=== PATIENT | female | born 1955 | race Caucasian/White ===

== ENCOUNTER → 2019-03-27 09:56 | Outpatient (BNVA) | payer MEDICAID, SELFPAY | PROVIDERS: Family Provider Internal Medicine; PCP Internal Medicine; Visit Provider Podiatrist Foot & Ankle Surgery | DX: Z48.89 Encounter for other specified surgical aftercare (principal); M76.61 Achilles tendinitis, right leg | CPT/HCPCS: 73630 ==

== ENCOUNTER 2019-12-30 16:58 | Inpatient (IN) | payer MEDICAID, SELFPAY ==
[2019-12-30] VITALS (9 sets, daily range): BP systolic 125–174; BP diastolic 69–92; PULSE 82–96; RESP 18–28; TEMP 36.2–37; O2SAT 91–100; BMI 64.2
--- NOTE | 2019-12-30 17:02 | XR_ITS ---
WS: [id number] Exam: XR chest 1V portable [id number] Date/Time of Exam: 12/30/2019 5:02 PM Reason For Exam: dyspnea Findings: Comparison 01/14/2019. Consolidating infiltrate noted in the lingula and left lower lobe. Probable left pleural effusion. Th ere is diffuse infiltrate in the mid and lower right lung. Heart size is within normal limits. Pulmon naa vascularity is somewhat increased. No pneumothorax. XR/XR chest 1V portable [id number] IMPRESSION: 1. Bilateral pulmonary infiltrates as noted above. 2. Probable left-sided pleural effusion with compressive atelectasis of the lef t lower lobe. 3. Pulmonary vascular congestion. Congestive heart failure with superimposed pn eumonia should be considered.
--- NOTE | 2019-12-30 17:03 | ECG_ITS ---
[facility] Test Date: 2019-12-30 Pat Name: Siobhan Lechuga Department: Room: Gender: Female Public Relations Specialist: : [id number] Requested By: Abelardo Carney Order Number: [id number] Daniel MD: Reta Parker M.D. Measurements Intervals [place] Rate: 94 P: 74 KS: 152 QRS: 112 QRSD: 90 T: 7 QT: 346 QTc: 435 Interpretive Statements SINUS RHYTHM LOW QRS VOLTAGE IN PRECORDIAL LEADS [QRS DEFLECTION < 1.0 mV IN CHEST LEADS] LEFT POSTERIOR FASCICULAR BLOCK [QRS AXIS > 109, INFERIOR Q] POSSIBLE ANTERIOR MYOCARDIAL INFARCTION , PROBABLY OLD [30 ms Q WAVE IN V3/V4, OR R < 0.2 mV IN V4] Compared to ECG 01/14/2019 12:21:53 Left posterior fascicular block now present Myocardial infarct finding now present Ventricular premature complex(es) no longer present Electronically Signed On 12-31-2019 7:17:27 CDT by Reta Parker M.D. [email or web address]
--- NOTE | 2019-12-30 17:06 | ED_ITS ---
HPI - Nausea/Vomiting/Diarrhea General: Chief complaint: Allergic Reaction Stated complaint: GEN WEAKNESS, POSS ALLERGIC RXN Time Seen by Provider: 12/30/19 16:58 Source: patient and EMS Mode of arrival: EMS Limitations: no limitations History of Present Illness: HPI Narrative: 64-year-old female presents here with EMS for allergic reaction. She states she is allergic to cats in her grandkids had a cat over her house and it was sitting on her face. She does have swelling around her eyes with her right eye swollen shut. She does not have swelling elsewhere and denies any shortness of breath or swelling in her throat. Patient has had generalized weakness and is morbidly obese. She has had diarrhea and does have feces on her legs currently. She denies any abdominal pain or fevers. Associated nausea: No Associated symtoms: Denies chest pain, dysuria, headache(s) or nausea Review of Systems Const: Denies: fever(s), chills, body aches or change in appetite Eyes: Denies: blurry vision or eye discomfort ENMT: Denies: throat pain or dental pain Card: Denies: chest pain Resp: Denies: dyspnea GI: Reports: diarrhea; Denies: abdominal pain, nausea or vomiting : Denies: dysuria Musc: Denies: neck pain or back pain Skin/Breast: Denies: rash Neuro: Reports: weakness in extremities; Denies: headache(s) Psych: Denies: depression Jorden/Lymph: Denies: easy bruising All/Imm: Reports: facial swelling; Denies: urticaria PFSH ED PFSH: Medical History Diabetes mellitus with peripheral autonomic neuropathy Gangrene Hypertension Morbid obesity PAD (peripheral artery disease) Tobacco abuse, in remission Surgical History Post-operative state Status post amputation of great toe Family History Other Diabetes Hypertension Denies family history of CAD (coronary artery disease) Clotting disorder Dementia Hyperlipidemia Psychiatric illness Chronic kidney disease (CKD) Suicide Anesthesia complication Bleeding disorder Family history of premature coronary artery disease Lung disease Cancer Stroke Social History (Reviewed 06/12/19 @ 11:30 by FLORENCE Angel Smoking and tobacco status: former smoker Marital status: Current occupational status: disabled Physical Exam Const: COMMON NORMALS: no acute distress and patient oriented x3 NUTRITIONAL APPEARANCE: obese HENMT: COMMON NORMALS: normocephalic and atraumatic HEAD & SCALP: normocephalic and atraumatic OTHER: Angioedema around eyes. No swelling in the throat no difficulty breathing Eye: COMMON NORMALS: Equal, round and reactive pupils present and EOMs intact bilaterally PUPIL: Yes Equal, round and reactive pupils present Neck/C-Spine: COMMON NORMALS: full ROM and supple Chest: COMMONS NORMALS: normal inspection of the chest and normal palpation of entire chest wall Resp: COMMON NORMALS: normal respiratory effort, No retractions, No use of accessory muscles and clear to auscultation bilaterally AUSCULTATION: clear to auscultation bilaterally Cardio: COMMON NORMALS: regular rate, regular rhythm and No murmurs present (Cardio) RATE: regular rate RHYTHM: regular rhythm GI: COMMON NORMALS: Normal to inspection, nondistended, normoactive bowel sounds present, Soft to palpation, non-tender and no masses PALPATION: Yes Soft to palpation Extremity: COMMON NORMALS: normal to inspection and full ROM Neuro: COMMON NORMALS: patient oriented x3, moves all extremities and no focal motor deficits Psych: COMMON NORMALS: mental status grossly normal, Normal thought process present and cooperative THOUGHT PROCESS: Normal thought process present Skin: COMMON NORMALS: no rashes or lesions noted and no wounds GENERAL SKIN EXAM: no rashes or lesions noted Course Vital Signs: Vital signs: Vital Signs Temperature 98.6 F 12/30/19 19:50 Pulse Rate 93 12/30/19 19:50 Respiratory Rate 24 H 12/30/19 19:50 Blood Pressure 161/69 12/30/19 19:50 Pulse Oximetry 92 12/30/19 19:50 MDM - Nausea/Vomiting/Diarrhea MDM Narrative: Medical decision making narrative: Patient presents here with generalized weakness. Patient has not been taking care of herself and was covered in feces. Patient does have some swelling around her eyes that is improved. Patient's blood work here is normal. I spoke to hospitalist will admit for generalized weakness and likely mcfp placement as she is not able to take care of her self. Lab Data: Labs: Lab Results 12/30/19 12/30/19 12/30/19 Range/Units 17:00 17:00 18:00 WBC 10.2 H (4.0-10.0) 10^3/ uL RBC 5.82 H (4.1-5.3) 10^6/u L Hgb 13.8 (11.5-15.3) g/dL Hct 50.1 H (37.0-47.0) % MCV 86.1 (81-99) fL MCH 23.7 L (28.0-34.0) pg MCHC 27.5 L (30.0-36.0) g/dL RDW 23.1 H (12.1-15.1) % Plt Count 375 (130-400) 10^3/c mm MPV 9.8 (7.4-10.4) fL Neut % (Auto) 80.5 % Lymph % (Auto) 7.4 % [place] % (Auto) 8.5 % Eos % (Auto) 2.4 % Baso % (Auto) 0.8 % Neut # (Auto) 8.19 H (1.8-7.7) 10^3/u L Lymph # (Auto) 0.8 (0.8-4.8) 10^3/u L [place] # (Auto) 0.9 (0.2-0.9) 10^3/u L Eos # (Auto) 0.2 (0.0-0.8) 10^3/u L Baso # (Auto) 0.1 (0.0-0.1) 10^3/u L Nucleated RBC % (a uto) 0 % Nucleated RBCs # 0.0 /100WBC Sodium 140 (136-145) mmol/L Potassium 4.9 (3.5-5.1) mmol/L Chloride 98 (98-107) mmol/L Carbon Dioxide 31 H (22-29) mmol/L Anion Gap 15.9 (5-19) BUN 26 H (8-23) mg/dL Creatinine 0.9 (0.5-0.9) mg/dL GFR Calculation 63.2 L (90-130) mL/min Glucose 210 H (65-115) mg/dL Calculated Osmolal ity 301 H (285-295) mOsm/k g Calcium 9.3 (8.5-10.5) mg/dL Magnesium 2.3 (1.7-2.3) mg/dL Total Bilirubin 0.5 (0.15-1.2) mg/dL AST 16 (0-32) U/L ALT 11 (0-33) U/L Alkaline Phosphata se 86 (35-105) IU/L Total Protein 8.3 (6.6-8.7) g/dL Albumin 4.0 (3.5-5.2) g/dL Globulin 4.3 (1.3-4.6) g/dL Lipase 19 (13-60) U/L Urine Color Yellow (Yellow) Urine Appearance Clear (CLEAR) Urine pH 5 (5-7) Ur Specific Gravit y 1.025 (1.005-1.030) Urine Protein Neg (Negative) Urine Glucose (UA) Norm (Normal) Urine Ketones 1+ H (Negative) Urine Blood Neg (Negative) Urine Nitrate Negative (Negative) Urine Bilirubin Neg (Negative) Urine Urobilinogen Norm (Negative) mg/dL Ur Leukocyte Shazia ase Negative (Negative) EKG Data^: EKG 1: Attestation: I personally reviewed and interpreted this EKG as follows: EKG interpretation date: 12/30/19 EKG interpretation time: 17:18 Interpretation: nsr hr [address] or t wave abnormalities qrs 90 qtc 398 Discharge Plan Discharge Patient Disposition: Admitted As Inpatient Admit Provider: Jeffrey Cantu Discharge Date/Time: 12/30/19 20:03 Coding Level of Care Code ED Legislative Director for Chg Fwd Exam Comprehensive
[2019-12-30] MEDS: famotidine 20 mg/2 mL INJ 40 MG IVP (17:25)
[2019-12-30 17:40] LABS: Basophils # 0.1 10^3/uL (0.0-0.1); Basophils % 0.8 %; Eosinophils # 0.2 10^3/uL (0.0-0.8); Eosinophils % 2.4 %; Hematocrit 50.1 % (37.0-47.0); Hemoglobin 13.8 g/dL (11.5-15.3); Lymphocytes # 0.8 10^3/uL (0.8-4.8); Lymphocytes % 7.4 %; Mean Corpuscular HGB Conc 27.5 g/dL (30.0-36.0); Mean Corpuscular Hemoglobin 23.7 pg (28.0-34.0); Mean Corpuscular Volume 86.1 fL (81-99); Mean Platelet Volume 9.8 fL (7.4-10.4); Monocytes # 0.9 10^3/uL (0.2-0.9); Monocytes % 8.5 %; Neutrophils # 8.19 10^3/uL (1.8-7.7); Neutrophils % 80.5 %; Nucleated Red Blood Cells % 0 %; Platelet Count 375 10^3/cmm (130-400); Red Blood Count 5.82 10^6/uL (4.1-5.3); Red Cell Distribution Width 23.1 % (12.1-15.1); White Blood Count 10.2 10^3/uL (4.0-10.0)
--- NOTE | 2019-12-30 17:45 | PC.NURSE ---
Notified provider unable to collect stool sample. Noted dried stool on bilateral legs/ groin. Pt tolerated with cleaning and placed pt in gown and new linen
[2019-12-30 17:47] LABS: Alanine Aminotransferase 11 U/L (0-33); Alkaline Phosphatase 86 IU/L (35-105); Anion Gap 15.9 (5-19); Aspartate Amino Transferase 16 U/L (0-32); Blood Urea Nitrogen 26 mg/dL (8-23); Calcium 9.3 mg/dL (8.5-10.5); Carbon Dioxide 31 mmol/L (22-29); Chloride 98 mmol/L (98-107); Globulin 4.3 g/dL (1.3-4.6); Glomerular Filtration Rate 63.2 mL/min (90-130); Glucose 210 mg/dL (65-115); Lipase 19 U/L (13-60); Magnesium 2.3 mg/dL (1.7-2.3); Osmolality Calculated 301 mOsm/kg (285-295); Potassium 4.9 mmol/L (3.5-5.1); Sodium 140 mmol/L (136-145); Total Bilirubin 0.5 mg/dL (0.15-1.2); Total Protein 8.3 g/dL (6.6-8.7)
--- NOTE | 2019-12-30 18:02 | PC.NURSE ---
Skin red swollen from face to breast to abdomen. Excoriation noted under breast bilateral, groin front and back. Notified provider. Marcelo placed secondary to pt inability to void. Per family pt is unable to walk today and unable to clean self after BM and voiding.
--- NOTE | 2019-12-30 18:03 | PC.NURSE ---
Pt cleaned and placed in a gown. Pt with dried feces on her legs and bottoms. Pt repositioned and chux placed, ambulance sheets removed. No stool sample at this time, not enough stool.
[2019-12-30 18:04] LABS: Add Urine Microscopic? NO
[2019-12-30 18:13] LABS: Bilirubin Urine Neg (Negative); Blood Urine Neg (Negative); Glucose Urine UA Norm (Normal); Ketones Urine 1+ (Negative); Leukocyte Esterase Urine Negative (Negative); Nitrate Urine Negative (Negative); Protein Urine Neg (Negative); Specific Gravity, Urine 1.025 (1.005-1.030); Urine Appearance Clear (CLEAR); Urine Color Yellow (Yellow); Urobilinogen Urine Norm (Negative); pH Urine 5 (5-7)
--- NOTE | 2019-12-30 18:17 | PC.NURSE ---
Pt stated she felt better after the medication.
--- NOTE | 2019-12-30 19:18 | PC.NURSE ---
Pt aware of admission. No needs at this time.
--- NOTE | 2019-12-30 19:23 | PC.NURSE ---
x2 staff repositioned pt for comfort. HOB 45% Pt stated better .
--- NOTE | 2019-12-30 20:08 | P.HP_ITS ---
Providers/Chief Complaint Admitting Physician: Jeffrey Cantu MD Primary Care Provider: Ronny Torres DO Chief Complaint: GEN WEAKNESS, POSS ALLERGIC RXN History of Present Illness Siobhan Lechuga is a 64 year old female who carries history of type 2 diabetes, osteomyelitis of right great toe status post amputation, peripheral arterial disease status post arthrectomy with stent placement from aortic bifurcation for entire length of common iliac artery, hypertension, coming in today for worsening of generalized weakness and eye swelling. Patient is stating that she is allergic to cats, her grand children brought cats, since then her eyes have been swollen, he recently has not used any new medication, she has been on lisinopril for quite a while, she is also experiencing dry cough, she has recently quit smoking, she has not experienced any chest discomfort, she is endorsing shortness of breath, palpating, PND, she uses 3 to 4 L of oxygen at home. Denying fever, dysuria, nausea, vomiting,, endorsing diarrhea. Family stating that she is not able to take care of herself anymore, she mostly stays in her bed. When she was brought to the ER she was soiled with feces all over her perineal area and legs CBC BMP unremarkable I have requested TSH, BNP which are abnormal, I have started her on Lasix, chest x-ray showing pleural effusion, vascular congestion I will give 20 mg of IV Lasix and start her on 60 mg of p.o. Lasix, get echo When I was interviewing her she kept going back to sleep during interview, she has recently received Benadryl, she was coherent, I noticed pursed lip breathing, requested blood gas Requested ciprofloxacin eyedrops, she has purulent crusting and drainage from her eyes bilaterally, I do not see any severe signs of keratitis Review of Systems Const: Reports: body aches, fatigue and malaise; Denies: fever(s) Eyes: Reports: change in vision, blurry vision, eye discomfort, eye discharge and eye redness ENMT: Denies: throat pain, odynophagia, swelling of lips/tongue or oral sores Card: Reports: swelling of feet/ankles, dyspnea on exertion and orthopnea; Denies: chest pain Resp: Reports: dyspnea and non-productive cough GI: Reports: nausea and diarrhea; Denies: abdominal pain or vomiting : Denies: flank pain Musc: Reports: extremity pain and extremity swelling; Denies: neck pain or joint warmth Skin/Breast: Reports: rash, new lesions (Extremely dry skin, skin excoriation legs soiled with feces) and lesions Neuro: Reports: difficulty walking; Denies: headache(s) Psych: Reports: anxiety and depression Endo: Denies: polyuria Jorden/Lymph: Denies: easy bruising All/Imm: Denies: urticaria Medications/Allergies Home Medications Medication Instructions Recorded Confirmed Last Taken Type albuterol sulfate 90 mcg/actuation 2 puff INHALATION Q6H PRN 03/27/19 10/23/19 Unknown History aerosol inhaler amlodipine 10 mg tablet 10 mg PO QDAY 03/27/19 10/23/19 Unknown History clopidogrel 75 mg tablet 75 mg PO QDAY 03/27/19 10/23/19 Unknown History fluticasone furoate 100 1 inh INHALATION Q24H 03/27/19 10/23/19 Unknown History mcg/actuation blister powder for inhalation lisinopril 20 mg tablet 20 mg PO QDAY 03/27/19 10/23/19 Unknown History sertraline 100 mg tablet 100 mg PO QDAY 03/27/19 10/23/19 Unknown History Allergies Allergy/AdvReac Type Severity Reaction Status Date / Time aspirin Allergy Unknown Unknown Verified 06/12/19 11:30 citalopram Allergy Unknown Unknown Verified 06/12/19 11:30 codeine Allergy Unknown Unknown Verified 06/12/19 11:30 PFSH Acute PFSH: Medical History Diabetes mellitus with peripheral autonomic neuropathy Gangrene Hypertension Morbid obesity PAD (peripheral artery disease) Tobacco abuse, in remission Surgical History Post-operative state Status post amputation of great toe Family History Other Diabetes Hypertension Denies family history of CAD (coronary artery disease) Clotting disorder Dementia Hyperlipidemia Psychiatric illness Chronic kidney disease (CKD) Suicide Anesthesia complication Bleeding disorder Family history of premature coronary artery disease Lung disease Cancer Stroke Social History Smoking and tobacco status: former smoker Marital status: Current occupational status: disabled Vitals/I&O/Wt Last Vital Signs Temp 98.6 F 12/30/19 19:50 Pulse 93 12/30/19 19:50 Resp 24 H 12/30/19 19:50 BP 161/69 12/30/19 19:50 Pulse Ox 92 12/30/19 19:50 Weight last 48 hrs Weight 144.242 kg Physical Exam Narrative: EXAM NARRATIVE: Morbidly obese female Patient goes back to sleep during interview Bilateral eyelid swelling, no pain with eye movement, mild crusting and purulent drainage noticed No severe signs of keratitis Cushingoid appearance Pursed lip breathing Coherent, awake alert oriented x3, GCS 15 Signs of fluid overload, Saturating well on 4 L nasal cannula S1, S2 active signs of fluid overload Abdomen distended, soft, nontender, bowel sound present Bilateral diminished breath sounds at the bases, no active wheezing or stridor No lip swelling Bilateral lower extremity edema 1+ bilaterally Multiple erythema nodosum on her legs, lacerations, Extremely dry skin, skin excoriation, leg soiled with feces Marcelo catheter draining clear urine Urinary Catheter Management^: Marcelo: Cath Placed During This Visit: yes Reason for Continuing Indwelling Catheter: Other Urinary Catheter Date of Insertion: 12/30/19 Urinary Catheter Time of Insertion: 17:45 Data : 12/30/19 17:00 12/30/19 17:00 A&P Assessment and plan (1) New onset of congestive heart failure: Status: Acute (2) Generalized weakness: Status: Acute (3) Swollen eyelid: Status: Acute (4) Pleural effusion: Status: Acute (5) Morbid obesity: Status: Acute Additional A&P Information New onset CHF I do believe morbid obesity, possible sleep apnea has a role here to play which has caused CHF, patient at home is not on CPAP, I do not see any sleep studies report in the past Echo in the morning, I will give her 20 mg IV Lasix for now Start her on 60 mg of Lasix considering fluid overload. bilateral pleural effusion with vascular congestion on chest imaging Check TSH, A1c level Bilateral eyelid swelling Crusting with purulent drainage, would use ciprofloxacin eyedrop No severe signs of keratitis Consider ophthalmology consult in the morning, patient is stating that she is allergic to cats and her symptoms started after she was exposed to cat at home I would hold lisinopril as well Start her on Benadryl and Solu-Cortef Generalized weakness Check TSH, obtain ABG I do suspect sleep apnea, will put her on auto CPAP overnight, currently showing pursed lip breathing after getting Benadryl, her Marcelo catheter should be removed in the morning currently she is drowsy after getting Benadryl and getting IV Lasix Peripheral arterial disease No acute decompensation No active ulcers, well-healed granulated tissue of right toe Full code DVT prophylaxis Lovenox Cardiac diet Physical therapy evaluation in the morning Attestations Medical Necessity Statement*: Anticipating discharge in less than 48 hours, she will need physical therapy evaluation, management of new onset CHF Time Spent in Patient Care: (>than 50% of time spent in counselling and/or direct pt care on unit) . 40mins Coding Level of Care Code Acute Clock And Watch Hands Dipper for Chg Fwd Diagnoses New onset of congestive heart failure I50.9 Generalized weakness R53.1 Swollen eyelid H02.849 Pleural effusion J90 Morbid obesity E66.01
[2019-12-30 20:52] LABS: NT Pro B Type Natriuretic Pept 1747 pg/mL (0-125)
[2019-12-30] MEDS: hydrocortisone 100 mg/2 mL SDV 50 MG IVP (20:59)
[2019-12-30 21:01] LABS: Thyroid Stimulating Hormone 4.54 uIU/mL (0.27-4.20)
[2019-12-30] MEDS: lisinopril 20 mg Tablet PO (21:14)
[2019-12-30] MEDS: clopidogrel 75 mg Tablet PO (21:14)
[2019-12-30] MEDS: sertraline 100 mg Tablet PO (21:14)
[2019-12-30] MEDS: enoxaparin 40 mg/0.4 mL Syringe SUBCUT (21:15)
[2019-12-30] MEDS: FUROsemide 10 mg/mL SDV 2mL 20 MG IVP (21:22)
[2019-12-30] MEDS: ciprofloxacin 0.3% Op Soln 2.5 mL Btl 1 DROP EYE-BOTH (21:24)
[2019-12-30 21:56] LABS: Glucose Point of Care 194 mg/dL (70-110)
[2019-12-30 22:09] LABS: Estmated Average Glucose 237; Hemoglobin A1C 9.9 % (4.0-6.0)
[2019-12-30 23:33] LABS: Free T4 Free Thyroxine 1.11 ng/dL (0.82-1.77)
[2019-12-31] VITALS (13 sets, daily range): BP systolic 101–140; BP diastolic 61–78; PULSE 74–95; RESP 14–20; TEMP 36.2–36.6; O2SAT 89–94
[2019-12-31 02:28] LABS: Arterial Blood Gas Hematocrit 41.6 % (37-47); Base Excess ABG 0.5 mmol/L (-2.0-2.0); Blood Gas Allen Test P; Blood Gas Sample Site LEFT RADIAL; Blood Gas Sample Type ARTERIAL; HCO3 ABG 28.2 mmol/L (22-26); Oxygen Device NC
--- NOTE | 2019-12-31 03:39 | PC.NURSE ---
Respiratory therapist reported to nurse that patient would not arouse when attempting to speak with her about wearing her c-pap and drawing a blood gas. This nurse went in to assess the patient finding the patient difficult to arouse and responded to moderate stimulation. Patient was able to open her eyes when asked to but would not fully wake up. After further assessing the patient, patient was able to state her name, , and location, but not the time of day, year, or month. Blood gas was drawn by RT assisted by this nurse. Patient continues to be confused on time of day saying It's the middle of the afternoon I need to get up. Patient has attempted to get out of bed twice after being educated on using call light to ask for assistance. Patient was educated on being a fall risk and that it is not safe at this time for her to get out of bed on her own. Bed alarm is set with call light in reach and patient has been oriented to the room. Upon admission, patient was A&O x3 with a history of dementia.
[2019-12-31 05:46] LABS: Basophils % 0.2 %; Hematocrit 45.6 % (37.0-47.0); Hemoglobin 12.3 g/dL (11.5-15.3); Lymphocytes # 0.3 10^3/uL (0.8-4.8); Lymphocytes % 3.4 %; Mean Corpuscular Hemoglobin 23.7 pg (28.0-34.0); Mean Corpuscular Volume 87.7 fL (81-99); Mean Platelet Volume 10.1 fL (7.4-10.4); Monocytes # 0.2 10^3/uL (0.2-0.9); Monocytes % 2.2 %; Neutrophils # 8.65 10^3/uL (1.8-7.7); Neutrophils % 93.7 %; Nucleated Red Blood Cells % 0 %; Platelet Count 304 10^3/cmm (130-400); Red Cell Distribution Width 22.7 % (12.1-15.1); White Blood Count 9.2 10^3/uL (4.0-10.0)
[2019-12-31 06:15] LABS: Anion Gap 15.7 (5-19); Blood Urea Nitrogen 32 mg/dL (8-23); Carbon Dioxide 28 mmol/L (22-29); Chloride 101 mmol/L (98-107); Glucose 268 mg/dL (65-115); Osmolality Calculated 304 mOsm/kg (285-295); Potassium 5.7 mmol/L (3.5-5.1); Sodium 139 mmol/L (136-145)
[2019-12-31 06:34] LABS: Glucose Point of Care 255 mg/dL (70-110)
[2019-12-31 06:55] LABS: D Dimer 3.84 ug/mIFEU (0-0.59)
[2019-12-31] MEDS: losartan 50 mg Tablet 25 MG PO (08:26)
[2019-12-31] MEDS: clopidogrel 75 mg Tablet PO (08:29)
[2019-12-31] MEDS: FUROsemide 20 mg Tablet 60 MG PO (08:29)
[2019-12-31] MEDS: ipratropium-albuterol 3 mL Neb INHALATION ×2 (08:45→20:01)
--- NOTE | 2019-12-31 09:37 | PC.CHAP ---
Pastoral Care Encounter/Spiritual Assessment Type of Contact [] Declined mechanical shovel operator visit [] Patient/Family/Request visit [] Outpatient visit [] Follow-up visit [] Physician referral [] Code/Alert [] Routine visit [] Staff referral [] Actively dying [] Patient sleeping [] Family support [] [] Out of room [] Palliative care [] [] Receiving care in room [] Pre-surgical visit [] Trauma [] Long length of stay [] ICU visit [] Other: Relational/Emotional Strength [] Patient feels connected with others/family/visitors/staff [] Distress [] Loneliness/isolation [] Abandonment Spirituality of Patient [x] Person of Amaris [] Attends Confucianist of their Amaris [] Believes in Prayer [] Reads Bible or Oriental Orthodox materials [] There are Spiritual issues to be addressed Taximeter Repairer Interventions [x] Prayer [] Active listening [] Non-anxious presence [] Spiritual/emotional support [] Crisis/trauma care [] Spiritual counseling [] Bereavement support [] Provided bereavement packet [] Provided Bible/devotional materials [] Provided toy/stuffed animal, coloring book to patient or family member [] Provided Communion [] Anointing/[place] [] Salvation [] Completed spiritual assessment [] Other: Impact on Illness or Injury [] Angry [] Fearful [] Anxious [] Often cries [] Exhaustion [] Unable to work [] Unable to attend oriental orthodox [] Unable to walk/stand [] Unable to read [] Unable to drive [] Unable to eat/drink [] Unable to sleep [] Unable to be with family [] Patient intubated [] Other: Summary patgient feeling better Time spent with patient 10 min
[2019-12-31] MEDS: ciprofloxacin 0.3% Op Soln 2.5 mL Btl 1 DROP EYE-BOTH ×4 (10:14→22:03)
[2019-12-31] MEDS: hydrocortisone 100 mg/2 mL SDV 50 MG IVP (10:15)
[2019-12-31] MEDS: nystatin powder 15 gm Btl 1 APPLIC TOPICAL ×2 (10:17→17:55)
--- NOTE | 2019-12-31 10:43 | PM.PN ---
Subjective Subjective: Interval history: Patient had noted improvement in eye symptoms. Was sitting up in chair with out any discomfort Vitals/I&O/Wt Last Vital Signs Temp 97.7 F 01/01/20 08:00 Pulse 72 01/01/20 07:53 Resp 17 01/01/20 07:53 BP 94/63 01/01/20 07:49 Pulse Ox 93 01/01/20 07:53 12/31/19 01/01/20 01/01/20 22:59 06:59 14:59 Intake Total 0 / 0 0 / 0 Balance 0 / 0 0 / 0 Weight last 48 hrs Weight 158.667 kg Weight 144.242 kg Physical Exam Narrative: EXAM NARRATIVE: Morbidly obese female Awake alert and oriented x 3 Bilateral eyelid swelling, no pain with eye movement, mild crusting with out any purulent discharge No severe signs of keratitis Cushingoid appearance Pursed lip breathing Coherent, awake alert oriented x3, GCS 15 Signs of fluid overload, Saturating well on 4 L nasal cannula S1, S2 active signs of fluid overload Abdomen distended, soft, nontender, bowel sound present Bilateral diminished breath sounds at the bases, no active wheezing or stridor No lip swelling Bilateral lower extremity edema 1+ bilaterally Multiple erythema nodosum on her legs, lacerations, Extremely dry skin, skin excoriation, leg soiled with feces Marcelo catheter draining dark urine Urinary Catheter Management^: Marcelo: Cath Placed During This Visit: yes Reason for Continuing Indwelling Catheter: Accurate Measurement of Urinary Output in Critically Ill Patients Urinary Catheter Date of Insertion: 12/30/19 Urinary Catheter Time of Insertion: 17:45 Data : 01/01/20 07:35 01/01/20 07:35 Micro: Microbiology 01/01/20 05:08 Blood Culture - Preliminary Blood SPECIMEN COLLECTED 01/01/20 05:03 Blood Culture - Preliminary Blood SPECIMEN COLLECTED 12/31/19 10:20 C.difficile Toxin B Gene (PCR) - Final Stool Routine Collection A&P Assessment and plan (1) New onset of congestive heart failure: Status: Acute (2) Generalized weakness: Status: Acute (3) Swollen eyelid: Status: Acute (4) Pleural effusion: Status: Acute (5) Morbid obesity: Status: Acute Additional A&P Information New onset CHF - Diuresis started on admisison -Repeat labs in am - Echo pendng Bilateral eyelid swelling - Started on ciprodex gtt - WIll consider optho however improving will hold Generalized weakness - PT/OT on consult Peripheral arterial disease No acute decompensation No active ulcers, well-healed granulated tissue of right toe Full code DVT prophylaxis Lovenox Cardiac diet Attestations Medical Necessity Statement*: Patient will require further hospitalization for management of fluid overload status as well as new onset heart failure requiring IV lasix Coding Level of Care Code Acute Drafter Apprentice for Chg Fwd Diagnoses New onset of congestive heart failure I50.9 Generalized weakness R53.1 Swollen eyelid H02.849 Pleural effusion J90 Morbid obesity E66.01
--- NOTE | 2019-12-31 11:22 | PC.NURSE ---
While performing hygiene on pt boil was discovered under left arm a small amount of white drainage came out when area was wiped down pt denies knowledge of boil being present.
[2019-12-31 12:47] LABS: Glucose Point of Care 287 mg/dL (70-110)
[2019-12-31 18:06] LABS: Glucose Point of Care 308 mg/dL (70-110)
[2019-12-31 19:58] LABS: Glucose Point of Care 270 mg/dL (70-110)
[2019-12-31] MEDS: enoxaparin 40 mg/0.4 mL Syringe SUBCUT ×2 (20:28→22:54)
--- NOTE | 2019-12-31 20:31 | USCV_ITS ---
Siobhan Lechuga Age: 64 Gender: F : 1955 Exam Date: 12/31/2019 05:59 Ordering Phys: Jeffrey Cantu MD Technologist: Ricardo Mathis Exam Location: [facility] [place] Indication: CHF BP: / HR: Rhythm: Sinus Technical Quality: NO WINDOWS MEASUREMENTS (Male / Female) Normal Values FINDINGS Left Ventricle Right Ventricle Right Atrium Left Atrium Mitral Valve Aortic Valve Tricuspid Valve Pulmonic Valve Pericardium Aorta CONCLUSIONS No images noted study is not reportable, please order repeat study or transesophageal echocardiogram if clinically indicated. Jeffrey Rider MD (Electronically Signed) Final Date: 31 December 2019 19:13 S
[2019-12-31 20:43] LABS: ABG PH Result 7.15 (7.35-7.45); Arterial Blood Gas Hematocrit 38.4 % (37-47); Base Excess ABG 1.6 mmol/L (-2.0-2.0); Blood Gas Allen Test Pos; Blood Gas Sample Site Radial, left; Blood Gas Sample Type Arterial; HCO3 ABG 33.2 mmol/L (22-26); Oxygen Device CARE CUBE; PO2 ABG 86.2 mmHg (80.0-100.0)
--- NOTE | 2019-12-31 20:44 | ECG_ITS ---
[facility] Test Date: 2019-12-31 Pat Name: Siobhan Lechuga Department: Room: 263 Gender: Female Studio Associate: : 1955 Requested By: Paz Hansen Order Number: [id number] Reading MD: Measurements Intervals [place] Rate: 79 P: 54 AL: 170 QRS: 95 QRSD: 89 T: -18 QT: 392 QTc: 451 Interpretive Statements SINUS RHYTHM BORDERLINE RIGHT AXIS DEVIATION [QRS AXIS > 90] LOW QRS VOLTAGE [QRS DEFLECTION < 0.5/1.0 mV IN LIMB/CHEST LEADS] POSSIBLE ANTERIOR MYOCARDIAL INFARCTION [30 ms Q WAVE IN V3/V4, OR R < 0.2 mV IN V4], OF INDETERMINATE AGE Compared to ECG 12/30/2019 17:18:28 Left posterior fascicular block no longer present Myocardial infarct finding still present [email or web address]
--- NOTE | 2019-12-31 20:45 | XR_ITS ---
WS: [id number] Exam: XR chest 1V portable [id number] Date/Time of Exam: 12/31/2019 9:23 PM Reason For Exam: dyspnea Findings: There is increasing infiltrate in the right lower lung zone since previous study. There is also infil trate in the left lower lobe and left pleural effusion. The heart is enlarged. Pulmonary vascularity is increased. No pneumothorax. XR/XR chest 1V portable [id number] IMPRESSION: 1. Increasing consolidating infiltrate in the right lower lobe since prior exam . 2. Left lower lobe consolidation and left pleural effusion. 3. Cardiac enlargement with pulmonary vascular congestion.
[2019-12-31 21:36] LABS: Basophils % 0.2 %; Eosinophils % 0.1 %; Hematocrit 43.5 % (37.0-47.0); Hemoglobin 11.5 g/dL (11.5-15.3); Lymphocytes # 0.5 10^3/uL (0.8-4.8); Lymphocytes % 3.9 %; Mean Corpuscular HGB Conc 26.4 g/dL (30.0-36.0); Mean Corpuscular Hemoglobin 23.8 pg (28.0-34.0); Mean Corpuscular Volume 89.9 fL (81-99); Mean Platelet Volume 10.1 fL (7.4-10.4); Monocytes # 1.3 10^3/uL (0.2-0.9); Monocytes % 10.2 %; Neutrophils # 10.83 10^3/uL (1.8-7.7); Neutrophils % 85.2 %; Nucleated Red Blood Cells % 0 %; Platelet Count 360 10^3/cmm (130-400); Red Blood Count 4.84 10^6/uL (4.1-5.3); Red Cell Distribution Width 22.8 % (12.1-15.1); White Blood Count 12.7 10^3/uL (4.0-10.0)
[2019-12-31 21:53] LABS: Alanine Aminotransferase 10 U/L (0-33); Albumin Level 3.4 g/dL (3.5-5.2); Alkaline Phosphatase 73 IU/L (35-105); Anion Gap 10.3 (5-19); Aspartate Amino Transferase 10 U/L (0-32); Blood Urea Nitrogen 37 mg/dL (8-23); Calcium 8.6 mg/dL (8.5-10.5); Carbon Dioxide 32 mmol/L (22-29); Chloride 101 mmol/L (98-107); Globulin 3.7 g/dL (1.3-4.6); Glomerular Filtration Rate 32.6 mL/min (90-130); Glucose 271 mg/dL (65-115); Osmolality Calculated 304 mOsm/kg (285-295); Potassium 5.3 mmol/L (3.5-5.1); Sodium 138 mmol/L (136-145); Total Bilirubin 0.2 mg/dL (0.15-1.2); Total Protein 7.1 g/dL (6.6-8.7)
[2019-12-31 21:57] LABS: SARS Covid-2 Antigen Negative (Negative)
--- NOTE | 2019-12-31 22:04 | PM.MISC ---
Miscellaneous Note Purpose of Documentation: unresponsive state Note: I was called by the nurse at around 8:30 PM to report that the patient was unresponsive to verbal and tactile and painful stimulus. An ABG was immediately performed which showed hypercapnic respiratory failure with acidosis with 7.1 5/96/86/30 3.2. She was placed on BiPAP once these results were obtained. Last charted urine output is at 250 mL this morning. The evening or night nurse supervisor has not noted any significant urine output either. It appears patient was admitted yesterday for CHF exacerbation. Echocardiogram was ordered, however appears stable no images therefore there is no interpretation as of now. On examination, patient was noted to be extremely lethargic, initially nonresponsive, after being placed on BiPAP for about 15 minutes, her mental status did start to improve, she was able to follow my commands to move her arms and legs and answer yes or no to simple questions. Plan: Start patient on BiPAP now. Repeat ABG in 1 hour Stop oral Lasix and change to 40 mg IV every 12 hours. Monitor strict CARLOS and daily weight. Uncertain if she has a past history of COPD as well. Start on methylprednisolone 30 mg IV every 8 for possibility of COPD exacerbation. Noted to have an elevated D-dimer of 3.84, no past D-dimer in the system to compare. For now, give Lovenox 1 mg/kg stat. Serum creatinine has increased from 1-1.6 on repeat CMP, will avoid contrast studies including CTA. VQ scan ordered for tomorrow morning. Leukocytosis at 12.7 with predominant neutrophilia of 10, start levofloxacin 750 mg p.o. daily. Stat labs including CBC, CMP, troponin and EKG series Check rapid Covid antigen Echocardiogram ordered again. Stat chest x-ray Above events discussed with patient's noted next of kin which is his son George and [id number] Yumiko. They tell me that patient has previously known wishes wherein she has wanted not to be placed on a ventilator. she communicated this to her family as recently as yesetrday. In accordance, her CODE STATUS has been changed from Full code to DNR/DNI. Family understands that if Bipap fails and her wishes are do not intubate, she may have a poor outcome by way of respiratory failure.
[2019-12-31 22:14] LABS: Arterial Blood Gas Hematocrit 36.6 % (37-47); Base Excess ABG 2.5 mmol/L (-2.0-2.0); Blood Gas Allen Test Pos; Blood Gas Sample Site Radial, left; Blood Gas Sample Type Arterial; HCO3 ABG 32.7 mmol/L (22-26); Oxygen Device BIPAP; PO2 ABG 67.6 mmHg (80.0-100.0)
[2019-12-31 22:15] LABS: ABG PCO2 83.6 mmHg (35-45)
[2019-12-31 22:29] LABS: Troponin(5th) Baseline 21 ng/L (0-10)
--- NOTE | 2019-12-31 22:44 | ECG_ITS ---
[facility] Test Date: 2019-12-31 Pat Name: Siobhan Lechuga Department: Room: 263 Gender: Female Cardiology Associate: : [id number] Requested By: Paz Hansen Order Number: [id number] Reading MD: Measurements Intervals [place]abella Rate: 65 P: 56 NJ: 162 QRS: 96 QRSD: 90 T: -8 QT: 401 QTc: 419 Interpretive Statements SINUS RHYTHM BORDERLINE RIGHT AXIS DEVIATION [QRS AXIS > 90] LOW QRS VOLTAGE [QRS DEFLECTION < 0.5/1.0 mV IN LIMB/CHEST LEADS] ABNORMAL QRS-T ANGLE [QRS-T AXIS DIFFERENCE > 60] Compared to ECG 12/31/2019 21:07:14 Myocardial infarct finding no longer present [id number]
[2019-12-31] MEDS: FUROsemide 10 mg/mL SDV 4mL 40 MG IVP (22:52)
[2019-12-31] MEDS: enoxaparin 100 mg/mL Syringe SUBCUT (22:54)
[2019-12-31] MEDS: cefTRIAXone 1,000 MG in sodium chloride 0.9% (plus) 50 ML 100 MG IV (22:54)
[2019-12-31 23:01] LABS: Lactate (Lactic Acid level) 0.9 mmol/L (0.5-2.2)
[2019-12-31 23:42] LABS: Troponin 5 2HR 19.82 ng/L (0-10)
[2019-12-31 23:46] LABS: Troponin 5 2HR Delta -1.18 ABS# (0-10)
[2019-12-31 23:51] LABS: Procalcitonin 0.09 ng/mL (0-0.5)
[2020-01-01] VITALS (19 sets, daily range): BP systolic 94–128; BP diastolic 57–89; PULSE 66–90; RESP 14–21; TEMP 35.9–37; O2SAT 92–98
--- NOTE | 2020-01-01 02:44 | ECG_ITS ---
[facility] Test Date: 2020-01-01 Pat Name: Siobhan Lechuga Department: Room: 263 Gender: Female Resource Teacher: : 1955 Requested By: Paz Hansen Order Number: [id number] Reading MD: Measurements Intervals [place] Rate: 76 P: 63 WV: 169 QRS: 96 QRSD: 89 T: 1 QT: 375 QTc: 422 Interpretive Statements SINUS RHYTHM BORDERLINE RIGHT AXIS DEVIATION [QRS AXIS > 90] LOW QRS VOLTAGE [QRS DEFLECTION < 0.5/1.0 mV IN LIMB/CHEST LEADS] POSSIBLE ANTERIOR MYOCARDIAL INFARCTION [30 ms Q WAVE IN V3/V4, OR R < 0.2 mV IN V4], PROBABLY OLD Compared to ECG 12/31/2019 23:34:52 Myocardial infarct finding now present [id number]
[2020-01-01 03:24] LABS: Troponin 5 6HR 22.56 ng/L (0-10); Troponin 5 6HR Delta 1.56 ng/L (0-12)
[2020-01-01 03:36] LABS: ABG PH Result 7.26 (7.35-7.45); Arterial Blood Gas Hematocrit 38.3 % (37-47); Base Excess ABG 2.3 mmol/L (-2.0-2.0); Blood Gas Allen Test Pos; Blood Gas Sample Site Radial, left; Blood Gas Sample Type Arterial; Carboxyhemoglobin 1.6 %THgb (0.4-20.1); HCO3 ABG 31.2 mmol/L (22-26); HGB O2 Sat 93.2 % (95-100); Ionized Calcium Level - ABG 1.2 mmol/L (1.1-1.4); Methemoglobin 0.2 % (0.4-1.5); Oxygen Device BIPAP; PO2 ABG 71.3 mmHg (80.0-100.0); Potassium Level - ABG 5.3 mmol/L (3.5-5.0); Total Hemoglobin 12.5 g/dL (12-16)
[2020-01-01] MEDS: azithromycin 500 MG in sodium chloride 0.9% 250 ML 250 MG IV (04:57)
[2020-01-01 06:20] LABS: Glucose Point of Care 226 mg/dL (70-110)
[2020-01-01 06:48] LABS: ABG PH Result 7.26 (7.35-7.45); Arterial Blood Gas Hematocrit 38.2 % (37-47); Base Excess ABG 2.8 mmol/L (-2.0-2.0); Blood Gas Allen Test Pos; Blood Gas Sample Site Radial, left; Blood Gas Sample Type Arterial; HCO3 ABG 31.8 mmol/L (22-26); Oxygen Device BIPAP; PO2 ABG 71.5 mmHg (80.0-100.0)
[2020-01-01 06:50] LABS: ABG PCO2 71.2 mmHg (35-45)
[2020-01-01] MEDS: nystatin powder 15 gm Btl 1 APPLIC TOPICAL ×2 (09:15→18:16)
[2020-01-01] MEDS: ciprofloxacin 0.3% Op Soln 2.5 mL Btl 1 DROP EYE-BOTH ×4 (09:15→22:02)
[2020-01-01] MEDS: FUROsemide 10 mg/mL SDV 4mL 40 MG IVP (09:18)
[2020-01-01 09:22] LABS: ABG PCO2 70.5 mmHg (35-45)
[2020-01-01 10:01] LABS: Basophils % 0.2 %; Eosinophils % 0.1 %; Hematocrit 46.5 % (37.0-47.0); Hemoglobin 12.4 g/dL (11.5-15.3); Lymphocytes # 0.4 10^3/uL (0.8-4.8); Lymphocytes % 3.3 %; Mean Corpuscular HGB Conc 26.7 g/dL (30.0-36.0); Mean Corpuscular Hemoglobin 23.8 pg (28.0-34.0); Mean Corpuscular Volume 89.4 fL (81-99); Mean Platelet Volume 10.3 fL (7.4-10.4); Monocytes # 0.7 10^3/uL (0.2-0.9); Monocytes % 5.5 %; Neutrophils # 10.78 10^3/uL (1.8-7.7); Neutrophils % 90.6 %; Nucleated Red Blood Cells % 0 %; Platelet Count 325 10^3/cmm (130-400); Red Cell Distribution Width 23.1 % (12.1-15.1); White Blood Count 11.9 10^3/uL (4.0-10.0)
[2020-01-01 10:05] LABS: Alanine Aminotransferase 9 U/L (0-33); Albumin Level 3.5 g/dL (3.5-5.2); Alkaline Phosphatase 65 IU/L (35-105); Anion Gap 17.4 (5-19); Aspartate Amino Transferase 13 U/L (0-32); Blood Urea Nitrogen 41 mg/dL (8-23); Carbon Dioxide 27 mmol/L (22-29); Chloride 99 mmol/L (98-107); Globulin 3.7 g/dL (1.3-4.6); Glomerular Filtration Rate 30.4 mL/min (90-130); Glucose 246 mg/dL (65-115); Osmolality Calculated 304 mOsm/kg (285-295); Potassium 5.4 mmol/L (3.5-5.1); Sodium 138 mmol/L (136-145); Total Bilirubin 0.3 mg/dL (0.15-1.2); Total Protein 7.2 g/dL (6.6-8.7)
[2020-01-01 11:23] LABS: Glucose Point of Care 221 mg/dL (70-110)
--- NOTE | 2020-01-01 11:45 | P.PN_ITS ---
Subjective Subjective: Interval history: Overnight patient was noted to have worsening mental status change as well as respiratory status. Found to have Hypercapnic respiratory failure. She was started on Bipap. No fever, chills, nausea or vomiting. Medications: Reviewed: Yes Vitals/I&O/Wt Last Vital Signs Temp 97.7 F 01/01/20 11:00 Pulse 83 01/01/20 11:31 Resp 20 H 01/01/20 11:31 BP 119/89 01/01/20 11:00 Pulse Ox 95 01/01/20 11:31 12/31/19 01/01/20 01/01/20 22:59 06:59 14:59 Intake Total 0 / 0 0 / 0 Balance 0 / 0 0 / 0 Weight last 48 hrs Weight 158.667 kg Weight 144.242 kg Physical Exam Narrative: EXAM NARRATIVE: Morbidly obese female General: Drowsy on BiPAP HEENT: Bilateral eyelid swelling - improved, no pain with eye movement, mild crusting with out any purulent discharge CVS : S1, S2 , No obvious murmurs Chest : Decrease BS at bases Abdomen: soft, nontender, bowel sound present Extremity : Bilateral lower extremity edema 1+ bilaterally Urinary Catheter Management^: Marcelo: Cath Placed During This Visit: yes Reason for Continuing Indwelling Catheter: Accurate Measurement of Urinary Output in Critically Ill Patients Urinary Catheter Date of Insertion: 12/30/19 Urinary Catheter Time of Insertion: 17:45 Data : 01/01/20 07:35 01/01/20 07:35 Micro: Microbiology 12/31/19 10:20 Enteric Pathogens (PCR) - Final Stool Routine Collection 01/01/20 05:08 Blood Culture - Preliminary Blood SPECIMEN COLLECTED 01/01/20 05:03 Blood Culture - Preliminary Blood SPECIMEN COLLECTED 12/31/19 10:20 C.difficile Toxin B Gene (PCR) - Final Stool Routine Collection A&P Assessment and plan (1) New onset of congestive heart failure: Status: Acute (2) Generalized weakness: Status: Acute (3) Swollen eyelid: Status: Acute (4) Pleural effusion: Status: Acute (5) Morbid obesity: Status: Acute Additional A&P Information Acute respiratory failure with hypoxemic / hypercapnic - Etiology Multi-factorial - fluid vs infection superimposed on likely underlying chronic obstructive pulmonary disease - Baseline o2 requirements at 4L via NC - Worsening respiratory failure on 12/30 - 12/30 - . Chest x-ray bilateral pulmonary infiltrates, left sided pleural effusion with pulmonary vascular congestion - 12/31 - Chest x-ray - Increasing consolidating infiltrates in right lower lobe, left lower lobe consolidation plus cardiomegaly with vascular congestion - ABG - 7.15, PCO 96, HCO3 33.2 on 4L - Started on Bipap - post intervention PCO improved to 71.2 - Fio2 40% - D-dimer - > 3.85 - V/Q scan ordered however with pulmonary finding may be inaccurate. May consider stating Heparin gtt pending improvment of renal function - Consult discussed with Dr. Gilliland ( pulmonary medicine ) - See below for management of differntial dx 02 dependent COPD exacerbation - Continue DuoNeb q6hr scheduled - Solu-medrol 30 mg IV q8hr - Add pulmicort 0.5 mg Inh BID - Will place consult to pulmonary medicine - Repeat chest x-ray in am Suspected Multi-focal Pneumonia - Pro-calcitonin 0.09 - Possibly component of aspiration - Sputum culture if possible to obtain - D/C Rocephin/azithromycin - SARS2 COVID rapid - negative - Start Zosyn 3.375 g IV Q8hr - Follow up on blood culture x 2 - May consider repeat COVID 19 PCR Acute HF exacerbation - Unable to obtain ECHO due to body habitus - May require JOELLE once stable - Monitor daily weight - Started on Lasix 40 mg IV BID - May have to hold diuresis due to worsening renal function - May consider cardiology consult Right sided facial edema vs cellulitis - Will add vancomycin pharmacy to dose - Suspected allergic reaction to cat vs angioedema from paul-inhibitor - Stop paul-inhibitor - Solu-medrol as noted above - Improving from admission Acute renal failure - Creatinine 0.9 on admit - Increased to 1.7 - Cautious diuresis - May have to hold - Nephrology consult to assist with diuresis - Hold ARB - Renally dose meds - Monitor urine output - Marcelo in place Hyperkalemia - K increased to 5.4 - Will give kayexelate once tolerating PO - Lasix given - Monitor on telemetry Noninsulin dependent Diabetes Mellitus - Sliding scale insulin - If blood sugars persistently high will add Reported Diarrhea - C-diff toxin - negative - Stool culture sent on admit - stable currently 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 - Foot x-ray - no evidence of osteo - Wound care consult - Podiatry Hypertension - Losartan on hold - PRN antihypertensive Peripheral arterial disease - Hx of common iliac obstruction s/p arthrectomy/stent placed - Aspirin not continued to reported allergy - Plavix 75 mg PO daily ( Once able to tolerate PO ) - Cardiology outpatient GI ppx - Protonix 40 mg IV daily DVT ppx - Lovenox 40 mg SQ daily Diet : NPO while on BiPAP Additional Medical History 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 Tobacco abuse Peripheral Neuropathy Morbid Obesity Attestations Medical Necessity Statement*: Noted to have worsening respiratory failure, acute kidney injury, developing pneumonia vs fluid overload which will require additional days in hospital. Anticipate over 2 midnight stay. 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
[2020-01-01] MEDS: ipratropium-albuterol 3 mL Neb INHALATION ×3 (12:27→20:40)
[2020-01-01] MEDS: pantoprazole 40 mg SDV IVP (13:40)
--- NOTE | 2020-01-01 14:29 | P.CONIM_ITS ---
Providers/Reason For Consult Consulting Physican/Specialty*: alexus man md/ telenephrologu Reason for Consult*: MIN Attending Physician: Melissa Feliz Primary Care Provider: Ronny Torres DO History of Present Illness History of Present Illness Siobhan Lechuga is a 64 year old female with type 2 DM, morbid obesity, COPD, PVD s/p stents and Rt great toe OM and amputation, htn. pt was admitted on 12-30-19 w/ sob, edema, facial swelling. she had Q of allergic reaction. she was madan ated w/ lasix, abx. she went into MIN- baseline cr 0.5 in 2019. c r on admission 0.9 now cr 1.7 mg/dl. Pt was dx w/ hypercapneic resp acidosis and has been using bipap. pt remains swollen and SOB. given MIN- renal was called. Review of Systems General: Reports: 10 or more systems reviewed and unremarkable except in HPI and below Narrative: weak, sob, facvial edema, ROPER, orthopnea, wheezing, has a bustillos, found w/ stool down leg on admission, confused, weak Meds/Allergies Home Medications and Allergies Home Medications Medication Instructions Recorded Confirmed Last Taken Type albuterol sulfate 90 mcg/actuation 2 puff INHALATION Q6H PRN 03/27/19 12/31/19 Unknown History aerosol inhaler amlodipine 10 mg tablet 10 mg PO DAILY 03/27/19 12/31/19 Unknown History clopidogrel 75 mg tablet 75 mg PO DAILY 03/27/19 12/31/19 Unknown History fluticasone furoate 100 1 inh INHALATION Q24H 03/27/19 12/31/19 Unknown History mcg/actuation blister powder for inhalation lisinopril 20 mg tablet 20 mg PO DAILY 03/27/19 12/31/19 Unknown History sertraline 100 mg tablet 100 mg PO DAILY 03/27/19 12/31/19 Unknown History Allergies Allergy/AdvReac Type Severity Reaction Status Date / Time aspirin Allergy Unknown Unknown Verified 06/12/19 11:30 citalopram Allergy Unknown Unknown Verified 06/12/19 11:30 codeine Allergy Unknown Unknown Verified 06/12/19 11:30 Current Medications Current Medications Generic Name Dose Route Start Last Admin Trade Name Freq PRN Reason Stop Dose Admin Albuterol/Ipratropium 3 ml 12/30/19 20:31 12/31/19 20:01 Duoneb INHALATION 3 ml Q4H PRN Administration SHORTNESS OF BREATH Albuterol/Ipratropium 3 ml 01/01/20 15:00 01/01/20 12:27 Duoneb INHALATION 3 ml Q6H.RESPIRATORY KD Administration Ciprofloxacin HCl 1 drop 12/30/19 21:10 01/01/20 13:53 Ciloxan EYE-BOTH 01/02/20 09:00 1 drop QID KD Administration Protocol Clopidogrel Bisulfate 75 mg 12/30/19 20:31 01/01/20 10:44 Plavix PO Not Given DAILY KD Enoxaparin Sodium 40 mg 12/30/19 20:31 12/31/19 20:28 Lovenox SUBCUT 40 mg Q24H KD Administration Furosemide 40 mg 12/31/19 22:15 01/01/20 09:18 Lasix IVP 40 mg Q12H KD Administration Insulin Aspart 0 unit 12/30/19 21:00 01/01/20 12:32 Novolog SUBCUT 6 unit WM&BEDTIME KD Administration Protocol Methylprednisolone Sodium Succinate 30 mg 12/31/19 21:15 01/01/20 05:01 Solu-Medrol IVP 30 mg Q8H KD Administration Nystatin 1 applic 12/31/19 09:00 01/01/20 09:15 Nystatin Powder TOPICAL 1 applic BID KD Administration Pantoprazole Sodium 40 mg 01/01/20 12:00 01/01/20 13:40 Protonix IVP 40 mg DAILY KD Administration PFSH Acute PFSH: Medical History Diabetes mellitus with peripheral autonomic neuropathy Gangrene Hypertension Morbid obesity PAD (peripheral artery disease) Tobacco abuse, in remission Surgical History Post-operative state Status post amputation of great toe Family History Other Diabetes Hypertension Denies family history of CAD (coronary artery disease) Clotting disorder Dementia Hyperlipidemia Psychiatric illness Chronic kidney disease (CKD) Suicide Anesthesia complication Bleeding disorder Family history of premature coronary artery disease Lung disease Cancer Stroke Social History Smoking and tobacco status: former smoker Marital status: Current occupational status: disabled Vitals/I&O/Wt Last Vital Signs Temp 97.6 F 01/01/20 14:27 Pulse 90 01/01/20 14:27 Resp 16 01/01/20 14:27 BP 113/68 01/01/20 14:27 Pulse Ox 94 01/01/20 14:27 12/31/19 01/01/20 01/01/20 22:59 06:59 14:59 Intake Total 0 / 0 0 / 0 480 / 480 Balance 0 / 0 0 / 0 480 / 480 Weight last 48 hrs Weight 158.667 kg Weight 144.242 kg Physical Exam Narrative: EXAM NARRATIVE: morbdily obese in chair, confused , SOB, using nc o2 heent- nc/at, eomi, anicteric neck obese lungs wheezes heart rrr abd soft, NT, ND, +BS ext b/l edema neuro- a,a, o x 2 pulses + b/l + bustillos catheter Urinary Catheter Management^: Bustillos: Cath Placed During This Visit: yes Reason for Continuing Indwelling Catheter: Accurate Measurement of Urinary Output in Critically Ill Patients Urinary Catheter Date of Insertion: 12/30/19 Urinary Catheter Time of Insertion: 17:45 Data Micro: Micro: Microbiology 12/31/19 10:20 Enteric Pathogens (PCR) - Final Stool Routine Col lection 01/01/20 05:08 Blood Culture - Pr eliminary Blood SPECIMEN [facility] 01/01/20 05:03 Blood Culture - Pr eliminary Blood SPECIMEN [facility] 12/31/19 10:20 C.difficile Toxin B Gene (PCR) - Fin al Stool Routine Col lection A&P Additional A&P Information 64 yr old female morbid obesity, htnm dm, COPD 1. MIN - Q CRS.Q hemodynamic effect of diuresis. -can be from ARB and diuretic -check renal us- doubt obstruction -check ck, doubt rhabdo -may need to tolerate a higher cr to help diurese 2. hypercapneic resp acidosis - bipap, steroids 3. Q of CHF- unable to get good views w/ an echo- clinically appears in CHF= agree w/ lasix 4/ Q of PNA on abx. consider chest ct scan 5. BP low now- no paul-i or arb 6. 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
--- NOTE | 2020-01-01 15:31 | PM.CONSULT ---
Providers/Reason For Consult Consulting Physican/Specialty*: Pulmonary critical care medicine Reason for Consult*: Worsening bilateral lung infiltrate with hypoxic respiratory failure Attending Physician: Melissa Feliz Primary Care Provider: Ronny Torres DO History of Present Illness History of Present Illness Siobhan Lechuga is a 64 year old female who presented to the hospital with worsening shortness of breath and generalized swelling and was diagnosed with new onset heart failure. The patient is DNI DNR. The patient has super morbid obesity with a BMI of 70. She also carries a diagnosis of COPD however I could not find any previous pulmonary function test. I also did not find any previous CT scan of the chest. There is a chest x-ray from last year which did not reveal any significant hyperinflation. The patient gives me history of significant smoking. According to the patient she quit smoking about a month ago. Hospital admission chest x-ray revealed bilateral perihilar infiltrate with upper lobe diversion and possible pleural effusion. She was treated with diuretics. Over the course of the hospital admission, the patient was started on broad-spectrum antibiotics, IV steroid. The patient has developed MIN with worsening acidosis and hyperkalemia. She also has mild leukocytosis. The patient has uncontrolled diabetes with an A1c of 9.9. Her procalcitonin level was normal at 0.09. Her initial blood gas revealed chronic hypercapnic respiratory failure. The patient developed worsening acute on chronic hypercapnic respiratory failure and required BiPAP support overnight. When I went to see the patient today she was sitting in a chair and looked much more comfortable. A chest x-ray obtained this morning revealed bilateral infiltrate again. I had performed a bedside ultrasound. The patient has bilateral B-lines. Her IVC was also dilated. The patient had no documented fever since she presented to the hospital. The patient also has significant peripheral vascular disease. There is no previous echocardiogram or cardiac stress test available from before. Review of Systems Narrative: The review of system was limited because of the patient's clinical condition. The patient complained of mild cough and exertional shortness of breath. She also endorsed chronic body ache, fatigue and malaise. She has bilateral lower extremity swelling. Meds/Allergies Home Medications and Allergies Home Medications Medication Instructions Recorded Confirmed Last Taken Type albuterol sulfate 90 mcg/actuation 2 puff INHALATION Q6H PRN 03/27/19 12/31/19 Unknown History aerosol inhaler amlodipine 10 mg tablet 10 mg PO DAILY 03/27/19 12/31/19 Unknown History clopidogrel 75 mg tablet 75 mg PO DAILY 03/27/19 12/31/19 Unknown History fluticasone furoate 100 1 inh INHALATION Q24H 03/27/19 12/31/19 Unknown History mcg/actuation blister powder for inhalation lisinopril 20 mg tablet 20 mg PO DAILY 03/27/19 12/31/19 Unknown History sertraline 100 mg tablet 100 mg PO DAILY 03/27/19 12/31/19 Unknown History Allergies Allergy/AdvReac Type Severity Reaction Status Date / Time aspirin Allergy Unknown Unknown Verified 06/12/19 11:30 citalopram Allergy Unknown Unknown Verified 06/12/19 11:30 codeine Allergy Unknown Unknown Verified 06/12/19 11:30 Current Medications Current Medications Generic Name Dose Route Start Last Admin Trade Name Freq PRN Reason Stop Dose Admin Albuterol/Ipratropium 3 ml 12/30/19 20:31 12/31/19 20:01 Duoneb INHALATION 3 ml Q4H PRN Administration SHORTNESS OF BREATH Albuterol/Ipratropium 3 ml 01/01/20 15:00 01/01/20 12:27 Duoneb INHALATION 3 ml Q6H.RESPIRATORY KD Administration Ciprofloxacin HCl 1 drop 12/30/19 21:10 01/01/20 13:53 Ciloxan EYE-BOTH 01/02/20 09:00 1 drop QID KD Administration Protocol Clopidogrel Bisulfate 75 mg 12/30/19 20:31 01/01/20 10:44 Plavix PO Not Given DAILY KD Enoxaparin Sodium 40 mg 12/30/19 20:31 12/31/19 20:28 Lovenox SUBCUT 40 mg Q24H KD Administration Insulin Aspart 0 unit 12/30/19 21:00 01/01/20 12:32 Novolog SUBCUT 6 unit WM&BEDTIME KD Administration Protocol Nystatin 1 applic 12/31/19 09:00 01/01/20 09:15 Nystatin Powder TOPICAL 1 applic BID KD Administration Pantoprazole Sodium 40 mg 01/01/20 12:00 01/01/20 13:40 Protonix IVP 40 mg DAILY KD Administration PFSH Acute PFSH: Medical History Diabetes mellitus with peripheral autonomic neuropathy Gangrene Hypertension Morbid obesity PAD (peripheral artery disease) Tobacco abuse, in remission Surgical History Post-operative state Status post amputation of great toe Family History Other Diabetes Hypertension Denies family history of CAD (coronary artery disease) Clotting disorder Dementia Hyperlipidemia Psychiatric illness Chronic kidney disease (CKD) Suicide Anesthesia complication Bleeding disorder Family history of premature coronary artery disease Lung disease Cancer Stroke Social History Smoking and tobacco status: former smoker Marital status: Current occupational status: disabled Vitals/I&O/Wt Last Vital Signs Temp 97.6 F 01/01/20 14:27 Pulse 90 01/01/20 14:27 Resp 16 01/01/20 14:27 BP 113/68 01/01/20 14:27 Pulse Ox 94 01/01/20 14:27 01/01/20 01/01/20 01/01/20 06:59 14:59 22:59 Intake Total 0 / 0 480 / 480 Balance 0 / 0 480 / 480 Weight last 48 hrs Weight 349 lb 12.8 oz Weight 318 lb Physical Exam Narrative: EXAM NARRATIVE: General: Patient is awake alert and oriented, in mild to moderate distress with moving from chair to bed Neck: Unable to assess JVD Respiratory: Auscultation: Diffuse crackles bilaterally, no wheezing, occasional rhonchi Cardiovascular: Regular rate and rhythm, S1-S2 present, very distant heart sound, no murmur, bilateral pitting peripheral edema. Abdomen: Soft, nontender, distended from obesity, positive bowel sound Musculoskeletal: Previous to amputation Skin: No rash Neuro: Mental status is normal, no gross cranial nerve deficit, gross motor function is normal Urinary Catheter Management^: Marcelo: Cath Placed During This Visit: yes Reason for Continuing Indwelling Catheter: Accurate Measurement of Urinary Output in Critically Ill Patients Urinary Catheter Date of Insertion: 12/30/19 Urinary Catheter Time of Insertion: 17:45 Data Micro: Micro: Microbiology 12/31/19 10:20 Enteric Pathogens (PCR) - Final Stool Routine Col lection 01/01/20 05:08 Blood Culture - Pr eliminary Blood SPECIMEN [facility] 01/01/20 05:03 Blood Culture - Pr eliminary Blood SPECIMEN [facility] 12/31/19 10:20 C.difficile Toxin B Gene (PCR) - Fin al Stool Routine Col lection Other Data: Attestation for Other Data: I personally reviewed and interpreted the following: Other data: I have reviewed the patient laboratory, microbiologic and radiologic data. Please see the HPI for detail. A&P Assessment and plan (1) Acute on chronic respiratory failure with hypoxia and hypercapnia: The patient has acute on chronic hypoxic and hypercapnic respiratory failure. I believe the etiology for the acute worsening of hypoxia is likely secondary to cardiogenic pulmonary edema. Pneumonia cannot be completely excluded however the patient does not have any fever, sputum production, significant elevation of white cell count, and appears nontoxic which would all go against a diagnosis of pneumonia. The patient is currently receiving vancomycin and Zosyn, the combination is known to cause acute kidney injury. Given the absence of any significant evidence for MRSA pneumonia I would discontinue the vancomycin. I will obtain a nasal MRSA PCR. For the time being I will continue with Zosyn and add azithromycin. We will get an urine Legionella antigen. I believe the patient would benefit significantly from aggressive diuresis. Her Lasix dose was increased to 60 IV twice daily. Status: Acute (2) Pulmonary edema: The patient likely has heart failure with preserved ejection fraction. Unfortunately because of his body habitus no echocardiogram could be obtained. She does not have any previous echocardiogram as well. The patient has multiple risk factors for heart failure with preserved ejection fraction. Her sex, obesity, diabetes and hypertension predispose her for the development of diastolic heart failure. The patient is most likely in cardiorenal syndrome which is causing prerenal like picture with elevated urinary specific gravity on admission. That diuretics will help. I am checking a BNP. Status: Acute (3) Acute kidney injury: There are multiple etiologies for her MIN. The patient likely has cardiorenal syndrome in addition the combination of vancomycin and Zosyn is known to cause MIN. I expect the creatinine to get better with better diuresis in the next 48 hours or so. Status: Acute (4) Pneumonia: For now we will continue with Zosyn and azithromycin. Status: Acute (5) Morbid obesity with BMI of 70 and over, adult: The patient most likely has obesity hypoventilation syndrome as well. She would likely qualify for BiPAP at night. It is also possible that the patient is deciding because of her sleep apnea at nighttime. She could use BiPAP at night. Thank you for the consultation. 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
[2020-01-01 15:47] LABS: NT Pro B Type Natriuretic Pept 3221 pg/mL (0-125)
[2020-01-01 16:30] LABS: Glucose Point of Care 251 mg/dL (70-110)
[2020-01-01] MEDS: sodium polystyrene sulfonate 15 gm/60 mL Btl 30 GM PO (16:54)
[2020-01-01] MEDS: piperacillin-tazobactam 3.375 GM in sodium chloride 0.9% (plus) 50 ML IV ×2 (16:55→22:02)
[2020-01-01] MEDS: FUROsemide 10 mg/mL SDV 10mL 60 MG IVP (18:16)
[2020-01-01 19:57] LABS: Glucose Point of Care 267 mg/dL (70-110)
[2020-01-01] MEDS: budesonide 0.5 mg/2 mL Neb INHALATION (20:40)
[2020-01-01] MEDS: enoxaparin 40 mg/0.4 mL Syringe SUBCUT (22:02)
[2020-01-01 22:23] LABS: Glucose Point of Care 265 mg/dL (70-110)
[2020-01-01 23:35] LABS: Potassium, Radom Urine 27 mmol/L; Urine Creatinine 92 mg/dL (28-217); Urine Random Chloride 86 mmol/L; Urine Random Sodium 79 mmol/L
[2020-01-01 23:38] LABS: Urine Protein Random 24 mg/dL
[2020-01-02] VITALS (17 sets, daily range): BP systolic 101–141; BP diastolic 57–84; PULSE 76–94; RESP 14–20; TEMP 36.6–36.9; O2SAT 88–98; BMI 70.9
[2020-01-02 00:31] LABS: Eosinophil Urine No Eosinophils Seen
[2020-01-02] MEDS: ipratropium-albuterol 3 mL Neb INHALATION ×3 (02:39→20:38)
[2020-01-02] MEDS: azithromycin 500 MG in sodium chloride 0.9% 250 ML 250 MG IV (04:31)
[2020-01-02] MEDS: FUROsemide 10 mg/mL SDV 10mL 60 MG IVP ×2 (05:08→08:17)
[2020-01-02] MEDS: piperacillin-tazobactam 3.375 GM in sodium chloride 0.9% (plus) 50 ML IV ×3 (05:46→22:29)
[2020-01-02 05:56] LABS: Alanine Aminotransferase 8 U/L (0-33); Albumin Level 3.1 g/dL (3.5-5.2); Alkaline Phosphatase 57 IU/L (35-105); Anion Gap 14.2 (5-19); Aspartate Amino Transferase 10 U/L (0-32); Blood Urea Nitrogen 49 mg/dL (8-23); Calcium 8.7 mg/dL (8.5-10.5); Carbon Dioxide 30 mmol/L (22-29); Chloride 101 mmol/L (98-107); Globulin 3.2 g/dL (1.3-4.6); Glomerular Filtration Rate 22.5 mL/min (90-130); Glucose 208 mg/dL (65-115); Magnesium 2.3 mg/dL (1.7-2.3); Osmolality Calculated 309 mOsm/kg (285-295); Phosphorus 4.8 mg/dL (2.5-4.5); Potassium 5.2 mmol/L (3.5-5.1); Sodium 140 mmol/L (136-145); Total Bilirubin 0.3 mg/dL (0.15-1.2); Total Protein 6.3 g/dL (6.6-8.7)
[2020-01-02 07:00] LABS: Glucose Point of Care 193 mg/dL (70-110)
--- NOTE | 2020-01-02 07:43 | PM.PN ---
Subjective Subjective: Interval history: lethargic, sob on bipap Medications: Reviewed: Yes Medication Review Details: Current Medications Albuterol/Ipratropium (Duoneb) 3 ml INHALATION Q4H PRN PRN Reason: SHORTNESS OF BREATH Last Admin: 12/31/19 20:01 Dose: 3 ml Documented by: Albuterol/Ipratropium (Duoneb) 3 ml INHALATION Q6H.RESPIRATORY KD Last Admin: 01/02/20 02:39 Dose: 3 ml Documented by: Budesonide (Pulmicort) 0.5 mg INHALATION BID.RESPIRATORY KD Last Admin: 01/01/20 20:40 Dose: 0.5 mg Documented by: Ciprofloxacin HCl (Ciloxan) 1 drop EYE-BOTH QID KD; Protocol Stop: 01/02/20 09:00 Last Admin: 01/01/20 22:02 Dose: 1 drop Documented by: Clopidogrel Bisulfate (Plavix) 75 mg PO DAILY [facility] Last Admin: 01/01/20 10:44 Dose: Not Given Documented by: Dextrose (D50w) 25 ml IVP ONCE PRN; Protocol PRN Reason: hypoglycemia protocol Dextrose (D50w) 50 ml IVP PRN PRN; Protocol PRN Reason: hypoglycemia protocol Diphenhydramine HCl (Benadryl) 25 mg PO Q12H PRN PRN Reason: Eye swelling Enoxaparin Sodium (Lovenox) 40 mg SUBCUT Q24H KD Last Admin: 01/01/20 22:02 Dose: 40 mg Documented by: Furosemide (Lasix) 60 mg IVP Q12H KD Last Admin: 01/02/20 05:08 Dose: 60 mg Documented by: Glucagon (Glucagen) 1 mg IM ONCE PRN; Protocol PRN Reason: Adult Acute Hypoglycemia Prot. Dextrose (D5w) 500 mls @ 100 mls/hr IV ONCE PRN; Protocol PRN Reason: Adult Acute Hypoglycemia Prot Piperacillin Sod/Tazobactam (Sod 3.375 gm/ Sodium Chloride) 50 mls @ 12.5 mls/hr IV Q8H KD; Protocol Last Admin: 01/02/20 05:46 Dose: 12.5 mls/hr Documented by: Azithromycin 500 mg/ Sodium (Chloride) 250 mls @ 250 mls/hr IV Q24H KD; Protocol Last Admin: 01/02/20 04:31 Dose: 250 mls/hr Documented by: Insulin Aspart (Novolog) 0 unit SUBCUT WM&BEDTIME KD; Protocol Last Admin: 01/01/20 22:42 Dose: 8 unit Documented by: Nystatin (Nystatin Powder) 1 applic TOPICAL BID [facility] Last Admin: 01/01/20 18:16 Dose: 1 applic Documented by: Pantoprazole Sodium (Protonix) 40 mg IVP DAILY [facility] Last Admin: 01/01/20 13:40 Dose: 40 mg Documented by: Vitals/I&O/Wt Last Vital Signs Temp 98.3 F 01/02/20 07:32 Pulse 84 01/02/20 07:35 Resp 14 01/02/20 07:32 BP 118/76 01/02/20 07:32 Pulse Ox 98 01/02/20 07:35 01/01/20 01/02/20 01/02/20 22:59 06:59 14:59 Intake Total 290 / 770 50 / 820 Output Total 275 / 275 Balance 15 / 495 50 / 545 Weight last 48 hrs Weight 159.302 kg Weight 158.667 kg Physical Exam Narrative: EXAM NARRATIVE: morbdily obese in bed, lethargic, minimally responsive, using FM/ bipap heent- nc/at, eomi, anicteric neck obese lungs wheezes and crackles heart rrr abd soft, NT, ND, +BS ext b/l edema neuro- lethargic, responsive pulses + b/l + bustillos catheter Urinary Catheter Management^: Bustillos: Cath Placed During This Visit: yes Reason for Continuing Indwelling Catheter: Acute Urinary Retention or Obstruction Urinary Catheter Date of Insertion: 12/30/19 Urinary Catheter Time of Insertion: 17:45 Data : 01/01/20 07:35 01/02/20 04:58 Micro: Microbiology 01/01/20 05:08 Blood Culture - Preliminary Blood NEGATIVE TO DATE 01/01/20 05:03 Blood Culture - Preliminary Blood NEGATIVE TO DATE 01/01/20 21:00 Legionella Urinary Antigen - Final Urine Catheterized 12/31/19 10:20 Enteric Pathogens (PCR) - Final Stool Routine Collection A&P Additional A&P Information 64 yr old female morbid obesity, htn dm, COPD 1. MIN - Q CRS.Q hemodynamic effect of diuresis. -can be from ARB and diuretic -check renal us- doubt obstruction -check ck, doubt rhabdo -may need to tolerate a higher cr to help diurese -pt is very sob - if does not respond to lasix drip- would consider dialysis 2. hypercapneic resp acidosis - bipap, steroids. appreciate pulm input -repeat abg 3. Q of CHF- unable to get good views w/ an echo- clinically appears in CHF= agree w/ lasix drip 4/ Q of PNA on abx. consider chest ct scan- abx per pulm 5. BP low now- no paul-i or arb 6. 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
--- NOTE | 2020-01-02 07:47 | US_ITS ---
WS: [id number] RENAL ULTRASOUND HISTORY: Acute renal insufficiency. COMPARISON: None available. TECHNIQUE: 2-D and color Doppler imaging of the kidney submitted. Neither kidney is identified by ultrasound. Probably due to patient's body habitus. No ascites identi fied. US/US renal BI* [id number] IMPRESSION: Nondiagnostic evaluation of the kidneys. Neither kidney is identified.
--- NOTE | 2020-01-02 07:47 | XR_ITS ---
WS: [id number] Exam: XR chest 1V portable [id number] Date/Time of Exam: 01/02/2020 7:47 AM Reason For Exam: chf Comparison 12/31/2019. Improved right pulmonary infiltrates since previous exam. There is still residual infiltrate in the r ight lower lung zone and the left base. Heart size is enlarged but unchanged. The upper lung zones ar e clear. XR/XR chest 1V portable [id number] IMPRESSION: 1. Improved right pulmonary infiltrates since previous exam but no other change .
[2020-01-02] MEDS: pantoprazole 40 mg SDV IVP (08:17)
[2020-01-02] MEDS: clopidogrel 75 mg Tablet PO (08:18)
[2020-01-02] MEDS: ciprofloxacin 0.3% Op Soln 2.5 mL Btl 1 DROP EYE-BOTH (08:18)
[2020-01-02] MEDS: nystatin powder 15 gm Btl 1 APPLIC TOPICAL (08:18)
[2020-01-02 08:42] LABS: Creatine Phosphokinase 13 U/L (26-192); NT Pro B Type Natriuretic Pept 2220 pg/mL (0-125)
[2020-01-02 08:54] LABS: ABG PCO2 53.5 mmHg (35-45); ABG PH Result 7.38 (7.35-7.45); Arterial Blood Gas Hematocrit 37.1 % (37-47); Base Excess ABG 5.2 mmol/L (-2.0-2.0); Blood Gas Allen Test Pos; Blood Gas Operator Identificat glc; Blood Gas Sample Site Brachial, right; Blood Gas Sample Type Arterial; HCO3 ABG 31.6 mmol/L (22-26); Oxygen Device NC; PO2 ABG 66.7 mmHg (80.0-100.0)
--- NOTE | 2020-01-02 09:26 | PC.NURSE ---
Dr. Montelongo gave this nurse new orders to change the lasix drip IV at 8mg, not on a titration drip, order edited per doctors orders, see MAR for further details.
--- NOTE | 2020-01-02 09:53 | PC.NURSE ---
Therapy transferred patient up to chair this morning and is now transferring patient back to bed. Tolerated chair well, alert and oriented.
[2020-01-02] MEDS: FUROsemide 100 MG in sodium chloride 0.9% 40 ML IV (10:50)
[2020-01-02 11:25] LABS: Glucose Point of Care 186 mg/dL (70-110)
--- NOTE | 2020-01-02 11:35 | PM.PN ---
Subjective Subjective: Interval history: This morning patient was examined, she is actually sitting up into a chair, on 4 L nasal cannula, she is alert oriented x2, she does not know the date, but knows why she is here, knows the time, knows her date of , she feels like she is doing better this morning, no fevers overnight, no chills, no chest pain, no lightheadedness, no dizziness, she feels that the swelling of her legs have gone down, however the urine catheter does bother her, Vitals/I&O/Wt Last Vital Signs Temp 98.4 F 01/02/20 11:29 Pulse 88 01/02/20 11:29 Resp 17 01/02/20 11:29 BP 110/66 01/02/20 11:29 Pulse Ox 94 01/02/20 11:29 01/01/20 01/02/20 01/02/20 22:59 06:59 14:59 Intake Total 290 / 770 50 / 820 240 / 240 Output Total 275 / 275 550 / 550 Balance 15 / 495 50 / 545 -310 / -310 Weight last 48 hrs Weight 159.302 kg Weight 158.667 kg Physical Exam Const: COMMON NORMALS: no acute distress ORIENTATION/CONSCIOUSNESS: Yes awake, Yes oriented to person and Yes oriented to place; not oriented to time HENMT: COMMON NORMALS: normocephalic HEAD & SCALP: normocephalic Neck/C-Spine: COMMON NORMALS: no JVD Resp: COMMON NORMALS: normal respiratory effort, No retractions, No use of accessory muscles and clear to auscultation bilaterally AUSCULTATION: clear to auscultation bilaterally Cardio: COMMON NORMALS: no JVD, regular rate, regular rhythm, S1 normal heart sound present and S2 normal heart sound present RATE: regular rate RHYTHM: regular rhythm HEART SOUNDS: S1 normal heart sound present and S2 normal heart sound present GI: COMMON NORMALS: Normal to inspection, nondistended, normoactive bowel sounds present, Soft to palpation, non-tender, No hepatosplenomegaly present, no masses and no bruits PALPATION: Yes Soft to palpation and Yes No hepatosplenomegaly present OTHER: Obese abdomen : COMMON NORMALS: Yes no CVA tenderness BLADDER/KIDNEY EXAM: Yes no CVA tenderness OTHER: Marcelo catheter in place Back/Pelvis: COMMON NORMALS: no CVA tenderness Extremity: COMMON NORMALS: capillary refill normal, no calf tenderness and no pedal edema NARRATIVE EXTREMITY EXAM: 1+ pitting edema bilaterally Neuro: SENSORIUM/ORIENTATION: Yes oriented to person, Yes oriented to place and No oriented to time Psych: COMMON NORMALS: mental status grossly normal Urinary Catheter Management^: Marcelo: Cath Placed During This Visit: yes Reason for Continuing Indwelling Catheter: Acute Urinary Retention or Obstruction Urinary Catheter Date of Insertion: 12/30/19 Urinary Catheter Time of Insertion: 17:45 Data : 01/01/20 07:35 01/02/20 04:58 Micro: Microbiology 01/01/20 05:08 Blood Culture - Preliminary Blood NEGATIVE TO DATE 01/01/20 05:03 Blood Culture - Preliminary Blood NEGATIVE TO DATE 01/01/20 21:00 Legionella Urinary Antigen - Final Urine Catheterized 12/31/19 10:20 Enteric Pathogens (PCR) - Final Stool Routine Collection A&P Assessment and plan (1) New onset of congestive heart failure: Status: Acute (2) Generalized weakness: Status: Acute (3) Swollen eyelid: Status: Acute (4) Pleural effusion: Status: Acute (5) Morbid obesity: Status: Acute (6) Acute on chronic respiratory failure with hypoxia and hypercapnia: Status: Acute (7) Pulmonary edema: Status: Acute (8) Acute kidney injury: Status: Acute (9) Pneumonia: Status: Acute (10) Morbid obesity with BMI of 70 and over, adult: Status: Acute (11) Hypertension: Status: Acute (12) Diabetes mellitus with peripheral autonomic neuropathy: Status: Acute Additional A&P Information Acute respiratory failure with hypoxemic / hypercapnic -Patient is doing better this morning, ABG looks better, however urine output has decreased, creatinine up to 2.2 - Etiology Multi-factorial - fluid and infection superimposed on likely underlying chronic obstructive pulmonary disease, and obesity hypoventilation syndrome - Baseline o2 requirements at 4L via NC - Worsening respiratory failure on 12/30 - 12/30 - . Chest x-ray bilateral pulmonary infiltrates, left sided pleural effusion with pulmonary vascular congestion -Chest x-ray shows improved pulmonary infiltrates today on the right - ABG -pH 7.38, PCO2 53.5, PO2 66.7, on 5 L -Continue BiPAP during the day as needed, BiPAP during the night - D-dimer - > 3.85 - V/Q scan ordered however with pulmonary finding may be inaccurate. May consider stating Heparin gtt pending improvment of renal function - Consult discussed with Dr. Gilliland 02 dependent COPD exacerbation - Continue DuoNeb q6hr scheduled - Solu-medrol 30 mg IV q8hr - Add pulmicort 0.5 mg Inh BID - Will place consult to pulmonary medicine - Repeat chest x-ray in am Suspected Multi-focal Pneumonia - Pro-calcitonin 0.09 - Possibly component of aspiration - Sputum culture if possible to obtain - D/C Rocephin/azithromycin and continue Zosyn - SARS2 COVID rapid - negative - Follow up on blood culture x 2 - May consider repeat COVID 19 PCR Acute CHF exacerbation - Unable to obtain ECHO due to body habitus - May require JOELLE once stable - Monitor daily weight -Cardiorenal syndrome -Creatinine up to 2.2, urine output has dropped to 275, BNP has decreased to 220, started on a Lasix drip by nephrology service - May consider cardiology consult Right sided facial edema vs cellulitis -Minimal today, hold off on further antibiotic - Suspected allergic reaction to cat vs angioedema from paul-inhibitor - Stop paul-inhibitor - Improving from admission Acute renal failure -Has some component related to cardiorenal syndrome - Creatinine 0.9 on admit - Increased to 2.2 - Cautious diuresis - May have to hold - Nephrology consult to assist with diuresis - Hold ARB - Renally dose meds - Monitor urine output - Marceol in place Hyperkalemia - K increased to 5.2 - Will give kayexelate once tolerating PO - Lasix given - Monitor on telemetry Noninsulin dependent Diabetes Mellitus - Sliding scale insulin - If blood sugars persistently high will add Reported Diarrhea - C-diff toxin - negative - Stool culture sent on admit - stable currently 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 - Foot x-ray - no evidence of osteo - Wound care consult - Podiatry Hypertension - Losartan on hold - PRN antihypertensive Peripheral arterial disease - Hx of common iliac obstruction s/p arthrectomy/stent placed - Aspirin not continued to reported allergy - Plavix 75 mg PO daily ( Once able to tolerate PO ) - Cardiology outpatient GI ppx - Protonix 40 mg IV daily DVT ppx - Lovenox 40 mg SQ daily Diet : NPO while on BiPAP Additional Medical History 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 Tobacco abuse Peripheral Neuropathy Morbid Obesity Attestations Medical Necessity Statement*: Patient requires hospitalization due to acute hypoxic hypercapnic respiratory failure 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
--- NOTE | 2020-01-02 11:43 | PC.NURSE ---
New orders received from DR. Zazueta to bladder scan patient and send down UA from Marcelo cath.
--- NOTE | 2020-01-02 12:02 | PC.NURSE ---
0mL noted on bladder scan per Dr. Glass orders.
[2020-01-02 12:53] LABS: Blood Urine 3+ (Negative); Glucose Urine UA Norm (Normal); Ketones Urine Negative (Negative); Protein Urine 3+ (Negative); Urine Appearance Bloody (CLEAR); Urine Color Yellow (Yellow); pH Urine 5 (5-7)
[2020-01-02 12:54] LABS: Add Urine Microscopic? YES; Bilirubin Urine Neg (Negative); Leukocyte Esterase Urine Trace (Negative); Nitrate Urine Negative (Negative); Urobilinogen Urine Norm (Negative)
[2020-01-02 13:35] LABS: Add Urine Culture? Yes; Bacteria Urine 1+ /hpf; RBC Urine TOO NUMEROUS TO CNT /hpf (0-2); Squamous Epithelial Cell Urine 0-4 /hpf (0-5); WBC Urine 0-4 /hpf (0-5)
[2020-01-02 17:06] LABS: Glucose Point of Care 229 mg/dL (70-110)
[2020-01-02] MEDS: budesonide 0.5 mg/2 mL Neb INHALATION (20:38)
[2020-01-02 21:35] LABS: Glucose Point of Care 199 mg/dL (70-110)
[2020-01-02] MEDS: FUROsemide 100 MG in sodium chloride 0.9% 40 ML 6 MG IV (22:46)
[2020-01-03] VITALS (13 sets, daily range): BP systolic 105–134; BP diastolic 57–81; PULSE 74–98; RESP 16–20; TEMP 36.4–37.1; O2SAT 90–98; BMI 69.2
[2020-01-03] MEDS: ipratropium-albuterol 3 mL Neb INHALATION ×4 (02:09→20:55)
[2020-01-03 05:35] LABS: Basophils % 0.2 %; Eosinophils # 0.3 10^3/uL (0.0-0.8); Eosinophils % 3.5 %; Hematocrit 42.2 % (37.0-47.0); Lymphocytes # 1.2 10^3/uL (0.8-4.8); Mean Corpuscular HGB Conc 28.4 g/dL (30.0-36.0); Mean Corpuscular Hemoglobin 24.3 pg (28.0-34.0); Mean Corpuscular Volume 85.4 fL (81-99); Mean Platelet Volume 10.3 fL (7.4-10.4); Monocytes # 1.2 10^3/uL (0.2-0.9); Monocytes % 14.3 %; Neutrophils # 5.82 10^3/uL (1.8-7.7); Neutrophils % 67.8 %; Nucleated Red Blood Cells % 0 %; Platelet Count 263 10^3/cmm (130-400); Red Blood Count 4.94 10^6/uL (4.1-5.3); Red Cell Distribution Width 22.6 % (12.1-15.1); White Blood Count 8.6 10^3/uL (4.0-10.0)
[2020-01-03] MEDS: azithromycin 500 MG in sodium chloride 0.9% 250 ML 250 MG IV (05:42)
--- NOTE | 2020-01-03 06:19 | NUR.SHIFT ---
Patient had an uneventful night. Patient mainly slept. The Nephralogist called, he wanted to up the lasix from 8mg - 12mg. He also wanted to have a dialsys line put in. He discussed this with Dr. Feliz.
[2020-01-03] MEDS: FUROsemide 100 MG in sodium chloride 0.9% 40 ML 6 MG IV (06:27)
[2020-01-03 06:33] LABS: Alanine Aminotransferase 8 U/L (0-33); Albumin Level 3.2 g/dL (3.5-5.2); Alkaline Phosphatase 54 IU/L (35-105); Anion Gap 16.1 (5-19); Aspartate Amino Transferase 9 U/L (0-32); Blood Urea Nitrogen 53 mg/dL (8-23); Calcium 8.7 mg/dL (8.5-10.5); Carbon Dioxide 30 mmol/L (22-29); Chloride 101 mmol/L (98-107); Globulin 3.1 g/dL (1.3-4.6); Glomerular Filtration Rate 21.4 mL/min (90-130); Glucose 196 mg/dL (65-115); Magnesium 2.2 mg/dL (1.7-2.3); Osmolality Calculated 314 mOsm/kg (285-295); Phosphorus 4.7 mg/dL (2.5-4.5); Potassium 5.1 mmol/L (3.5-5.1); Sodium 142 mmol/L (136-145); Total Bilirubin 0.4 mg/dL (0.15-1.2); Total Protein 6.3 g/dL (6.6-8.7)
[2020-01-03 06:48] LABS: Glucose Point of Care 171 mg/dL (70-110)
[2020-01-03] MEDS: piperacillin-tazobactam 3.375 GM in sodium chloride 0.9% (plus) 50 ML IV ×3 (06:59→21:08)
[2020-01-03] MEDS: budesonide 0.5 mg/2 mL Neb INHALATION ×2 (08:25→20:56)
[2020-01-03] MEDS: clopidogrel 75 mg Tablet PO (09:22)
[2020-01-03] MEDS: pantoprazole 40 mg SDV IVP (09:22)
[2020-01-03] MEDS: nystatin powder 15 gm Btl 1 APPLIC TOPICAL ×2 (09:22→18:58)
[2020-01-03 11:00] LABS: Glucose Point of Care 256 mg/dL (70-110)
--- NOTE | 2020-01-03 12:11 | PC.CHAP ---
Pastoral Care Encounter/Spiritual Assessment Type of Contact [] Declined security associate visit [] Patient/Family/Request visit [] Outpatient visit [] Follow-up visit [] Physician referral [] Code/Alert [xx] Routine visit [] Staff referral [] Actively dying [] Patient sleeping [] Family support [] [] Out of room [] Palliative care [] [] Receiving care in room [] Pre-surgical visit [] Trauma [] Long length of stay [] ICU visit [] Other: Relational/Emotional Strength [xx] Patient feels connected with others/family/visitors/staff [] Distress [] Loneliness/isolation [] Abandonment Spirituality of Patient [xx] Person of Amaris [] Attends Lutheran of their Amaris [xx] Believes in Prayer [] Reads Bible or Samaritan materials [] There are Spiritual issues to be addressed Barker Peeler Interventions [xx] Prayer [xx] Active listening [xx] Non-anxious presence [] Spiritual/emotional support [] Crisis/trauma care [] Spiritual counseling [] Bereavement support [] Provided bereavement packet [] Provided Bible/devotional materials [] Provided toy/stuffed animal, coloring book to patient or family member [] Provided Communion [] Anointing/Crescent [] Salvation [xx] Completed spiritual assessment [] Other: Impact on Illness or Injury [] Angry [] Fearful [] Anxious [] Often cries [] Exhaustion [] Unable to work [] Unable to attend nondenominational [xx] Unable to walk/stand [] Unable to read [xx] Unable to drive [] Unable to eat/drink [] Unable to sleep [xx] Unable to be with family [] Patient intubated [] Other: Summary Patient is older, retired and has disabilities limiting her activities. She stated she feels better and hopes to go home in 2 or 3 days. She was not very talkative but wanted prayer. Time spent with patient 5 minutes Barker Peeler Chante Hamilton
--- NOTE | 2020-01-03 12:59 | P.PN_ITS ---
Subjective Subjective: Interval history: feels better today Medications: Reviewed: Yes Medication Review Details: Furosemide 12 mg/hr Vitals/I&O/Wt Last Vital Signs Temp 98.1 F 01/03/20 11:35 Pulse 95 01/03/20 11:35 Resp 18 01/03/20 11:35 BP 123/79 01/03/20 11:35 Pulse Ox 97 01/03/20 11:35 01/02/20 01/03/20 01/03/20 22:59 06:59 14:59 Intake Total 338.433 / 868.433 586.1 / 1454.533 240 / 240 Output Total 650 / 1200 1450 / 2650 1000 / 1000 Balance -311.567 / -331.567 -863.9 / -1195.467 -760 / -760 Weight last 48 hrs Weight 159.466 kg Weight 159.302 kg Weight 159.302 kg Physical Exam Const: COMMON NORMALS: no acute distress NUTRITIONAL APPEARANCE: obese Extremity: GENERAL: Yes edema Urinary Catheter Management^: Marcelo: Cath Placed During This Visit: yes Reason for Continuing Indwelling Catheter: Other Urinary Catheter Date of Insertion: 12/30/19 Urinary Catheter Time of Insertion: 17:45 Data : 01/03/20 05:03 01/03/20 05:03 Other Labs: Unable to Micro: Microbiology 01/01/20 21:00 MRSA Culture - Final Nose A&P Additional A&P Information Impression: 1. Acute kidney injury 2. CHF, diuresing 3. Respiratory acidosis 4. Hyperkalemia improved after kayexylate Recommend: Change to IV furosemide 80 mg Q8 hours. Low potassium diet. No need for dialysis at this time. Attestations Medical Necessity Statement*: requires IV diuretics Time Spent in Patient Care: 16 - 35 minutes Coding Level of Care Code Acute Brass Wind Instruments Tube Bender for Chilango May
--- NOTE | 2020-01-03 13:11 | P.PN_ITS ---
Subjective Subjective: Interval history: Patient was examined this morning, she is doing well, she is diuresed over 2 L yesterday, the Marcelo catheter is bothering her to some degree, but overall doing better, sitting up into a chair, on 4 to 5 L nasal cannula, she got BiPAP overnight Vitals/I&O/Wt Last Vital Signs Temp 98.1 F 01/03/20 11:35 Pulse 95 01/03/20 11:35 Resp 18 01/03/20 11:35 BP 123/79 01/03/20 11:35 Pulse Ox 97 01/03/20 11:35 01/02/20 01/03/20 01/03/20 22:59 06:59 14:59 Intake Total 338.433 / 868.433 586.1 / 1454.533 240 / 240 Output Total 650 / 1200 1450 / 2650 1000 / 1000 Balance -311.567 / -331.567 -863.9 / -1195.467 -760 / -760 Weight last 48 hrs Weight 155.491 kg Weight 159.466 kg Weight 159.302 kg Weight 159.302 kg Physical Exam Const: COMMON NORMALS: no acute distress and patient oriented x3 HENMT: COMMON NORMALS: normocephalic HEAD & SCALP: normocephalic Neck/C-Spine: COMMON NORMALS: no JVD Resp: COMMON NORMALS: normal respiratory effort, No retractions, No use of accessory muscles and clear to auscultation bilaterally AUSCULTATION: clear to auscultation bilaterally Cardio: COMMON NORMALS: no JVD, regular rate, regular rhythm, S1 normal heart sound present and S2 normal heart sound present RATE: regular rate RHYTHM: regular rhythm HEART SOUNDS: S1 normal heart sound present and S2 normal heart sound present GI: COMMON NORMALS: Normal to inspection, nondistended, normoactive bowel sounds present, Soft to palpation, non-tender, No hepatosplenomegaly present, no masses and no bruits PALPATION: Yes Soft to palpation and Yes No hepatosplenomegaly present Extremity: COMMON NORMALS: capillary refill normal, no clubbing, cyanosis or edema, no calf tenderness and no pedal edema Neuro: COMMON NORMALS: patient oriented x3 Psych: COMMON NORMALS: mental status grossly normal Skin: NARRATIVE SKIN EXAM: Has erythematous, macular rash over her face, nonblanching Urinary Catheter Management^: Marcelo: Cath Placed During This Visit: yes Reason for Continuing Indwelling Catheter: Other Urinary Catheter Date of Insertion: 12/30/19 Urinary Catheter Time of Insertion: 17:45 Data : 01/03/20 05:03 01/03/20 05:03 Micro: Microbiology 01/01/20 21:00 MRSA Culture - Final Nose A&P Assessment and plan (1) New onset of congestive heart failure: Status: Acute (2) Generalized weakness: Status: Acute (3) Swollen eyelid: Status: Acute (4) Pleural effusion: Status: Acute (5) Morbid obesity: Status: Acute (6) Acute on chronic respiratory failure with hypoxia and hypercapnia: Status: Acute (7) Pulmonary edema: Status: Acute (8) Acute kidney injury: Status: Acute (9) Pneumonia: Status: Acute (10) Morbid obesity with BMI of 70 and over, adult: Status: Acute (11) Hypertension: Status: Acute (12) Diabetes mellitus with peripheral autonomic neuropathy: Status: Acute Additional A&P Information Acute respiratory failure with hypoxemic / hypercapnic -Patient is doing better this morning, ABG looks better, however urine output has decreased, creatinine up to 2.2 - Etiology Multi-factorial - fluid and infection superimposed on likely underlying chronic obstructive pulmonary disease, and obesity hypoventilation syndrome - Baseline o2 requirements at 4L via NC - Worsening respiratory failure on 12/30 - 12/30 - . Chest x-ray bilateral pulmonary infiltrates, left sided pleural effusion with pulmonary vascular congestion -Chest x-ray shows improved pulmonary infiltrates today on the right - ABG -pH 7.38, PCO2 53.5, PO2 66.7, on 5 L -Continue BiPAP during the day as needed, BiPAP during the night - D-dimer - > 3.85 - V/Q scan ordered however with pulmonary finding may be inaccurate. May consider stating Heparin gtt pending improvment of renal function - Consult discussed with Dr. Gilliland 02 dependent COPD exacerbation - Continue DuoNeb q6hr scheduled -Off Solu-Medrol - Add pulmicort 0.5 mg Inh BID - Will place consult to pulmonary medicine - Repeat chest x-ray in am Suspected Multi-focal Pneumonia - Pro-calcitonin 0.09 - Possibly component of aspiration - Sputum culture if possible to obtain - D/C Rocephin continue azithromycin and continue Zosyn - SARS2 COVID rapid - negative - Follow up on blood culture x 2 - May consider repeat COVID 19 PCR Acute CHF exacerbation - Unable to obtain ECHO due to body habitus - May require JOELLE once stable - Monitor daily weight -Cardiorenal syndrome -Creatinine up to 2.3, urine output has increased to 2650cc, BNP has decreased to 220, started on a Lasix drip by nephrology service, will de-escalate of Lasix drip Right sided facial edema vs cellulitis -Minimal today, hold off on further antibiotic - Suspected allergic reaction to cat vs angioedema from paul-inhibitor - Stop paul-inhibitor - Improving from admission Acute renal failure -Has some component related to cardiorenal syndrome - Creatinine 0.9 on admit - Increased to 2.3 - Cautious diuresis - Nephrology consult to assist with diuresis - Hold ARB - Renally dose meds - Monitor urine output - Marcelo in place Hyperkalemia - K increased to 5.2 - Will give kayexelate once tolerating PO - Lasix given - Monitor on telemetry Noninsulin dependent Diabetes Mellitus - Sliding scale insulin - If blood sugars persistently high will add Reported Diarrhea - C-diff toxin - negative - Stool culture sent on admit - stable currently 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 - Foot x-ray - no evidence of osteo - Wound care consult - Podiatry Hypertension - Losartan on hold - PRN antihypertensive Peripheral arterial disease - Hx of common iliac obstruction s/p arthrectomy/stent placed - Aspirin not continued to reported allergy - Plavix 75 mg PO daily ( Once able to tolerate PO ) - Cardiology outpatient GI ppx - Protonix 40 mg IV daily DVT ppx - Lovenox 40 mg SQ daily Diet : NPO while on BiPAP Additional Medical History 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 Tobacco abuse Peripheral Neuropathy Morbid Obesity Attestations Medical Necessity Statement*: Patient requires hospitalization for acute CHF exacerbation, improving, Coding Level of Care Code Acute Foot Roentgenologist for Chilango May Diagnoses New onset of congestive heart failure I50.9 Generalized weakness R53.1 Swollen eyelid H02.849 Pleural effusion J90 Morbid obesity E66.01 Acute on chronic respiratory failure with hypoxia and hypercapnia J96.21; J96.22 Pulmonary edema J81.1 Acute kidney injury N17.9 Pneumonia J18.9 Morbid obesity with BMI of 70 and over, adult E66.01; Z68.45 Hypertension I10 Diabetes mellitus with peripheral autonomic neuropathy E11.43
[2020-01-03] MEDS: FUROsemide 10 mg/mL SDV 10mL 80 MG IVP ×2 (14:17→21:08)
[2020-01-03 16:47] LABS: Glucose Point of Care 280 mg/dL (70-110)
[2020-01-03] MEDS: diphenhydrAMINE 25 mg Capsule PO (18:58)
[2020-01-04] VITALS (17 sets, daily range): BP systolic 98–133; BP diastolic 59–74; PULSE 79–96; RESP 16–21; TEMP 36.5–37.1; O2SAT 94–98; BMI 69.9
[2020-01-04] MEDS: ipratropium-albuterol 3 mL Neb INHALATION ×4 (02:46→20:07)
[2020-01-04 04:15] LABS: Basophils % 0.3 %; Eosinophils # 0.4 10^3/uL (0.0-0.8); Hematocrit 41.2 % (37.0-47.0); Hemoglobin 11.5 g/dL (11.5-15.3); Lymphocytes % 14.1 %; Mean Corpuscular HGB Conc 27.9 g/dL (30.0-36.0); Mean Corpuscular Volume 85.8 fL (81-99); Mean Platelet Volume 10.5 fL (7.4-10.4); Monocytes # 0.9 10^3/uL (0.2-0.9); Monocytes % 12.7 %; Neutrophils # 4.79 10^3/uL (1.8-7.7); Neutrophils % 66.6 %; Nucleated Red Blood Cells % 0 %; Platelet Count 230 10^3/cmm (130-400); Red Cell Distribution Width 22.4 % (12.1-15.1); White Blood Count 7.2 10^3/uL (4.0-10.0)
[2020-01-04 04:43] LABS: Alanine Aminotransferase 9 U/L (0-33); Albumin Level 3.4 g/dL (3.5-5.2); Alkaline Phosphatase 54 IU/L (35-105); Anion Gap 11.9 (5-19); Aspartate Amino Transferase 10 U/L (0-32); Blood Urea Nitrogen 55 mg/dL (8-23); Carbon Dioxide 34 mmol/L (22-29); Chloride 100 mmol/L (98-107); Globulin 3.1 g/dL (1.3-4.6); Glomerular Filtration Rate 21.4 mL/min (90-130); Glucose 196 mg/dL (65-115); Osmolality Calculated 313 mOsm/kg (285-295); Phosphorus 4.5 mg/dL (2.5-4.5); Potassium 4.9 mmol/L (3.5-5.1); Sodium 141 mmol/L (136-145); Total Bilirubin 0.4 mg/dL (0.15-1.2); Total Protein 6.5 g/dL (6.6-8.7)
[2020-01-04] MEDS: FUROsemide 10 mg/mL SDV 10mL 80 MG IVP (05:03)
[2020-01-04] MEDS: azithromycin 500 MG in sodium chloride 0.9% 250 ML 250 MG IV (05:03)
[2020-01-04 06:48] LABS: Glucose Point of Care 162 mg/dL (70-110)
--- NOTE | 2020-01-04 07:17 | NUR.SHIFT ---
Patient had mainly slept for most of the shift until approximately 0300, where she had multiple BM's (4) in the bed. During the first BM, the COOKING APPLIANCE REPAIR TECHNICIAN's had tried to have the patient move from the bed to the chair in which the patient stated that she couldn't do it. However, the patient was able to turn in and left herself (to turn even more) during these times.
[2020-01-04] MEDS: budesonide 0.5 mg/2 mL Neb INHALATION ×2 (08:04→20:07)
[2020-01-04] MEDS: piperacillin-tazobactam 3.375 GM in sodium chloride 0.9% (plus) 50 ML IV ×3 (10:22→22:03)
[2020-01-04] MEDS: pantoprazole 40 mg SDV IVP (10:23)
[2020-01-04] MEDS: clopidogrel 75 mg Tablet PO (10:24)
[2020-01-04] MEDS: nystatin powder 15 gm Btl 1 APPLIC TOPICAL ×2 (10:24→17:17)
--- NOTE | 2020-01-04 13:04 | PM.PN ---
Subjective Subjective: Interval history: no complaints Medications: Reviewed: Yes (furosemide changed from IV to po) Vitals/I&O/Wt Last Vital Signs Temp 98.4 F 01/04/20 11:40 Pulse 89 01/04/20 11:40 Resp 18 01/04/20 11:40 BP 129/73 01/04/20 11:40 Pulse Ox 97 01/04/20 11:40 01/03/20 01/04/20 01/04/20 22:59 06:59 14:59 Intake Total 290 / 820 50 / 870 480 / 480 Output Total 1400 / 2400 2200 / 4600 Balance -1110 / -1580 -2150 / -3730 480 / 480 Weight last 48 hrs Weight 155.491 kg Weight 159.466 kg Physical Exam Const: COMMON NORMALS: no acute distress GENERAL APPEARANCE: cooperative NUTRITIONAL APPEARANCE: obese Urinary Catheter Management^: Marcelo: Cath Placed During This Visit: yes Reason for Continuing Indwelling Catheter: Other Urinary Catheter Date of Insertion: 12/30/19 Urinary Catheter Time of Insertion: 17:45 Data : 01/04/20 03:10 01/04/20 03:10 Micro: Microbiology 01/02/20 11:57 Urine Culture - Final Urine,Clean Catch A&P Additional A&P Information Impression: 1. Acute kidney injury, diuresing, renal function stable 2. CHF, diuresing 3. Respiratory acidosis 4. Hyperkalemia resolved Recommend: Agree qith Change to oral furosemide. Continue low potassium diet. Will need outpatient renal followup. Attestations Medical Necessity Statement*: per primary service Time Spent in Patient Care: 16 - 35 minutes Coding Level of Care Code Acute Product Responsibility Liaison for Chilango May
--- NOTE | 2020-01-04 13:18 | P.PN_ITS ---
Subjective Subjective: Interval history: Patient was examined this morning, she sitting up in a chair, on 3 to 4 L nasal cannula, she has good urine output in the last 24 hours, up to 4 L, she states that she is breathing better, feeling better, remains afebrile, I advised patient that I need her to get up and ambulate today, in anticipation of discharge tomorrow, will switch over to p.o. Lasix, overall getting better, continue BiPAP overnight, and as needed during the day Vitals/I&O/Wt Last Vital Signs Temp 98.4 F 01/04/20 11:40 Pulse 89 01/04/20 11:40 Resp 18 01/04/20 11:40 BP 129/73 01/04/20 11:40 Pulse Ox 97 01/04/20 11:40 01/03/20 01/04/20 01/04/20 22:59 06:59 14:59 Intake Total 290 / 820 50 / 870 480 / 480 Output Total 1400 / 2400 2200 / 4600 Balance -1110 / -1580 -2150 / -3730 480 / 480 Weight last 48 hrs Weight 155.491 kg Weight 159.466 kg Physical Exam Const: COMMON NORMALS: no acute distress and patient oriented x3 HENMT: COMMON NORMALS: normocephalic HEAD & SCALP: normocephalic OTHER: Has a rash erythematous across the face, Neck/C-Spine: COMMON NORMALS: no JVD Resp: COMMON NORMALS: normal respiratory effort, No retractions, No use of accessory muscles and clear to auscultation bilaterally AUSCULTATION: clear to auscultation bilaterally Cardio: COMMON NORMALS: no JVD, regular rate, regular rhythm, S1 normal heart sound present and S2 normal heart sound present RATE: regular rate RHYTHM: regular rhythm HEART SOUNDS: S1 normal heart sound present and S2 normal heart sound present GI: COMMON NORMALS: Normal to inspection, nondistended, normoactive bowel sounds present, Soft to palpation, non-tender, No hepatosplenomegaly present, no masses and no bruits PALPATION: Yes Soft to palpation and Yes No hepatosplenomegaly present OTHER: Obese abdomen Extremity: COMMON NORMALS: capillary refill normal, no clubbing, cyanosis or edema, no calf tenderness and no pedal edema Neuro: COMMON NORMALS: patient oriented x3 Psych: COMMON NORMALS: mental status grossly normal Skin: NARRATIVE SKIN EXAM: Has erythematous, macular rash over her face, nonblanching Urinary Catheter Management^: Marcelo: Cath Placed During This Visit: yes Reason for Continuing Indwelling Catheter: Other Urinary Catheter Date of Insertion: 12/30/19 Urinary Catheter Time of Insertion: 17:45 Data : 01/04/20 03:10 01/04/20 03:10 Micro: Microbiology 01/02/20 11:57 Urine Culture - Final Urine,Clean Catch A&P Assessment and plan (1) New onset of congestive heart failure: Status: Acute (2) Generalized weakness: Status: Acute (3) Swollen eyelid: Status: Acute (4) Pleural effusion: Status: Acute (5) Morbid obesity: Status: Acute (6) Acute on chronic respiratory failure with hypoxia and hypercapnia: Status: Acute (7) Pulmonary edema: Status: Acute (8) Acute kidney injury: Status: Acute (9) Pneumonia: Status: Acute (10) Morbid obesity with BMI of 70 and over, adult: Status: Acute (11) Hypertension: Status: Acute (12) Diabetes mellitus with peripheral autonomic neuropathy: Status: Acute Additional A&P Information Acute respiratory failure with hypoxemic / hypercapnic -Patient is doing better this morning, up to 2.3 - Etiology Multi-factorial - fluid and infection superimposed on likely underlying chronic obstructive pulmonary disease, and obesity hypoventilation syndrome, CHF - Baseline o2 requirements at 4L via NC - Worsening respiratory failure on 12/30 - 12/30 - . Chest x-ray bilateral pulmonary infiltrates, left sided pleural effusion with pulmonary vascular congestion -Chest x-ray shows improved pulmonary infiltrates today on the right - ABG -pH 7.38, PCO2 53.5, PO2 66.7, on 5 L -Continue BiPAP during the day as needed, BiPAP during the night - D-dimer - > 3.85 - V/Q scan ordered however with pulmonary finding may be inaccurate. May consider stating Heparin gtt pending improvment of renal function - Consult discussed with Dr. Gilliland 02 dependent COPD exacerbation - Continue DuoNeb q6hr scheduled -Off Solu-Medrol - Add pulmicort 0.5 mg Inh BID Suspected Multi-focal Pneumonia - Pro-calcitonin 0.09 - Possibly component of aspiration - Sputum culture if possible to obtain - D/C Rocephin continue azithromycin and continue Zosyn - SARS2 COVID rapid - negative - Follow up on blood culture x 2 - May consider repeat COVID 19 PCR Acute CHF exacerbation - Unable to obtain ECHO due to body habitus - May require JOELLE once stable - Monitor daily weight -Cardiorenal syndrome -Creatinine up to 2.3, urine output has increased to 4600cc, BNP has decreased to 220, will switch to Lasix 80 mg IV 3 times daily yesterday, switch to Lasix 80 mg twice daily today Right sided facial edema vs cellulitis -Minimal today, hold off on further antibiotic - Suspected allergic reaction to cat vs angioedema from paul-inhibitor - Stop paul-inhibitor - Improving from admission Acute renal failure -Has some component related to cardiorenal syndrome - Creatinine 0.9 on admit - Increased to 2.3 - Cautious diuresis - Nephrology consult to assist with diuresis - Hold ARB - Renally dose meds - Monitor urine output - Marcelo in place Hyperkalemia - K increased to 5.2 - Will give kayexelate once tolerating PO - Lasix given - Monitor on telemetry Noninsulin dependent Diabetes Mellitus - Sliding scale insulin - If blood sugars persistently high will add Reported Diarrhea - C-diff toxin - negative - Stool culture sent on admit - stable currently 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 - Foot x-ray - no evidence of osteo - Wound care consult - Podiatry Hypertension - Losartan on hold - PRN antihypertensive Peripheral arterial disease - Hx of common iliac obstruction s/p arthrectomy/stent placed - Aspirin not continued to reported allergy - Plavix 75 mg PO daily ( Once able to tolerate PO ) - Cardiology outpatient GI ppx - Protonix 40 mg IV daily DVT ppx - Lovenox 40 mg SQ daily Diet : NPO while on BiPAP Additional Medical History 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 Tobacco abuse Peripheral Neuropathy Morbid Obesity Plan today is to get up and ambulate, anticipate discharge tomorrow Attestations Medical Necessity Statement*: Patient requires hospitalization for acute hypoxic respiratory failures Coding Level of Care Code Acute Tile Machine Operator for Chilango Fwjoselyn Diagnoses New onset of congestive heart failure I50.9 Generalized weakness R53.1 Swollen eyelid H02.849 Pleural effusion J90 Morbid obesity E66.01 Acute on chronic respiratory failure with hypoxia and hypercapnia J96.21; J96.22 Pulmonary edema J81.1 Acute kidney injury N17.9 Pneumonia J18.9 Morbid obesity with BMI of 70 and over, adult E66.01; Z68.45 Hypertension I10 Diabetes mellitus with peripheral autonomic neuropathy E11.43
[2020-01-04] MEDS: FUROsemide 40 mg Tablet 80 MG PO (16:48)
[2020-01-04 17:28] LABS: Glucose Point of Care 206 mg/dL (70-110)
[2020-01-04 18:00] LABS: Glucose Point of Care 239 mg/dL (70-110)
[2020-01-04 21:16] LABS: Glucose Point of Care 217 mg/dL (70-110)
[2020-01-05] VITALS (16 sets, daily range): BP systolic 100–138; BP diastolic 62–80; PULSE 80–101; RESP 16–25; TEMP 36.6–37.3; O2SAT 90–98
[2020-01-05] MEDS: ipratropium-albuterol 3 mL Neb INHALATION ×4 (02:40→20:33)
[2020-01-05 03:26] LABS: Basophils % 0.5 %; Eosinophils # 0.5 10^3/uL (0.0-0.8); Eosinophils % 6.7 %; Hemoglobin 10.9 g/dL (11.5-15.3); Lymphocytes # 0.9 10^3/uL (0.8-4.8); Lymphocytes % 12.3 %; Mean Corpuscular HGB Conc 27.9 g/dL (30.0-36.0); Mean Corpuscular Volume 85.7 fL (81-99); Mean Platelet Volume 10.8 fL (7.4-10.4); Monocytes # 0.9 10^3/uL (0.2-0.9); Monocytes % 11.6 %; Neutrophils # 5.22 10^3/uL (1.8-7.7); Neutrophils % 68.8 %; Nucleated Red Blood Cells % 0 %; Platelet Count 205 10^3/cmm (130-400); Red Blood Count 4.55 10^6/uL (4.1-5.3); Red Cell Distribution Width 22.1 % (12.1-15.1); White Blood Count 7.6 10^3/uL (4.0-10.0)
[2020-01-05 03:49] LABS: Alanine Aminotransferase 9 U/L (0-33); Albumin Level 3.1 g/dL (3.5-5.2); Alkaline Phosphatase 50 IU/L (35-105); Aspartate Amino Transferase 11 U/L (0-32); Blood Urea Nitrogen 48 mg/dL (8-23); Calcium 8.8 mg/dL (8.5-10.5); Carbon Dioxide 36 mmol/L (22-29); Chloride 100 mmol/L (98-107); Globulin 3.2 g/dL (1.3-4.6); Glomerular Filtration Rate 23.8 mL/min (90-130); Glucose 215 mg/dL (65-115); Magnesium 1.8 mg/dL (1.7-2.3); Osmolality Calculated 313 mOsm/kg (285-295); Sodium 142 mmol/L (136-145); Total Bilirubin 0.3 mg/dL (0.15-1.2); Total Protein 6.3 g/dL (6.6-8.7)
[2020-01-05 03:57] LABS: Anion Gap 11.1 (5-19); Potassium 5.1 mmol/L (3.5-5.1)
[2020-01-05] MEDS: azithromycin 500 MG in sodium chloride 0.9% 250 ML 250 MG IV (05:04)
--- NOTE | 2020-01-05 07:02 | PM.PN ---
Subjective Subjective: Interval history: remains very swollen, sob, bipap requiring. Medications: Reviewed: Yes Medication Review Details: Current Medications Albuterol/Ipratropium (Duoneb) 3 ml INHALATION Q4H PRN PRN Reason: SHORTNESS OF BREATH Last Admin: 12/31/19 20:01 Dose: 3 ml Documented by: Albuterol/Ipratropium (Duoneb) 3 ml INHALATION Q6H.RESPIRATORY KD Last Admin: 01/05/20 02:40 Dose: 3 ml Documented by: Budesonide (Pulmicort) 0.5 mg INHALATION BID.RESPIRATORY KD Last Admin: 01/04/20 20:07 Dose: 0.5 mg Documented by: Clopidogrel Bisulfate (Plavix) 75 mg PO DAILY KD Last Admin: 01/04/20 10:24 Dose: 75 mg Documented by: Dextrose (D50w) 25 ml IVP ONCE PRN; Protocol PRN Reason: hypoglycemia protocol Dextrose (D50w) 50 ml IVP PRN PRN; Protocol PRN Reason: hypoglycemia protocol Diphenhydramine HCl (Benadryl) 25 mg PO Q12H PRN PRN Reason: Eye swelling Last Admin: 01/03/20 18:58 Dose: 25 mg Documented by: Furosemide (Lasix) 80 mg PO BID@08,16 KD Last Admin: 01/04/20 16:48 Dose: 80 mg Documented by: Glucagon (Glucagen) 1 mg IM ONCE PRN; Protocol PRN Reason: Adult Acute Hypoglycemia Prot. Dextrose (D5w) 500 mls @ 100 mls/hr IV ONCE PRN; Protocol PRN Reason: Adult Acute Hypoglycemia Prot Piperacillin Sod/Tazobactam (Sod 3.375 gm/ Sodium Chloride) 50 mls @ 12.5 mls/hr IV Q8H KD; Protocol Last Admin: 01/04/20 22:03 Dose: 12.5 mls/hr Documented by: Azithromycin 500 mg/ Sodium (Chloride) 250 mls @ 250 mls/hr IV Q24H KD; Protocol Last Admin: 01/05/20 05:04 Dose: 250 mls/hr Documented by: Insulin Aspart (Novolog) 0 unit SUBCUT WM&BEDTIME KD; Protocol Last Admin: 01/04/20 22:03 Dose: 4 unit Documented by: Nystatin (Nystatin Powder) 1 applic TOPICAL BID KD Last Admin: 01/04/20 17:17 Dose: 1 applic Documented by: Pantoprazole Sodium (Protonix) 40 mg IVP DAILY [facility] Last Admin: 01/04/20 10:23 Dose: 40 mg Documented by: Vitals/I&O/Wt Last Vital Signs Temp 97.8 F 01/05/20 04:00 Pulse 90 01/05/20 04:00 Resp 18 01/05/20 04:00 BP 124/80 01/05/20 04:00 Pulse Ox 96 01/05/20 04:00 01/04/20 01/05/20 01/05/20 23:59 06:59 14:59 Intake Total Output Total Balance Weight last 48 hrs Weight 157.034 kg Weight 155.491 kg Physical Exam Narrative: EXAM NARRATIVE: morbdily obese in bed, lethargic, using bipap heent- nc/at, eomi, anicteric neck obese lungs wheezes and crackles heart rrr abd soft, NT, ND, +BS ext b/l edema neuro- lethargic, responsive pulses + b/l + bustillos catheter Urinary Catheter Management^: Bustillos: Cath Placed During This Visit: yes Reason for Continuing Indwelling Catheter: Other Urinary Catheter Date of Insertion: 12/30/19 Urinary Catheter Time of Insertion: 17:45 Data : 01/05/20 03:18 01/05/20 03:18 Micro: Microbiology 01/02/20 11:57 Urine Culture - Final Urine,Clean Catch A&P Additional A&P Information Impression: 1. Acute kidney injury - CRS. pt is extremely edematous- will put back on iv lasix and add metolazone, renal function stable 2. CHF - see above 3. Respiratory acidosis and met alkalosis- repeat abg 4. Hyperkalemia -monitor w/ diuresis 5. DM control meds reviewed Attestations Medical Necessity Statement*: chf, sob, gideon, bipap dep Time Spent in Patient Care: 16 - 35 minutes Coding Level of Care Code Acute Inspector Chief for Chilango May
[2020-01-05 07:39] LABS: ABG PH Result 7.38 (7.35-7.45); Arterial Blood Gas Hematocrit 35.5 % (37-47); Base Excess ABG 10.8 mmol/L (-2.0-2.0); Blood Gas Allen Test Pos; Blood Gas LPM 4.5 %; Blood Gas Operator Identificat MONRO; Blood Gas Sample Site Radial, left; Blood Gas Sample Type Arterial; Carboxyhemoglobin 1.6 %THgb (0.4-20.1); HCO3 ABG 38.2 mmol/L (22-26); HGB O2 Sat 96.2 % (95-100); Ionized Calcium Level - ABG 1.2 mmol/L (1.1-1.4); Methemoglobin 0.7 % (0.4-1.5); Oxygen Device NC; Oxygen Saturation ABG 98.4; PO2 ABG 97.1 mmHg (80.0-100.0); Potassium Level - ABG 4.5 mmol/L (3.5-5.0); Total Hemoglobin 11.6 g/dL (12-16)
[2020-01-05 07:41] LABS: ABG PCO2 64.6 mmHg (35-45)
[2020-01-05 08:40] LABS: Glucose Point of Care 231 mg/dL (70-110)
[2020-01-05] MEDS: budesonide 0.5 mg/2 mL Neb INHALATION ×2 (08:55→20:33)
[2020-01-05] MEDS: metOLazone 5 MG Tablet PO (09:39)
[2020-01-05] MEDS: clopidogrel 75 mg Tablet PO (09:39)
[2020-01-05] MEDS: nystatin powder 15 gm Btl 1 APPLIC TOPICAL ×2 (09:41→17:35)
[2020-01-05] MEDS: pantoprazole 40 mg SDV IVP (09:41)
[2020-01-05] MEDS: FUROsemide 10 mg/mL SDV 10mL 80 MG IVP ×2 (09:41→20:13)
[2020-01-05] MEDS: piperacillin-tazobactam 3.375 GM in sodium chloride 0.9% (plus) 50 ML IV ×2 (10:37→16:23)
[2020-01-05 10:57] LABS: Glucose Point of Care 238 mg/dL (70-110)
--- NOTE | 2020-01-05 12:51 | P.PN_ITS ---
Subjective Subjective: Interval history: This morning patient examined, she is on BiPAP this morning, I took her off BiPAP, and talk to her, she states that she is actually doing well, she is able to sit in the chair yesterday, able to ambulate with nursing staff, still has some degree of shortness of breath, does have some generalized edema, but much improved, she did diurese 2.7 L yesterday, creatinine today is 2.1, she is seen by nephrology service this morning, there is concern for continued fluid overload, so she switched over to IV Lasix. Overall she is doing better, she just might require a bit longer course of Lasix. The bigger issue here is is that the patient has significant COPD, chronic hypercapnic respiratory failure, and her PCO2 chronically will between 50-60, she does not have a BiPAP at home. She will require a BiPAP on discharge, or she will have a readmission for low recurrent hypercapnic respiratory failure, and the only reasonable treatment for this would be a BiPAP machine. Vitals/I&O/Wt Last Vital Signs Temp 98.2 F 01/05/20 11:31 Pulse 99 01/05/20 11:31 Resp 16 01/05/20 11:31 BP 100/62 01/05/20 11:31 Pulse Ox 90 01/05/20 11:31 01/04/20 01/05/20 01/05/20 23:59 06:59 14:59 Intake Total 600 / 600 Output Total 1500 / 1500 Balance -900 / -900 Weight last 48 hrs Weight 152.271 kg Weight 157.034 kg Physical Exam Const: COMMON NORMALS: no acute distress and patient oriented x3 ORIENTATION/CONSCIOUSNESS: Yes awake, Yes oriented to person and Yes oriented to place; not oriented to time HENMT: COMMON NORMALS: normocephalic HEAD & SCALP: normocephalic OTHER: Has a rash erythematous across the face, Neck/C-Spine: COMMON NORMALS: no JVD Resp: COMMON NORMALS: normal respiratory effort, No retractions, No use of accessory muscles and clear to auscultation bilaterally AUSCULTATION: clear to auscultation bilaterally Cardio: COMMON NORMALS: no JVD, regular rate, regular rhythm, S1 normal heart sound present and S2 normal heart sound present RATE: regular rate RHYTHM: regular rhythm HEART SOUNDS: S1 normal heart sound present and S2 normal hea rt sound present GI: COMMON NORMALS: Normal to inspection, nondistended, normoactive bowel sounds present, Soft to palpation, non-tender, no masses and no bruits PALPATION: Yes Soft to palpation OTHER: Obese abdomen : COMMON NORMALS: Yes no CVA tenderness BLADDER/KIDNEY EXAM: Yes no CVA tenderness OTHER: Marcelo catheter in place Back/Pelvis: COMMON NORMALS: no CVA tenderness Extremity: COMMON NORMALS: capillary refill normal, no clubbing, cyanosis or edema, no calf tenderness and no pedal edema NARRATIVE EXTREMITY EXAM: 1+ pitting edema bilaterally Neuro: COMMON NORMALS: patient oriented x3 SENSORIUM/ORIENTATION: Yes oriented to person, Yes oriented to place and No oriented to time Psych: COMMON NORMALS: mental status grossly normal Skin: NARRATIVE SKIN EXAM: Nonpitting edema Urinary Catheter Management^: Marcelo: Cath Placed During This Visit: yes Reason for Continuing Indwelling Catheter: Acute Urinary Retention or Obstruction Urinary Catheter Date of Insertion: 12/30/19 Urinary Catheter Time of Insertion: 17:45 Data : 01/05/20 03:18 01/05/20 03:18 A&P Assessment and plan (1) New onset of congestive heart failure: Status: Acute (2) Generalized weakness: Status: Acute (3) Swollen eyelid: Status: Acute (4) Pleural effusion: Status: Acute (5) Morbid obesity: Status: Acute (6) Acute on chronic respiratory failure with hypoxia and hypercapnia: Status: Acute (7) Pulmonary edema: Status: Acute (8) Acute kidney injury: Status: Acute (9) Pneumonia: Status: Acute (10) Morbid obesity with BMI of 70 and over, adult: Status: Acute (11) Hypertension: Status: Acute (12) Diabetes mellitus with peripheral autonomic neuropathy: Status: Acute Additional A&P Information Acute respiratory failure with hypoxemic / hypercapnic -Patient is doing better this morning, up to 2.3 - Etiology Multi-factorial - fluid and infection superimposed on likely underlying chronic obstructive pulmonary disease, chronic hypercapnic respiratory failure and obesity hypoventilation syndrome, CHF - Baseline o2 requirements at 4L via NC - Worsening respiratory failure on 12/30 - 12/30 - . Chest x-ray bilateral pulmonary infiltrates, left sided pleural effusion with pulmonary vascular congestion -Chest x-ray shows improved pulmonary infiltrates today on the right - ABG -pH 7.38, PCO2 64.6, on 4.5 L -Continue BiPAP during the day as needed, BiPAP during the night - D-dimer - > 3.85 - V/Q scan ordered however with pulmonary finding may be inaccurate. May consider stating Heparin gtt pending improvment of renal function - Consult discussed with Dr. Gilliland 02 dependent COPD exacerbation - Continue DuoNeb q6hr scheduled -Off Solu-Medrol - Add pulmicort 0.5 mg Inh BID -Was able to sit up in the chair, able to ambulate the hallways, still a bit short of breath, 1+ nonpitting edema -Have discussed with case management, will require an overnight pulse ox, needs BiPAP machine on discharge Suspected Multi-focal Pneumonia - Pro-calcitonin 0.09 - Possibly component of aspiration - Sputum culture if possible to obtain - D/C Rocephin continue azithromycin and continue Zosyn - SARS2 COVID rapid - negative - Follow up on blood culture x 2 - May consider repeat COVID 19 PCR Acute CHF exacerbation - Unable to obtain ECHO due to body habitus - May require JOELLE once stable - Monitor daily weight -Cardiorenal syndrome -Creatinine up to 2.1 urine output has increased to 2200cc, continue IV Lasix therapy Right sided facial edema vs cellulitis -Minimal today, hold off on further antibiotic - Suspected allergic reaction to cat vs angioedema from paul-inhibitor - Stop paul-inhibitor - Improving from admission Acute renal failure -Has some component related to cardiorenal syndrome - Creatinine 0.9 on admit - Increased to 2.1 - Cautious diuresis - Nephrology consult to assist with diuresis - Hold ARB - Renally dose meds - Monitor urine output - Marcelo in place Hyperkalemia - K increased to 5.1 -Monitor - Lasix given - Monitor on telemetry Noninsulin dependent Diabetes Mellitus - Sliding scale insulin - If blood sugars persistently high will add Reported Diarrhea - C-diff toxin - negative - Stool culture sent on admit - stable currently 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 - Foot x-ray - no evidence of osteo - Wound care consult - Podiatry Hypertension - Losartan on hold - PRN antihypertensive Peripheral arterial disease - Hx of common iliac obstruction s/p arthrectomy/stent placed - Aspirin not continued to reported allergy - Plavix 75 mg PO daily ( Once able to tolerate PO ) - Cardiology outpatient GI ppx - Protonix 40 mg IV daily DVT ppx - Lovenox 40 mg SQ daily Diet : NPO while on BiPAP Additional Medical History 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 Tobacco abuse Peripheral Neuropathy Morbid Obesity Plan today is to get up and ambulate, anticipate discharge tomorrow Attestations Medical Necessity Statement*: Patient requires hospitalization due to staph worse bacteremia secondary to T7 vertebral osteomyelitis, hypovolemic hyponatremia, poor oral intake Coding Level of Care Code Acute Artist Representative for Chg Fwd Diagnoses New onset of congestive heart failure I50.9 Generalized weakness R53.1 Swollen eyelid H02.849 Pleural effusion J90 Morbid obesity E66.01 Acute on chronic respiratory failure with hypoxia and hypercapnia J96.21; J96.22 Pulmonary edema J81.1 Acute kidney injury N17.9 Pneumonia J18.9 Morbid obesity with BMI of 70 and over, adult E66.01; Z68.45 Hypertension I10 Diabetes mellitus with peripheral autonomic neuropathy E11.43
[2020-01-05 17:02] LABS: Glucose Point of Care 319 mg/dL (70-110)
[2020-01-05 20:36] LABS: Glucose Point of Care 298 mg/dL (70-110)
[2020-01-06] VITALS (14 sets, daily range): BP systolic 119–152; BP diastolic 71–81; PULSE 72–99; RESP 16–18; TEMP 36.6–37.3; O2SAT 81–96; BMI 64.9
[2020-01-06] MEDS: piperacillin-tazobactam 3.375 GM in sodium chloride 0.9% (plus) 50 ML IV ×3 (01:14→17:51)
[2020-01-06] MEDS: ipratropium-albuterol 3 mL Neb INHALATION ×4 (02:57→21:38)
[2020-01-06 03:39] LABS: ABG PCO2 64.2 mmHg (35-45); ABG PH Result 7.42 (7.35-7.45); Base Excess ABG 14.1 mmol/L (-2.0-2.0); Blood Gas Allen Test Pos; Blood Gas Sample Site Radial, left; Blood Gas Sample Type Arterial; HCO3 ABG 41.3 mmol/L (22-26); Oxygen Device BIPAP; PO2 ABG 78.3 mmHg (80.0-100.0)
[2020-01-06 04:30] LABS: Alanine Aminotransferase 13 U/L (0-33); Albumin Level 3.2 g/dL (3.5-5.2); Alkaline Phosphatase 51 IU/L (35-105); Aspartate Amino Transferase 16 U/L (0-32); Blood Urea Nitrogen 45 mg/dL (8-23); Calcium 9.1 mg/dL (8.5-10.5); Carbon Dioxide 39 mmol/L (22-29); Chloride 97 mmol/L (98-107); Globulin 3.3 g/dL (1.3-4.6); Glomerular Filtration Rate 30.4 mL/min (90-130); Glucose 267 mg/dL (65-115); Magnesium 1.7 mg/dL (1.7-2.3); Osmolality Calculated 313 mOsm/kg (285-295); Phosphorus 3.7 mg/dL (2.5-4.5); Sodium 141 mmol/L (136-145); Total Bilirubin 0.4 mg/dL (0.15-1.2); Total Protein 6.5 g/dL (6.6-8.7)
[2020-01-06 04:42] LABS: Anion Gap 9.3 (5-19); Potassium 4.3 mmol/L (3.5-5.1)
[2020-01-06] MEDS: azithromycin 500 MG in sodium chloride 0.9% 250 ML 250 MG IV (05:48)
--- NOTE | 2020-01-06 06:16 | PM.PN ---
Subjective Subjective: Interval history: sleepy on bipap. dec edema. good uop. Medications: Reviewed: Yes Medication Review Details: Current Medications Albuterol/Ipratropium (Duoneb) 3 ml INHALATION Q4H PRN PRN Reason: SHORTNESS OF BREATH Last Admin: 12/31/19 20:01 Dose: 3 ml Documented by: Albuterol/Ipratropium (Duoneb) 3 ml INHALATION Q6H.RESPIRATORY KD Last Admin: 01/06/20 02:57 Dose: 3 ml Documented by: Budesonide (Pulmicort) 0.5 mg INHALATION BID.RESPIRATORY KD Last Admin: 01/05/20 20:33 Dose: 0.5 mg Documented by: Clopidogrel Bisulfate (Plavix) 75 mg PO DAILY KD Last Admin: 01/05/20 09:39 Dose: 75 mg Documented by: Dextrose (D50w) 25 ml IVP ONCE PRN; Protocol PRN Reason: hypoglycemia protocol Dextrose (D50w) 50 ml IVP PRN PRN; Protocol PRN Reason: hypoglycemia protocol Diphenhydramine HCl (Benadryl) 25 mg PO Q12H PRN PRN Reason: Eye swelling Last Admin: 01/03/20 18:58 Dose: 25 mg Documented by: Furosemide (Lasix) 80 mg IVP Q12H KD Last Admin: 01/05/20 20:13 Dose: 80 mg Documented by: Glucagon (Glucagen) 1 mg IM ONCE PRN; Protocol PRN Reason: Adult Acute Hypoglycemia Prot. Dextrose (D5w) 500 mls @ 100 mls/hr IV ONCE PRN; Protocol PRN Reason: Adult Acute Hypoglycemia Prot Piperacillin Sod/Tazobactam (Sod 3.375 gm/ Sodium Chloride) 50 mls @ 12.5 mls/hr IV Q8H KD; Protocol Last Admin: 01/06/20 01:14 Dose: 12.5 mls/hr Documented by: Azithromycin 500 mg/ Sodium (Chloride) 250 mls @ 250 mls/hr IV Q24H KD; Protocol Last Admin: 01/06/20 05:48 Dose: 250 mls/hr Documented by: Insulin Aspart (Novolog) 0 unit SUBCUT WM&BEDTIME KD; Protocol Last Admin: 01/05/20 21:01 Dose: 8 unit Documented by: Metolazone (Zaroxolyn) 5 mg PO DAILY KD Last Admin: 01/05/20 09:39 Dose: 5 mg Documented by: Nystatin (Nystatin Powder) 1 applic TOPICAL BID [facility] Last Admin: 01/05/20 17:35 Dose: 1 applic Documented by: Pantoprazole Sodium (Protonix) 40 mg IVP DAILY [facility] Last Admin: 01/05/20 09:41 Dose: 40 mg Documented by: Vitals/I&O/Wt Last Vital Signs Temp 98.7 F 01/06/20 04:00 Pulse 81 01/06/20 04:00 Resp 18 01/06/20 04:00 BP 122/73 01/06/20 04:00 Pulse Ox 93 01/06/20 04:00 01/05/20 01/05/20 01/06/20 14:59 22:59 06:59 Intake Total 650 / 650 200 / 850 Output Total 1500 / 1500 2500 / 4000 1850 / 5850 Balance -850 / -850 -2300 / -3150 -1850 / -5000 Weight last 48 hrs Weight 152.271 kg Weight 157.034 kg Physical Exam Narrative: EXAM NARRATIVE: obese in bed, lethargic, using bipap -less swollen, less sob heent- nc/at, eomi, anicteric neck obese lungs= dec b/l crackles heart rrr abd soft, NT, ND, +BS ext b/l edemaimproving neuro- lethargic, responsive pulses + b/l + bustillos catheter Urinary Catheter Management^: Bustillos: Cath Placed During This Visit: yes Reason for Continuing Indwelling Catheter: Acute Urinary Retention or Obstruction Urinary Catheter Date of Insertion: 12/30/19 Urinary Catheter Time of Insertion: 17:45 Data : 01/05/20 03:18 01/06/20 03:22 Micro: Microbiology 01/01/20 05:08 Blood Culture - Final Blood NO GROWTH AFTER 5 DAYS 01/01/20 05:03 Blood Culture - Final Blood NO GROWTH AFTER 5 DAYS A&P Additional A&P Information Impression: 1. Acute kidney injury - CRS. pt is responding to lasix and metolazone. cr improving- cut doses in half 2. CHF - see above 3. Respiratory acidosis and met alkalosis- repeat abg noted- pC02 over 60 even w/ bipap 4. Hyperkalemia -improved w/ diuresis 5. DM control meds reviewed Attestations Medical Necessity Statement*: volume overloAD, gideon, copd, chf, bipap and o2 dep Time Spent in Patient Care: 16 - 35 minutes Coding Level of Care Code Acute Human Services Care Specialist for [place] May
[2020-01-06 06:30] LABS: Glucose Point of Care 241 mg/dL (70-110)
[2020-01-06 07:31] LABS: Basophils # 0.1 10^3/uL (0.0-0.1); Basophils % 0.8 %; Eosinophils # 0.6 10^3/uL (0.0-0.8); Eosinophils % 8.1 %; Hematocrit 39.4 % (37.0-47.0); Hemoglobin 11.1 g/dL (11.5-15.3); Lymphocytes % 12.2 %; Mean Corpuscular HGB Conc 28.2 g/dL (30.0-36.0); Mean Corpuscular Hemoglobin 23.9 pg (28.0-34.0); Mean Corpuscular Volume 84.9 fL (81-99); Mean Platelet Volume 11.1 fL (7.4-10.4); Monocytes # 0.9 10^3/uL (0.2-0.9); Monocytes % 11.5 %; Neutrophils # 5.31 10^3/uL (1.8-7.7); Neutrophils % 67.1 %; Nucleated Red Blood Cells % 0 %; Platelet Count 192 10^3/cmm (130-400); Red Blood Count 4.64 10^6/uL (4.1-5.3); Red Cell Distribution Width 21.7 % (12.1-15.1); White Blood Count 7.9 10^3/uL (4.0-10.0)
[2020-01-06] MEDS: budesonide 0.5 mg/2 mL Neb INHALATION ×2 (08:50→21:38)
[2020-01-06] MEDS: clopidogrel 75 mg Tablet PO (09:13)
[2020-01-06] MEDS: metOLazone 5 MG Tablet 2.5 MG PO (09:13)
[2020-01-06] MEDS: pantoprazole 40 mg SDV IVP (09:14)
[2020-01-06] MEDS: FUROsemide 10 mg/mL SDV 4mL 40 MG IVP ×2 (09:14→22:26)
[2020-01-06] MEDS: nystatin powder 15 gm Btl 1 APPLIC TOPICAL ×2 (09:27→18:00)
[2020-01-06 13:12] LABS: Glucose Point of Care 303 mg/dL (70-110)
[2020-01-06 17:55] LABS: Glucose Point of Care 307 mg/dL (70-110)
--- NOTE | 2020-01-06 20:44 | PM.PN ---
Subjective Subjective: Interval history: Was on bipap at the time of my eval. Noted > 3L urine output Medications: Reviewed: Yes Medication Review Details: Current Medications Albuterol/Ipratropium (Duoneb) 3 ml INHALATION Q4H PRN PRN Reason: SHORTNESS OF BREATH Last Admin: 12/31/19 20:01 Dose: 3 ml Documented by: Albuterol/Ipratropium (Duoneb) 3 ml INHALATION Q6H.RESPIRATORY KD Last Admin: 01/06/20 02:57 Dose: 3 ml Documented by: Budesonide (Pulmicort) 0.5 mg INHALATION BID.RESPIRATORY KD Last Admin: 01/05/20 20:33 Dose: 0.5 mg Documented by: Clopidogrel Bisulfate (Plavix) 75 mg PO DAILY KD Last Admin: 01/05/20 09:39 Dose: 75 mg Documented by: Dextrose (D50w) 25 ml IVP ONCE PRN; Protocol PRN Reason: hypoglycemia protocol Dextrose (D50w) 50 ml IVP PRN PRN; Protocol PRN Reason: hypoglycemia protocol Diphenhydramine HCl (Benadryl) 25 mg PO Q12H PRN PRN Reason: Eye swelling Last Admin: 01/03/20 18:58 Dose: 25 mg Documented by: Furosemide (Lasix) 80 mg IVP Q12H KD Last Admin: 01/05/20 20:13 Dose: 80 mg Documented by: Glucagon (Glucagen) 1 mg IM ONCE PRN; Protocol PRN Reason: Adult Acute Hypoglycemia Prot. Dextrose (D5w) 500 mls @ 100 mls/hr IV ONCE PRN; Protocol PRN Reason: Adult Acute Hypoglycemia Prot Piperacillin Sod/Tazobactam (Sod 3.375 gm/ Sodium Chloride) 50 mls @ 12.5 mls/hr IV Q8H KD; Protocol Last Admin: 01/06/20 01:14 Dose: 12.5 mls/hr Documented by: Azithromycin 500 mg/ Sodium (Chloride) 250 mls @ 250 mls/hr IV Q24H KD; Protocol Last Admin: 01/06/20 05:48 Dose: 250 mls/hr Documented by: Insulin Aspart (Novolog) 0 unit SUBCUT WM&BEDTIME KD; Protocol Last Admin: 01/05/20 21:01 Dose: 8 unit Documented by: Metolazone (Zaroxolyn) 5 mg PO DAILY [facility] Last Admin: 01/05/20 09:39 Dose: 5 mg Documented by: Nystatin (Nystatin Powder) 1 applic TOPICAL BID [facility] Last Admin: 01/05/20 17:35 Dose: 1 applic Documented by: Pantoprazole Sodium (Protonix) 40 mg IVP DAILY [facility] Last Admin: 01/05/20 09:41 Dose: 40 mg Documented by: Vitals/I&O/Wt Last Vital Signs Temp 99.1 F 01/06/20 20:00 Pulse 99 01/06/20 20:00 Resp 18 01/06/20 20:00 BP 146/71 01/06/20 20:00 Pulse Ox 96 01/06/20 20:00 01/06/20 01/06/20 01/06/20 06:59 14:59 22:59 Intake Total 50 / 900 1010 / 1010 720 / 1730 Output Total 1850 / 5850 2150 / 2150 Balance -1800 / -4950 -1140 / -1140 720 / -420 Weight last 48 hrs Weight 145.858 kg Weight 152.271 kg Physical Exam Narrative: EXAM NARRATIVE: Morbidly obese female General: Drowsy on BiPAP HEENT: Bilateral eyelid swelling - improved, no pain with eye movement, mild crusting with out any purulent discharge CVS : S1, S2 , No obvious murmurs Chest : Decrease BS at bases Abdomen: soft, nontender, bowel sound present Extremity : Bilateral lower extremity edema 1+ bilaterally Urinary Catheter Management^: Marcelo: Cath Placed During This Visit: yes Reason for Continuing Indwelling Catheter: Acute Urinary Retention or Obstruction Urinary Catheter Date of Insertion: 12/30/19 Urinary Catheter Time of Insertion: 17:45 Data : 01/06/20 07:20 01/06/20 03:22 Micro: Microbiology 01/01/20 05:08 Blood Culture - Final Blood NO GROWTH AFTER 5 DAYS 01/01/20 05:03 Blood Culture - Final Blood NO GROWTH AFTER 5 DAYS A&P Assessment and plan (1) New onset of congestive heart failure: Status: Acute (2) Generalized weakness: Status: Acute (3) Swollen eyelid: Status: Acute (4) Pleural effusion: Status: Acute (5) Morbid obesity: Status: Acute (6) Acute on chronic respiratory failure with hypoxia and hypercapnia: Status: Acute (7) Pulmonary edema: Status: Acute (8) Acute kidney injury: Status: Acute (9) Pneumonia: Status: Acute (10) Morbid obesity with BMI of 70 and over, adult: Status: Acute (11) Hypertension: Status: Acute (12) Diabetes mellitus with peripheral autonomic neuropathy: Status: Acute Additional A&P Information Acute respiratory failure with hypoxemic / hypercapnic -Patient is doing better this morning, up to 2.3 - Etiology Multi-factorial - fluid and infection superimposed on likely underlying chronic obstructive pulmonary disease, chronic hypercapnic respiratory failure and obesity hypoventilation syndrome, CHF - Baseline o2 requirements at 4L via NC - Worsening respiratory failure on 12/30 - 12/30 - . Chest x-ray bilateral pulmonary infiltrates, left sided pleural effusion with pulmonary vascular congestion -Chest x-ray shows improved pulmonary infiltrates today on the right - ABG -pH 7.38, PCO2 64.6, on 4.5 L -Continue BiPAP during the day as needed, BiPAP during the night - D-dimer - > 3.85 - V/Q scan ordered however with pulmonary finding may be inaccurate. May consider stating Heparin gtt pending improvment of renal function - Consult discussed with Dr. Gilliland 02 dependent COPD exacerbation - Continue DuoNeb q6hr scheduled -Off Solu-Medrol - Add pulmicort 0.5 mg Inh BID -Was able to sit up in the chair, able to ambulate the hallways, still a bit short of breath, 1+ nonpitting edema -Have discussed with case management, will require an overnight pulse ox, needs BiPAP machine on discharge Suspected Multi-focal Pneumonia - Pro-calcitonin 0.09 - Possibly component of aspiration - Sputum culture if possible to obtain - D/C Rocephin continue azithromycin and continue Zosyn - SARS2 COVID rapid - negative - Follow up on blood culture x 2 - May consider repeat COVID 19 PCR Acute CHF exacerbation - Unable to obtain ECHO due to body habitus - May require JOELLE once stable - Monitor daily weight -Cardiorenal syndrome -Creatinine up to 2.1 urine output has increased to 2200cc, continue IV Lasix therapy Right sided facial edema vs cellulitis -Minimal today, hold off on further antibiotic - Suspected allergic reaction to cat vs angioedema from paul-inhibitor - Stop paul-inhibitor - Improving from admission Acute renal failure -Has some component related to cardiorenal syndrome - Creatinine 0.9 on admit - Increased to 2.1 - Cautious diuresis - Nephrology consult to assist with diuresis - Hold ARB - Renally dose meds - Monitor urine output - Marcelo in place Hyperkalemia - K increased to 5.1 -Monitor - Lasix given - Monitor on telemetry Noninsulin dependent Diabetes Mellitus - Sliding scale insulin - If blood sugars persistently high will add Reported Diarrhea - C-diff toxin - negative - Stool culture sent on admit - stable currently 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 - Foot x-ray - no evidence of osteo - Wound care consult - Podiatry Hypertension - Losartan on hold - PRN antihypertensive Peripheral arterial disease - Hx of common iliac obstruction s/p arthrectomy/stent placed - Aspirin not continued to reported allergy - Plavix 75 mg PO daily ( Once able to tolerate PO ) - Cardiology outpatient GI ppx - Protonix 40 mg IV daily DVT ppx - Lovenox 40 mg SQ daily Diet : NPO while on BiPAP Additional Medical History 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 Tobacco abuse Peripheral Neuropathy Morbid Obesity Disposition - arranging home bipap. to qualify for home o2 . 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
[2020-01-06 21:40] LABS: Glucose Point of Care 298 mg/dL (70-110)
[2020-01-07] VITALS (18 sets, daily range): BP systolic 111–137; BP diastolic 58–73; PULSE 86–99; RESP 16–25; TEMP 36.8–37.9; O2SAT 88–96; BMI 63.8
[2020-01-07] MEDS: ipratropium-albuterol 3 mL Neb INHALATION ×4 (02:13→20:32)
[2020-01-07] MEDS: piperacillin-tazobactam 3.375 GM in sodium chloride 0.9% (plus) 50 ML IV ×3 (03:05→22:57)
[2020-01-07 04:45] LABS: ABG PH Result 7.47 (7.35-7.45); Arterial Blood Gas Hematocrit 34.5 % (37-47); Base Excess ABG 18.1 mmol/L (-2.0-2.0); Blood Gas Allen Test Pos; Blood Gas Operator Identificat JB; Blood Gas Sample Site Radial, left; Blood Gas Sample Type Arterial; HCO3 ABG 44.8 mmol/L (22-26); Oxygen Device BIPAP; PO2 ABG 65.6 mmHg (80.0-100.0)
[2020-01-07 04:46] LABS: ABG PCO2 62.3 mmHg (35-45)
[2020-01-07 06:18] LABS: Basophils % 0.4 %; Eosinophils # 0.5 10^3/uL (0.0-0.8); Eosinophils % 6.7 %; Hemoglobin 10.8 g/dL (11.5-15.3); Lymphocytes # 1.1 10^3/uL (0.8-4.8); Lymphocytes % 13.8 %; Mean Corpuscular HGB Conc 28.4 g/dL (30.0-36.0); Mean Corpuscular Hemoglobin 24.2 pg (28.0-34.0); Mean Corpuscular Volume 85.2 fL (81-99); Mean Platelet Volume 11.7 fL (7.4-10.4); Monocytes % 12.2 %; Neutrophils # 5.39 10^3/uL (1.8-7.7); Neutrophils % 66.5 %; Nucleated Red Blood Cells % 0 %; Platelet Count 217 10^3/cmm (130-400); Red Blood Count 4.46 10^6/uL (4.1-5.3); Red Cell Distribution Width 21.6 % (12.1-15.1); White Blood Count 8.1 10^3/uL (4.0-10.0)
[2020-01-07 06:33] LABS: Glucose Point of Care 234 mg/dL (70-110)
--- NOTE | 2020-01-07 07:26 | PM.PN ---
Subjective Subjective: Interval history: sleepy on bipap, weak swollen. Medications: Reviewed: Yes Medication Review Details: Current Medications Albuterol/Ipratropium (Duoneb) 3 ml INHALATION Q4H PRN PRN Reason: SHORTNESS OF BREATH Last Admin: 12/31/19 20:01 Dose: 3 ml Documented by: Albuterol/Ipratropium (Duoneb) 3 ml INHALATION Q6H.RESPIRATORY KD Last Admin: 01/07/20 02:13 Dose: 3 ml Documented by: Budesonide (Pulmicort) 0.5 mg INHALATION BID.RESPIRATORY KD Last Admin: 01/06/20 21:38 Dose: 0.5 mg Documented by: Clopidogrel Bisulfate (Plavix) 75 mg PO DAILY KD Last Admin: 01/06/20 09:13 Dose: 75 mg Documented by: Dextrose (D50w) 25 ml IVP ONCE PRN; Protocol PRN Reason: hypoglycemia protocol Dextrose (D50w) 50 ml IVP PRN PRN; Protocol PRN Reason: hypoglycemia protocol Diphenhydramine HCl (Benadryl) 25 mg PO Q12H PRN PRN Reason: Eye swelling Last Admin: 01/03/20 18:58 Dose: 25 mg Documented by: Furosemide (Lasix) 40 mg IVP Q12H KD Last Admin: 01/06/20 22:26 Dose: 40 mg Documented by: Glucagon (Glucagen) 1 mg IM ONCE PRN; Protocol PRN Reason: Adult Acute Hypoglycemia Prot. Dextrose (D5w) 500 mls @ 100 mls/hr IV ONCE PRN; Protocol PRN Reason: Adult Acute Hypoglycemia Prot Piperacillin Sod/Tazobactam (Sod 3.375 gm/ Sodium Chloride) 50 mls @ 12.5 mls/hr IV Q8H KD; Protocol Last Admin: 01/07/20 03:05 Dose: 12.5 mls/hr Documented by: Azithromycin 500 mg/ Sodium (Chloride) 250 mls @ 250 mls/hr IV Q24H KD; Protocol Last Admin: 01/06/20 05:48 Dose: 250 mls/hr Documented by: Insulin Aspart (Novolog) 0 unit SUBCUT WM&BEDTIME KD; Protocol Last Admin: 01/06/20 21:40 Dose: 8 unit Documented by: Metolazone (Zaroxolyn) 2.5 mg PO DAILY KD Last Admin: 01/06/20 09:13 Dose: 2.5 mg Documented by: Nystatin (Nystatin Powder) 1 applic TOPICAL BID [facility] Last Admin: 01/06/20 18:00 Dose: 1 applic Documented by: Pantoprazole Sodium (Protonix) 40 mg PO DAILY [facility] Vitals/I&O/Wt Last Vital Signs Temp 98.4 F 01/07/20 04:00 Pulse 88 01/07/20 04:36 Resp 18 01/07/20 04:00 BP 111/58 01/07/20 04:00 Pulse Ox 91 01/07/20 04:36 01/06/20 01/07/20 01/07/20 22:59 06:59 14:59 Intake Total 1009 Output Total 850 / 3000 Balance 1010 / -130 -850 / -980 Weight last 48 hrs Weight 145.858 kg Weight 152.271 kg Physical Exam Narrative: EXAM NARRATIVE: obese in bed, lethargic, using bipap - swollen, less sob heent- nc/at, eomi, anicteric neck obese lungs= b/l crackles heart rrr abd soft, NT, ND, +BS ext b/l edema improving neuro- lethargic, responsive pulses + b/l + bustillos catheter Urinary Catheter Management^: Bustillos: Cath Placed During This Visit: yes Reason for Continuing Indwelling Catheter: Acute Urinary Retention or Obstruction Urinary Catheter Date of Insertion: 12/30/19 Urinary Catheter Time of Insertion: 17:45 Data : 01/07/20 05:49 01/06/20 03:22 Micro: Microbiology 01/01/20 05:08 Blood Culture - Final Blood NO GROWTH AFTER 5 DAYS 01/01/20 05:03 Blood Culture - Final Blood NO GROWTH AFTER 5 DAYS A&P Additional A&P Information Impression: 1. q pna- abx per medicine 2. Acute kidney injury - CRS. pt is responding to lasix and metolazone. cr improving. 3. CHF -diuresing w/ metolazone and laix s 4. Respiratory acidosis and met alkalosis- repeat abg noted- pC02 over 60 even w/ bipap. met alkalosis worsening- hold metolazone 5 electrolytes- monitor k, mag, phos- replete as needed 6. DM control 7. 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
[2020-01-07 07:34] LABS: Alanine Aminotransferase 13 U/L (0-33); Albumin Level 3.1 g/dL (3.5-5.2); Alkaline Phosphatase 51 IU/L (35-105); Aspartate Amino Transferase 15 U/L (0-32); Blood Urea Nitrogen 40 mg/dL (8-23); Calcium 9.2 mg/dL (8.5-10.5); Carbon Dioxide 39 mmol/L (22-29); Chloride 94 mmol/L (98-107); Creatinine Clr Calc Pharmacy 101.9915; Globulin 3.4 g/dL (1.3-4.6); Glomerular Filtration Rate 41.4 mL/min (90-130); Glucose 225 mg/dL (65-115); Magnesium 1.6 mg/dL (1.7-2.3); Osmolality Calculated 309 mOsm/kg (285-295); Phosphorus 3.2 mg/dL (2.5-4.5); Sodium 141 mmol/L (136-145); Total Bilirubin 0.4 mg/dL (0.15-1.2); Total Protein 6.5 g/dL (6.6-8.7)
[2020-01-07] MEDS: azithromycin 500 MG in sodium chloride 0.9% 250 ML 250 MG IV (08:37)
[2020-01-07] MEDS: clopidogrel 75 mg Tablet PO (08:38)
[2020-01-07] MEDS: FUROsemide 10 mg/mL SDV 4mL 40 MG IVP ×2 (08:38→21:51)
[2020-01-07] MEDS: pantoprazole DR 40 mg Tablet PO (08:39)
[2020-01-07] MEDS: budesonide 0.5 mg/2 mL Neb INHALATION ×2 (08:44→20:31)
[2020-01-07] MEDS: nystatin powder 15 gm Btl 1 APPLIC TOPICAL ×2 (09:00→17:57)
[2020-01-07 10:49] LABS: Glucose Point of Care 241 mg/dL (70-110)
[2020-01-07] MEDS: insulin glargine 100 units/1 mL 10 UNIT SUBCUT (12:41)
[2020-01-07] MEDS: magnesium sulfate premix 2 GM/50 ML PIGGYBACK IV (12:42)
[2020-01-07 16:55] LABS: Glucose Point of Care 229 mg/dL (70-110)
[2020-01-07 23:08] LABS: Glucose Point of Care 296 mg/dL (70-110)
--- NOTE | 2020-01-07 23:15 | P.PN_ITS ---
Subjective Subjective: Interval history: No acute clinical events overnight. Medications: Reviewed: Yes Medication Review Details: Current Medications Albuterol/Ipratropium (Duoneb) 3 ml INHALATION Q4H PRN PRN Reason: SHORTNESS OF BREATH Last Admin: 12/31/19 20:01 Dose: 3 ml Documented by: Albuterol/Ipratropium (Duoneb) 3 ml INHALATION Q6H.RESPIRATORY KD Last Admin: 01/06/20 02:57 Dose: 3 ml Documented by: Budesonide (Pulmicort) 0.5 mg INHALATION BID.RESPIRATORY KD Last Admin: 01/05/20 20:33 Dose: 0.5 mg Documented by: Clopidogrel Bisulfate (Plavix) 75 mg PO DAILY KD Last Admin: 01/05/20 09:39 Dose: 75 mg Documented by: Dextrose (D50w) 25 ml IVP ONCE PRN; Protocol PRN Reason: hypoglycemia protocol Dextrose (D50w) 50 ml IVP PRN PRN; Protocol PRN Reason: hypoglycemia protocol Diphenhydramine HCl (Benadryl) 25 mg PO Q12H PRN PRN Reason: Eye swelling Last Admin: 01/03/20 18:58 Dose: 25 mg Documented by: Furosemide (Lasix) 80 mg IVP Q12H KD Last Admin: 01/05/20 20:13 Dose: 80 mg Documented by: Glucagon (Glucagen) 1 mg IM ONCE PRN; Protocol PRN Reason: Adult Acute Hypoglycemia Prot. Dextrose (D5w) 500 mls @ 100 mls/hr IV ONCE PRN; Protocol PRN Reason: Adult Acute Hypoglycemia Prot Piperacillin Sod/Tazobactam (Sod 3.375 gm/ Sodium Chloride) 50 mls @ 12.5 mls/hr IV Q8H KD; Protocol Last Admin: 01/06/20 01:14 Dose: 12.5 mls/hr Documented by: Azithromycin 500 mg/ Sodium (Chloride) 250 mls @ 250 mls/hr IV Q24H KD; Protocol Last Admin: 01/06/20 05:48 Dose: 250 mls/hr Documented by: Insulin Aspart (Novolog) 0 unit SUBCUT WM&BEDTIME KD; Protocol Last Admin: 01/05/20 21:01 Dose: 8 unit Documented by: Metolazone (Zaroxolyn) 5 mg PO DAILY KD Last Admin: 01/05/20 09:39 Dose: 5 mg Documented by: Nystatin (Nystatin Powder) 1 applic TOPICAL BID [facility] Last Admin: 01/05/20 17:35 Dose: 1 applic Documented by: Pantoprazole Sodium (Protonix) 40 mg IVP DAILY [facility] Last Admin: 01/05/20 09:41 Dose: 40 mg Documented by: Vitals/I&O/Wt Last Vital Signs Temp 98.3 F 01/07/20 20:00 Pulse 88 01/07/20 22:42 Resp 19 H 01/07/20 20:32 BP 120/73 01/07/20 20:00 Pulse Ox 96 01/07/20 22:42 01/07/20 01/07/20 01/08/20 14:59 22:59 06:59 Intake Total 780 / 780 850 / 1630 Output Total 1750 / 1750 650 / 2400 Balance -970 / -970 200 / -770 Weight last 48 hrs Weight 143.42 kg Weight 145.858 kg Physical Exam Narrative: EXAM NARRATIVE: Morbidly obese female General: Drowsy on BiPAP HEENT: Bilateral eyelid swelling - improved, no pain with eye movement, mild crusting with out any purulent discharge CVS : S1, S2 , No obvious murmurs Chest : Decrease BS at bases Abdomen: soft, nontender, bowel sound present Extremity : Bilateral lower extremity edema 1+ bilaterally Urinary Catheter Management^: Marcelo: Cath Placed During This Visit: yes Reason for Continuing Indwelling Catheter: Acute Urinary Retention or Obstruction Urinary Catheter Date of Insertion: 12/30/19 Urinary Catheter Time of Insertion: 17:45 Data : 01/07/20 05:49 01/07/20 05:49 A&P Assessment and plan (1) New onset of congestive heart failure: Status: Acute (2) Generalized weakness: Status: Acute (3) Swollen eyelid: Status: Acute (4) Pleural effusion: Status: Acute (5) Morbid obesity: Status: Acute (6) Acute on chronic respiratory failure with hypoxia and hypercapnia: Status: Acute (7) Pulmonary edema: Status: Acute (8) Acute kidney injury: Status: Acute (9) Pneumonia: Status: Acute (10) Morbid obesity with BMI of 70 and over, adult: Status: Acute (11) Hypertension: Status: Acute (12) Diabetes mellitus with peripheral autonomic neuropathy: Status: Acute Additional A&P Information Acute respiratory failure with hypoxemic / hypercapnic -Patient is doing better this morning, up to 2.3 - Etiology Multi-factorial - fluid and infection superimposed on likely underlying chronic obstructive pulmonary disease, chronic hypercapnic respiratory failure and obesity hypoventilation syndrome, CHF - Baseline o2 requirements at 4L via NC - Worsening respiratory failure on 12/30 - 12/30 - . Chest x-ray bilateral pulmonary infiltrates, left sided pleural effusion with pulmonary vascular congestion -Chest x-ray shows improved pulmonary infiltrates today on the right - ABG -pH 7.38, PCO2 64.6, on 4.5 L -Continue BiPAP during the day as needed, BiPAP during the night - D-dimer - > 3.85 - V/Q scan ordered however with pulmonary finding may be inaccurate. May consider stating Heparin gtt pending improvment of renal function - Consult discussed with Dr. Gilliland 02 dependent COPD exacerbation - Continue DuoNeb q6hr scheduled -Off Solu-Medrol - Add pulmicort 0.5 mg Inh BID - Arranging Bipap for home - CM to arrange home 02 Suspected Multi-focal Pneumonia - Pro-calcitonin 0.09 - Possibly component of aspiration - Sputum culture if possible to obtain - Complete total 7 days of abx - d/w pharmacist - SARS2 COVID rapid - negative - Follow up on blood culture x 2 - NGTD - May consider repeat COVID 19 PCR Acute CHF exacerbation - Unable to obtain ECHO due to body habitus - May require JOELLE once stable - Monitor daily weight -Cardio-renal syndrome -Creatinine up to 2.1 urine output has increased to 2200cc, continue IV Lasix therapy Right sided facial edema vs cellulitis -Minimal today, hold off on further antibiotic - Suspected allergic reaction to cat vs angioedema from paul-inhibitor - Stop paul-inhibitor - Improving from admission Acute renal failure -Has some component related to cardiorenal syndrome - Creatinine 0.9 on admit - Increased to 2.1 - Cautious diuresis - Nephrology consult to assist with diuresis - Hold ARB - Renally dose meds - Monitor urine output - Marcelo in place Hyperkalemia - K increased to 5.1 -Monitor - Nephrology - Monitor on telemetry Noninsulin de-pendent Diabetes Mellitus - Sliding scale insulin - If blood sugars persistently high will add Reported Diarrhea - C-diff toxin - negative - Stool culture sent on admit - stable currently 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 - Foot x-ray - no evidence of osteo - Wound care consult - Podiatry Hypertension - Losartan on hold - PRN antihypertensive Peripheral arterial disease - Hx of common iliac obstruction s/p arthrectomy/stent placed - Aspirin not continued to reported allergy - Plavix 75 mg PO daily ( Once able to tolerate PO ) - Cardiology outpatient GI ppx - Protonix 40 mg IV daily DVT ppx - Lovenox 40 mg SQ daily Diet : NPO while on BiPAP Additional Medical History 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 Tobacco abuse Peripheral Neuropathy Morbid Obesity Disposition - arranging home bipap. to qualify for home o2 . possible d/c to snf Attestations Medical Necessity Statement*: Continue hospitalization for management of respiratory faliure Coding Level of Care Code Acute Manager Merchandise for Chg Fwd Diagnoses New onset of congestive heart failure I50.9 Generalized weakness R53.1 Swollen eyelid H02.849 Pleural effusion J90 Morbid obesity E66.01 Acute on chronic respiratory failure with hypoxia and hypercapnia J96.21; J96.22 Pulmonary edema J81.1 Acute kidney injury N17.9 Pneumonia J18.9 Morbid obesity with BMI of 70 and over, adult E66.01; Z68.45 Hypertension I10 Diabetes mellitus with peripheral autonomic neuropathy E11.43
[2020-01-08] VITALS (14 sets, daily range): BP systolic 113–126; BP diastolic 63–79; PULSE 79–93; RESP 16–22; TEMP 36.7–36.9; O2SAT 88–95; BMI 62.8
[2020-01-08] MEDS: ipratropium-albuterol 3 mL Neb INHALATION ×5 (03:12→21:31)
[2020-01-08 04:55] LABS: ABG PH Result 7.49 (7.35-7.45); Arterial Blood Gas Hematocrit 34.1 % (37-47); Base Excess ABG 21.9 mmol/L (-2.0-2.0); Blood Gas Operator Identificat JB; Blood Gas Sample Site Radial, left; Blood Gas Sample Type Arterial; HCO3 ABG 48.6 mmol/L (22-26); Oxygen Device BIPAP; PO2 ABG 65.8 mmHg (80.0-100.0)
[2020-01-08 04:58] LABS: ABG PCO2 63.7 mmHg (35-45)
[2020-01-08 05:24] LABS: Basophils % 0.6 %; Eosinophils # 0.6 10^3/uL (0.0-0.8); Eosinophils % 8.3 %; Hematocrit 38.2 % (37.0-47.0); Hemoglobin 10.9 g/dL (11.5-15.3); Lymphocytes # 0.9 10^3/uL (0.8-4.8); Mean Corpuscular HGB Conc 28.5 g/dL (30.0-36.0); Mean Corpuscular Hemoglobin 24.4 pg (28.0-34.0); Mean Corpuscular Volume 85.5 fL (81-99); Monocytes # 0.9 10^3/uL (0.2-0.9); Monocytes % 13.6 %; Neutrophils # 4.24 10^3/uL (1.8-7.7); Neutrophils % 63.2 %; Nucleated Red Blood Cells % 0 %; Platelet Count 211 10^3/cmm (130-400); Red Blood Count 4.47 10^6/uL (4.1-5.3); Red Cell Distribution Width 21.5 % (12.1-15.1); White Blood Count 6.7 10^3/uL (4.0-10.0)
[2020-01-08] MEDS: piperacillin-tazobactam 3.375 GM in sodium chloride 0.9% (plus) 50 ML IV ×2 (05:44→14:17)
[2020-01-08 05:51] LABS: Alanine Aminotransferase 15 U/L (0-33); Albumin Level 3.1 g/dL (3.5-5.2); Alkaline Phosphatase 51 IU/L (35-105); Anion Gap 8.5 (5-19); Aspartate Amino Transferase 17 U/L (0-32); Blood Urea Nitrogen 34 mg/dL (8-23); Calcium 9.2 mg/dL (8.5-10.5); Chloride 91 mmol/L (98-107); Globulin 3.3 g/dL (1.3-4.6); Glomerular Filtration Rate 45.4 mL/min (90-130); Glucose 213 mg/dL (65-115); Magnesium 1.9 mg/dL (1.7-2.3); Osmolality Calculated 304 mOsm/kg (285-295); Phosphorus 3.6 mg/dL (2.5-4.5); Potassium 3.5 mmol/L (3.5-5.1); Sodium 140 mmol/L (136-145); Total Bilirubin 0.5 mg/dL (0.15-1.2); Total Protein 6.4 g/dL (6.6-8.7)
[2020-01-08 06:23] LABS: Carbon Dioxide 44 mmol/L (22-29)
[2020-01-08 06:26] LABS: Glucose Point of Care 208 mg/dL (70-110)
--- NOTE | 2020-01-08 07:17 | PM.PN ---
Subjective Subjective: Interval history: more awake, using bipap- dec edema. Medications: Reviewed: Yes Medication Review Details: Current Medications Albuterol/Ipratropium (Duoneb) 3 ml INHALATION Q4H PRN PRN Reason: SHORTNESS OF BREATH Last Admin: 12/31/19 20:01 Dose: 3 ml Documented by: Albuterol/Ipratropium (Duoneb) 3 ml INHALATION Q6H.RESPIRATORY KD Last Admin: 01/08/20 03:12 Dose: 3 ml Documented by: Budesonide (Pulmicort) 0.5 mg INHALATION BID.RESPIRATORY KD Last Admin: 01/07/20 20:31 Dose: 0.5 mg Documented by: Clopidogrel Bisulfate (Plavix) 75 mg PO DAILY KD Last Admin: 01/07/20 08:38 Dose: 75 mg Documented by: Dextrose (D50w) 25 ml IVP ONCE PRN; Protocol PRN Reason: hypoglycemia protocol Dextrose (D50w) 50 ml IVP PRN PRN; Protocol PRN Reason: hypoglycemia protocol Diphenhydramine HCl (Benadryl) 25 mg PO Q12H PRN PRN Reason: Eye swelling Last Admin: 01/03/20 18:58 Dose: 25 mg Documented by: Glucagon (Glucagen) 1 mg IM ONCE PRN; Protocol PRN Reason: Adult Acute Hypoglycemia Prot. Dextrose (D5w) 500 mls @ 100 mls/hr IV ONCE PRN; Protocol PRN Reason: Adult Acute Hypoglycemia Prot Piperacillin Sod/Tazobactam (Sod 3.375 gm/ Sodium Chloride) 50 mls @ 12.5 mls/hr IV Q8H KD; Protocol Last Admin: 01/08/20 05:44 Dose: 12.5 mls/hr Documented by: Insulin Aspart (Novolog) 0 unit SUBCUT WM&BEDTIME KD; Protocol Last Admin: 01/07/20 22:57 Dose: 8 unit Documented by: Insulin Glargine (Lantus) 10 unit SUBCUT DAILY [facility] Last Admin: 01/07/20 12:41 Dose: 10 unit Documented by: Nystatin (Nystatin Powder) 1 applic TOPICAL BID [facility] Last Admin: 01/07/20 17:57 Dose: 1 applic Documented by: Pantoprazole Sodium (Protonix) 40 mg PO DAILY [facility] Last Admin: 01/07/20 08:39 Dose: 40 mg Documented by: Vitals/I&O/Wt Last Vital Signs Temp 98.5 F 01/08/20 04:00 Pulse 81 01/08/20 04:56 Resp 20 H 01/08/20 04:00 BP 118/68 01/08/20 04:00 Pulse Ox 93 01/08/20 04:56 01/07/20 01/08/20 01/08/20 22:59 06:59 14:59 Intake Total 1090 / 1870 290 / 2160 Output Total 650 / 2400 2300 / 4700 Balance 440 / -530 -2010 / -2540 Weight last 48 hrs Weight 143.42 kg Weight 145.858 kg Physical Exam Narrative: EXAM NARRATIVE: obese in bed, using bipap - dec edema, dec sob heent- nc/at, eomi, anicteric neck obese lungs- improved air movement b/l heart rrr abd soft, NT, ND, +BS ext b/l edema improving neuro- awake, alert, oriented x 2+ pulses + b/l + bustillos catheter Urinary Catheter Management^: Bustillos: Cath Placed During This Visit: yes Reason for Continuing Indwelling Catheter: Acute Urinary Retention or Obstruction Urinary Catheter Date of Insertion: 12/30/19 Urinary Catheter Time of Insertion: 17:45 Data : 01/08/20 05:08 01/08/20 05:08 A&P Additional A&P Information Impression: 1. q pna- abx per medicine 2. Acute kidney injury - CRS. pt is responding to lasix and metolazone. cr improving. 3. CHF -diuresing w/ metolazone and lasix- stop both due to met alkalosis - may restart low dose ARB if cardiology feels needed. -medicine note apprecuated, concern that paul-i may have caused some facial edema 4. Respiratory acidosis and met alkalosis- repeat abg noted- pC02 over 60 even w/ bipap. met alkalosis worsening- hold all diuretics. give 1 liter ns ivf 5 electrolytes- monitor k, mag, phos- replete as needed 6. DM control 7. hgb okay meds reviewed Attestations Medical Necessity Statement*: bipap dep, gideon improving, met alkalosis, pna Time Spent in Patient Care: 16 - 35 minutes Coding Level of Care Code Acute Probation And Patrol Agent for Chg Lalo
[2020-01-08] MEDS: budesonide 0.5 mg/2 mL Neb INHALATION ×2 (07:38→21:32)
[2020-01-08] MEDS: sodium chloride 0.9% 1,000 ML 75 ML IV ×2 (09:56→21:51)
[2020-01-08] MEDS: insulin glargine 100 units/1 mL 10 UNIT SUBCUT ×2 (09:56→17:38)
[2020-01-08] MEDS: pantoprazole DR 40 mg Tablet PO (09:57)
[2020-01-08] MEDS: clopidogrel 75 mg Tablet PO (09:57)
[2020-01-08] MEDS: nystatin powder 15 gm Btl 1 APPLIC TOPICAL ×2 (09:57→17:39)
[2020-01-08 13:02] LABS: Glucose Point of Care 267 mg/dL (70-110)
--- NOTE | 2020-01-08 16:20 | P.PN_ITS ---
Subjective Subjective: Interval history: Patient was more alert this morning. Tolerated BiPAP last evening. No fever, chills, nausea vomiting. Medications: Reviewed: Yes Medication Review Details: Current Medications Albuterol/Ipratropium (Duoneb) 3 ml INHALATION Q4H PRN PRN Reason: SHORTNESS OF BREATH Last Admin: 12/31/19 20:01 Dose: 3 ml Documented by: Albuterol/Ipratropium (Duoneb) 3 ml INHALATION Q6H.RESPIRATORY KD Last Admin: 01/06/20 02:57 Dose: 3 ml Documented by: Budesonide (Pulmicort) 0.5 mg INHALATION BID.RESPIRATORY KD Last Admin: 01/05/20 20:33 Dose: 0.5 mg Documented by: Clopidogrel Bisulfate (Plavix) 75 mg PO DAILY KD Last Admin: 01/05/20 09:39 Dose: 75 mg Documented by: Dextrose (D50w) 25 ml IVP ONCE PRN; Protocol PRN Reason: hypoglycemia protocol Dextrose (D50w) 50 ml IVP PRN PRN; Protocol PRN Reason: hypoglycemia protocol Diphenhydramine HCl (Benadryl) 25 mg PO Q12H PRN PRN Reason: Eye swelling Last Admin: 01/03/20 18:58 Dose: 25 mg Documented by: Furosemide (Lasix) 80 mg IVP Q12H KD Last Admin: 01/05/20 20:13 Dose: 80 mg Documented by: Glucagon (Glucagen) 1 mg IM ONCE PRN; Protocol PRN Reason: Adult Acute Hypoglycemia Prot. Dextrose (D5w) 500 mls @ 100 mls/hr IV ONCE PRN; Protocol PRN Reason: Adult Acute Hypoglycemia Prot Piperacillin Sod/Tazobactam (Sod 3.375 gm/ Sodium Chloride) 50 mls @ 12.5 mls/hr IV Q8H KD; Protocol Last Admin: 01/06/20 01:14 Dose: 12.5 mls/hr Documented by: Azithromycin 500 mg/ Sodium (Chloride) 250 mls @ 250 mls/hr IV Q24H KD; Protocol Last Admin: 01/06/20 05:48 Dose: 250 mls/hr Documented by: Insulin Aspart (Novolog) 0 unit SUBCUT WM&BEDTIME KD; Protocol Last Admin: 01/05/20 21:01 Dose: 8 unit Documented by: Metolazone (Zaroxolyn) 5 mg PO DAILY [facility] Last Admin: 01/05/20 09:39 Dose: 5 mg Documented by: Nystatin (Nystatin Powder) 1 applic TOPICAL BID [facility] Last Admin: 01/05/20 17:35 Dose: 1 applic Documented by: Pantoprazole Sodium (Protonix) 40 mg IVP DAILY [facility] Last Admin: 01/05/20 09:41 Dose: 40 mg Documented by: Vitals/I&O/Wt Last Vital Signs Temp 98.0 F 01/08/20 15:11 Pulse 88 01/08/20 15:43 Resp 22 H 01/08/20 15:43 BP 116/66 01/08/20 15:11 Pulse Ox 95 01/08/20 15:43 01/08/20 01/08/20 01/08/20 06:59 14:59 22:59 Intake Total 290 / 2160 770 / 770 Output Total 2300 / 4700 950 / 950 Balance -2010 / -2540 -180 / -180 Weight last 48 hrs Weight 141.237 kg Weight 143.42 kg Physical Exam Narrative: EXAM NARRATIVE: Morbidly obese female General: Drowsy on BiPAP HEENT: Bilateral eyelid swelling - improved, no pain with eye movement, mild crusting with out any purulent discharge CVS : S1, S2 , No obvious murmurs Chest : Decrease BS at bases Abdomen: soft, nontender, bowel sound present Extremity : Bilateral lower extremity edema 1+ bilaterally Urinary Catheter Management^: Marcelo: Cath Placed During This Visit: yes Reason for Continuing Indwelling Catheter: Acute Urinary Retention or Obstruction Urinary Catheter Date of Insertion: 12/30/19 Urinary Catheter Time of Insertion: 17:45 Data : 01/08/20 05:08 01/08/20 05:08 A&P Assessment and plan (1) New onset of congestive heart failure: Status: Acute (2) Generalized weakness: Status: Acute (3) Swollen eyelid: Status: Acute (4) Pleural effusion: Status: Acute (5) Morbid obesity: Status: Acute (6) Acute on chronic respiratory failure with hypoxia and hypercapnia: Status: Acute (7) Pulmonary edema: Status: Acute (8) Acute kidney injury: Status: Acute (9) Pneumonia: Status: Acute (10) Morbid obesity with BMI of 70 and over, adult: Status: Acute (11) Hypertension: Status: Acute (12) Diabetes mellitus with peripheral autonomic neuropathy: Status: Acute Additional A&P Information Acute respiratory failure with hypoxemic / hypercapnic - Etiology Multi-factorial - fluid and infection superimposed on likely underlying chronic obstructive pulmonary disease, chronic hypercapnic respiratory failure and obesity hypoventilation syndrome, CHF - Baseline o2 requirements at 4L via NC - Currenlty at 5L via NC plus Bipap Qhs - Worsening respiratory failure on 12/30 - 12/30 - . Chest x-ray bilateral pulmonary infiltrates, left sided pleural effusion with pulmonary vascular congestion - 01/01-Chest x-ray shows improved pulmonary infiltrates today on the right - Continue BiPAP during the day as needed, BiPAP during the night with continuous 5L via NC - Arranging Bipap for home - CM to arrange home - ABG 01/07 -> PH 7.49 PCO2 of 53.7, HCO3 - 48.6 02 dependent COPD exacerbation - On 4L via NC prior to arrival - Continue DuoNeb q6hr scheduled - Off Solu-Medrol - Pulmicort 0.5 mg Inh BID - Remainder of management at noted above. Suspected Multi-focal Pneumonia - Pro-calcitonin 0.09 - Possibly component of aspiration - Sputum culture - Not able to obtain - SARS2 COVID rapid - negative - Completed course of zosyn/azithromycin - Stop antibiotics and monitor off Acute CHF exacerbation - Unable to obtain ECHO due to body habitus - May require JOELLE once stable - Monitor daily weight - Nephrology on board for assistance with diuretics - Strict input and output - Monitor urine output Acute renal failure with metablic alkalosis - Has some component related to cardiorenal syndrome - Creatinine 0.9 on admit - Increased to 2.1 - > improved to 1.3 - Nephrology on board - Noted significant improvement in urine output - Management per nephro - Due to degress of alkalosis suspected to be due to diuretics Lasix and metalazone were held Right sided facial edema vs cellulitis POA - Resolved - Suspected allergic reaction to cat vs angioedema from paul-inhibitor - Stop paul-inhibitor Non-insulin de-pendent Diabetes Mellitus - Sliding scale insulin - Increase lantus to 10 units BID - May consider adding meal time insulin Reported Diarrhea - Resolved - C-diff toxin - negative 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 - Foot x-ray - no evidence of osteo - Wound care consult - Podiatry outpatient Hypertension - Losartan on hold - BP stable - home norvasc not resumed - PRN antihypertensive Peripheral arterial disease - Hx of common iliac obstruction s/p arthrectomy/stent placed - Aspirin not continued to reported allergy - Plavix 75 mg PO daily - Cardiology outpatient GI ppx - Protonix 40 mg PO daily DVT ppx - Lovenox 40 mg SQ daily Diet : Carb consistent diet with low NA Additional Medical History 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 Tobacco abuse Peripheral Neuropathy Morbid Obesity Attestations Medical Necessity Statement*: Due to alkalosis nephrology adjusting patient's diuresis. Case management working on obtaining BiPAP for home with home care. Will require further hospitalization. Time Spent in Patient Care: Greater than 35 minutes (>than 50% of time spent in counselling and/or direct pt care on unit) . Coding Level of Care Code Acute Supervisor Maintenance for Chilango May Diagnoses New onset of congestive heart failure I50.9 Generalized weakness R53.1 Swollen eyelid H02.849 Pleural effusion J90 Morbid obesity E66.01 Acute on chronic respiratory failure with hypoxia and hypercapnia J96.21; J96.22 Pulmonary edema J81.1 Acute kidney injury N17.9 Pneumonia J18.9 Morbid obesity with BMI of 70 and over, adult E66.01; Z68.45 Hypertension I10 Diabetes mellitus with peripheral autonomic neuropathy E11.43
--- NOTE | 2020-01-08 16:21 | NUR.SHIFT ---
Reported to Pt nurse the color of the pt urine.
[2020-01-08 16:37] LABS: Glucose Point of Care 250 mg/dL (70-110)
[2020-01-08 21:20] LABS: Glucose Point of Care 288 mg/dL (70-110)
[2020-01-09] VITALS (17 sets, daily range): BP systolic 113–147; BP diastolic 64–74; PULSE 82–96; RESP 17–28; TEMP 36.3–37.7; O2SAT 78–96; BMI 63.8
[2020-01-09] MEDS: ipratropium-albuterol 3 mL Neb INHALATION ×4 (04:24→20:22)
[2020-01-09 05:28] LABS: Basophils % 0.5 %; Eosinophils # 0.5 10^3/uL (0.0-0.8); Eosinophils % 6.7 %; Hematocrit 38.7 % (37.0-47.0); Hemoglobin 10.9 g/dL (11.5-15.3); Lymphocytes % 13.3 %; Mean Corpuscular HGB Conc 28.2 g/dL (30.0-36.0); Mean Corpuscular Hemoglobin 24.3 pg (28.0-34.0); Mean Corpuscular Volume 86.2 fL (81-99); Mean Platelet Volume 11.9 fL (7.4-10.4); Monocytes % 12.4 %; Neutrophils # 5.17 10^3/uL (1.8-7.7); Nucleated Red Blood Cells % 0 %; Platelet Count 191 10^3/cmm (130-400); Red Blood Count 4.49 10^6/uL (4.1-5.3); Red Cell Distribution Width 21.4 % (12.1-15.1); White Blood Count 7.7 10^3/uL (4.0-10.0)
--- NOTE | 2020-01-09 05:41 | PC.NURSE ---
SHIFT SUMMARY Has done well tonight. Only spent couple of hours on BIPAP then requested RT to take it off. Has been on 3l NC Up to BSC X1 and had a very lart BM. 900ml urine output fro Marcelo this shift.
[2020-01-09 05:48] LABS: Alanine Aminotransferase 15 U/L (0-33); Albumin Level 3.4 g/dL (3.5-5.2); Alkaline Phosphatase 59 IU/L (35-105); Aspartate Amino Transferase 17 U/L (0-32); Blood Urea Nitrogen 29 mg/dL (8-23); Chloride 90 mmol/L (98-107); Globulin 3.4 g/dL (1.3-4.6); Glomerular Filtration Rate 41.4 mL/min (90-130); Glucose 228 mg/dL (65-115); Magnesium 1.8 mg/dL (1.7-2.3); Osmolality Calculated 301 mOsm/kg (285-295); Phosphorus 3.3 mg/dL (2.5-4.5); Sodium 139 mmol/L (136-145); Total Bilirubin 0.4 mg/dL (0.15-1.2); Total Protein 6.8 g/dL (6.6-8.7)
[2020-01-09 05:55] LABS: Anion Gap 8.6 (5-19); Carbon Dioxide 44 mmol/L (22-29); Potassium 3.6 mmol/L (3.5-5.1)
[2020-01-09 06:15] LABS: Glucose Point of Care 208 mg/dL (70-110)
--- NOTE | 2020-01-09 07:10 | PM.PN ---
Subjective Subjective: Interval history: awake, feels better. using nc 02. dec edema. less sob- but chronic ROPER. Medications: Reviewed: Yes Medication Review Details: Current Medications Albuterol/Ipratropium (Duoneb) 3 ml INHALATION Q4H PRN PRN Reason: SHORTNESS OF BREATH Last Admin: 12/31/19 20:01 Dose: 3 ml Documented by: Albuterol/Ipratropium (Duoneb) 3 ml INHALATION Q6H.RESPIRATORY [facility] Last Admin: 01/09/20 04:24 Dose: 3 ml Documented by: Budesonide (Pulmicort) 0.5 mg INHALATION BID.RESPIRATORY [facility] Last Admin: 01/08/20 21:32 Dose: 0.5 mg Documented by: Clopidogrel Bisulfate (Plavix) 75 mg PO DAILY [facility] Last Admin: 01/08/20 09:57 Dose: 75 mg Documented by: Dextrose (D50w) 25 ml IVP ONCE PRN; Protocol PRN Reason: hypoglycemia protocol Dextrose (D50w) 50 ml IVP PRN PRN; Protocol PRN Reason: hypoglycemia protocol Diphenhydramine HCl (Benadryl) 25 mg PO Q12H PRN PRN Reason: Eye swelling Last Admin: 01/03/20 18:58 Dose: 25 mg Documented by: Glucagon (Glucagen) 1 mg IM ONCE PRN; Protocol PRN Reason: Adult Acute Hypoglycemia Prot. Dextrose (D5w) 500 mls @ 100 mls/hr IV ONCE PRN; Protocol PRN Reason: Adult Acute Hypoglycemia Prot Sodium Chloride (Sodium Chloride 0.9%) 1,000 mls @ 75 mls/hr IV .[id number] [facility] Last Admin: 01/08/20 21:51 Dose: 75 mls/hr Documented by: Insulin Aspart (Novolog) 0 unit SUBCUT WM&BEDTIME [facility]; Protocol Last Admin: 01/08/20 21:50 Dose: 8 unit Documented by: Insulin Glargine (Lantus) 10 unit SUBCUT BID [facility] Last Admin: 01/08/20 17:38 Dose: 10 unit Documented by: Nystatin (Nystatin Powder) 1 applic TOPICAL BID [facility] Last Admin: 01/08/20 17:39 Dose: 1 applic Documented by: Pantoprazole Sodium (Protonix) 40 mg PO DAILY [facility] Last Admin: 01/08/20 09:57 Dose: 40 mg Documented by: Vitals/I&O/Wt Last Vital Signs Temp 98.3 F 01/09/20 04:00 Pulse 88 01/09/20 04:24 Resp 24 H 01/09/20 04:24 BP 147/70 01/09/20 04:00 Pulse Ox 94 01/09/20 04:24 01/08/20 01/09/20 01/09/20 22:59 06:59 14:59 Intake Total 1313.75 / 2083.75 510 / 2593.75 Output Total 1050 / 2000 500 / 2500 Balance 263.75 / 83.75 .75 Weight last 48 hrs Weight 143.244 kg Weight 141.237 kg Weight 143.42 kg Physical Exam Narrative: EXAM NARRATIVE: obese lady stting up, using nc 02 - dec edema, dec sob heent- nc/at, eomi, anicteric neck obese lungs-wheezing b/l. however improved air movement b/l heart rrr abd soft, NT, ND, +BS ext b/l edema improving neuro- awake, alert, oriented x 3 pulses + b/l + bustillos catheter Urinary Catheter Management^: Bustillos: Cath Placed During This Visit: yes Reason for Continuing Indwelling Catheter: Other Urinary Catheter Date of Insertion: 12/30/19 Urinary Catheter Time of Insertion: 17:45 Data : 01/09/20 04:12 01/09/20 04:12 A&P Additional A&P Information Impression: 1. q pna- abx per medicine 2. Acute kidney injury - CRS. pt is responding to lasix and metolazone. cr improving. -diuretic s held due to met alkalosis d/c bustillos, can use pickwick catheter if needed 3. CHF -diuresing w/ metolazone and lasix- both held due to met alkalosis - may restart low dose ARB -medicine note appreciated, concern that paul-i may have caused some facial edema 4. Respiratory acidosis and met alkalosis- repeat abg noted- pC02 over 60 even w/ bipap. met alkalosis worsening- hold all diuretics. d/c ivf and monitor 5 electrolytes- monitor k, mag, phos- replete as needed 6. DM control 7. hgb okay meds reviewed Attestations Medical Necessity Statement*: pna, chf, gideon, resp acidosis, met alkalosis Time Spent in Patient Care: 16 - 35 minutes Coding Level of Care Code Acute Accounting Advisory Services Manager for Chilango May
[2020-01-09] MEDS: insulin glargine 100 units/1 mL 10 UNIT SUBCUT ×2 (09:11→17:53)
[2020-01-09] MEDS: losartan 50 mg Tablet 25 MG PO (09:12)
[2020-01-09] MEDS: nystatin powder 15 gm Btl 1 APPLIC TOPICAL ×2 (09:13→18:20)
[2020-01-09] MEDS: clopidogrel 75 mg Tablet PO (09:13)
[2020-01-09] MEDS: budesonide 0.5 mg/2 mL Neb INHALATION ×2 (10:01→20:22)
[2020-01-09 10:45] LABS: Glucose Point of Care 294 mg/dL (70-110)
--- NOTE | 2020-01-09 14:23 | PM.PN ---
Subjective Subjective: Interval history: No acute events overnight. Hospital course and vitals noted. Examination patient is sitting comfortably in chair and had just had a bath. Denies any nausea, vomiting, headache and does not have any active complaints going on at present. Vitals/I&O/Wt Last Vital Signs Temp 98.2 F 01/09/20 11:14 Pulse 96 01/09/20 11:14 Resp 18 01/09/20 11:14 BP 127/69 01/09/20 11:14 Pulse Ox 90 01/09/20 11:14 01/08/20 01/09/20 01/09/20 22:59 06:59 14:59 Intake Total 1313.75 / 2083.75 510 / 2593.75 600 / 600 Output Total 1050 / 2000 500 / 2500 1100 / 1100 Balance 263.75 / 83.75 10 .75 -500 / -500 Weight last 48 hrs Weight 143.244 kg Weight 143.244 kg Weight 141.237 kg Physical Exam Narrative: EXAM NARRATIVE: Morbidly obese female General: Awake and alert in no acute distress HEENT: Bilateral eyelid swelling - improved, no pain with eye movement, mild crusting with out any purulent discharge CVS : S1, S2 , No obvious murmurs Chest : Decrease BS at bases, bronchial breath sounds bilaterally Abdomen: soft, nontender, bowel sound present Extremity : Bilateral lower extremity edema 1+ bilaterally Urinary Catheter Management^: Marcelo: Cath Placed During This Visit: yes, but has since been removed by the nurse Reason for Continuing Indwelling Catheter: Decision to DC Catheter Urinary Catheter Date of Insertion: 12/30/19 Urinary Catheter Time of Insertion: 17:45 Date Urinary Catheter Removed: 01/09/20 Time Urinary Catheter Discontinued: 13:06 Data : 01/09/20 04:12 01/09/20 04:12 A&P Assessment and plan (1) New onset of congestive heart failure: Status: Acute (2) Generalized weakness: Status: Acute (3) Swollen eyelid: Status: Acute (4) Pleural effusion: Status: Acute (5) Morbid obesity: Status: Acute (6) Acute on chronic respiratory failure with hypoxia and hypercapnia: Status: Acute (7) Pulmonary edema: Status: Acute (8) Acute kidney injury: Status: Acute (9) Pneumonia: Status: Acute (10) Morbid obesity with BMI of 70 and over, adult: Status: Acute (11) Hypertension: Status: Acute (12) Diabetes mellitus with peripheral autonomic neuropathy: Status: Acute Additional A&P Information Acute respiratory failure with hypoxemic / hypercapnic : Etiology Multi-factorial - fluid and infection superimposed on likely underlying chronic obstructive pulmonary disease, chronic hypercapnic respiratory failure and obesity hypoventilation syndrome, CHF Baseline o2 requirements at 4L via NC Arranging BiPAP for home. Continue with nebulization with DuoNeb's every 6 hour, budesonide twice daily. Steroids discontinued on January 06. Oxygen supplementation keeping saturation over 90%. For suspected Multi-focal Pneumonia: Patient has been off antibiotics for a number of days now. She is already completed course with Zosyn and azithromycin and rapid COVID-19 antigen was negative during this admission. Continue to monitor off antibiotics. For acute CHF exacerbation: Poor windows on echocardiogram because of body habitus. Previously diuresed with Lasix and metolazone. Holding for now because of worsening metabolic alkalosis. Continue to monitor input output daily. Daily weights. Acute renal failure with metablic alkalosis: Baseline creatinine normal. Had worsened to 2.1 but now improving to 1.3. Patient has worsening alkalosis most likely from dehydration from aggressive diuresis and severe COPD. Plan for now is to monitor off diuretics and off IV fluids. Medical reconciliation done for nephrotoxic drugs. Losartan started yesterday as per recommendations from nephrology. Recommendations appreciated from nephrology. Right sided facial edema vs cellulitis POA - Resolved Suspected allergic reaction to cat vs angioedema from paul-inhibitor Restarted ARB's yesterday continue to monitor. Non-insulin de-pendent Diabetes Mellitus Continue with current dose of insulin sliding scale and Lantus twice daily. Hypertension: Goal blood pressure less than 140/90 allergy. Losartan started yesterday. We will continue to monitor. Peripheral arterial disease - Hx of common iliac obstruction s/p arthrectomy/stent placed - Aspirin not continued to reported allergy - Plavix 75 mg PO daily - Cardiology outpatient Additional Medical History 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 Tobacco abuse Peripheral Neuropathy Morbid Obesity Protonix OPD prophylaxis. Heparin for DVT prophylaxis. Full code Carb consistent cardiac diet. Discharge planning: Most likely can be discharged home with home health tomorrow if has stable or improvement in alkalosis and renal functions. Attestations Medical Necessity Statement*: Patient requires further hospitalization for management of severe metabolic alkalosis and MIN in setting of severe diuresis for acute congestive heart failure for hypoxic respiratory failure. Time Spent in Patient Care: Greater than 35 minutes (>than 50% of time spent in counselling and/or direct pt care on unit). Coding Level of Care Code Acute Anthropology And Archeology Instructor for Chg Fwd Diagnoses New onset of congestive heart failure I50.9 Generalized weakness R53.1 Swollen eyelid H02.849 Pleural effusion J90 Morbid obesity E66.01 Acute on chronic respiratory failure with hypoxia and hypercapnia J96.21; J96.22 Pulmonary edema J81.1 Acute kidney injury N17.9 Pneumonia J18.9 Morbid obesity with BMI of 70 and over, adult E66.01; Z68.45 Hypertension I10 Diabetes mellitus with peripheral autonomic neuropathy E11.43
[2020-01-09 16:51] LABS: Glucose Point of Care 277 mg/dL (70-110)
[2020-01-09] MEDS: pantoprazole DR 40 mg Tablet PO (17:50)
[2020-01-09] MEDS: heparin 5,000 unit/mL INJ 1 mL 5000 UNIT SUBCUT (18:41)
[2020-01-09 20:27] LABS: Glucose Point of Care 265 mg/dL (70-110)
[2020-01-10] VITALS (12 sets, daily range): BP systolic 105–126; BP diastolic 63–77; PULSE 84–99; RESP 18–22; TEMP 36.9–37.7; O2SAT 87–96; BMI 63.8
[2020-01-10] MEDS: ipratropium-albuterol 3 mL Neb INHALATION ×2 (03:45→08:15)
[2020-01-10] MEDS: heparin 5,000 unit/mL INJ 1 mL 5000 UNIT SUBCUT (05:16)
[2020-01-10 06:11] LABS: Basophils % 0.5 %; Eosinophils # 0.4 10^3/uL (0.0-0.8); Eosinophils % 5.1 %; Hematocrit 38.7 % (37.0-47.0); Hemoglobin 10.9 g/dL (11.5-15.3); Lymphocytes # 1.1 10^3/uL (0.8-4.8); Lymphocytes % 14.6 %; Mean Corpuscular HGB Conc 28.2 g/dL (30.0-36.0); Mean Corpuscular Hemoglobin 24.3 pg (28.0-34.0); Mean Corpuscular Volume 86.2 fL (81-99); Mean Platelet Volume 12.3 fL (7.4-10.4); Monocytes # 0.9 10^3/uL (0.2-0.9); Monocytes % 12.1 %; Neutrophils # 5.25 10^3/uL (1.8-7.7); Neutrophils % 67.4 %; Nucleated Red Blood Cells % 0 %; Platelet Count 230 10^3/cmm (130-400); Red Blood Count 4.49 10^6/uL (4.1-5.3); Red Cell Distribution Width 21.2 % (12.1-15.1); White Blood Count 7.8 10^3/uL (4.0-10.0)
[2020-01-10 06:27] LABS: Alanine Aminotransferase 17 U/L (0-33); Albumin Level 3.4 g/dL (3.5-5.2); Alkaline Phosphatase 62 IU/L (35-105); Anion Gap 12.5 (5-19); Aspartate Amino Transferase 20 U/L (0-32); Blood Urea Nitrogen 22 mg/dL (8-23); Calcium 9.1 mg/dL (8.5-10.5); Carbon Dioxide 40 mmol/L (22-29); Chloride 92 mmol/L (98-107); Globulin 3.5 g/dL (1.3-4.6); Glucose 170 mg/dL (65-115); Magnesium 1.8 mg/dL (1.7-2.3); Osmolality Calculated 299 mOsm/kg (285-295); Phosphorus 3.3 mg/dL (2.5-4.5); Potassium 3.5 mmol/L (3.5-5.1); Sodium 141 mmol/L (136-145); Total Bilirubin 0.4 mg/dL (0.15-1.2); Total Protein 6.9 g/dL (6.6-8.7)
[2020-01-10 07:44] LABS: Glucose Point of Care 178 mg/dL (70-110)
[2020-01-10] MEDS: budesonide 0.5 mg/2 mL Neb INHALATION (08:15)
[2020-01-10 08:29] LABS: Slide Review Slide Review Perform
[2020-01-10] MEDS: pantoprazole DR 40 mg Tablet PO (08:58)
[2020-01-10] MEDS: losartan 50 mg Tablet 25 MG PO (08:58)
[2020-01-10] MEDS: insulin glargine 100 units/1 mL 10 UNIT SUBCUT (08:58)
[2020-01-10] MEDS: clopidogrel 75 mg Tablet PO (08:58)
[2020-01-10 10:58] LABS: Glucose Point of Care 253 mg/dL (70-110)
--- NOTE | 2020-01-10 11:00 | PM.DCS ---
Discharge Providers Date of Admission: 12/31/19 14:23 Date of Discharge: January 10, 2020 Attending Provider at Admission: Jeffrey Cantu MD Attending Provider at Discharge: Chiki Reid MD Primary Care Provider: Ronny Torres DO Diagnoses at Discharge Discharge Diagnosis (1) New onset of congestive heart failure: Status: Acute Permanent problem details: Acute diastolic heart failure. EF normal on limited echo (2) Generalized weakness: Status: Acute Permanent problem details: Improved (3) Swollen eyelid: Status: Acute (4) Pleural effusion: Status: Acute (5) Morbid obesity: Status: Acute (6) Acute on chronic respiratory failure with hypoxia and hypercapnia: Status: Acute (7) Pulmonary edema: Status: Acute (8) Acute kidney injury: Status: Acute (9) Pneumonia: Status: Acute Permanent problem details: Has completed all of her antibiotic regimen (10) Morbid obesity with BMI of 70 and over, adult: Status: Acute (11) Hypertension: Status: Chronic (12) Diabetes mellitus with peripheral autonomic neuropathy: Status: Acute Permanent problem details: Metformin initiated. Lantus 10 units twice daily initiated. Reason for Visit Reason for Visit: GEN WEAKNESS, POSS ALLERGIC RXN Hospital Course Hospital Course: Siobhan is a 64-year-old white female who presented to the hospital with global weakness. She was significantly short of breath. She was diagnosed with acute diastolic heart failure, and diuresis started. She had some eyelid swelling on the left as well and there was concern of allergy to SANFORD inhibitor therefore SANFORD inhibitor was discontinued. Hospital stay was complicated by super morbid obesity. Diuresis was initiated on admission. She was placed on IV antibiotics for probable pneumonia. She had an event while in the hospital where she became less responsive, requiring BiPAP. Antibiotics were expanded that time as well as diuresis. Acute kidney injury was also noted, and nephrology was consulted on December 31. Diuresis continued with improvement of her renal function. The last 2 days of her hospital stay, Lasix and metolazone were both held secondary to metabolic alkalosis. This improved and she was discharged on Lasix 40 mg a day. This may need to be adjusted as an outpatient. She will discharge on BiPAP. There is no need for any further antibiotics. She will follow-up with her primary care provider, as well as cardiology. She will discharge on Metformin, and Lantus for her diabetes. Losartan was added at the end of her hospital course, which she tolerated well without any swelling. Physical Exam Narrative: EXAM NARRATIVE: General exam is no apparent distress Cardiovascular regular in rhythm Lungs clear but with diminished breath sounds bilaterally Abdomen is soft, positive bowel sounds Extremities no cyanosis clubbing. Only trace edema is noted. Urinary Catheter Management^: Marcelo: Cath Placed During This Visit: yes, but has since been removed by the nurse Reason for Continuing Indwelling Catheter: Decision to DC Catheter Urinary Catheter Date of Insertion: 12/30/19 Urinary Catheter Time of Insertion: 17:45 Date Urinary Catheter Removed: 01/09/20 Time Urinary Catheter Discontinued: 13:06 Discharge Data Data Completed and Pending: Completed Studies During Hospitalization Category Date Time Status CXRP [XR chest 1V portable [id number]] S tat Exams 01/02/20 07:47 Completed XR chest 1V davey ble [id number] Stat Exams 12/31/19 20:45 Completed XR chest 1V davey ble [id number] Urgent Exams 12/30/19 17:02 Completed CV echo limited 9 [id number] Routine Ultrasound 12/31/19 20:31 Completed US renal BI* [id number] Routine Ultrasound 01/02/20 07:47 Completed Pending at discharge Category Date Time Status Complete Blood Co unt w/Auto AM LABS Lab 01/11/20 04:00 Ordered Comprehensive Met abolic Panel AM LA BS Lab 01/11/20 04:00 Ordered Magnesium AM LABS Lab 01/11/20 04:00 Ordered Phosphorus AM LAB S Lab 01/11/20 04:00 Ordered Labs from last 24 hours 01/10/20 01/10/20 01/10/20 10:52 07:39 05:20 WBC RBC Hgb Hct MCV MCH MCHC RDW Plt Count MPV Neut % (Auto) Lymph % (Auto) Karnes % (Auto) Eos % (Auto) Baso % (Auto) Neut # (Auto) Lymph # (Auto) Karnes # (Auto) Eos # (Auto) Baso # (Auto) Nucleated RBC % (a uto) Nucleated RBCs # Sodium 141 Potassium 3.5 Chloride 92 L Carbon Dioxide 40 H Anion Gap 12.5 BUN 22 Creatinine 1.0 H GFR Calculation 56.0 L Glucose 170 H POC Glucose 253 178 Calculated Osmolal ity 299 H Calcium 9.1 Phosphorus 3.3 Magnesium 1.8 Total Bilirubin 0.4 AST 20 ALT 17 Alkaline Phosphata se 62 Total Protein 6.9 Albumin 3.4 L Globulin 3.5 01/10/20 01/09/20 01/09/20 05:20 20:14 16:36 WBC 7.8 RBC 4.49 Hgb 10.9 L Hct 38.7 MCV 86.2 MCH 24.3 L MCHC 28.2 L RDW 21.2 H Plt Count 230 MPV 12.3 H Neut % (Auto) 67.4 Lymph % (Auto) 14.6 Karnes % (Auto) 12.1 Eos % (Auto) 5.1 Baso % (Auto) 0.5 Neut # (Auto) 5.25 Lymph # (Auto) 1.1 Karnes # (Auto) 0.9 Eos # (Auto) 0.4 Baso # (Auto) 0.0 Nucleated RBC % (a uto) 0 Nucleated RBCs # 0.0 Sodium Potassium Chloride Carbon Dioxide Anion Gap BUN Creatinine GFR Calculation Glucose POC Glucose 265 277 Calculated Osmolal ity Calcium Phosphorus Magnesium Total Bilirubin AST ALT Alkaline Phosphata se Total Protein Albumin Globulin Vitals: Last Vital Signs Temp 98.6 F 01/10/20 07:42 Pulse 99 01/10/20 08:21 Resp 18 01/10/20 08:19 BP 105/63 01/10/20 08:58 Pulse Ox 87 L 01/10/20 10:51 Discharge Plan Discharge Patient Disposition: Home Health Service Condition: Stable Prescriptions: New pantoprazole 40 mg Tablet,Delayed Release (Dr/Ec) 40 mg PO DAILY Qty: 30 RF: 0 Lantus Solostar U-100 Insulin 100 unit/mL (3 mL) insulin pen 10 unit SUBCUT BID Qty: 3 RF: 0 furosemide [Lasix] 40 mg tablet 40 mg PO QAM Qty: 30 RF: 0 losartan 50 mg Tablet 25 mg PO DAILY Qty: 30 RF: 0 metformin 500 mg tablet 500 mg PO BID Qty: 60 RF: 0 Continued clopidogrel 75 mg tablet 75 mg PO DAILY RF: 0 fluticasone furoate 100 mcg/actuation blister with device 1 inh INHALATION Q24H RF: 0 albuterol sulfate [ProAir HFA] 90 mcg/actuation HFA aerosol inhaler 2 puff INHALATION Q6H PRN (Reason: Shortness Of Breath) RF: 0 sertraline 100 mg tablet 100 mg PO DAILY RF: 0 Discontinued amlodipine 10 mg tablet 10 mg PO DAILY RF: 0 lisinopril 20 mg tablet 20 mg PO DAILY RF: 0 Discharge Orders: Discharge Order (Routine); Ordered 01/10/20 Ordered By: Chiki Reid Other Ambulatory Orders: DME: BIPAP (Order) Location: None Selected Ordered By: Melissa Feliz DME: Oxygen (Order) Location: None Selected Ordered By: Chiki Reid DME: Walker (Order) Location: None Selected Ordered By: Chiki Reid Referrals: [facility] [place] [Outside] Ronny Torres DO [Primary Care Provider] - 4-7 days Discharge Diet: Cardiac and Diabetic Discharge Activity: Increase activity as tolerated Activity Restrictions/Additional Instructions: Take all medicine as prescribed Follow-up with your primary care provider 3 to 5 days with visit and BMP Make sure she is discharged with BiPAP to use as needed during the day, always when sleeping Follow-up with cardiology 2 weeks secondary to heart failure Discharge Attestations Time Spent in Discharge Care*: greater than 30 min Quality Metrics Clinical Quality Measures During this hospital stay, did patient experience: None Coding Level of Care Code Acute Conference Reservationist for Chg Fwd Diagnoses New onset of congestive heart failure I50.9 Generalized weakness R53.1 Swollen eyelid H02.849 Pleural effusion J90 Morbid obesity E66.01 Acute on chronic respiratory failure with hypoxia and hypercapnia J96.21; J96.22 Pulmonary edema J81.1 Acute kidney injury N17.9 Pneumonia J18.9 Morbid obesity with BMI of 70 and over, adult E66.01; Z68.45 Hypertension I10 Diabetes mellitus with peripheral autonomic neuropathy E11.43
--- NOTE | 2020-01-10 11:40 | P.PN_ITS ---
Subjective Subjective: Interval history: no complaints Medications: Reviewed: Yes Vitals/I&O/Wt Last Vital Signs Temp 99.8 F H 01/10/20 11:21 Pulse 94 01/10/20 11:21 Resp 18 01/10/20 11:21 BP 116/67 01/10/20 11:21 Pulse Ox 93 01/10/20 11:21 01/09/20 01/10/20 01/10/20 22:59 06:59 14:59 Intake Total 480 / 1080 240 / 240 Output Total 600 / 1900 500 / 2400 Balance -120 / -820 -500 / -1320 240 / 240 Weight last 48 hrs Weight 143.244 kg Weight 143.244 kg Weight 143.244 kg Physical Exam Urinary Catheter Management^: Marcelo: Cath Placed During This Visit: yes, but has since been removed by the nurse Reason for Continuing Indwelling Catheter: Decision to DC Catheter Urinary Catheter Date of Insertion: 12/30/19 Urinary Catheter Time of Insertion: 17:45 Date Urinary Catheter Removed: 01/09/20 Time Urinary Catheter Discontinued: 13:06 Data : 01/10/20 05:20 01/10/20 05:20 A&P Additional A&P Information 1. Acute kidney injury - resolved 2. Metabolic alkalosis, hypokalemia, diuretics on hold 3. CHF/pneumonia Recommend: replace KcL. No need for renal follow-up at this time. Attestations Medical Necessity Statement*: per primary service Coding Level of Care Code Acute Hoeing Row Boss for [place] May
[2020-01-10] MEDS: potassium chloride ER 10 mEq Tablet 20 MEQ PO (11:54)
== END 2020-01-10 15:51 | disposition home health service (06) | DRG 291 ==
LOC: ER 19:17 → MEDSURG 12-31 05:00
PROVIDERS: Emergency Medicine; Family Medicine; Hospitalist; Internal Medicine Critical Care Medicine; Internal Medicine Nephrology; Student in an Organized Health Care Education/Training Program; Admitting Provider Internal Medicine; Family Provider Internal Medicine; PCP Internal Medicine; Visit Provider Internal Medicine
DX: I11.0 Hypertensive heart disease with heart failure (principal); J96.22 Acute and chronic respiratory failure with hypercapnia; J96.21 Acute and chronic respiratory failure with hypoxia; J18.9 Pneumonia, unspecified organism; E66.2 Morbid (severe) obesity with alveolar hypoventilation; Z68.44 Body mass index [BMI] 60.0-69.9, adult; E87.4 Mixed disorder of acid-base balance; J44.0 Chronic obstructive pulmonary disease with (acute) lower respiratory infection; J44.1 Chronic obstructive pulmonary disease with (acute) exacerbation; N17.9 Acute kidney failure, unspecified; E11.42 Type 2 diabetes mellitus with diabetic polyneuropathy; E11.51 Type 2 diabetes mellitus with diabetic peripheral angiopathy without gangrene; Z89.411 Acquired absence of right great toe; Z95.820 Peripheral vascular angioplasty status with implants and grafts; Z99.81 Dependence on supplemental oxygen; Z87.891 Personal history of nicotine dependence; R22.0 Localized swelling, mass and lump, head; E87.5 Hyperkalemia; R19.7 Diarrhea, unspecified; E86.0 Dehydration; Z79.51 Long term (current) use of inhaled steroids; Z79.02 Long term (current) use of antithrombotics/antiplatelets
CPT/HCPCS: 12345; 36415; 36416; 36600; 51702; 71045; 76770; 80048; 80051; 80053; 81001; 81003; 82330; 82436; 82550; 82570; 82803; 82805; 82962; 83036; 83605; 83690; 83735; 83880; 84100; 84133; 84145; 84156; 84300; 84439; 84443; 84484; 85025; 85378; 85999; 87040; 87086; 87426; 87449; 87493; 87506; 87641; 90471; 90686; 93005; 93308; 94640; 94660; 94762; 96372; 96375; 97110; 97116; 97161; 97165; 97530; 99284; 99291; C9113; G0378; J0456; J0696; J1644; J1650; J1720; J1815 ×2; J1940; J2543; J2920; J2930; J3475; J3490; J7030; J7050; J7626; Q3014

== ENCOUNTER 2021-02-04 14:30 | Outpatient (CLI) | payer MEDICARE, MEDICAID, SELFPAY ==
[2021-02-04 15:14] LABS: Basophils # 0.1 10^3/uL (0.0-0.1); Basophils % 0.5 %; Eosinophils # 0.4 10^3/uL (0.0-0.8); Eosinophils % 2.4 %; Hematocrit 41.7 % (37.0-47.0); Lymphocytes # 1.2 10^3/uL (0.8-4.8); Lymphocytes % 8.2 %; Mean Corpuscular HGB Conc 31.2 g/dL (30.0-36.0); Mean Corpuscular Hemoglobin 27.7 pg (28.0-34.0); Mean Corpuscular Volume 88.9 fl (81-99); Mean Platelet Volume 10.4 fL (7.4-10.4); Monocytes # 0.9 10^3/uL (0.2-0.9); Monocytes % 6.3 %; Neutrophils # 12.17 10^3/uL (1.8-7.7); Neutrophils % 82.1 %; Nucleated Red Blood Cells % 0 %; Platelet Count 333 10^3/cmm (130-400); Red Blood Count 4.69 10^6/uL (4.1-5.3); Red Cell Distribution Width 15.9 % (12.1-15.1); White Blood Count 14.8 10^3/uL (4.0-10.0)
--- NOTE | 2021-02-04 17:05 | ONC CON_ITS ---
Dr. Wan New Patient Note Patient: Siobhan Lechuga Unit #: [id number]: 1955 Dicatated By: Rolanda Wan M.D.Date of Visit: Feb 04, 2021 Onc MED New Patient/Consult Referring Physician: Dr. Ronny Torres M.D. History of Present Illness: Ms. Siobhan Lechuga, is a 65-year-old female with a history of COPD, diabetes, hypertension, now on multiple medication including fluticasone salmeterol inhaler, during her routine follow-up with the PMD, her lab work-up done on October 19, 2020 showed white blood count 14.5 hemoglobin 13 g medical 39.4 platelets 328,000 neutrophils 75.9% lymphocytes 13.6%. Patient denies any history of recurrent infection but chronic sinusitis with clear discharge off and on mixed with yellow secretions. Denies any history of recurrent urine tract infection but recent history of hospitalization with UTI. Also history of recurrent skin boils. 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 Lechuga's medical history consists of anxiety, chronic obstructive pulmonary disease, congestive heart failure, hypertension, strabismus, and type II diabetes. Past Surgical History: Ms. Lechuga's surgical/procedural history consists of cholecystectomy. Medications: Advair Diskus Aerosol Powder, Breath Activated Inhalation, amLODIPine Besylate 1 Tablet (of 10 mg) Oral daily, Atorvastatin Calcium 1 Tablet (of 20 mg) Oral daily, buPROPion HCl ER (XL) 1 Tablet (of 150 mg) Tablet SR 24 HR Oral daily, Clopidogrel Bisulfate 1 Tablet (of 75 mg) Oral daily, HumaLOG KwikPen 10 Unit(s) (of 100 Units/mL) Subcutaneous t.i.d., Ipratropium-Albuterol 1 mL (of 0.5-2.5 (3) mg/3mL) Solution Inhalation t.i.d., Lantus 50 Unit(s) (of 100 Units/mL) Subcutaneous b.i.d., Lasix 1 Tablet (of 40 mg) Oral daily, Losartan Potassium 1 Tablet (of 25 mg) Oral daily, metFORMIN HCl 1 Tablet (of 500 mg) Oral b.i.d., Pantoprazole Sodium 1 Tablet (of 20 mg) Tablet, enteric coated Oral daily, Potassium Chloride Jonelle ER 3 Tablet (of 20 meq) Tablet, controlled release Oral daily, ProAir HFA 1 Puff(s) (of 108 (90 base) mcg/act) Aerosol, solution Inhalation four times a day PRN Allergies: Aspirin, CeleXA, and Codeine Sulfate. Social History: Ms. Lechuga is . She is a daily smoker who has smoked for 26 years. She has no history of drinking. Family History: Ms. Lechuga's mother is : depression, and psychosis, and dementia. Ms. Lechuga's father is : congestive heart failure, and type II diabetes, and hypertension, and myocardial infarction. Ms. Lechuga has 1 sister who is : cancer. Review Of Symptoms: Review of Systems is not available for this patient. Vital Signs: Performed on Feb 04, 2021 16:32: 8, 0, 52.92 (HIGH), 2.07 sq.m, 59 in, 99 %, 90 /min, 18 /min, 163/82 mm(hg) (HIGH), 97.9 F (LOW), and 262.0 lbs (HIGH). Performance Status: 0 - Fully active, able to carry on all predisease activities without restrictions. (ECOG) Physical Examination: ENMT - No mouth sores, no thrush, no jaundice, no cervical lymphadenopathy, Respiratory - Lungs are clear to auscultation, Cardiovascular - Regular rate and rhythm of heart, Abdomen - Soft, bowel sounds present, Extremities - No visible edema or skin rash. Lab/Imaging: Most recent lab results are not available for this patient. Impression: Isolated leukocytosis/neutrophilia etiology most likely reactive, chronic steroid use especially in inhalers, chronic sinusitis, possibly subclinical cystitis but underlying myeloproliferative disorder cannot be ruled out but less likely Diabetes mellitus COPD, on steroid-containing inhalers Plan: Discussed with patient regarding her labs from today showed white blood count 14.8 thousand hemoglobin 13 hematocrit 41.7 platelets 330,000 with absolute neutrophil count 12,170 Clinically, patient doing well with no signs symptom suggestive of acute infection, etiology of her leukocytosis could be multifactorial including reactive to chronic use of steroids in her inhaler, other possibility could be underlying subclinical chronic sinusitis or cystitis or as patient has history of seborrheic dermatitis and recurrent skin infections or underlying myeloproliferative disorder cannot be ruled out but less likely Patient was also advised to try steam inhalation and saline gargles At this point we will hold her fluticasone/salmeterol inhaler but patient will continue with her other inhalers and then she will return to clinic in 1 month with CBC, if there is no improvement or there is a worsening, may consider further work-up to rule out myeloproliferative disorder. Signed By: Rolanda Wan M.D. <<Signature on File>>
== END 2021-02-04 14:31 | disposition home or self-care (01) ==
PROVIDERS: PCP Internal Medicine; Visit Provider Internal Medicine Hematology & Oncology
DX: D72.829 Elevated white blood cell count, unspecified (principal); E11.9 Type 2 diabetes mellitus without complications; J44.9 Chronic obstructive pulmonary disease, unspecified; Z79.51 Long term (current) use of inhaled steroids
CPT/HCPCS: 36415; 85025; 99204

== ENCOUNTER 2021-03-31 12:31 | Outpatient (CLI) | payer MEDICARE, MEDICAID, SELFPAY ==
[2021-03-31 13:49] LABS: Basophils # 0.1 10^3/uL (0.0-0.1); Basophils % 0.6 %; Eosinophils # 0.3 10^3/uL (0.0-0.8); Eosinophils % 1.9 %; Hematocrit 42.9 % (37.0-47.0); Hemoglobin 13.6 g/dL (11.5-15.3); Lymphocytes # 1.4 10^3/uL (0.8-4.8); Lymphocytes % 9.3 %; Mean Corpuscular HGB Conc 31.7 g/dL (30.0-36.0); Mean Corpuscular Hemoglobin 26.9 pg (28.0-34.0); Mean Corpuscular Volume 84.8 fl (81-99); Mean Platelet Volume 10.1 fL (7.4-10.4); Monocytes % 6.5 %; Neutrophils # 12.17 10^3/uL (1.8-7.7); Nucleated Red Blood Cells % 0 %; Platelet Count 315 10^3/cmm (130-400); Red Blood Count 5.06 10^6/uL (4.1-5.3); Red Cell Distribution Width 14.7 % (12.1-15.1)
[2021-03-31 14:00] LABS: Albumin Level 3.8 g/dL (3.5-5.2); Alkaline Phosphatase 86 IU/L (35-105); Blood Urea Nitrogen 12 mg/dL (8-23); Calcium 8.6 mg/dL (8.5-10.5); Carbon Dioxide 24 mmol/L (22-29); Chloride 98 mmol/L (98-107); Globulin 3.4 g/dL (1.3-4.6); Glomerular Filtration Rate 72.2 mL/min (90-130); Glucose 280 mg/dL (65-115); Osmolality Calculated 286 mOsm/kg (285-295); Sodium 133 mmol/L (136-145); Total Bilirubin 0.2 mg/dL (0.15-1.2); Total Protein 7.2 g/dL (6.6-8.7)
[2021-03-31 14:02] LABS: Anion Gap 15.2 (5-19); Potassium 4.2 mmol/L (3.5-5.1)
[2021-03-31 14:03] LABS: Alanine Aminotransferase 10 U/L (0-33); Aspartate Amino Transferase 12 U/L (0-32)
--- NOTE | 2021-03-31 17:10 | ONC FU_ITS ---
Dr. Wan follow up note Patient: Siobhan Lechuga Unit #: [id number]: 1955 Dicatated By: Rolanda Wan M.D.Date of Visit:Mar 31, 2021 Onc Med Follow-up/Prog Note History of Present Illness: Ms. Siobhan Lechuga, is a 65-year-old female with a history of COPD, diabetes, hypertension, now on multiple medication including fluticasone salmeterol inhaler, during her routine follow-up with the PMD, her lab work-up done on October 19, 2020 showed white blood count 14.5 hemoglobin 13 g medical 39.4 platelets 328,000 neutrophils 75.9% lymphocytes 13.6%. Patient denies any history of recurrent infection but chronic sinusitis with clear discharge off and on mixed with yellow secretions. Denies any history of recurrent urine tract infection but recent history of hospitalization with UTI. Also history of recurrent skin boils. 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, as per medical record history of gangrene of buttock, as per patient now resolved patient also has history of sleep apnea now on CPAP machine also history of seborrheic dermatitis.Denies smoking or alcohol use Came for follow-up, denies any specific complaint, except generalized weakness and fatigue, as per patient she is off steroid-containing inhalers fluticasone/salmeterol inhaler since her last visit, denies any shortness of breath or wheezing denies any fever chills denies any sinus problems denies any dysuria or hematuria Medications: Advair Diskus Aerosol Powder, Breath Activated Inhalation, amLODIPine Besylate 1 Tablet (of 10 mg) Oral daily, Atorvastatin Calcium 1 Tablet (of 20 mg) Oral daily, buPROPion HCl ER (XL) 1 Tablet (of 150 mg) Tablet SR 24 HR Oral daily, Clopidogrel Bisulfate 1 Tablet (of 75 mg) Oral daily, HumaLOG KwikPen 10 Unit(s) (of 100 Units/mL) Subcutaneous t.i.d., Ipratropium-Albuterol 1 mL (of 0.5-2.5 (3) mg/3mL) Solution Inhalation t.i.d., Lantus 50 Unit(s) (of 100 Units/mL) Subcutaneous b.i.d., Lasix 1 Tablet (of 40 mg) Oral daily, Losartan Potassium 1 Tablet (of 25 mg) Oral daily, metFORMIN HCl 1 Tablet (of 500 mg) Oral b.i.d., Pantoprazole Sodium 1 Tablet (of 20 mg) Tablet, enteric coated Oral daily, Potassium Chloride Jonelle ER 3 Tablet (of 20 meq) Tablet, controlled release Oral daily, ProAir HFA 1 Puff(s) (of 108 (90 base) mcg/act) Aerosol, solution Inhalation four times a day PRN Allergies: Aspirin, CeleXA, and Codeine Sulfate. Review of Systems: Review of Systems is not available for this patient. Vital Signs: Performed on Mar 31, 2021 14:56 Height - 59.00 in Weight - 259.2 lbs (LOW) BSA - 2.06 sq.m BMI - 52.35 (HIGH) Temperature - 98.1 F (LOW) Pulse - 78 /min Respiration - 18 /min BP - 122/69 mm(hg) O2 Sat - 99 % Pain - 0 Fatigue - 8 Performance Status: 1 - No physically strenuous activity, but ambulatory and able to carry out light or sedentary work (e.g. office work, light house work). (ECOG) Physical Examination: ENMT - No mouth sores, no thrush, no jaundice, Respiratory - Poor air entry otherwise clear, Cardiovascular - Regular rate and rhythm of heart, Abdomen - Soft, bowel sounds present, Extremities - Trace edema bilaterally. Lab/Imaging: Most recent lab results are not available for this patient. Impression: Isolated leukocytosis/neutrophilia etiology most likely reactive, chronic steroid use especially in inhalers, chronic sinusitis, possibly subclinical cystitis but underlying myeloproliferative disorder cannot be ruled out but less likely Diabetes mellitus COPD, on steroid-containing inhalers Plan: Discussed with patient regarding her labs white blood count 15,000 compared to 14.8 thousand previously. Hemoglobin 13.6 hematocrit 42.9 platelets 315,000 ANC 12,170. CMP within normal limit except glucose 280 Clinically, patient is doing well with no signs symptom suggestive of acute infection, follow-up CBC shows persistent, isolated mild leukocytosis, during her last visit patient was asked to hold steroid-containing inhalers which she did and her repeat CBC shows no improvement in her isolated mild leukocytosis/neutrophilia, etiology again could be underlying sleep apnea, patient is noncompliant with her CPAP machine or chronic seborrheic dermatitis and or underlying myeloproliferative disorder, at this point, patient was advised to resume her fluticasone/salmeterol inhaler and we will order whole blood flow cytometry to rule out myeloproliferative disorder and then return to clinic in 1 month with CBC Signed By: Rolanda Wan M.D. <<Signature on File>>
[2021-04-05 09:45] LABS: Miscellaneous Test See Scanned Lab Rpt
== END 2021-03-31 12:32 | disposition home or self-care (01) ==
LOC: ONCMED 12:35
PROVIDERS: PCP Internal Medicine; Visit Provider Internal Medicine Hematology & Oncology
DX: D72.829 Elevated white blood cell count, unspecified (principal); J44.9 Chronic obstructive pulmonary disease, unspecified; E11.9 Type 2 diabetes mellitus without complications; Z89.411 Acquired absence of right great toe; G47.33 Obstructive sleep apnea (adult) (pediatric); Z79.51 Long term (current) use of inhaled steroids; Z79.899 Other long term (current) drug therapy
CPT/HCPCS: 36415; 80053; 85025; 88184; 88185; 99214

== ENCOUNTER 2021-05-05 14:33 | Outpatient (CLI) | payer MEDICARE, MEDICAID, SELFPAY ==
[2021-05-05 15:09] LABS: Basophils # 0.1 10^3/uL (0.0-0.1); Basophils % 0.7 %; Eosinophils # 0.2 10^3/uL (0.0-0.8); Hematocrit 39.8 % (37.0-47.0); Hemoglobin 12.6 g/dL (11.5-15.3); Lymphocytes # 1.4 10^3/uL (0.8-4.8); Lymphocytes % 13.2 %; Mean Corpuscular HGB Conc 31.7 g/dL (30.0-36.0); Mean Corpuscular Hemoglobin 26.6 pg (28.0-34.0); Mean Corpuscular Volume 84.1 fl (81-99); Mean Platelet Volume 10.6 fL (7.4-10.4); Monocytes # 0.8 10^3/uL (0.2-0.9); Monocytes % 7.4 %; Neutrophils # 7.93 10^3/uL (1.8-7.7); Neutrophils % 76.1 %; Nucleated Red Blood Cells % 0 %; Platelet Count 290 10^3/cmm (130-400); Red Blood Count 4.73 10^6/uL (4.1-5.3); Red Cell Distribution Width 14.6 % (12.1-15.1); White Blood Count 10.4 10^3/uL (4.0-10.0)
--- NOTE | 2021-05-05 16:39 | ONC FU_ITS ---
Dr. Wan follow up note Patient: Siobhan Lechuga Unit #: [id number]: 1955 Dicatated By: Rolanda Wan M.D.Date of Visit:May 05, 2021 Onc Med Follow-up/Prog Note History of Present Illness: Ms. Siobhan Lechuga, is a 65-year-old female with a history of COPD, diabetes, hypertension, now on multiple medication including fluticasone salmeterol inhaler, during her routine follow-up with the PMD, her lab work-up done on October 19, 2020 showed white blood count 14.5 hemoglobin 13 g medical 39.4 platelets 328,000 neutrophils 75.9% lymphocytes 13.6%. Patient denies any history of recurrent infection but chronic sinusitis with clear discharge off and on mixed with yellow secretions. Denies any history of recurrent urine tract infection but recent history of hospitalization with UTI. Also history of recurrent skin boils. 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 Denies any sore throat denies any dysuria or hematuria denies any sinus problem. Medications: Advair Diskus Aerosol Powder, Breath Activated Inhalation, amLODIPine Besylate 1 Tablet (of 10 mg) Oral daily, Atorvastatin Calcium 1 Tablet (of 20 mg) Oral daily, buPROPion HCl ER (XL) 1 Tablet (of 150 mg) Tablet SR 24 HR Oral daily, Clopidogrel Bisulfate 1 Tablet (of 75 mg) Oral daily, HumaLOG KwikPen 10 Unit(s) (of 100 Units/mL) Subcutaneous t.i.d., Ipratropium-Albuterol 1 mL (of 0.5-2.5 (3) mg/3mL) Solution Inhalation t.i.d., Lantus 50 Unit(s) (of 100 Units/mL) Subcutaneous b.i.d., Lasix 1 Tablet (of 40 mg) Oral daily, Losartan Potassium 1 Tablet (of 25 mg) Oral daily, metFORMIN HCl 1 Tablet (of 500 mg) Oral b.i.d., Pantoprazole Sodium 1 Tablet (of 20 mg) Tablet, enteric coated Oral daily, Potassium Chloride Jonelle ER 3 Tablet (of 20 meq) Tablet, controlled release Oral daily, ProAir HFA 1 Puff(s) (of 108 (90 base) mcg/act) Aerosol, solution Inhalation four times a day PRN Allergies: Aspirin, CeleXA, and Codeine Sulfate. Review of Systems: Review of Systems is not available for this patient. Vital Signs: Performed on May 05, 2021 15:44 Height - 59.00 in Weight - 267.0 lbs (HIGH) BSA - 2.08 sq.m BMI - 53.93 (HIGH) Temperature - 98.1 F (LOW) Pulse - 100 /min Respiration - 18 /min BP - 166/80 mm(hg) (HIGH) O2 Sat - 94 % (LOW) Pain - 3 Fatigue - 9 Performance Status: 0 - Fully active, able to carry on all predisease activities without restrictions. (ECOG) Physical Examination: ENMT - No mouth sores, no thrush, no jaundice, Respiratory - Poor air entry otherwise clear, Abdomen - Soft, bowel sounds present, Extremities - Trace edema bilaterally. Lab/Imaging: Most recent lab results are not available for this patient. Impression: Isolated leukocytosis/neutrophilia etiology most likely reactive, chronic steroid use especially in inhalers, chronic sinusitis, possibly subclinical cystitis but underlying myeloproliferative disorder cannot be ruled out but less likely As whole blood flow cytometry done on March 31, 2021 showed no aberrant myeloid or lymphoid population detected Diabetes mellitus COPD, on steroid-containing inhalers Plan: Discussed with patient regarding her labs white blood count 10.400 normal being 4000 - 10,000, hemoglobin 12.6 hematocrit 39.8 platelets 290,000 ANC 7930 compared to 12,170 previously Whole blood flow cytometry done recently showed no aberrant myeloid or lymphoid population detected Clinically, patient doing well with no new signs symptom suggestive of acute infection or inflammation, her follow-up CBC shows improvement in her isolated leukocytosis/neutrophilia now 10,400 compared to 15,000 previously and whole blood flow cytometry was done to rule out myeloproliferative disorder, showed no aberrant myeloid or lymphoid population. At this point, no further recommendations, patient will continue to follow with PMD, patient was advised to use her CPAP machine diligently. Signed By: Rolanda Wan M.D. <<Signature on File>>
== END 2021-05-05 14:34 | disposition home or self-care (01) ==
LOC: ONCMED 14:35
PROVIDERS: PCP Internal Medicine; Visit Provider Internal Medicine Hematology & Oncology
DX: D72.828 Other elevated white blood cell count (principal); D70.9 Neutropenia, unspecified; E11.9 Type 2 diabetes mellitus without complications; J44.9 Chronic obstructive pulmonary disease, unspecified; I10 Essential (primary) hypertension; Z79.51 Long term (current) use of inhaled steroids; Z79.899 Other long term (current) drug therapy
CPT/HCPCS: 36415; 85025; 99214

== ENCOUNTER 2021-07-28 10:23 | Outpatient (CLI) | payer MEDICARE, MEDICAID, SELFPAY ==
--- NOTE | 2021-07-28 10:29 | MM_ITS ---
WS: [id number] BILATERAL SCREENING DIGITAL BREAST TOMOSYNTHESIS MAMMOGRAM WITH CAD HISTORY: SCREENING COMPARISON: 04/29/2011 and 07/07/2008 Bilateral CC and MLO views with tomosynthesis and synthetic mammography submitted. Computer aided det ection analyzed. Breast composition: There are scattered areas of fibroglandular density. No suspicious masses, microc alcifications or architectural distortion. MM/[place] [id number] IMPRESSION: BI-RADS: 1-Negative FOLLOW UP: 1 Year Follow-up
== END 2021-07-28 10:24 | disposition home or self-care (01) ==
LOC: RAD 10:26
PROVIDERS: PCP Internal Medicine; Visit Provider Nurse Practitioner
DX: Z12.31 Encounter for screening mammogram for malignant neoplasm of breast (principal)
CPT/HCPCS: 77063; 77067

== ENCOUNTER 2022-06-26 12:01 | Inpatient (IN) | payer MEDICARE, MEDICAID, SELFPAY ==
[2022-06-26] VITALS (35 sets, daily range): BP systolic 83–133; BP diastolic 42–87; PULSE 80–99; RESP 0–33; TEMP 34.6–36.6; O2SAT 93–100; BMI 52.4
--- NOTE | 2022-06-26 12:05 | W.ED.GENADLT ---
HPI - General Adult General: Stated complaint: FOUND ON FLOOR Time Seen by Provider: 06/26/22 12:04 PFSH ED PFSH: Medical History (Updated 01/25/20 @ 18:49 by Tray Rubalcvaa M.D) Diabetes mellitus with peripheral autonomic neuropathy Gangrene Hypertension New onset of congestive heart failure Acute diastolic heart failure. EF normal on limited echo PAD (peripheral artery disease) Tobacco abuse, in remission Surgical History Post-operative state Status post amputation of great toe Family History Other Diabetes Hypertension Denies family history of CAD (coronary artery disease) Clotting disorder Dementia Hyperlipidemia Psychiatric illness Chronic kidney disease (CKD) Suicide Anesthesia complication Bleeding disorder Family history of premature coronary artery disease Lung disease Cancer Stroke Social History Smoking and tobacco status: former smoker Substance/Drug Use: never Marital status: Current occupational status: disabled Discharge Plan Discharge Condition: Stable Prescriptions: No Action clopidogrel 75 mg tablet 75 mg PO DAILY fluticasone furoate 100 mcg/actuation blister with device 1 inh INHALATION Q24H albuterol sulfate [ProAir HFA] 90 mcg/actuation HFA aerosol inhaler 2 puff INHALATION Q6H PRN (Reason: Shortness Of Breath) sertraline 100 mg tablet 100 mg PO DAILY losartan 50 mg Tablet 25 mg PO DAILY Qty: 30 0RF pantoprazole 40 mg Tablet,Delayed Release (Dr/Ec) 40 mg PO DAILY Qty: 30 0RF metformin 500 mg tablet 500 mg PO BID Qty: 60 0RF Lantus Solostar U-100 Insulin 100 unit/mL (3 mL) insulin pen 10 unit SUBCUT BID Qty: 3 0RF Lasix 40 mg tablet 40 mg PO QAM Qty: 30 0RF Referrals: Ronny Torres DO [Primary Care Provider] - Coding Level of Care Code ED 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
--- NOTE | 2022-06-26 12:08 | ECG_ITS ---
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 Measurements Intervals [place] Rate: 96 P: 152 KS: 182 QRS: -20 QRSD: 224 T: 60 QT: 494 QTc: 627 Interpretive Statements ECTOPIC ATRIAL RHYTHM WITH OCCASIONAL VENTRICULAR PREMATURE COMPLEXES POSSIBLE RIGHT ATRIAL ENLARGEMENT [0.25mV P-WAVE] INTRAVENTRICULAR CONDUCTION DELAY [130+ ms QRS DURATION] LATERAL MYOCARDIAL INFARCTION , [40+ ms Q WAVE AND/OR ST/T ABNORMALITY IN I/aVL/V5/V6] Compared to ECG 01/01/2020 03:29:37 Ectopic atrial rhythm now present Ventricular premature complex(es) now present Intraventricular conduction delay now present Sinus rhythm no longer present Electronically Signed On 06-27-2022 14:25:07 CDT by Praveen Strange M.D. [id number]
--- NOTE | 2022-06-26 12:08 | XRR_ITS ---
PROCEDURE INFORMATION: Exam: XR Chest Exam date and time: 06/26/2022 12:36 PM Age: 66 years old Clinical indication: Injury or trauma; Fall; Blunt trauma (contusions or hematomas) TECHNIQUE: Imaging protocol: Radiologic exam of the chest. Views: 1 view. COMPARISON: CR XR chest 1V portable [id number] 01/02/2020 8:11 AM FINDINGS: Lungs: Ill-defined perihilar opacities. Pleural spaces: No apparent pleural effusion. No pneumothorax. Heart/Mediastinum: Cardiomegaly with central pulmonary vascular congestion. Bones/joints: Redemonstrated fracture through the greater tuberosity of the left humerus. XR/XR chest 1V portable [id number] IMPRESSION: 1. Cardiomegaly with ill-defined perihilar opacities most suggestive of pulmonary edema. 2. Redemonstrated fracture through the proximal left humerus.
--- NOTE | 2022-06-26 12:14 | XRR_ITS ---
PROCEDURE INFORMATION: Exam: XR Left Shoulder Exam date and time: 06/26/2022 12:36 PM Age: 66 years old Clinical indication: Injury or trauma; Fall; Blunt trauma (contusions or hematomas); Shoulder; Left; Additional info: Fall pain TECHNIQUE: Imaging protocol: Radiologic exam of the left shoulder. Views: 2 or more views. COMPARISON: CR XR chest 1V portable [id number] 01/02/2020 8:11 AM FINDINGS: Bones/joints: Mildly displaced fracture through the greater tuberosity of the humerus. Soft tissues: Normal. XR/XR shoulder LT min 2V* [id number] IMPRESSION: Mildly displaced fracture of the greater tuberosity of the humerus.
--- NOTE | 2022-06-26 12:18 | W.ED.GENADLT ---
HPI - General Adult General: Chief complaint: Fall Stated complaint: FOUND ON FLOOR Time Seen by Provider: 06/26/22 12:04 History of Present Illness: Patient had a fall and was found on the floor facedown on her left side 5 days later. Patient is alert oriented and talking. Patient does smell of urine and feces. Patient is moving all extremities with known focal neurological deficits she complains of left shoulder pain. Associated symptoms: Deny chest pain, headache(s), rash or palpitations Review of Systems General: Reports: 10 or more systems reviewed and unremarkable except in HPI and below Const: Denies: fever(s) or chills ENMT: Denies: throat pain or odynophagia Card: Denies: chest pain, palpitations or irregular heart rhythm GI: Denies: abdominal pain Musc: Reports: extremity pain Skin/Breast: Denies: rash or pruritus Neuro: Denies: headache(s), numbness in extremities or weakness in extremities Psych: Denies: anxiety, depression or mood swings PFS ED PFSH: Medical History (Updated 06/26/22 @ 14:16 by Rai Jackson DO) Diabetes mellitus with peripheral autonomic neuropathy Gangrene Hypertension New onset of congestive heart failure Acute diastolic heart failure. EF normal on limited echo PAD (peripheral artery disease) Tobacco abuse, in remission Surgical History Post-operative state Status post amputation of great toe Family History Other Diabetes Hypertension Denies family history of CAD (coronary artery disease) Clotting disorder Dementia Hyperlipidemia Psychiatric illness Chronic kidney disease (CKD) Suicide Anesthesia complication Bleeding disorder Family history of premature coronary artery disease Lung disease Cancer Stroke Social History Smoking and tobacco status: former smoker Substance/Drug Use: never Marital status: Current occupational status: disabled Physical Exam Const: COMMON NORMALS: patient oriented x3, alert and well nourished OTHER: Morbidly obese female face swollen eyes almost swollen shut. Oral mucosa very dry. HENMT: COMMON NORMALS: normocephalic, atraumatic, hearing grossly normal bilaterally, external ears normal, Normal external nose present and moist oral mucous membranes HEAD & SCALP: normocephalic and atraumatic NOSE: Normal external nose present EXTERNAL EAR: Yes external ears normal Eye: COMMON NORMALS: Equal, round and reactive pupils present, EOMs intact bilaterally, conjunctivae normal and no scleral icterus CONJUNCTIVA: Yes conjunctivae normal PUPIL: Yes Equal, round and reactive pupils present Neck/C-Spine: COMMON NORMALS: full ROM, no lymphadenopathy, supple, no meningeal signs, no JVD and Thyroid normal THYROID: Thyroid normal Lymph: LYMPHATIC: no lymphadenopathy noted Chest: COMMONS NORMALS: normal inspection of the chest and normal palpation of entire chest wall Resp: COMMON NORMALS: normal respiratory effort, No retractions and No use of accessory muscles Cardio: COMMON NORMALS: no JVD, regular rate, regular rhythm and S1 normal heart sound present RATE: regular rate RHYTHM: regular rhythm HEART SOUNDS: S1 normal heart sound present GI: COMMON NORMALS: Normal to inspection, nondistended, normoactive bowel sounds present, Soft to palpation, non-tender, No hepatosplenomegaly present, no masses and no bruits PALPATION: Yes Soft to palpation and Yes No hepatosplenomegaly present OTHER: Morbid obesity Extremity: NARRATIVE EXTREMITY EXAM: Tenderness to palpate over left shoulder region Neuro: COMMON NORMALS: patient oriented x3, CN's II-XII intact bilaterally, moves all extremities, no focal motor deficits and no sensory deficits noted SENSORIUM/ORIENTATION: Yes alert MENINGEAL SIGNS: Yes no meningeal signs Psych: COMMON NORMALS: mental status grossly normal, Normal thought process present, cooperative, normal affect and speech normal SPEECH: Yes normal speech THOUGHT PROCESS: Normal thought process present Course Vital Signs: Vital signs: Vital Signs Temperature 94.3 F L 06/26/22 12:02 Pulse Rate 95 06/26/22 13:27 Respiratory Rate 18 06/26/22 12:20 Blood Pressure 85/62 06/26/22 12:02 Pulse Oximetry 95 06/26/22 13:27 Oxygen Delivery Me thod Nasal Cannula 06/26/22 12:20 Oxygen Flow Rate 4 06/26/22 12:20 MDM - General Adult Medical Decision Making Patient was brought to the ER by EMS with complaints of fall on the floor landing on her left shoulder and laying face down for 5 days. Patient is alert and oriented and coherent. Upon review of the imaging which showed chest x-ray showed ill-defined perihilar opacities most suggestive of pulmonary edema, shoulder x-ray showed mildly displaced fracture through the proximal left humerus. Lab work showed white count of 21.7 hemoglobin hematocrit of 11.9 and 41.6 with platelets of 318, metabolic panel showed sodium 138 potassium 6.2 chloride of 98 CO2 21 BUN/creatinine of 67 and 1.9 ABG showed pH of 7.27 PCO2 47.6 PO2 of 62.7, creatinine kinase of 699, UA was negative for infection Dr. Hansen was consulted who agreed for inpatient admission and suggested we consult Dr. Navarrete for the humerus fracture, Dr. Navarrete was called and notified about humerus fracture. Patient will be placed on MedSur. Differential Diagnosis Fall, muscle weakness, edema, rhabdomyolysis, dehydration Medical Records I reviewed the patient's medical records. Lab Data I reviewed the patient's lab results. 06/26/22 11:48 06/26/22 11:48 Radiology Impressions Chest X-Ray 06/26/22 12:08 IMPRESSION: 1. Cardiomegaly with ill-defined perihilar opacities most suggestive of pulmonary edema. 2. Redemonstrated fracture through the proximal left humerus. Shoulder X-Ray 06/26/22 12:14 IMPRESSION: Mildly displaced fracture of the greater tuberosity of the humerus. Laboratory Results WBC 21.7 10^3/uL (4.0-10.0) H 06/26/22 11:48 RBC 4.82 10^6/uL (4.1-5.3) 06/26/22 11:48 Hgb 11.9 g/dL (11.5-15.3) 06/26/22 11:48 Hct 41.6 % (37.0-47.0) 06/26/22 11:48 MCV 86.3 fl (81-99) 06/26/22 11:48 MCH 24.7 pg (28.0-34.0) L 06/26/22 11:48 MCHC 28.6 g/dL (30.0-36.0) L 06/26/22 11:48 RDW 16.6 % (12.1-15.1) H 06/26/22 11:48 Plt Count 318 10^3/cmm (130-400) 06/26/22 11:48 MPV 10.7 fL (7.4-10.4) H 06/26/22 11:48 Neut % (Auto) 83.4 % 06/26/22 11:48 Lymph % (Auto) 4.4 % 06/26/22 11:48 [place] % (Auto) 11.5 % 06/26/22 11:48 Eos % (Auto) 0.0 % 06/26/22 11:48 Baso % (Auto) 0.2 % 06/26/22 11:48 Neut # (Auto) 18.12 10^3/uL (1.8-7.7) H 06/26/22 11:48 Lymph # (Auto) 1.0 10^3/uL (0.8-4.8) 06/26/22 11:48 [place] # (Auto) 2.5 10^3/uL (0.2-0.9) H 06/26/22 11:48 Eos # (Auto) 0.0 10^3/uL (0.0-0.8) 06/26/22 11:48 Baso # (Auto) 0.1 10^3/uL (0.0-0.1) 06/26/22 11:48 Nucleated RBC % (auto) 0.5 % 06/26/22 11:48 Nucleated RBCs # 0.1 /100WBC 06/26/22 11:48 PT 30.10 SECONDS (12.1-14.9) H 06/26/22 12:25 INR 2.74 (0.8-1.2) H 06/26/22 12:25 Specimen Type Arterial 06/26/22 12:29 Sample Site Brachial, right 06/26/22 12:29 ABG pH 7.27 (7.35-7.45) L 06/26/22 12:29 ABG pCO2 47.6 mmHg (35-45) H 06/26/22 12:29 ABG pO2 62.7 mmHg (80.0-100.0) L 06/26/22 12:29 ABG HCO3 21.6 mmol/L (22-26) L 06/26/22 12:29 ABG O2 Saturation 87.1 06/26/22 12:29 ABG Base Excess -5.4 mmol/L (-2.0-2.0) L 06/26/22 12:29 Claude Test Pos 06/26/22 12:29 A-a O2 Gradient 3.8 mmHg (5-10) L 06/26/22 12:29 Hematocrit 35.7 % (37-47) L 06/26/22 12:29 Hgb O2 Saturation 85.1 % (95-100) L 06/26/22 12:29 Carboxyhemoglobin 1.7 %THgb (0.4-20.1) 06/26/22 12:29 Methemoglobin 0.6 % (0.4-1.5) 06/26/22 12:29 Total Hemoglobin 11.7 g/dL (12-16) L 06/26/22 12:29 Sodium 142.0 mmol/L (131-143) 06/26/22 12:29 Potassium 5.8 mmol/L (3.5-5.0) H 06/26/22 12:29 Glucose 117.0 mg/dL (70-115) H 06/26/22 12:29 Ionized Calcium 1.1 mmol/L (1.1-1.4) 06/26/22 12:29 O2 Delivery Device Nc 06/26/22 12:29 O2 Liters/Min 4.0 % 06/26/22 12:29 Crnp ID Cak 06/26/22 12:29 Sodium 138 mmol/L (136-145) 06/26/22 11:48 Potassium 6.2 mmol/L (3.5-5.1) H 06/26/22 11:48 Chloride 98 mmol/L (98-107) 06/26/22 11:48 Carbon Dioxide 21 mmol/L (22-29) L 06/26/22 11:48 Anion Gap 25.2 (5-19) H 06/26/22 11:48 BUN 67 mg/dL (8-23) H 06/26/22 11:48 Creatinine 1.9 mg/dL (0.5-0.9) H 06/26/22 11:48 GFR Calculation 26.5 mL/min (90-130) L 06/26/22 11:48 Glucose 103 mg/dL (65-115) 06/26/22 11:48 Calculated Osmolality 306 mOsm/kg (285-295) H 06/26/22 11:48 Lactic Acid 5.0 mmol/L (0.5-2.2) H* 06/26/22 12:25 Calcium 8.3 mg/dL (8.5-10.5) L 06/26/22 11:48 Phosphorus 6.6 mg/dL (2.5-4.5) H 06/26/22 11:48 Magnesium 2.7 mg/dL (1.7-2.3) H 06/26/22 11:48 Total Bilirubin 1.6 mg/dL (0.15-1.2) H 06/26/22 11:48 Alkaline Phosphatase 108 U/L (35-105) H 06/26/22 11:48 Creatine Kinase 699 U/L (26-192) H* 06/26/22 11:48 CK-MB (CK-2) 50.9 ng/mL (0-5.34) H 06/26/22 11:48 CK-MB (CK-2) Rel Index 7.2 % (0.0-10.4) 06/26/22 11:48 NT-Pro-B Natriuret Pep 8861 pg/mL (0-125) H 06/26/22 11:48 Total Protein 7.2 g/dL (6.6-8.7) 06/26/22 11:48 Albumin 3.7 g/dL (3.5-5.2) 06/26/22 11:48 Globulin 3.5 g/dL (1.3-4.6) 06/26/22 11:48 Procalcitonin 0.59 ng/mL (0-0.5) H 06/26/22 11:48 Urine Color Yellow (Yellow) 06/26/22 12:55 Urine Appearance Clear (CLEAR) 06/26/22 12:55 Urine pH 5 (5-7) 06/26/22 12:55 Ur Specific [place] 1.030 (1.005-1.030) 06/26/22 12:55 Urine Protein Trace (Negative) 06/26/22 12:55 Urine Glucose (UA) Norm (Normal) 06/26/22 12:55 Urine Ketones Negative (Negative) 06/26/22 12:55 Urine Blood Neg (Negative) 06/26/22 12:55 Urine Nitrate Negative (Negative) 06/26/22 12:55 Urine Bilirubin 1+ (Negative) H 06/26/22 12:55 Urine Urobilinogen 1 mg/dL (Negative) H 06/26/22 12:55 Ur Leukocyte Esterase Negative (Negative) 06/26/22 12:55 Urine RBC None /hpf (0-2) 06/26/22 12:55 Urine WBC 0-4 /hpf (0-5) H 06/26/22 12:55 Ur Squamous Epith Cells 0-4 /hpf (0-5) H 06/26/22 12:55 Amorphous Sediment Not Reportable 06/26/22 12:55 Urine Bacteria 2+ /hpf (NONE) H 06/26/22 12:55 Hyaline Casts 40-55 /lpf H 06/26/22 12:55 Serum Ketones Negative (Negative) 06/26/22 11:48 EKG Data EKG 1: I personally reviewed and interpreted this EKG as follows: EKG interpretation date: 06/26/22 EKG interpretation time: 12:30 Prior EKG tracings: not available for review Interpretation: EKG showed ectopic atrial rhythm with occasional PVC, ventricular rate 96, VA interval 182, QRS duration 224, QTc of 548, patient was not a high-quality EKG with a very wandering baseline due to patient's movement. Computer generated interpretation: Chest X-Ray 06/26/22 12:08 IMPRESSION: 1. Cardiomegaly with ill-defined perihilar opacities most suggestive of pulmonary edema. 2. Redemonstrated fracture through the proximal left humerus. Shoulder X-Ray 06/26/22 12:14 IMPRESSION: Mildly displaced fracture of the greater tuberosity of the humerus. EKG 2: I personally reviewed and interpreted this EKG as follows: EKG interpretation date: 06/26/22 EKG interpretation time: 13:37 Prior EKG tracings: available for review Interpretation: EKG showed ventricular rate of 95 bpm, supraventricular rhythm, right axis deviation, QRS duration 110, QTc of 413, Computer generated interpretation: Chest X-Ray 06/26/22 12:08 IMPRESSION: 1. Cardiomegaly with ill-defined perihilar opacities most suggestive of pulmonary edema. 2. Redemonstrated fracture through the proximal left humerus. Shoulder X-Ray 06/26/22 12:14 IMPRESSION: Mildly displaced fracture of the greater tuberosity of the humerus. Discharge Plan Discharge Patient Disposition: Admitted As Inpatient Clinical Impression: Leukocytosis, Acute renal failure, Fracture, humerus closed, Acute hyperkalemia, Rhabdomyolysis Condition: Stable Prescriptions: No Action albuterol sulfate [ProAir HFA] 90 mcg/actuation HFA aerosol inhaler 2 puff INHALATION Q6H PRN (Reason: Shortness Of Breath) metformin 500 mg tablet 500 mg PO BID Qty: 60 0RF latanoprost 0.005 % drops 1 drp ophthalmic (eye) BEDTIME atorvastatin 20 mg tablet 20 mg PO BEDTIME ipratropium-albuterol 0.5 mg-3 mg(2.5 mg base)/3 mL solution for nebulization 3 ml INHALATION TID PRN (Reason: Shortness Of Breath) Lantus U-100 Insulin 100 unit/mL solution 100 unit SUBCUT BID pantoprazole 20 mg tablet,delayed release (DR/EC) 20 mg PO QAM losartan 25 mg tablet 25 mg PO QAM Humalog KwikPen Insulin 100 unit/mL insulin pen 40 unit SUBCUT BID bupropion HCl 300 mg tablet extended release 24 hr 300 mg PO BEDTIME potassium chloride 20 mEq tablet extended release 60 meq PO QAM Lasix 40 mg tablet 40 mg PO BEDTIME Referrals: Ronny Torres DO [Primary Care Provider] - Coding Level of Care Code ED 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
[2022-06-26] MEDS: ipratropium-albuterol 3 mL Neb INHALATION ×2 (12:22→19:50)
--- NOTE | 2022-06-26 12:25 | PC.NURSE ---
kevin cedeño placed on pt. physician at room and aware of VS
[2022-06-26 12:31] LABS: Basophils # 0.1 10^3/uL (0.0-0.1); Basophils % 0.2 %; Hematocrit 41.6 % (37.0-47.0); Hemoglobin 11.9 g/dL (11.5-15.3); Lymphocytes % 4.4 %; Mean Corpuscular HGB Conc 28.6 g/dL (30.0-36.0); Mean Corpuscular Hemoglobin 24.7 pg (28.0-34.0); Mean Corpuscular Volume 86.3 fl (81-99); Mean Platelet Volume 10.7 fL (7.4-10.4); Monocytes # 2.5 10^3/uL (0.2-0.9); Monocytes % 11.5 %; Neutrophils # 18.12 10^3/uL (1.8-7.7); Neutrophils % 83.4 %; Nucleated Red Blood Cells # 0.1 /100WBC; Nucleated Red Blood Cells % 0.5 %; Platelet Count 318 10^3/cmm (130-400); Red Blood Count 4.82 10^6/uL (4.1-5.3); Red Cell Distribution Width 16.6 % (12.1-15.1); White Blood Count 21.7 10^3/uL (4.0-10.0)
[2022-06-26] MEDS: sodium chloride 0.9% 1,000 ML 999 ML IV ×2 (12:39→13:54)
[2022-06-26 12:40] LABS: Ketone (Acetest) Serum Negative (Negative)
[2022-06-26 12:40] LABS: ABG PCO2 47.6 mmHg (35-45); ABG PH Result 7.27 (7.35-7.45); Alveolar-Arterial Oxygen Gradi 3.8 mmHg (5-10); Arterial Blood Gas Hematocrit 35.7 % (37-47); Base Excess ABG -5.4 mmol/L (-2.0-2.0); Blood Gas Allen Test Pos; Blood Gas Operator Identificat CAK; Blood Gas Sample Site Brachial, right; Blood Gas Sample Type Arterial; Carboxyhemoglobin 1.7 %THgb (0.4-20.1); HCO3 ABG 21.6 mmol/L (22-26); HGB O2 Sat 85.1 % (95-100); Ionized Calcium Level - ABG 1.1 mmol/L (1.1-1.4); Methemoglobin 0.6 % (0.4-1.5); Oxygen Device NC; Oxygen Saturation ABG 87.1; PO2 ABG 62.7 mmHg (80.0-100.0); Potassium Level - ABG 5.8 mmol/L (3.5-5.0); Total Hemoglobin 11.7 g/dL (12-16)
[2022-06-26 12:54] LABS: INR 2.74 (0.8-1.2)
[2022-06-26 12:57] LABS: NT Pro B Type Natriuretic Pept 8861 pg/mL (0-125); Procalcitonin 0.59 ng/mL (0-0.5)
[2022-06-26 13:08] LABS: Albumin Level 3.7 g/dL (3.5-5.2); Alkaline Phosphatase 108 U/L (35-105); Blood Urea Nitrogen 67 mg/dL (8-23); Calcium 8.3 mg/dL (8.5-10.5); Carbon Dioxide 21 mmol/L (22-29); Chloride 98 mmol/L (98-107); Globulin 3.5 g/dL (1.3-4.6); Glomerular Filtration Rate 26.5 mL/min (90-130); Glucose 103 mg/dL (65-115); Magnesium 2.7 mg/dL (1.7-2.3); Osmolality Calculated 306 mOsm/kg (285-295); Sodium 138 mmol/L (136-145); Total Bilirubin 1.6 mg/dL (0.15-1.2); Total Protein 7.2 g/dL (6.6-8.7)
[2022-06-26 13:15] LABS: Anion Gap 25.2 (5-19); Potassium 6.2 mmol/L (3.5-5.1)
[2022-06-26 13:32] LABS: Phosphorus 6.6 mg/dL (2.5-4.5)
[2022-06-26 13:34] LABS: Creatine Phosphokinase 699 U/L (26-192)
--- NOTE | 2022-06-26 13:37 | ECG_ITS ---
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 Measurements Intervals [place] Rate: 95 P: 0 AL: 0 QRS: 109 QRSD: 110 T: -29 QT: 360 QTc: 454 Interpretive Statements SUPRAVENTRICULAR RHYTHM RIGHT AXIS DEVIATION [QRS AXIS > 100] LOW QRS VOLTAGE IN PRECORDIAL LEADS [QRS DEFLECTION < 1.0 mV IN CHEST LEADS] POSSIBLE INFERIOR MYOCARDIAL INFARCTION , OF INDETERMINATE AGE [30 ms Q WAVE IN II/aVF] PROBABLE ANTEROLATERAL MYOCARDIAL INFARCTION , OF INDETERMINATE AGE [35 ms Q WAVE IN I/aVL/V3-V6] INTERPRETATION BASED ON A DEFAULT AGE OF 40 YEARS Compared to ECG 06/26/2022 12:30:33 Supraventricular rhythm now present Right-axis deviation now present Low QRS voltage now present Electronically Signed On 06-27-2022 14:30:43 CDT by Praveen Strange M.D. [id number]
--- NOTE | 2022-06-26 13:41 | PC.PHAR ---
PT STATES SHE TAKES CARE OF HER OWN MEDICATIONS-PT STATES SHE USES HUMALOG KWIKPEN 40 UNITS BID RX FILLED 06/24/22 10 UNITS TIDWM-PT STATES SHE USES LANTUS VIAL 100 UNITS BID RX FILLED 05/20/22 FOR 50 UNITS BID-
[2022-06-26 13:59] LABS: Add Urine Microscopic? YES; Bilirubin Urine 1+ (Negative); Blood Urine Neg (Negative); Glucose Urine UA Norm (Normal); Ketones Urine Negative (Negative); Leukocyte Esterase Urine Negative (Negative); Nitrate Urine Negative (Negative); Protein Urine Trace (Negative); Squamous Epithelial Cell Urine 0-4 /hpf (0-5); Urine Appearance Clear (CLEAR); Urine Color Yellow (Yellow); Urobilinogen Urine 1 mg/dL (Negative); WBC Urine 0-4 /hpf (0-5); pH Urine 5 (5-7)
[2022-06-26 14:00] LABS: Add Urine Culture? No; Bacteria Urine 2+ /hpf; Hyaline Casts Urine 40-55 /lpf
[2022-06-26 14:00] LABS: CKMB 50.9 ng/mL (0-5.34); CKMB Relative Index 7.2 % (0.0-10.4)
[2022-06-26 14:24] LABS: Reflex Lactate Order REFLEX LACTIC ORDERD
[2022-06-26 14:38] LABS: Alanine Aminotransferase 2086 U/L (0-33); Aspartate Amino Transferase 2484 U/L (0-32)
--- NOTE | 2022-06-26 15:00 | PM.HP ---
Providers/Chief Complaint Admitting Physician: Paz Hansen MD Primary Care Provider: Ronny Torres DO Chief Complaint: FOUND ON FLOOR History of Present Illness Siobhan Lechuga is a 66 year old female with PMH HTN, DM, sleep apnea, COPD who is brought to the hospital today after being found down in her home. Per patient, she was in her usual state of health on Monday when she suddenly fell. Uncertain about circumstances of the fall, states that suddenlu up was down and down was up . She suspects she may have had hypoglycemia. Does not recall any dizziness, does not recall any preceeding chest pain, dyspnea, palpitations or fever. Her left arm was difficult to mobilize after the fall. She is found to have a humerus fracture today, unable to tell me why she couldn't get off the floor. Attributes this to pain in her arm. Per patient's son, she is ambulatory at a baseline with a walker. She is significantly swollen with anasarca, eyes are shut due to significant edema. Per patient she takes lasix at home but unable to tell me dose. She is currently awake, alert and oriented Review of Systems General: Reports: 10 or more systems reviewed and unremarkable except in HPI and below Const: Denies: fever(s), chills or body aches Eyes: Denies: change in vision, blurry vision or photophobia ENMT: Reports: hoarseness; Denies: throat pain, enlarged tonsils, odynophagia or nasal congestion Card: Denies: chest pain, palpitations, irregular heart rhythm, edema, swelling of feet/ankles, lightheadedness, pre-syncope, dyspnea on exertion or orthopnea Resp: Denies: dyspnea, productive cough, non-productive cough, wheezing, stridor, pain on inspiration, change in phlegm color, hemoptysis or chest congestion GI: Denies: abdominal pain, nausea, vomiting, hematemesis, coffee ground emesis, dysphagia, heartburn, diarrhea, constipation, GI cramping, change in stool character, hematochezia or melena : Denies: flank pain, difficulty voiding, dysuria, urinary frequency, urinary urgency, urinary hesitancy or hematuria Musc: Denies: neck pain, back pain, extremity pain, joint swelling, joint warmth or deformity Neuro: Denies: headache(s), numbness in extremities, weakness in extremities, sensory changes, difficulty walking, frequent falls, dizziness, vertigo, behavioral changes, Slurred speech present or seizure-like activity Psych: Denies: anxiety, depression, suicidal ideation or homicidal ideation Endo: Denies: polyuria, polydipsia, tired all the time, cold intolerance or hot flashes Jorden/Lymph: Denies: easy bruising or easy bleeding Medications/Allergies Home Medications Medication Instructions Recorded Confirmed Last Taken Type albuterol sulfate 90 mcg/actuation 2 puff inhalation Q6H PRN 03/27/19 06/26/22 Unknown History aerosol inhaler (ProAir HFA) Shortness Of Breath metformin 500 mg tablet 500 mg PO BID #60 tabs 01/10/20 06/26/22 Unknown Rx atorvastatin 20 mg tablet 20 mg PO BEDTIME 06/26/22 06/26/22 Unknown History bupropion HCl 300 mg 24 hr tablet, 300 mg PO BEDTIME 06/26/22 06/26/22 Unknown History extended release furosemide 40 mg tablet (Lasix) 40 mg PO BEDTIME 06/26/22 06/26/22 Unknown History insulin glargine 100 unit/mL 100 unit SUBCUT BID 06/26/22 06/26/22 Unknown History subcutaneous solution (Lantus U-100 Insulin) insulin lispro 100 unit/mL 40 unit SUBCUT BID 06/26/22 06/26/22 Unknown History subcutaneous pen (Humalog KwikPen (U-100) Insulin) ipratropium 0.5 mg-albuterol 3 mg 3 ml inhalation TID PRN Shortness 06/26/22 06/26/22 Unknown History (2.5 mg base)/3 mL nebulization Of Breath soln latanoprost 0.005 % eye drops 1 drp ophthalmic (eye) BEDTIME 06/26/22 06/26/22 Unknown History losartan 25 mg tablet 25 mg PO QAM 06/26/22 06/26/22 Unknown History pantoprazole 20 mg tablet,delayed 20 mg PO QAM 06/26/22 06/26/22 Unknown History release potassium chloride 20 mEq 60 meq PO QAM 06/26/22 06/26/22 Unknown History tablet,extended release Allergies Allergy/AdvReac Type Severity Reaction Status Date / Time aspirin Allergy Unknown Unknown Verified 06/26/22 13:27 citalopram Allergy Unknown Unknown Verified 06/26/22 13:27 codeine Allergy Unknown Unknown Verified 06/26/22 13:27 PFSH Acute PFSH: Medical History (Updated 06/27/22 @ 06:09 by Paz Hansen MD) Diabetes mellitus with peripheral autonomic neuropathy Gangrene Hypertension New onset of congestive heart failure Acute diastolic heart failure. EF normal on limited echo PAD (peripheral artery disease) Tobacco abuse, in remission Surgical History Post-operative state Status post amputation of great toe Family History Other Diabetes Hypertension Denies family history of CAD (coronary artery disease) Clotting disorder Dementia Hyperlipidemia Psychiatric illness Chronic kidney disease (CKD) Suicide Anesthesia complication Bleeding disorder Family history of premature coronary artery disease Lung disease Cancer Stroke Social History Smoking and tobacco status: former smoker Substance/Drug Use: never Marital status: Current occupational status: disabled Vitals/I&O/Wt Last Vital Signs Temp 97.4 F L 06/26/22 17:15 Pulse 94 06/26/22 18:00 Resp 9 L 06/26/22 18:00 BP 83/55 06/26/22 18:00 Pulse Ox 98 06/26/22 18:00 O2 Del Method Nasal Cannula 06/26/22 16:30 O2 Flow Rate 4 06/26/22 12:20 06/26/22 06/26/22 06/26/22 06:59 14:59 22:59 Intake Total 1000 / 1000 1050.1 / 2050.1 Output Total 300 / 300 Balance 1000 / 1000 750.1 / 1750.1 Weight last 48 hrs Weight 117.934 kg Weight 117.934 kg Physical Exam Narrative: General: Laying in bed, moves lower extremities to command but doesnt get them off bed HEENT: PERRLA, pupils bilaterally equal and reactive, Eyes with significant edema ,shut tight Chest: Normal vesicular breath sounds, no added sounds to auscultation anteriorly CVS: S1-S2 regular, no murmurs, no tachycardia, no gallops, no rubs Abdomen: Soft, nontender, obese Neuro: No focal deficits grossly, no facial deformity, AO x3, unable to move left arm due to pain Extremities: Anasarca+ significant facial edema, dry cracked lips with coating Urinary Catheter Management: Marcelo: Cath Placed During This Visit: yes Reason for Continuing Indwelling Catheter: Other Urinary Catheter Date of Insertion: 06/26/22 Urinary Catheter Time of Insertion: 12:58 Data 06/26/22 11:48 06/26/22 11:48 Micro: Microbiology 06/26/22 12:25 Blood Culture - Preliminary Blood SPECIMEN COLLECTED Other data: XR/XR shoulder LT min 2V* [id number] IMPRESSION: Mildly displaced fracture of the greater tuberosity of the humerus. ? [email or web address] [address] XRay Report Signed Patient: Siobhan Lechuga Unit #: [id number] : 1955 Age/Sex: 66 / F ADM Date: 06/26/22 Loc: ER Room/Bed: Attending Dr: Ordering Provider/Ordering MD: Rai Jackson DO Date of Service: 06/26/22 Procedure(s): XR chest 1V portable [id number] Accession Number(s): [id number] Report Number: [id number] PROCEDURE INFORMATION: Exam: XR Chest Exam date and time: 06/26/2022 12:36 PM Age: 66 years old Clinical indication: Injury or trauma; Fall; Blunt trauma (contusions or hematomas) TECHNIQUE: Imaging protocol: Radiologic exam of the chest. Views: 1 view. COMPARISON: CR XR chest 1V portable [id number] 01/02/2020 8:11 AM FINDINGS: Lungs: Ill-defined perihilar opacities. Pleural spaces: No apparent pleural effusion. No pneumothorax. Heart/Mediastinum: Cardiomegaly with central pulmonary vascular congestion. Bones/joints: Redemonstrated fracture through the greater tuberosity of the left humerus. XR/XR chest 1V portable [id number] IMPRESSION: 1. ? Cardiomegaly with ill-defined perihilar opacities most suggestive of pulmonary edema. 2. ? Redemonstrated fracture through the proximal left humerus. A&P Assessment and plan (1) Acute renal failure: Qualifiers: Acute renal failure type: unspecified Qualified Code(s): N17.9 - Acute kidney failure, unspecified (2) Fracture, humerus closed: Qualifiers: Encounter type: initial encounter Fracture alignment: nondisplaced Humerus Location: greater tuberosity Laterality: left Qualified Code(s): S42.255A - Nondisplaced fracture of greater tuberosity of left humerus, initial encounter for closed fracture (3) Acute hyperkalemia: (4) Rhabdomyolysis: Qualifiers: Encounter type: initial encounter Rhabdomyolysis type: traumatic Qualified Code(s): T79.6XXA - Traumatic ischemia of muscle, initial encounter (5) Sepsis: (6) Acute liver failure: Plan 66 year old lady with multiple comorbidities as listed above presenting with fall in unclear circumstances at home on Monday (today is Monday) Found on the floor by family today Patients states that she has been unable to get up from the floor as she felt weak and had pain in her left arm Her left arm shows a proximal humerus fracture for which orthopedics has been consulted from the ER Multiple other abnormal labs which point towards multiorgan failure with MIN, acute liver failure, possible sepsis, lactate 5.0, hypoxia, hyperkalemia and rhabdomyolysis. on exam patient is hypotensive with BP 80/42 mmhg, hypothermic with temp 96F on admission , has gross anasarca. No other imaging availble apart from CXR and shoulder x ray at this time She has orders to go to med/surg at this time. WIll cancel and admit to ICU instead # Possible sepsis Patient is hypothermic, hypotensive, leukocytes at 21, lactate 5 Blood cx taken prior to starting abx , only 1 set taken due ot poor peripheral iv access She has received 2L IVF bolus at the time of my assessment Start renally Piperacillin- Tazobactam empirically Source under evaluation at this time, therefore diagnosis of POSSIBLE sepsis with organ dysfucntion. UA does not appear suggestive of UTI CXR with B/L infiltrates likely to represent pulmonary edema Blood cx pending IVF not continued beyong initial bolus as patient otherwise with hypervolemic Levophed to maintain MAP > 65 # Fall under unclear circumstances , unable to get off ground for 4 days Patient suspects she may have been hypoglycemic CUrrently blood sugar 120s range Check CT head, CT C spine, CT chest, abdomen, pelvis to evaluate for other additional fractures that may have impeded her from getting off the floor. Denies any back pain currently monitor telemetry for arrhythmias Denies any chest pain, first EKG uninterpretable due to motion, 2nd without any acute ST-T wave changes, multiple VPCs noted Troponins ordered from ER currently pending CPK elevated suggestive of rhabdomyolysis likely Check respiratoyr viral panel # Acute liver failure Acute transminitis, hyperbilirubinemia and elevated INR suggesting acute liver failure Check CT abdomen No active signs of bleeding with deranged INR currently, monitor closely #Acute kidney injury Marcelo cathetr to maintain I/O Hold losartan Suspect ATN From hypotension, possible sepsis , rhabdomyolysis UA with hyaline casts # Hypoxia, currently on 6lpm supplemental 02 ABG with 7.27/47/62/21 supplemental 02 to keep saturation > 92% CXR with B/L infiltrates concerning for edema # Possible CHF unable to comment on type or chronicity at this time CXR with B/L pulmonary infiltrates, elevated BNP > 8000 Gross anasarca Start lasix 40 mg iv q12h monitor I/O, renal output Check echocardiogram # Hyperkalemia: 6.2 , Insulin 10U IVP , dextrose 50% 50 ml Recived albuterol nebulization recheck in 4 hrs # h/o COPD duonebs, budesonide scheduled inhalation Not currently exacerbated # Sleep apnea Bipap at night time Further orders to be based on multiple pending labs and imaging Dvt ppx: Lovenox PUD ppx: protonix Attestations Medical Necessity Statement*: > 2 midnight care will be needed for above defined reasons Coding Level of Care Code Critical Care >/= 30 minutes Diagnoses Acute renal failure N17.9 Acute renal failure type: unspecified Fracture, humerus closed S42.255A Encounter type: initial encounter Fracture alignment: nondisplaced Humerus Location: greater tuberosity Laterality: left Acute hyperkalemia E87.5 Rhabdomyolysis T79.6XXA Encounter type: initial encounter Rhabdomyolysis type: traumatic Sepsis A41.9 Acute liver failure K72.00
--- NOTE | 2022-06-26 15:30 | CTR_ITS ---
PROCEDURE INFORMATION: Exam: CT Chest Without Contrast; Diagnostic Exam date and time: 06/26/2022 4:02 PM Age: 66 years old Clinical indication: Injury or trauma; Fall; Generalized; Blunt trauma (contusions or hematomas); Additional info: Trauma, fall at home, evaluate for rib fracture, gideon, evaluate for hydronephrosis, TECHNIQUE: Imaging protocol: Diagnostic computed tomography of the chest without contrast. Radiation optimization: All CT scans at this facility use at least one of these dose optimization techniques: automated exposure control; mA and/or kV adjustment per patient size (includes targeted exams where dose is matched to clinical indication); or iterative reconstruction. REPORTING DATA: Count of CT and Cardiac NM exams in prior 12 months: This patient has received 0 known CTs and 0 known cardiac nuclear medicine studies in the 12 months prior to the current study. COMPARISON: CR (CHEST, ) 06/26/2022 12:36 PM RADIATION DOSE METRICS: Total DLP (mGy-cm): 1262.66 FINDINGS: Lungs: Small patchy lingular consolidation which may represent atelectasis versus developing pneumonia or small area of lung contusion. Follow-up should be obtained. Other tiny linear bilateral basilar opacities are noted suggesting scarring/atelectasis. Pleural spaces: Small left pleural effusion. Heart: Mild cardiomegaly with coronary calcification. No obvious pericardial effusion. Lymph nodes: No enlarged lymph nodes. Vasculature: Unremarkable. No aortic aneurysm. Bones/joints: There is slight cortical irregularity at the posteromedial left 11th rib on axial images. However no obvious fracture line could be seen on the coronal sagittal images. Nondisplaced fracture would be difficult to exclude given this severely technically limited exam. Soft tissues: Exam is limited due to streak artifacts arising from patient's arm(s). Images are also degraded due to noise artifacts and patient's very large body habitus. Mild generalized subcutaneous body wall edema/anasarca. PROCEDURE INFORMATION: Exam: CT Abdomen And Pelvis Without Contrast Exam date and time: 06/26/2022 4:02 PM Age: 66 years old Clinical indication: Injury or trauma; Fall; Generalized; Blunt trauma (contusions or hematomas); Additional info: Trauma, fall at home, evaluate for rib fracture, gideon, evaluate for hydronephrosis, TECHNIQUE: Imaging protocol: Computed tomography of the abdomen and pelvis without contrast. Radiation optimization: All CT scans at this facility use at least one of these dose optimization techniques: automated exposure control; mA and/or kV adjustment per patient size (includes targeted exams where dose is matched to clinical indication); or iterative reconstruction. REPORTING DATA: Count of CT and Cardiac NM exams in prior 12 months: This patient has received 0 known CTs and 0 known cardiac nuclear medicine studies in the 12 months prior to the current study. COMPARISON: CT pelvis w con* [id number] 10/10/2017 9:22 PM RADIATION DOSE METRICS: Total DLP (mGy-cm): 1262.66 FINDINGS: Liver: Mild hepatomegaly with no obvious cirrhosis. Gallbladder and bile ducts: Gallbladder not visualized. No ductal dilation. Pancreas: Normal. No ductal dilation. Spleen: Normal. No splenomegaly. Adrenal glands: Normal. No mass. Kidneys and ureters: No obstructing calculus. No hydronephrosis. Stomach and bowel: Unremarkable. No obstruction. No mucosal thickening. Appendix: No evidence of appendicitis. Intraperitoneal space: Unremarkable. No free air. No significant fluid collection. Vasculature: Diffuse arterial calcification with no obvious aortic aneurysm. There is a vascular stent in the right common iliac artery. Lymph nodes: No enlarged lymph nodes. Urinary bladder: Unremarkable as visualized. Reproductive: Unremarkable as visualized. Bones/joints: Probable osteopenia. No obvious acute fractures. Punctate sclerotic focus in the right ischial tuberosity measuring 3 mm which may be benign such as bone island. Soft tissues: Exam is limited due to streak artifacts arising from patient's arm(s). Images are also degraded due to noise artifacts and patient's very large body habitus. Mild generalized subcutaneous body wall edema/anasarca. CT/[place] [id number] IMPRESSION: 1. Limited exam due to varies artifacts and lack of IV contrast. 2. Cortical irregularity left posterior 11th rib with no obvious fracture. No pneumothorax. Small left pleural effusion and patchy lingular consolidation which may represent atelectasis/pneumonia versus small pulmonary contusion. No obvious acute thoracic findings otherwise. 3. Coronary calcification. IMPRESSION: 1. Limited exam due to varies artifacts and lack of contrast. 2. No obvious acute traumatic injury in the abdomen and pelvis. 3. Mild hepatomegaly. 4. Soft tissue and other nonacute findings as described above. No hydronephrosis.
--- NOTE | 2022-06-26 15:30 | CTR_ITS ---
PROCEDURE INFORMATION: Exam: CT Head Without Contrast Exam date and time: 06/26/2022 3:56 PM Age: 66 years old Clinical indication: Injury or trauma; Fall; Blunt trauma (contusions or hematomas); Consciousness not specified; Additional info: Evalute for head injury, trauma, fall TECHNIQUE: Imaging protocol: Computed tomography of the head without contrast. Radiation optimization: All CT scans at this facility use at least one of these dose optimization techniques: automated exposure control; mA and/or kV adjustment per patient size (includes targeted exams where dose is matched to clinical indication); or iterative reconstruction. REPORTING DATA: Count of CT and Cardiac NM exams in prior 12 months: This patient has received 0 known CTs and 0 known cardiac nuclear medicine studies in the 12 months prior to the current study. COMPARISON: No relevant prior studies available. RADIATION DOSE METRICS: Total DLP (mGy-cm): 1237.27 FINDINGS: Brain: No hemorrhage. No edema. Mild diffuse cerebral atrophy. No significant white matter disease. No mass effect. Cerebral ventricles: No ventriculomegaly. Paranasal sinuses: Mucosal thickening of the left maxillary sinus. The rest of the paranasal sinuses are well pneumatized. Mastoid air cells: Visualized mastoid air cells are well aerated. Bones/joints: Unremarkable. No acute fracture. Soft tissues: Unremarkable. CT/CT head wo con* [id number] IMPRESSION: No acute intracranial abnormality.
--- NOTE | 2022-06-26 15:30 | CTR_ITS ---
PROCEDURE INFORMATION: Exam: CT Cervical Spine Without Contrast Exam date and time: 06/26/2022 3:56 PM Age: 66 years old Clinical indication: Injury or trauma; Fall; Blunt trauma; Additional info: Evaluate for fracture TECHNIQUE: Imaging protocol: Computed tomography of the cervical spine without contrast. Radiation optimization: All CT scans at this facility use at least one of these dose optimization techniques: automated exposure control; mA and/or kV adjustment per patient size (includes targeted exams where dose is matched to clinical indication); or iterative reconstruction. REPORTING DATA: Count of CT and Cardiac NM exams in prior 12 months: This patient has received 0 known CTs and 0 known cardiac nuclear medicine studies in the 12 months prior to the current study. COMPARISON: CR (CHEST, ) 06/26/2022 12:36 PM RADIATION DOSE METRICS: Total DLP (mGy-cm): 395.3 FINDINGS: Bones/joints: No acute fracture. Normal alignment. No severe spinal canal stenosis. Lungs: Lung apices are normal. Soft tissues: Unremarkable. CT/CT cervical spin wo con* [id number] IMPRESSION: No acute findings.
[2022-06-26] MEDS: FUROsemide 10 mg/mL SDV 4mL 40 MG IVP (15:55)
[2022-06-26] MEDS: insulin regular-human 10 UNIT in SYRINGE 1 EACH IVP (16:17)
[2022-06-26 16:21] LABS: Lactic Acid level (Lactate) 3.1 mmol/L (0.5-2.2)
[2022-06-26 16:26] LABS: Troponin T (5th) Once 573 ng/L (0-10)
[2022-06-26] MEDS: enoxaparin 40 mg/0.4 mL Syringe SUBCUT (16:46)
[2022-06-26] MEDS: piperacillin-tazobactam 3.375 GM in sodium chloride 0.9% (plus) 50 ML IV (16:46)
[2022-06-26 18:11] LABS: Glucose Point of Care 148 mg/dL (70-110)
[2022-06-26] MEDS: insulin lispro 100 unit/1 mL SUBCUT ×2 (18:17→21:05)
[2022-06-26 20:37] LABS: Glucose Point of Care 171 mg/dL (70-110)
[2022-06-26] MEDS: ondansetron 2 mg/ML SDV 2 mL 4 MG IVP (21:46)
[2022-06-26 23:58] LABS: Adenovirus Not Detected (NOT DETECT); Chlamydia Pneumoniae Not Detected (NOT DETECT); Coronavirus 229E,HKU1,NL63,OC4 Not Detected (NOT DETECT); Human Metapneumovirus Not Detected (NOT DETECT); Human Rhinovirus/Enterovirus Not Detected (NOT DETECT); Influenza A Not Detected (NOT DETECT); Influenza A H1 Not Detected (NOT DETECT); Influenza A H1-2009 Not Detected (NOT DETECT); Influenza A H3 Not Detected (NOT DETECT); Influenza B Not Detected (NOT DETECT); Mycoplasma Pneumoniae Not Detected (NOT DETECT); Parainfluenza Virus Type 1 Not Detected (NOT DETECT); Parainfluenza Virus Type 2 Not Detected (NOT DETECT); Parainfluenza Virus Type 3 Not Detected (NOT DETECT); Parainfluenza Virus Type 4 Not Detected (NOT DETECT); Respiratory Syncytial Virus A Not Detected (NOT DETECT); Respiratory Syncytial Virus B Not Detected (NOT DETECT); SARS-COV-2 Not Detected (NOT DETECT)
[2022-06-27] VITALS (99 sets, daily range): BP systolic 73–140; BP diastolic 40–82; PULSE 85–176; RESP 4–27; TEMP 36.6–36.9; O2SAT 2–100
[2022-06-27] MEDS: piperacillin-tazobactam 3.375 GM in sodium chloride 0.9% (plus) 50 ML IV ×4 (00:35→23:31)
[2022-06-27] MEDS: ipratropium-albuterol 3 mL Neb INHALATION ×3 (02:56→19:25)
[2022-06-27] MEDS: FUROsemide 10 mg/mL SDV 4mL 40 MG IVP (03:34)
[2022-06-27] MEDS: ondansetron 2 mg/ML SDV 2 mL 4 MG IVP (05:17)
--- NOTE | 2022-06-27 05:22 | USCV_ITS ---
Siobhan Lechuga Age: 66 Gender: F : 1955 Exam Date: 06/27/2022 11:06 Ordering Phys: Paz Hansen MD Technologist: Ricardo Mathis [place] [facility] [place]: NSTEMI BP: 106 / 64 HR: 92 Rhythm: Sinus Technical Quality: Adequate MEASUREMENTS (Male / Female) Normal Values 2D ECHO LVOT Diameter 2.0 cm LV Ejection Fraction MOD 2C 40.3 % LV Ejection Fraction 2C AL 43.2 % LA Diameter 4.1 cm M-MODE Aortic Annulus Diameter 3.2 cm LA Ao Ratio MM 1.3 DOPPLER AV Peak Velocity 102.0 cm/s LVOT Peak Velocity 114.0 cm/s AV Area Cont Eq vti 3.2 cm squared AV Area Cont Eq pk 3.5 cm squared MV Area PHT 5.8 cm squared Mitral E to A Ratio 1.1 MV E' Velocity 151.0 cm/s TR Peak Velocity 121.0 cm/s TR Peak Gradient 5.9 mmHg RV Acceleration Time 0.1 s FINDINGS Left Ventricle Right Ventricle Right Atrium Left Atrium Mitral Valve Aortic Valve Tricuspid Valve Pulmonic Valve Pericardium Aorta IVC CONCLUSIONS Very limited quality echocardiogram because of poor ultrasonic windows. LV systolic function is severely reduced with EF of 25 to 30%. Valvular structures are not well-visualized. No comparsion studies are available Tray Rubalcava MD (Electronically Signed) Final Date: 27 June 2022 16:21 S
--- NOTE | 2022-06-27 05:53 | ECG_ITS ---
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 Measurements Intervals [place] Rate: 93 P: 72 DC: 132 QRS: 63 QRSD: 108 T: -10 QT: 352 QTc: 440 Interpretive Statements SINUS RHYTHM WITH OCCASIONAL VENTRICULAR PREMATURE COMPLEXES WITH OCCASIONAL SUPRAVENTRICULAR PREMATURE COMPLEXES LOW QRS VOLTAGE IN PRECORDIAL LEADS [QRS DEFLECTION < 1.0 mV IN CHEST LEADS] PROBABLE INFERIOR MYOCARDIAL INFARCTION , PROBABLY OLD [35 ms Q WAVE IN II/aVF] PROBABLE ANTEROLATERAL MYOCARDIAL INFARCTION , OF INDETERMINATE AGE [35 ms Q WAVE IN I/aVL/V3-V6] Compared to ECG 06/26/2022 13:37:21 Ventricular premature complex(es) now present Supraventricular rhythm no longer present Right-axis deviation no longer present Myocardial infarct finding still present Electronically Signed On 06-27-2022 14:28:59 CDT by Praveen Strange M.D. [id number]
[2022-06-27 06:50] LABS: Albumin Level 3.1 g/dL (3.5-5.2); Alkaline Phosphatase 98 U/L (35-105); Anion Gap 21.4 (5-19); Calcium 7.7 mg/dL (8.5-10.5); Carbon Dioxide 20 mmol/L (22-29); Chloride 101 mmol/L (98-107); Glucose 188 mg/dL (65-115); Osmolality Calculated 314 mOsm/kg (285-295); Potassium 5.4 mmol/L (3.5-5.1); Sodium 137 mmol/L (136-145); Thyroid Stimulating Hormone 1.01 uIU/mL (0.27-4.20); Total Protein 6.1 g/dL (6.6-8.7)
[2022-06-27 07:01] LABS: Alanine Aminotransferase 1930 U/L (0-33)
[2022-06-27 07:02] LABS: Glucose Point of Care 206 mg/dL (70-110)
[2022-06-27 07:03] LABS: Basophils % 0.2 %; Eosinophils % 0.1 %; Hematocrit 35.9 % (37.0-47.0); Hemoglobin 10.6 g/dL (11.5-15.3); Lymphocytes % 5.4 %; Mean Corpuscular HGB Conc 29.5 g/dL (30.0-36.0); Mean Corpuscular Hemoglobin 25.2 pg (28.0-34.0); Mean Corpuscular Volume 85.3 fl (81-99); Mean Platelet Volume 10.8 fL (7.4-10.4); Monocytes # 1.7 10^3/uL (0.2-0.9); Monocytes % 9.1 %; Neutrophils # 15.62 10^3/uL (1.8-7.7); Neutrophils % 84.4 %; Nucleated Red Blood Cells # 0.1 /100WBC; Nucleated Red Blood Cells % 0.3 %; Platelet Count 226 10^3/cmm (130-400); Red Blood Count 4.21 10^6/uL (4.1-5.3); Red Cell Distribution Width 16.7 % (12.1-15.1); White Blood Count 18.5 10^3/uL (4.0-10.0)
[2022-06-27] MEDS: heparin drip 25,000 UNIT/500 ML PREMIX 36 UNIT IV (07:07)
[2022-06-27 07:08] LABS: Magnesium 2.6 mg/dL (1.7-2.3)
[2022-06-27 07:13] LABS: Lactate (Lactic Acid level) 1.8 mmol/L (0.5-2.2)
[2022-06-27 07:16] LABS: Aspartate Amino Transferase 1607 U/L (0-32); Blood Urea Nitrogen 83 mg/dL (8-23)
[2022-06-27 07:18] LABS: Troponin(5th) Baseline 883 ng/L (0-10)
[2022-06-27 07:20] LABS: INR 2.21 (0.8-1.2)
--- NOTE | 2022-06-27 07:22 | ECG_ITS ---
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 Measurements Intervals [place] Rate: 94 P: 52 WY: 123 QRS: 74 QRSD: 108 T: -5 QT: 360 QTc: 450 Interpretive Statements SINUS RHYTHM LOW QRS VOLTAGE IN PRECORDIAL LEADS [QRS DEFLECTION < 1.0 mV IN CHEST LEADS] POSSIBLE ANTERIOR MYOCARDIAL INFARCTION , OF INDETERMINATE AGE [30 ms Q WAVE IN V3/V4, OR R < 0.2 mV IN V4] PROBABLE INFERIOR MYOCARDIAL INFARCTION , PROBABLY OLD [35 ms Q WAVE IN II/aVF] Compared to ECG 06/27/2022 05:53:41 Ventricular premature complex(es) no longer present Myocardial infarct finding still present Electronically Signed On 06-27-2022 14:33:56 CDT by Praveen Strange M.D. [id number]
--- NOTE | 2022-06-27 07:48 | XR_ITS ---
WS: [id number] Exam: XR chest 1V portable [id number] Date/Time of Exam: 06/27/2022 7:48 AM Reason For Exam: post picc placement Comparison 06/26/2022 at 12:39 PM. A right-sided PICC line has been placed and appears to end at the cavoatrial junction in satisfactory position. There is cardiac enlargement with pulmonary vascular congestion unchanged. No pneumothorax . No obvious pleural effusion. Regional bony structures are intact. XR/XR chest 1V portable [id number] IMPRESSION: 1. Right-sided PICC line in satisfactory position ending at the cavoatrial junc tion. 2. Cardiac enlargement with pulmonary vascular congestion unchanged.
[2022-06-27] MEDS: morphine 4 mg/mL SDV 1 mL 2 MG IVP ×2 (07:55→14:41)
--- NOTE | 2022-06-27 08:19 | US_ITS ---
WS: [id number] Complete ABDOMINAL ULTRASOUND HISTORY: transaminitis COMPARISON: CT 06/26/2022 Liver: 18.5 cm in length. Enlarged liver with severe hepatic steatosis. Surface is irregular suggesti ng cirrhosis. Poor visualization of the entire liver. Portal Vein: Not visualized. Gallbladder: Status post cholecystectomy. CBD: 0.7 cm Pancreas: Not visualized. Right kidney: 10.1 cm x 4.9 x 5.1 cm. Poorly visualized kidney. No hydronephrosis. Left kidney: 10.2 cm x 5.9 cm x 6.4 cm. Poorly visualized kidney. No hydronephrosis. Spleen: Limited visualization. Aorta and IVC: Not visualized. US/US abdomen complete* [id number] Impression: 1. Extremely limited evaluation of the abdominal structures due to patient's b chloé habitus. 2. Prior cholecystectomy. 3. Enlarged cirrhotic appearing liver. 4. Visceral organs are all very difficult to visualize.
--- NOTE | 2022-06-27 09:30 | PC.NURSE ---
Double lumen Power PICC placed to right basilic vein with moderate difficulty. Unable to pass 6 [place] triple lumen past second rib. Catheter exchanged for 4 [place] double lumen and able to pass PICC past second rib. Xray confirms placement in cavoatrial junction ready to use. EBL approx 10 mL. Mid-arm circumference measured 10 cm from right AC and noted at 44 cm. Trimmed cath length 45 cm with 2 cm external length noted. Pt tolerated procedure well. Dressing due to be changed tomorrow, 06/27/22. Report given to bedside nurseGarima.
[2022-06-27 09:32] LABS: Troponin 5 2HR 952.4 ng/L (0-10); Troponin 5 2HR Delta 69.4 ABS# (0-10)
--- NOTE | 2022-06-27 09:38 | PM.CONSULT ---
Providers/Reason For Consult Consulting Physician/Specialty*: alexus man md / telenephrology Reason for Consult*: MIN , hyperkalemia Requesting Physician: DR Traore Attending Physician: Lonnie Traore MD Primary Care Provider: Ronny Torres DO History of Present Illness History of Present Illness Siobhan Lechuga is a 66 year old female with PMH HTN, DM, sleep apnea, COPD, CHF. h/o MIN in 2019. Pt was admitted to the hospital yesterday after being found down in her home. Per patient, she was doen for 5 days. She was found to have a humerus fracture, diffuse anasarca, MIN, mild ck elevation. She was treated for septic shock, w/ ivf and zosyn. Her LFT's were elevated, and she had hyperkalemia- which was treated medically. Her k improved. her cr has remained elevated at 2 mg/dl and renal is called to consult. pt states that she is felling weak, feels better. chronic edema. dec sob. Review of Systems Narrative: weak, swollen, andre, cough. no orthopnea. poor appetute, +CP, arm and leg pain. no diarrhea. no dysuria. rest of ROS is negatuve Medications/Allergies Home Medications Medication Instructions Recorded Confirmed Last Taken Type albuterol sulfate 90 mcg/actuation 2 puff inhalation Q6H PRN 03/27/19 06/26/22 Unknown History aerosol inhaler (ProAir HFA) Shortness Of Breath metformin 500 mg tablet 500 mg PO BID #60 tabs 01/10/20 06/26/22 Unknown Rx atorvastatin 20 mg tablet 20 mg PO BEDTIME 06/26/22 06/26/22 Unknown History bupropion HCl 300 mg 24 hr tablet, 300 mg PO BEDTIME 06/26/22 06/26/22 Unknown History extended release furosemide 40 mg tablet (Lasix) 40 mg PO BEDTIME 06/26/22 06/26/22 Unknown History insulin glargine 100 unit/mL 100 unit SUBCUT BID 06/26/22 06/26/22 Unknown History subcutaneous solution (Lantus U-100 Insulin) insulin lispro 100 unit/mL 40 unit SUBCUT BID 06/26/22 06/26/22 Unknown History subcutaneous pen (Humalog KwikPen (U-100) Insulin) ipratropium 0.5 mg-albuterol 3 mg 3 ml inhalation TID PRN Shortness 06/26/22 06/26/22 Unknown History (2.5 mg base)/3 mL nebulization Of Breath soln latanoprost 0.005 % eye drops 1 drp ophthalmic (eye) BEDTIME 06/26/22 06/26/22 Unknown History losartan 25 mg tablet 25 mg PO QAM 06/26/22 06/26/22 Unknown History pantoprazole 20 mg tablet,delayed 20 mg PO QAM 06/26/22 06/26/22 Unknown History release potassium chloride 20 mEq 60 meq PO QAM 06/26/22 06/26/22 Unknown History tablet,extended release Allergies Allergy/AdvReac Type Severity Reaction Status Date / Time aspirin Allergy Unknown Unknown Verified 06/26/22 13:27 citalopram Allergy Unknown Unknown Verified 06/26/22 13:27 codeine Allergy Unknown Unknown Verified 06/26/22 13:27 Current Medications Generic Name Dose Route Start Last Admin Trade Name Freq PRN Reason Stop Dose Admin Albuterol/Ipratropium 3 ml 06/26/22 20:00 06/27/22 09:00 Ipratropium-Albuterol 3 Ml Neb INHALATION Not Given Q6H KD Budesonide 0.5 mg 06/26/22 20:00 06/27/22 08:59 Budesonide 0.5 Mg/2 Ml Neb INHALATION Not Given BID.RESPIRATORY KD Furosemide 40 mg 06/26/22 15:30 06/27/22 03:34 Furosemide 10 Mg/Ml Sdv 4ml IVP 40 mg Q12H KD Administration Piperacillin Sod/Tazobactam 50 mls @ 12.5 mls/hr 06/26/22 16:00 06/27/22 05:08 Sod 3.375 gm/ Sodium Chloride IV Infused Q8H [facility] Infusion Protocol Heparin Sodium/Sodium Chloride 25,000 unit in 500 mls @ 0 mls/hr 06/27/22 05:30 06/27/22 07:07 Heparin Drip IV 15.26 unit/kg/hr .Q0M KD 36 mls/hr Administration Protocol Per Protocol Insulin Human Lispro 0 unit 06/26/22 18:00 06/27/22 07:26 Insulin Lispro 100 Unit/1 Ml SUBCUT Not Given WM&BEDTIME KD Protocol Morphine Sulfate 2 mg 06/27/22 06:54 06/27/22 07:55 Morphine 4 Mg/Ml Sdv 1 Ml IVP 2 mg Q6H PRN Administration SEVERE PAIN Ondansetron HCl 4 mg 06/26/22 15:25 06/27/22 05:17 Ondansetron 2 Mg/Ml Sdv 2 Ml IVP 4 mg Q6H PRN Administration NAUSEA AND VOMITING PFSH Acute PFSH: Medical History (Updated 06/27/22 @ 06:09 by Paz Hansen MD) Diabetes mellitus with peripheral autonomic neuropathy Gangrene Hypertension New onset of congestive heart failure Acute diastolic heart failure. EF normal on limited echo PAD (peripheral artery disease) Tobacco abuse, in remission Surgical History Post-operative state Status post amputation of great toe Family History Other Diabetes Hypertension Denies family history of CAD (coronary artery disease) Clotting disorder Dementia Hyperlipidemia Psychiatric illness Chronic kidney disease (CKD) Suicide Anesthesia complication Bleeding disorder Family history of premature coronary artery disease Lung disease Cancer Stroke Social History Smoking and tobacco status: former smoker Substance/Drug Use: never Marital status: Current occupational status: disabled Vitals/I&O/Wt Last Vital Signs Temp 98.1 F 06/27/22 08:00 Pulse 95 06/27/22 08:00 Resp 22 H 06/27/22 08:00 BP 121/75 06/27/22 08:00 Pulse Ox 2 L 06/27/22 08:00 O2 Del Method Nasal Cannula 06/27/22 08:00 O2 Flow Rate 2 06/27/22 02:56 06/26/22 06/27/22 06/27/22 22:59 06:59 14:59 Intake Total 1150.1 / 2150.1 150 / 2300.1 Output Total 450 / 450 250 / 700 Balance 700.1 / 1700.1 -100 / 1600.1 Weight last 48 hrs Weight 142.116 kg Weight 117.934 kg Weight 117.934 kg Physical Exam Narrative: obese in bed on nc02- no pressors vss heent- nc/at, eomi, anicteric neck supple lungs ronchi b/l heart reg, + s1, s2 abd soft, nt, nd, + bs ext b/l edema neuro a,a, o x2-3 Urinary Catheter Management: Marcelo: Cath Placed During This Visit: yes Reason for Continuing Indwelling Catheter: Other Urinary Catheter Date of Insertion: 06/26/22 Urinary Catheter Time of Insertion: 12:58 Data 06/27/22 06:45 06/27/22 06:08 Micro: Microbiology 06/26/22 12:25 Blood Culture - Preliminary Blood SPECIMEN COLLECTED A&P Assessment and plan (1) Acute renal failure: 66 yr old female 1. septic shock - no clear source. appears to be improving 2.MIN -likely prerenal vs ATN. check urine na, pr, cr -no hydronephrosis on ct scan -ck of 699 -not high enough to cause rhabdomyolyisis induced MIN -consider decreasing or holding lasix 3. hyperkalemia 4. mixed resp and metabolic acidosis- lacatate of 5 to 3 to 1.8 - can be from metformin in min, or from volume depletion or infection -improving lactic acid level -pt usually has a hypercapneic resp acidosis from GREGORIO 5. shocked liver- lft's are plateauing 6. repeat ck was 699 seen and examined w/ RN- telehealth visit informed consent for telehealth obtained from pt time spent >55 min Qualifiers: Acute renal failure type: unspecified Qualified Code(s): N17.9 - Acute kidney failure, unspecified Plan see above Consult Attestations Medical Necessity Statement: min, sepsis, anasarca, inc lft's, hyperkalemia -improving Time Spent in Patient Care: Greater than 35 minutes (>than 50% of time spent in counselling and/or direct pt care on unit). Coding Level of Care Code Acute Code for [facility] Diagnoses Acute renal failure N17.9 Acute renal failure type: unspecified
[2022-06-27] MEDS: pantoprazole 40 mg SDV IVP (10:06)
--- NOTE | 2022-06-27 10:11 | P.CONIM_ITS ---
Providers/Reason For Consult Consulting Physician/Specialty*: Tray Rubalcava MD/ Cardiology Reason for Consult*: Troponin elevation Requesting Physician: Dr Traore Attending Physician: Lonnie Traore MD Primary Care Provider: Ronny Torres DO History of Present Illness History of Present Illness Siobhan Lechuga is a 66 year old female with past medical history of hypertension, diabetes, hyperlipidemia who was brought to hospital after being found down. According to patient she likely was down for about 4 to 5 days. She is answering questions appropriately however is drowsy. Cardiology was consulted as her presenting troponin was 883 and trended up to 983. She has rhabdo, MIN, liver failure. She denies chest pain. EKG has significant artifact however shows sinus rhythm with PACs and PVCs. She also has humerous fracture. ECHO shows severely reduced LV systolic function with EF of 25-30%. Review of Systems General: Reports: 10 or more systems reviewed and unremarkable except in HPI and below Const: Denies: fever(s), chills or body aches Eyes: Denies: change in vision, blurry vision or photophobia ENMT: Reports: hoarseness; Denies: throat pain, enlarged tonsils, odynophagia or nasal congestion Card: Denies: chest pain, palpitations, irregular heart rhythm, edema, swelling of feet/ankles, lightheadedness, pre-syncope, dyspnea on exertion or orthopnea Resp: Denies: dyspnea, productive cough, non-productive cough, wheezing, stridor, pain on inspiration, change in phlegm color, hemoptysis or chest congestion GI: Denies: abdominal pain, nausea, vomiting, hematemesis, coffee ground emesis, dysphagia, heartburn, diarrhea, constipation, GI cramping, change in stool character, hematochezia or melena : Denies: flank pain, difficulty voiding, dysuria, urinary frequency, urinary urgency, urinary hesitancy or hematuria Musc: Denies: neck pain, back pain, extremity pain, joint swelling, joint warmth or deformity Neuro: Denies: headache(s), numbness in extremities, weakness in extremities, sensory changes, difficulty walking, frequent falls, dizziness, vertigo, behavioral changes, Slurred speech present or seizure-like activity Psych: Denies: anxiety, depression, suicidal ideation or homicidal ideation Endo: Denies: polyuria, polydipsia, tired all the time, cold intolerance or hot flashes Jorden/Lymph: Denies: easy bruising or easy bleeding Medications/Allergies Home Medications Medication Instructions Recorded Confirmed Last Taken Type albuterol sulfate 90 mcg/actuation 2 puff inhalation Q6H PRN 03/27/19 06/26/22 Unknown History aerosol inhaler (ProAir HFA) Shortness Of Breath metformin 500 mg tablet 500 mg PO BID #60 tabs 01/10/20 06/26/22 Unknown Rx atorvastatin 20 mg tablet 20 mg PO BEDTIME 06/26/22 06/26/22 Unknown History bupropion HCl 300 mg 24 hr tablet, 300 mg PO BEDTIME 06/26/22 06/26/22 Unknown History extended release furosemide 40 mg tablet (Lasix) 40 mg PO BEDTIME 06/26/22 06/26/22 Unknown History insulin glargine 100 unit/mL 100 unit SUBCUT BID 06/26/22 06/26/22 Unknown History subcutaneous solution (Lantus U-100 Insulin) insulin lispro 100 unit/mL 40 unit SUBCUT BID 06/26/22 06/26/22 Unknown History subcutaneous pen (Humalog KwikPen (U-100) Insulin) ipratropium 0.5 mg-albuterol 3 mg 3 ml inhalation TID PRN Shortness 06/26/22 06/26/22 Unknown History (2.5 mg base)/3 mL nebulization Of Breath soln latanoprost 0.005 % eye drops 1 drp ophthalmic (eye) BEDTIME 06/26/22 06/26/22 Unknown History losartan 25 mg tablet 25 mg PO QAM 06/26/22 06/26/22 Unknown History pantoprazole 20 mg tablet,delayed 20 mg PO QAM 06/26/22 06/26/22 Unknown History release potassium chloride 20 mEq 60 meq PO QAM 06/26/22 06/26/22 Unknown History tablet,extended release Allergies Allergy/AdvReac Type Severity Reaction Status Date / Time aspirin Allergy Unknown Unknown Verified 06/26/22 13:27 citalopram Allergy Unknown Unknown Verified 06/26/22 13:27 codeine Allergy Unknown Unknown Verified 06/26/22 13:27 Current Medications Generic Name Dose Route Start Last Admin Trade Name Freq PRN Reason Stop Dose Admin Albuterol/Ipratropium 3 ml 06/26/22 20:00 06/27/22 09:00 Ipratropium-Albuterol 3 Ml Neb INHALATION Not Given Q6H KD Budesonide 0.5 mg 06/26/22 20:00 06/27/22 08:59 Budesonide 0.5 Mg/2 Ml Neb INHALATION Not Given BID.RESPIRATORY KD Furosemide 40 mg 06/26/22 15:30 06/27/22 03:34 Furosemide 10 Mg/Ml Sdv 4ml IVP 40 mg Q12H KD Administration Piperacillin Sod/Tazobactam 50 mls @ 12.5 mls/hr 06/26/22 16:00 06/27/22 10:06 Sod 3.375 gm/ Sodium Chloride IV 12.5 mls/hr Q8H KD Administration Protocol Heparin Sodium/Sodium Chloride 25,000 unit in 500 mls @ 0 mls/hr 06/27/22 05:30 06/27/22 07:07 Heparin Drip IV 15.26 unit/kg/hr .Q0M KD 36 mls/hr Administration Protocol Per Protocol Insulin Human Lispro 0 unit 06/26/22 18:00 06/27/22 07:26 Insulin Lispro 100 Unit/1 Ml SUBCUT Not Given WM&BEDTIME KD Protocol Morphine Sulfate 2 mg 06/27/22 06:54 06/27/22 07:55 Morphine 4 Mg/Ml Sdv 1 Ml IVP 2 mg Q6H PRN Administration SEVERE PAIN Ondansetron HCl 4 mg 06/26/22 15:25 06/27/22 05:17 Ondansetron 2 Mg/Ml Sdv 2 Ml IVP 4 mg Q6H PRN Administration NAUSEA AND VOMITING Pantoprazole Sodium 40 mg 06/27/22 09:00 06/27/22 10:06 Pantoprazole 40 Mg Sdv IVP 40 mg DAILY KD Administration PFSH Acute PFSH: Medical History (Updated 06/28/22 @ 09:14 by Tray Rubalcava M.D) Diabetes mellitus with peripheral autonomic neuropathy Gangrene Hypertension New onset of congestive heart failure Acute diastolic heart failure. EF normal on limited echo PAD (peripheral artery disease) Tobacco abuse, in remission Surgical History Post-operative state Status post amputation of great toe Family History Other Diabetes Hypertension Denies family history of CAD (coronary artery disease) Clotting disorder Dementia Hyperlipidemia Psychiatric illness Chronic kidney disease (CKD) Suicide Anesthesia complication Bleeding disorder Family history of premature coronary artery disease Lung disease Cancer Stroke Social History Smoking and tobacco status: former smoker Substance/Drug Use: never Marital status: Current occupational status: disabled Vitals/I&O/Wt Last Vital Signs Temp 98.1 F 06/27/22 08:00 Pulse 95 06/27/22 08:00 Resp 22 H 06/27/22 08:00 BP 121/75 06/27/22 08:00 Pulse Ox 2 L 06/27/22 08:00 O2 Del Method Nasal Cannula 06/27/22 08:00 O2 Flow Rate 2 06/27/22 02:56 06/26/22 06/27/22 06/27/22 22:59 06:59 14:59 Intake Total 1150.1 / 2150.1 150 / 2300.1 Output Total 450 / 450 250 / 700 Balance 700.1 / 1700.1 -100 / 1600.1 Weight last 48 hrs Weight 313 lb 5 oz Weight 260 lb Weight 260 lb Physical Exam Narrative: GENERAL: Patient is drowsy but oriented. NECK: No jugular vein distension. [] HEENT: No cyanosis. No icterus. No pallor. [] HEART: Regular S1 and S2. No murmur, rub or gallop. [] LUNGS: Clear to auscultate bilaterally. CENTRAL NERVOUS SYSTEM: Grossly nonfocal. [] EXTREMITIES: Lower extremities with 1+ edema bilaterally. Urinary Catheter Management: Marcelo: Cath Placed During This Visit: yes Reason for Continuing Indwelling Catheter: Other Urinary Catheter Date of Insertion: 06/26/22 Urinary Catheter Time of Insertion: 12:58 Data 06/28/22 05:30 06/28/22 05:30 Micro: Microbiology 06/26/22 12:25 Blood Culture - Preliminary Blood SPECIMEN COLLECTED A&P Assessment and plan (1) Fracture of humerus, proximal, right, closed: (2) Acute liver failure: (3) Sepsis: (4) Acute renal failure: Qualifiers: Acute renal failure type: unspecified Qualified Code(s): N17.9 - Acute kidney failure, unspecified (5) Rhabdomyolysis: Qualifiers: Encounter type: initial encounter Rhabdomyolysis type: traumatic Qualified Code(s): T79.6XXA - Traumatic ischemia of muscle, initial encounter (6) Troponin level elevated: Plan Patient denies chest pain symptoms. However has significant troponin elevation. This is likely secondary to demand ischemia. Although she has severely reduced LV systolic function on echocardiogram. She will need ischemic work-up feels more stable. Currently she has MIN, liver failure, fracture, and possible sepsis. Treatment per primary team. Once she is able to tolerate, can be started on aspirin. We will hold off on heparin at this time as INR is elevated. Thank you for involving us with care of this patient. We will continue to follow. Please call with questions. Consult Attestations Medical Necessity Statement: Care expected to cross 2 midnights. Coding Level of Care Code [facility] Diagnoses Fracture of humerus, proximal, right, closed S42.201A Acute liver failure K72.00 Sepsis A41.9 Acute renal failure N17.9 Acute renal failure type: unspecified Rhabdomyolysis T79.6XXA Encounter type: initial encounter Rhabdomyolysis type: traumatic Troponin level elevated R77.8
[2022-06-27 11:16] LABS: Potassium, Radom Urine 68 mmol/L; Urine Creatinine 92 mg/dL (28-217); Urine Random Chloride 23 mmol/L; Urine Random Sodium 10 mmol/L
[2022-06-27 11:21] LABS: Urine Protein Random 15 mg/dL
[2022-06-27] MEDS: perflutren protein-a microsphr 0.22 mg/mL SDV 3 mL IV (11:35)
[2022-06-27 12:15] LABS: Glucose Point of Care 233 mg/dL (70-110)
[2022-06-27] MEDS: insulin lispro 100 unit/1 mL SUBCUT ×3 (12:20→20:59)
--- NOTE | 2022-06-27 12:55 | PC.PT ---
Attempted PT evaluation, patient unable to stay awake during this effort, falling asleep several times, will continue attempts, until successful.
--- NOTE | 2022-06-27 14:18 | PC.OT ---
OT EVALUATION ATTEMPTED. PATIENT HAS RECEIVED MORPHINE AND IS NOT ABLE TO MAINTAIN ALERTNESS TO ACTIVELY PARTICIPATE IN EVALUATION. WILL ATTEMPT AGAIN TOMORROW
--- NOTE | 2022-06-27 14:24 | P.PN_ITS ---
Subjective Subjective: Patient was seen and examined this morning, has remained afebrile, 700 cc urine output, BUN and serum creatinine has trended up, LFTs improving, currently maintaining a decent MAP, denied any, significant complaint she was hungry wanted to eat. Medications: Medication Review Details: Generic Name Dose Route Start Last Admin Trade Name Freq PRN Reason Stop Dose Admin Albuterol/Ipratrop ium 3 ml 06/26/22 20:00 06/27/22 14:20 Ipratropium-Albu terol 3 Ml Neb INHALATION 3 ml Q6H KD Administration Budesonide 0.5 mg 06/26/22 20:00 06/27/22 08:59 Budesonide 0.5 M g/2 Ml Neb INHALATION Not Given BID.RESPIRATORY S CH Piperacillin Sod/T azobactam 50 mls @ 12.5 mls /hr 06/26/22 16:00 06/27/22 10:06 Sod 3.375 gm/ So dium Chloride IV 12.5 mls/hr Q8H KD Administration Protocol Heparin Sodium/Sod ium Chloride 25,000 unit in 50 0 mls @ 0 mls/hr 06/27/22 05:30 06/27/22 07:07 Heparin Drip IV 15.26 unit/kg/hr .Q0M KD 36 mls/hr Administration Protocol Per Protocol Insulin Human Lisp ro 0 unit 06/26/22 18:00 06/27/22 12:20 Insulin Lispro 1 00 Unit/1 Ml SUBCUT 6 unit WM&BEDTIME KD Administration Protocol Morphine Sulfate 2 mg 06/27/22 06:54 06/27/22 07:55 Morphine 4 Mg/Ml Sdv 1 Ml IVP 2 mg Q6H PRN Administration SEVERE PAIN Ondansetron HCl 4 mg 06/26/22 15:25 06/27/22 05:17 Ondansetron 2 Mg /Ml Sdv 2 Ml IVP 4 mg Q6H PRN Administration NAUSEA AND VOMITI NG Pantoprazole Sodiu m 40 mg 06/27/22 09:00 06/27/22 10:06 Pantoprazole 40 Mg Sdv IVP 40 mg DAILY KD Administration Vitals/I&O/Wt Last Vital Signs Temp 98.4 F 06/27/22 14:00 Pulse 92 06/27/22 14:20 Resp 17 06/27/22 14:20 BP 105/55 06/27/22 12:15 Pulse Ox 97 06/27/22 14:20 O2 Del Method Nasal Cannula 06/27/22 14:20 O2 Flow Rate 2 06/27/22 14:20 06/26/22 06/27/22 06/27/22 22:59 06:59 14:59 Intake Total 1150.1 / 2150.1 150 / 2300.1 100 / 100 Output Total 450 / 450 250 / 700 Balance 700.1 / 1700.1 -100 / 1600.1 100 / 100 Weight last 48 hrs Weight 142.116 kg Weight 117.934 kg Weight 117.934 kg Physical Exam Const: COMMON NORMALS: patient oriented x3 HENMT: COMMON NORMALS: normocephalic and atraumatic HEAD & SCALP: normocephalic and atraumatic Resp: COMMON NORMALS: No retractions and clear to auscultation bilaterally AUSCULTATION: clear to auscultation bilaterally Cardio: COMMON NORMALS: regular rate, regular rhythm, S1 normal heart sound present, S2 normal heart sound present, No gallops present (Cardio), No murmurs present (Cardio), No rub (Cardio) and Peripheral pulses 2+ throughout RATE: regular rate RHYTHM: regular rhythm HEART SOUNDS: S1 normal heart sound present and S2 normal heart sound present PERIPHERAL PULSES: Peripheral pulses 2+ throughout GI: COMMON NORMALS: Normal to inspection, nondistended, normoactive bowel sounds present, Soft to palpation, non-tender, No hepatosplenomegaly present and no masses AUSCULTATION: Yes normoactive bowel sounds PALPATION: Yes Soft to palpation and Yes No hepatosplenomegaly present RECTAL EXAM: deferred Extremity: COMMON NORMALS: no clubbing, cyanosis or edema and no pedal edema Neuro: COMMON NORMALS: patient oriented x3 Urinary Catheter Management: Marcelo: Cath Placed During This Visit: yes Reason for Continuing Indwelling Catheter: Other Urinary Catheter Date of Insertion: 06/26/22 Urinary Catheter Time of Insertion: 12:58 Data 06/27/22 06:45 06/27/22 06:08 Micro: Microbiology 06/26/22 12:25 Blood Culture - Preliminary Blood NEGATIVE TO DATE A&P Assessment and plan (1) Acute renal failure: Qualifiers: Acute renal failure type: unspecified Qualified Code(s): N17.9 - Acute kidney failure, unspecified (2) Fracture, humerus closed: Qualifiers: Encounter type: initial encounter Fracture alignment: nondisplaced Humerus Location: greater tuberosity Laterality: left Qualified Code(s): S42.255A - Nondisplaced fracture of greater tuberosity of left humerus, initial encounter for closed fracture (3) Acute hyperkalemia: (4) Rhabdomyolysis: Qualifiers: Encounter type: initial encounter Rhabdomyolysis type: traumatic Qualified Code(s): T79.6XXA - Traumatic ischemia of muscle, initial encounter (5) Sepsis: (6) Acute liver failure: Plan 66 year old lady with multiple comorbidities as listed above presenting with fall in unclear circumstances at home on Monday (today is Monday) Found on the floor by family today Patients states that she has been unable to get up from the floor as she felt weak and had pain in her left arm Her left arm shows a proximal humerus fracture for which orthopedics has been consulted from the ER Multiple other abnormal labs which point towards multiorgan failure with MIN, acute liver failure, possible sepsis, lactate 5.0, hypoxia, hyperkalemia and rha bdomyolysis. on exam patient is hypotensive with BP 80/42 mmhg, hypothermic with temp 96F on admission , has gross anasarca. No other imaging availble apart from CXR and shoulder x ray at this time She has orders to go to med/surg at this time. WIll cancel and admit to ICU instead # Possible Sepsis : Currently source is unclear.Patient is hypothermic, hypotensive, leukocytes at 21, lactate 5. Chest abdomen and pelvis without contrast: Has shown small patchy lingular consolidation, possibly concerning for pneumonia versus atelectasis, small left pleural effusion. CT abdomen pelvis is a poor quality due to various artifact: Has not shown any acute intra-abdominal or pelvic pathology except for mild hepatomegaly. Ultrasound abdomen: Is concerning for possible cirrhotic liver disease Blood culture:NTD. Patient has received 2 L IV fluid bolus, currently she is empirically started on Zosyn renally dosed. Maintain MAP greater than 65 NSTEMI: Troponin trend: With significant delta EKG has failed to show any acute ST-T wave changes Follow 2D echo Currently on heparin drip Continue telemetry monitoring Cardiology on board Acute kidney injury: Possibly secondary to septic shock, resulting in ATN. Follow renal ultrasound CT abdomen and pelvis has not shown any hydronephrosis Follow random sodium Random creatinine Random total protein FENA UPCR Monitor intake and output charting. Monitor BMP Avoid nephrotoxic's, Hold losartan Urinalysis reviewed Renal on board Transaminitis: Possibly secondary to shock liver: With some possible contribution from elevated CK: Ultrasound abdomen: Is concerning for cirrhotic liver CT abdomen pelvis: Has not shown any ductal dilatation Monitor liver function test: Currently LFTs improving Monitor INR Hyperkalemia: Has received hyperkalemia cocktail Serum potassium has trended down Monitor BMP Continue telemetry monitoring # Fall under unclear circumstances , unable to get off ground for 4 days Patient suspects she may have been hypoglycemic CUrrently blood sugar 120s range Graves CT has been done : As well as x-ray shoulder: Has shown mildly displaced fracture of greater trochanter of humerus. #Left humerus fracture: Pain control Orthopedic on board # Hypoxia, currently on 6lpm supplemental 02 ABG with 7.27/47/62/21 supplemental 02 to keep saturation > 92% CXR with B/L infiltrates concerning for edema # Possible CHF unable to comment on type or chronicity at this time CXR with B/L pulmonary infiltrates, elevated BNP > 8000 Gross anasarca She was initially on Lasix 40 IV twice daily, has been decreased to 40 IV daily monitor I/O, renal output Follow 2D echo # h/o COPD duonebs, budesonide scheduled inhalation Not currently exacerbated #History of diabetes: SSI, monitor fingerstick glucose #Elevated creatinine kinase: Possibly secondary to fall Monitor CK for now # Sleep apnea Bipap at night time #CODE STATUS full code Attestations Medical Necessity Statement*: Needs to be in hospital for management of sepsis. Coding Level of Care Code Critical Care >/= 30 minutes Diagnoses Acute renal failure N17.9 Acute renal failure type: unspecified Fracture, humerus closed S42.255A Encounter type: initial encounter Fracture alignment: nondisplaced Humerus Location: greater tuberosity Laterality: left Acute hyperkalemia E87.5 Rhabdomyolysis T79.6XXA Encounter type: initial encounter Rhabdomyolysis type: traumatic Sepsis A41.9 Acute liver failure K72.00
[2022-06-27 14:50] LABS: Alkaline Phosphatase 103 U/L (35-105); Anion Gap 17.8 (5-19); Calcium 7.4 mg/dL (8.5-10.5); Carbon Dioxide 23 mmol/L (22-29); Chloride 103 mmol/L (98-107); Creatine Phosphokinase 178 U/L (26-192); Globulin 2.8 g/dL (1.3-4.6); Glomerular Filtration Rate 21.3 mL/min (90-130); Glucose 222 mg/dL (65-115); Osmolality Calculated 321 mOsm/kg (285-295); Phosphorus 6.3 mg/dL (2.5-4.5); Potassium 5.8 mmol/L (3.5-5.1); Sodium 138 mmol/L (136-145); Total Bilirubin 0.9 mg/dL (0.15-1.2); Total Protein 5.8 g/dL (6.6-8.7)
[2022-06-27 14:51] LABS: Troponin 5 6HR 983.3 ng/L (0-10); Troponin 5 6HR Delta 100.3 ng/L (0-12)
[2022-06-27 14:57] LABS: Blood Urea Nitrogen 92 mg/dL (8-23)
[2022-06-27 15:01] LABS: Alanine Aminotransferase 1576 U/L (0-33)
[2022-06-27 15:07] LABS: Aspartate Amino Transferase 1119 U/L (0-32)
[2022-06-27 17:10] LABS: Glucose Point of Care 226 mg/dL (70-110)
--- NOTE | 2022-06-27 17:20 | P.CONIM_ITS ---
Providers/Reason For Consult Consulting Physician/Specialty*: Nicanor Navarrete MD; orthopedic surgery Reason for Consult*: Left proximal humerus fracture Attending Physician: Lonnie Traore MD Primary Care Provider: Ronny Torres DO History of Present Illness History of Present Illness Siobhan Lechuga is a 66 year old female who was brought to the hospital on 06/26/2022 after being found down in her home. She described falling 5 days earlier and being unable to mobilize from the floor due to pain in her left arm. She was admitted to the hospitalist service with renal failure and rhabdomyolysis. She is examined today in the intensive care unit. She is unable to provide a accurate history. Medications/Allergies Home Medications Medication Instructions Recorded Confirmed Last Taken Type albuterol sulfate 90 mcg/actuation 2 puff inhalation Q6H PRN 03/27/19 06/26/22 Unknown History aerosol inhaler (ProAir HFA) Shortness Of Breath metformin 500 mg tablet 500 mg PO BID #60 tabs 01/10/20 06/26/22 Unknown Rx atorvastatin 20 mg tablet 20 mg PO BEDTIME 06/26/22 06/26/22 Unknown History bupropion HCl 300 mg 24 hr tablet, 300 mg PO BEDTIME 06/26/22 06/26/22 Unknown History extended release furosemide 40 mg tablet (Lasix) 40 mg PO BEDTIME 06/26/22 06/26/22 Unknown History insulin glargine 100 unit/mL 100 unit SUBCUT BID 06/26/22 06/26/22 Unknown History subcutaneous solution (Lantus U-100 Insulin) insulin lispro 100 unit/mL 40 unit SUBCUT BID 06/26/22 06/26/22 Unknown History subcutaneous pen (Humalog KwikPen (U-100) Insulin) ipratropium 0.5 mg-albuterol 3 mg 3 ml inhalation TID PRN Shortness 06/26/22 06/26/22 Unknown History (2.5 mg base)/3 mL nebulization Of Breath soln latanoprost 0.005 % eye drops 1 drp ophthalmic (eye) BEDTIME 06/26/22 06/26/22 Unknown History losartan 25 mg tablet 25 mg PO QAM 06/26/22 06/26/22 Unknown History pantoprazole 20 mg tablet,delayed 20 mg PO QAM 06/26/22 06/26/22 Unknown History release potassium chloride 20 mEq 60 meq PO QAM 06/26/22 06/26/22 Unknown History tablet,extended release Allergies Allergy/AdvReac Type Severity Reaction Status Date / Time aspirin Allergy Unknown Unknown Verified 06/26/22 13:27 citalopram Allergy Unknown Unknown Verified 06/26/22 13:27 codeine Allergy Unknown Unknown Verified 06/26/22 13:27 Current Medications Generic Name Dose Route Start Last Admin Trade Name Freq PRN Reason Stop Dose Admin Albuterol/Ipratropium 3 ml 06/26/22 20:00 06/27/22 14:20 Ipratropium-Albuterol 3 Ml Neb INHALATION 3 ml Q6H KD Administration Budesonide 0.5 mg 06/26/22 20:00 06/27/22 08:59 Budesonide 0.5 Mg/2 Ml Neb INHALATION Not Given BID.RESPIRATORY KD Piperacillin Sod/Tazobactam 50 mls @ 12.5 mls/hr 06/26/22 16:00 06/27/22 16:49 Sod 3.375 gm/ Sodium Chloride IV 12.5 mls/hr Q8H KD Administration Protocol Heparin Sodium/Sodium Chloride 25,000 unit in 500 mls @ 0 mls/hr 06/27/22 05:30 06/27/22 15:36 Heparin Drip IV 13.99 unit/kg/hr .Q0M KD 33 mls/hr Titration Protocol Per Protocol Insulin Human Lispro 0 unit 06/26/22 18:00 06/27/22 12:20 Insulin Lispro 100 Unit/1 Ml SUBCUT 6 unit WM&BEDTIME KD Administration Protocol Morphine Sulfate 2 mg 06/27/22 06:54 06/27/22 14:41 Morphine 4 Mg/Ml Sdv 1 Ml IVP 2 mg Q6H PRN Administration SEVERE PAIN Ondansetron HCl 4 mg 06/26/22 15:25 06/27/22 05:17 Ondansetron 2 Mg/Ml Sdv 2 Ml IVP 4 mg Q6H PRN Administration NAUSEA AND VOMITING Pantoprazole Sodium 40 mg 06/27/22 09:00 06/27/22 10:06 Pantoprazole 40 Mg Sdv IVP 40 mg DAILY KD Administration PFSH Acute PFSH: Medical History (Updated 06/27/22 @ 17:26 by Nicanor Navarrete MD) Diabetes mellitus with peripheral autonomic neuropathy Gangrene Hypertension New onset of congestive heart failure Acute diastolic heart failure. EF normal on limited echo PAD (peripheral artery disease) Tobacco abuse, in remission Surgical History Post-operative state Status post amputation of great toe Family History Other Diabetes Hypertension Denies family history of CAD (coronary artery disease) Clotting disorder Dementia Hyperlipidemia Psychiatric illness Chronic kidney disease (CKD) Suicide Anesthesia complication Bleeding disorder Family history of premature coronary artery disease Lung disease Cancer Stroke Social History Smoking and tobacco status: former smoker Substance/Drug Use: never Marital status: Current occupational status: disabled Vitals/I&O/Wt Last Vital Signs Temp 98.4 F 06/27/22 14:00 Pulse 92 06/27/22 14:20 Resp 17 06/27/22 14:20 BP 105/55 06/27/22 12:15 Pulse Ox 97 06/27/22 14:20 O2 Del Method Nasal Cannula 06/27/22 14:20 O2 Flow Rate 2 06/27/22 14:20 06/27/22 06/27/22 06/27/22 06:59 14:59 22:59 Intake Total 150 / 2300.1 150 / 150 305.4 / 455.4 Output Total 250 / 700 Balance -100 / 1600.1 150 / 150 305.4 / 455.4 Weight last 48 hrs Weight 313 lb 5 oz Weight 260 lb Weight 260 lb Physical Exam Narrative: Alonso is a morbidly obese female resting comfortably in bed. She will arouse to voice and a sternal rub has difficulty responding to verbal commands, frequently nodding off. There are ecchymoses about the left shoulder but nothing in the right upper extremity or either lower extremity/ There is some swelling about the left arm forearm and hand but compartments feel soft. She has severe pain with efforts to move the left shoulder. Refuses to fire her deltoid or her biceps but she will extend the left arm. He will flex and extend her left wrist. She will reach a complete clenched fist and extend her digits and her wrist. Sensation appears to be intact to light touch although with her mental status is difficult for me to be precise with this. Urinary Catheter Management: Marcelo: Cath Placed During This Visit: yes Reason for Continuing Indwelling Catheter: Other Urinary Catheter Date of Insertion: 06/26/22 Urinary Catheter Time of Insertion: 12:58 Data 06/27/22 06:45 06/27/22 14:15 Micro: Microbiology 06/26/22 12:25 Blood Culture - Preliminary Blood NEGATIVE TO DATE Xray Ortho: My impression: 3 views of the left shoulder including AP internal/external rotation and scapular Y radiograph are reviewed. Patient has a three-part fracture of the proximal humerus consisting of valgus impacted surgical neck fracture and a nondisplaced greater tuberosity fracture. A&P Assessment and plan (1) Fracture of humerus, proximal, right, closed: The fracture is well aligned. She is certainly has significant medical comorbidities. I do not think I would have anything to offer her with surgery that would ultimately improve the level of function with her arm. I think she can be protected in a sling for comfort if she is immobilized and we will begin range of motion with therapy. I am not certain if the weakness of her deltoid and biceps is a secondary to muscular injury with the fall or pain and altered mental status. As her mental status improves this may be more clear Coding Level of Care Code Acute Code for [facility] Diagnoses Fracture of humerus, proximal, right, closed S42.201A
[2022-06-27] MEDS: budesonide 0.5 mg/2 mL Neb INHALATION (19:25)
[2022-06-27] MEDS: sodium polystyrene sulfonate 15 gm/60 mL Btl 30 GM PO (20:51)
[2022-06-27] MEDS: lactated ringers 500 ML 999 ML IV (20:51)
[2022-06-27 20:52] LABS: Glucose Point of Care 215 mg/dL (70-110)
[2022-06-28] VITALS (91 sets, daily range): BP systolic 81–133; BP diastolic 48–78; PULSE 78–158; RESP 14–30; TEMP 35.6–36.9; O2SAT 85–100
[2022-06-28] MEDS: ipratropium-albuterol 3 mL Neb INHALATION (03:02)
[2022-06-28 05:44] LABS: Basophils % 0.2 %; Eosinophils # 0.2 10^3/uL (0.0-0.8); Eosinophils % 0.8 %; Hematocrit 35.5 % (37.0-47.0); Lymphocytes # 1.1 10^3/uL (0.8-4.8); Lymphocytes % 6.1 %; Mean Corpuscular HGB Conc 28.2 g/dL (30.0-36.0); Mean Corpuscular Hemoglobin 24.6 pg (28.0-34.0); Mean Corpuscular Volume 87.2 fl (81-99); Mean Platelet Volume 10.8 fL (7.4-10.4); Monocytes # 1.6 10^3/uL (0.2-0.9); Monocytes % 9.1 %; Neutrophils # 15.01 10^3/uL (1.8-7.7); Neutrophils % 82.9 %; Nucleated Red Blood Cells # 0.1 /100WBC; Nucleated Red Blood Cells % 0.3 %; Platelet Count 235 10^3/cmm (130-400); Red Blood Count 4.07 10^6/uL (4.1-5.3); White Blood Count 18.1 10^3/uL (4.0-10.0)
[2022-06-28 06:04] LABS: Albumin Level 3.2 g/dL (3.5-5.2); Alkaline Phosphatase 90 U/L (35-105); Calcium 7.5 mg/dL (8.5-10.5); Carbon Dioxide 24 mmol/L (22-29); Chloride 101 mmol/L (98-107); Creatine Phosphokinase 150 U/L (26-192); Globulin 3.1 g/dL (1.3-4.6); Glomerular Filtration Rate 16.3 mL/min (90-130); Glucose 200 mg/dL (65-115); Magnesium 2.7 mg/dL (1.7-2.3); Osmolality Calculated 324 mOsm/kg (285-295); Phosphorus 7.1 mg/dL (2.5-4.5); Sodium 139 mmol/L (136-145); Total Bilirubin 0.9 mg/dL (0.15-1.2); Total Protein 6.3 g/dL (6.6-8.7)
[2022-06-28 06:15] LABS: Alanine Aminotransferase 1402 U/L (0-33)
[2022-06-28 06:26] LABS: Aspartate Amino Transferase 723 U/L (0-32)
[2022-06-28 06:28] LABS: Blood Urea Nitrogen 99 mg/dL (8-23)
[2022-06-28 07:09] LABS: Glucose Point of Care 219 mg/dL (70-110)
[2022-06-28] MEDS: insulin lispro 100 unit/1 mL SUBCUT ×3 (08:18→20:28)
[2022-06-28] MEDS: piperacillin-tazobactam 3.375 GM in sodium chloride 0.9% (plus) 50 ML IV ×3 (08:18→23:25)
[2022-06-28] MEDS: pantoprazole 40 mg SDV IVP (08:19)
[2022-06-28] MEDS: FUROsemide 10 mg/mL SDV 4mL 40 MG IVP (08:19)
--- NOTE | 2022-06-28 08:23 | P.PN_ITS ---
Subjective Subjective: Patient was seen and examined this morning, has remained afebrile, BUN and serum creatinine has trended up, she made around 500 cc urine output in the last 24 hours, patient has intermittently going into A-fib with RVR, with spontaneous conversion to sinus rhythm, ABG done this morning has shown: Mixed metabolic and respiratory acidosis, patient has been placed on BiPAP. She has remained afebri le.Transaminitis improving. Medications: Medication Review Details: Generic Name Dose Route Start Last Admin Trade Name Freq PRN Reason Stop Dose Admin Albuterol/Ipratrop ium 3 ml 06/26/22 20:00 06/28/22 03:02 Ipratropium-Albu terol 3 Ml Neb INHALATION 3 ml Q6H KD Administration Budesonide 0.5 mg 06/26/22 20:00 06/27/22 19:25 Budesonide 0.5 M g/2 Ml Neb INHALATION 0.5 mg BID.RESPIRATORY S CH Administration Furosemide 40 mg 06/28/22 09:00 06/28/22 08:19 Furosemide 10 Mg /Ml Sdv 4ml IVP 40 mg DAILY KD Administration Piperacillin Sod/T azobactam 50 mls @ 12.5 mls /hr 06/26/22 16:00 06/28/22 08:18 Sod 3.375 gm/ So dium Chloride IV 12.5 mls/hr Q8H KD Administration Protocol Heparin Sodium/Sod ium Chloride 25,000 unit in 50 0 mls @ 0 mls/hr 06/27/22 05:30 06/27/22 17:48 Heparin Drip IV 0 unit/kg/hr .Q0M KD 0 mls/hr Titration Protocol Per Protocol Insulin Human Lisp ro 0 unit 06/26/22 18:00 06/28/22 08:18 Insulin Lispro 1 00 Unit/1 Ml SUBCUT 1 unit WM&BEDTIME KD Administration Protocol Morphine Sulfate 2 mg 06/27/22 06:54 06/27/22 14:41 Morphine 4 Mg/Ml Sdv 1 Ml IVP 2 mg Q6H PRN Administration SEVERE PAIN Ondansetron HCl 4 mg 06/26/22 15:25 06/27/22 05:17 Ondansetron 2 Mg /Ml Sdv 2 Ml IVP 4 mg Q6H PRN Administration NAUSEA AND VOMITI NG Pantoprazole Sodiu m 40 mg 06/27/22 09:00 06/28/22 08:19 Pantoprazole 40 Mg Sdv IVP 40 mg DAILY KD Administration Vitals/I&O/Wt Last Vital Signs Temp 98.4 F 06/28/22 07:49 Pulse 87 06/28/22 07:49 Resp 14 06/28/22 07:49 BP 112/60 06/28/22 07:49 Pulse Ox 99 06/28/22 06:00 O2 Del Method Nasal Cannula 06/28/22 03:02 O2 Flow Rate 2 06/28/22 03:02 06/27/22 06/28/22 06/28/22 22:59 06:59 14:59 Intake Total 1228.0 / 1378.0 50 / 1428.0 Output Total 350 / 350 150 / 500 Balance 878.0 / 1028.0 -100 / 928.0 Weight last 48 hrs Weight 142.938 kg Weight 142.116 kg Weight 117.934 kg Weight 117.934 kg Physical Exam Const: COMMON NORMALS: patient oriented x3 HENMT: COMMON NORMALS: normocephalic and atraumatic HEAD & SCALP: normocephalic and atraumatic Resp: COMMON NORMALS: clear to auscultation bilaterally AUSCULTATION: clear to auscultation bilaterally Cardio: COMMON NORMALS: regular rate, regular rhythm, S1 normal heart sound present, S2 normal heart sound present, No gallops present (Cardio), No murmurs present (Cardio), No rub (Cardio) and Peripheral pulses 2+ throughout RATE: regular rate RHYTHM: regular rhythm HEART SOUNDS: S1 normal heart sound present and S2 normal heart sound present PERIPHERAL PULSES: Peripheral pulses 2+ throughout GI: COMMON NORMALS: Normal to inspection, nondistended, normoactive bowel sounds present, Soft to palpation, non-tender, No hepatosplenomegaly present and no masses AUSCULTATION: Yes normoactive bowel sounds PALPATION: Yes Soft to palpation and Yes No hepatosplenomegaly present RECTAL EXAM: deferred Extremity: COMMON NORMALS: no clubbing, cyanosis or edema and no pedal edema Neuro: COMMON NORMALS: patient oriented x3 Urinary Catheter Management: Marcelo: Cath Placed During This Visit: yes Reason for Continuing Indwelling Catheter: Other Urinary Catheter Date of Insertion: 06/26/22 Urinary Catheter Time of Insertion: 12:58 Data 06/28/22 05:30 06/28/22 05:30 Micro: Microbiology 06/26/22 12:25 Blood Culture - Preliminary Blood NEGATIVE TO DATE A&P Assessment and plan (1) Acute renal failure: Qualifiers: Acute renal failure type: unspecified Qualified Code(s): N17.9 - Acute kidney failure, unspecified (2) Fracture, humerus closed: Qualifiers: Encounter type: initial encounter Fracture alignment: nondisplaced Humerus Location: greater tuberosity Laterality: left Qualified Code(s): S42.255A - Nondisplaced fracture of greater tuberosity of left humerus, initial encounter for closed fracture (3) Acute hyperkalemia: (4) Rhabdomyolysis: Qualifiers: Encounter type: initial encounter Rhabdomyolysis type: traumatic Qualified Code(s): T79.6XXA - Traumatic ischemia of muscle, initial encounter (5) Sepsis: (6) Acute liver failure: Plan 66 year old lady with multiple comorbidities as listed above presenting with fall in unclear circumstances at home on Monday (today is Monday) Found on the floor by family today Patients states that she has been unable to get up from the floor as she felt weak and had pain in her left arm Her left arm shows a proximal humerus fracture for which orthopedics has been consulted from the ER Multiple other abnormal labs which point towards multiorgan failure with MIN, ac porfirio liver failure, possible sepsis, lactate 5.0, hypoxia, hyperkalemia and rhabdomyolysis. on exam patient is hypotensive with BP 80/42 mmhg, hypothermic with temp 96F on admission , has gross anasarca. No other imaging availble apart from CXR and shoulder x ray at this time She has orders to go to med/surg at this time. WIll cancel and admit to ICU instead # Possible Sepsis : Currently source is unclear.Patient is hypothermic, hypotensive, leukocytes at 21, lactate 5. Chest abdomen and pelvis without contrast: Has shown small patchy lingular consolidation, possibly concerning for pneumonia versus atelectasis, small left pleural effusion. CT abdomen pelvis is a poor quality due to various artifact: Has not shown any acute intra-abdominal or pelvic pathology except for mild hepatomegaly. Ultrasound abdomen: Is concerning for possible cirrhotic liver disease Blood culture:NTD. Patient has received 2 L IV fluid bolus, currently she is empirically started on Zosyn renally dosed. Maintain MAP greater than 65 NSTEMI: Troponin trend: With significant delta EKG has failed to show any acute ST-T wave changes 2D echo: Very limited and poor quality echo, LV systolic function is severely reduced, with EF of 25 to 30%. Currently on heparin drip Continue telemetry monitoring Cardiology on board: Patient will need ischemia work-up once more stable. Acute kidney injury: Possibly secondary to septic shock, resulting in ATN. Follow renal ultrasound CT abdomen and pelvis has not shown any hydronephrosis Follow random sodium Random creatinine Random total protein FENA UPCR Monitor intake and output charting. Monitor BMP Avoid nephrotoxic's, Hold losartan Urinalysis reviewed Renal on board Transaminitis: Possibly secondary to shock liver: With some possible contribution from elevated CK: Ultrasound abdomen: Is concerning for cirrhotic liver CT abdomen pelvis: Has not shown any ductal dilatation Monitor liver function test: Currently LFTs improving Monitor INR Hyperkalemia: Has received hyperkalemia cocktail Serum potassium has trended down Monitor BMP Continue telemetry monitoring A-fib with RVR: patient has intermittently going into A-fib with RVR, with spontaneous conversion to sinus rhythm. For most part will likely start on amnio drip if she continues doing the same. Currently she is on heparin drip # Fall under unclear circumstances , unable to get off ground for 4 days Patient suspects she may have been hypoglycemic CUrrently blood sugar 120s range Graves CT has been done : As well as x-ray shoulder: Has shown mildly displaced fracture of greater trochanter of humerus. #Left humerus fracture: Pain control Orthopedic on board: Current plan is conservative medical management. # Hypoxia, currently on 6lpm supplemental 02 ABG with 7.27/47/62/21 supplemental 02 to keep saturation > 92% CXR with B/L infiltrates concerning for edema # Possible CHF unable to comment on type or chronicity at this time CXR with B/L pulmonary infiltrates, elevated BNP > 8000 Gross anasarca She was initially on Lasix 40 IV twice daily, has been decreased to 40 IV daily monitor I/O, renal output Follow 2D echo # h/o COPD duonebs, budesonide scheduled inhalation Not currently exacerbated #History of diabetes: SSI, monitor fingerstick glucose #Elevated creatinine kinase: Possibly secondary to fall Monitor CK for now # Sleep apnea Bipap at night time #CODE STATUS full code Attestations Medical Necessity Statement*: Needs to be in hospital for management of NSTEMI. Coding Level of Care Code Critical Care >/= 30 minutes Diagnoses Acute renal failure N17.9 Acute renal failure type: unspecified Fracture, humerus closed S42.255A Encounter type: initial encounter Fracture alignment: nondisplaced Humerus Location: greater tuberosity Laterality: left Acute hyperkalemia E87.5 Rhabdomyolysis T79.6XXA Encounter type: initial encounter Rhabdomyolysis type: traumatic Sepsis A41.9 Acute liver failure K72.00
[2022-06-28] MEDS: budesonide 0.5 mg/2 mL Neb INHALATION (08:25)
--- NOTE | 2022-06-28 09:17 | PM.PN ---
Subjective Subjective: Patient is feeling better. No chest pain. Vitals/I&O/Wt Last Vital Signs Temp 98.4 F 06/28/22 07:49 Pulse 88 06/28/22 08:33 Resp 18 06/28/22 08:25 BP 112/60 06/28/22 07:49 Pulse Ox 98 06/28/22 08:25 O2 Del Method Nasal Cannula 06/28/22 08:25 O2 Flow Rate 2 06/28/22 08:25 06/27/22 06/28/22 06/28/22 22:59 06:59 14:59 Intake Total 1228.0 / 1378.0 50 / 1428.0 Output Total 350 / 350 150 / 500 Balance 878.0 / 1028.0 -100 / 928.0 Weight last 48 hrs Weight 315 lb 2 oz Weight 313 lb 5 oz Weight 260 lb Weight 260 lb Physical Exam Narrative: GENERAL: Patient is oriented.More alert today NECK: No jugular vein distension. [] HEENT: No cyanosis. No icterus. No pallor. [] HEART: Irregularly irregular, S1 and S2. LUNGS: Clear to auscultate bilaterally. CENTRAL NERVOUS SYSTEM: Grossly nonfocal. [] EXTREMITIES: Lower extremities with 1+ edema bilaterally. Urinary Catheter Management: Marcelo: Cath Placed During This Visit: yes Reason for Continuing Indwelling Catheter: Other Urinary Catheter Date of Insertion: 06/26/22 Urinary Catheter Time of Insertion: 12:58 Data 06/29/22 07:25 06/29/22 07:25 Micro: Microbiology 06/26/22 12:25 Blood Culture - Preliminary Blood NEGATIVE TO DATE A&P Assessment and plan (1) Fracture of humerus, proximal, right, closed: (2) Acute liver failure: (3) Sepsis: (4) Acute renal failure: Qualifiers: Acute renal failure type: unspecified Qualified Code(s): N17.9 - Acute kidney failure, unspecified (5) Rhabdomyolysis: Qualifiers: Encounter type: initial encounter Rhabdomyolysis type: traumatic Qualified Code(s): T79.6XXA - Traumatic ischemia of muscle, initial encounter (6) Troponin level elevated: (7) Atrial fibrillation: Plan INR has come down to 1.5 today. Can resume heparin drip. Start aspirin 81 mg daily. Plan for ischemic workup once stable. Patient is in A-fib with RVR. This happened after her breathing treatment. Will continue current medications. Thank you for involving us with care of this patient. We will continue to follow. Please call with questions. Attestations Medical Necessity Statement*: Care expected to cross 2 midnights. Coding Level of Care Code Acute Code for [facility] Fwd Diagnoses Fracture of humerus, proximal, right, closed S42.201A Acute liver failure K72.00 Sepsis A41.9 Acute renal failure N17.9 Acute renal failure type: unspecified Rhabdomyolysis T79.6XXA Encounter type: initial encounter Rhabdomyolysis type: traumatic Troponin level elevated R77.8 Atrial fibrillation I48.91
--- NOTE | 2022-06-28 09:48 | PC.CHAP ---
Pastoral Care Encounter/Spiritual Assessment Type of Contact [] Declined hammer repairer visit [] Patient/Family/Request visit [] Outpatient visit [] Follow-up visit [] Physician referral [] Code/Alert [x] Routine visit [] Staff referral [] Actively dying [x] Patient sleeping [] Family support [] [] Out of room [] Palliative care [] [] Receiving care in room [] Pre-surgical visit [] Trauma [] Long length of stay [] ICU visit [] Other: Relational/Emotional Strength [] Patient feels connected with others/family/visitors/staff [] Distress [] Loneliness/isolation [] Abandonment Spirituality of Patient [] Person of [place] [] Attends Lutheran of their [place] [] Believes in Prayer [] Reads Bible or Presybeterian materials [] There are Spiritual issues to be addressed Consumer Science Teacher Interventions [] Prayer [] Active listening [] Non-anxious presence [] Spiritual/emotional support [] Crisis/trauma care [] Spiritual counseling [] Bereavement support [] Provided bereavement packet [] Provided Bible/devotional materials [] Provided toy/stuffed animal, coloring book to patient or family member [] Provided Communion [] Anointing/[place] [] Salvation [] Completed spiritual assessment [] Other: Impact on Illness or Injury [] Angry [] Fearful [] Anxious [] Often cries [] Exhaustion [] Unable to work [] Unable to attend lutheran [] Unable to walk/stand [] Unable to read [] Unable to drive [] Unable to eat/drink [] Unable to sleep [] Unable to be with family [] Patient intubated [] Other: Summary Time spent with patient
--- NOTE | 2022-06-28 09:56 | PM.PN ---
Subjective Subjective: UOP low bp cntrolled Medications: Reviewed: Yes Vitals/I&O/Wt Last Vital Signs Temp 98.4 F 06/28/22 07:49 Pulse 88 06/28/22 08:33 Resp 18 06/28/22 08:25 BP 112/60 06/28/22 07:49 Pulse Ox 98 06/28/22 08:25 O2 Del Method Nasal Cannula 06/28/22 08:25 O2 Flow Rate 2 06/28/22 08:25 06/27/22 06/28/22 06/28/22 22:59 06:59 14:59 Intake Total 1228.0 / 1378.0 50 / 1428.0 Output Total 350 / 350 150 / 500 Balance 878.0 / 1028.0 -100 / 928.0 Weight last 48 hrs Weight 142.938 kg Weight 142.116 kg Weight 117.934 kg Weight 117.934 kg Physical Exam Narrative: obese in bed on nc02- no pressors vss heent- nc/at, eomi, anicteric neck supple abd soft, nt, nd, + bs ext b/l edema Urinary Catheter Management: Marcelo: Cath Placed During This Visit: yes Reason for Continuing Indwelling Catheter: Other Urinary Catheter Date of Insertion: 06/26/22 Urinary Catheter Time of Insertion: 12:58 Data 06/28/22 05:30 06/28/22 05:30 Micro: Microbiology 06/26/22 12:25 Blood Culture - Preliminary Blood NEGATIVE TO DATE A&P Assessment and plan (1) Acute renal failure: 66 yr old female 1. septic shock - no clear source. appears to be improving 2.MIN -likely prerenal vs ATN. -no hydronephrosis on ct scan -ck of 699 -not high enough to cause rhabdomyolyisis induced MIN - BUN rising, hold lasix , Cr up to 2.9 today , no indication for renal replacement therapy today , if renal fxn gets worse , may need temporary HD 3. hyperkalemia 4. mixed resp and metabolic acidosis- lacatate of 5 to 3 to 1.8 - can be from metformin in min, or from volume depletion or infection -improved lactic acid level -pt usually has a hypercapneic resp acidosis from GREGORIO, check ABG 5. shocked liver- lft's are plateauing 6. repeat ck was 699 seen and examined w/ RN- telehealth visit informed consent for telehealth obtained from pt time spent >55 min Qualifiers: Acute renal failure type: unspecified Qualified Code(s): N17.9 - Acute kidney failure, unspecified Plan see above Attestations Medical Necessity Statement*: Per medicine Coding Level of Care Code Acute Code for Chg Fwd Diagnoses Acute renal failure N17.9 Acute renal failure type: unspecified
[2022-06-28 10:18] LABS: ABG PCO2 53.5 mmHg (35-45); ABG PH Result 7.27 (7.35-7.45); Arterial Blood Gas Hematocrit 31.8 % (37-47); Blood Gas Allen Test Pos; Blood Gas Operator Identificat GD; Blood Gas Sample Site Brachial, right; Blood Gas Sample Type Arterial; HCO3 ABG 24.3 mmol/L (22-26); Oxygen Device ROOM AIR; PO2 ABG 48.6 mmHg (80.0-100.0)
[2022-06-28] MEDS: morphine 4 mg/mL SDV 1 mL 2 MG IVP (10:34)
--- NOTE | 2022-06-28 10:51 | ECG_ITS ---
[facility] Test Date: 2022-06-28 Pat Name: Siobhan Lechuga Department: Room: ICU10 Gender: Female Operations Support Analyst: : [id number] Requested By: Lonnie Traore Order Number: [id number] Daniel MD: Tray Rubalcava M.D. Measurements Intervals Spencer Rate: 120 P: 0 MO: 0 QRS: 89 QRSD: 126 T: -55 QT: 312 QTc: 442 Interpretive Statements ATRIAL FIBRILLATION WITH RAPID VENTRICULAR RESPONSE INFERIOR MYOCARDIAL INFARCTION , OF INDETERMINATE AGE [40+ ms Q WAVE AND/OR ST/T ABNORMALITY IN II/aVF] ANTEROLATERAL MYOCARDIAL INFARCTION , OF INDETERMINATE AGE [40+ ms Q WAVE IN I/aVL/V3-V6] Compared to ECG 06/27/2022 10:18:40 Sinus rhythm no longer present Myocardial infarct finding still present Electronically Signed On 06-28-2022 20:41:25 CDT by Tray Rubalcava M.D. [id number]
[2022-06-28 11:48] LABS: Glucose Point of Care 250 mg/dL (70-110)
--- NOTE | 2022-06-28 13:38 | PC.OT ---
OT EVALUATION ATTEMPTED. PATIENT ON BIPAP AND NURSING REQUESTS HOLD AT THIS TIME. WILL ATTEMPT AGAIN TOMORROW.
[2022-06-28 13:42] LABS: ABG PCO2 58.4 mmHg (35-45); ABG PH Result 7.24 (7.35-7.45); Alveolar-Arterial Oxygen Gradi 0.9 mmHg (5-10); Arterial Blood Gas Hematocrit 32.3 % (37-47); Base Excess ABG -2.9 mmol/L (-2.0-2.0); Blood Gas Allen Test Pos; Blood Gas Operator Identificat GD; Blood Gas Sample Site Brachial, right; Blood Gas Sample Type Arterial; Carboxyhemoglobin 1.9 %THgb (0.4-20.1); HGB O2 Sat 91.5 % (95-100); Ionized Calcium Level - ABG 1.1 mmol/L (1.1-1.4); Methemoglobin 0.7 % (0.4-1.5); Oxygen Device BIPAP; Oxygen Saturation ABG 93.9; PO2 ABG 71.8 mmHg (80.0-100.0); Potassium Level - ABG 4.5 mmol/L (3.5-5.0); Total Hemoglobin 10.5 g/dL (12-16)
[2022-06-28] MEDS: heparin drip 25,000 UNIT/500 ML PREMIX 33 UNIT IV (14:52)
[2022-06-28 15:48] LABS: Partial Thromboplastin Time 165.7 SECONDS (23.9-36.7)
[2022-06-28 16:14] LABS: ABG PCO2 55.5 mmHg (35-45); ABG PH Result 7.27 (7.35-7.45); Arterial Blood Gas Hematocrit 31.4 % (37-47); Blood Gas Allen Test Pos; Blood Gas Operator Identificat GD; Blood Gas Sample Site Radial, right; Blood Gas Sample Type Arterial; Carboxyhemoglobin 1.8 %THgb (0.4-20.1); HCO3 ABG 25.4 mmol/L (22-26); HGB O2 Sat 96.1 % (95-100); Methemoglobin < 0.0 % (0.4-1.5); Oxygen Device BIPAP; Oxygen Saturation ABG 97.6; PO2 ABG 89.2 mmHg (80.0-100.0); Potassium Level - ABG 4.4 mmol/L (3.5-5.0); Total Hemoglobin 10.3 g/dL (12-16)
[2022-06-28 20:28] LABS: Glucose Point of Care 219 mg/dL (70-110)
[2022-06-28 21:40] LABS: Partial Thromboplastin Time > 250.0 SECONDS (23.9-36.7)
[2022-06-29] VITALS (84 sets, daily range): BP systolic 86–141; BP diastolic 47–77; PULSE 70–143; RESP 4–26; TEMP 35.7–37.1; O2SAT 85–100
[2022-06-29 01:08] LABS: Partial Thromboplastin Time 137.3 SECONDS (23.9-36.7)
[2022-06-29 06:45] LABS: Glucose Point of Care 188 mg/dL (70-110)
[2022-06-29 07:46] LABS: Basophils % 0.1 %; Eosinophils # 0.3 10^3/uL (0.0-0.8); Eosinophils % 1.8 %; Hematocrit 33.9 % (37.0-47.0); Hemoglobin 9.9 g/dL (11.5-15.3); Lymphocytes # 1.3 10^3/uL (0.8-4.8); Lymphocytes % 9.4 %; Mean Corpuscular HGB Conc 29.2 g/dL (30.0-36.0); Mean Corpuscular Volume 85.6 fl (81-99); Mean Platelet Volume 10.9 fL (7.4-10.4); Monocytes # 1.6 10^3/uL (0.2-0.9); Monocytes % 11.3 %; Neutrophils # 10.82 10^3/uL (1.8-7.7); Neutrophils % 76.8 %; Nucleated Red Blood Cells # 0.1 /100WBC; Nucleated Red Blood Cells % 0.4 %; Platelet Count 183 10^3/cmm (130-400); Red Blood Count 3.96 10^6/uL (4.1-5.3); Red Cell Distribution Width 16.9 % (12.1-15.1); White Blood Count 14.1 10^3/uL (4.0-10.0)
[2022-06-29] MEDS: piperacillin-tazobactam 3.375 GM in sodium chloride 0.9% (plus) 50 ML IV ×3 (07:58→23:31)
[2022-06-29] MEDS: insulin lispro 100 unit/1 mL SUBCUT ×2 (07:59→20:03)
[2022-06-29] MEDS: pantoprazole 40 mg SDV IVP (07:59)
[2022-06-29 08:24] LABS: Alkaline Phosphatase 86 U/L (35-105); Anion Gap 18.3 (5-19); Aspartate Amino Transferase 316 U/L (0-32); Calcium 7.7 mg/dL (8.5-10.5); Carbon Dioxide 25 mmol/L (22-29); Chloride 101 mmol/L (98-107); Creatine Phosphokinase 76 U/L (26-192); Globulin 3.2 g/dL (1.3-4.6); Glomerular Filtration Rate 17.7 mL/min (90-130); Glucose 173 mg/dL (65-115); Magnesium 2.8 mg/dL (1.7-2.3); Osmolality Calculated 329 mOsm/kg (285-295); Phosphorus 5.6 mg/dL (2.5-4.5); Potassium 4.3 mmol/L (3.5-5.1); Sodium 140 mmol/L (136-145); Total Bilirubin 0.8 mg/dL (0.15-1.2); Total Protein 6.2 g/dL (6.6-8.7)
--- NOTE | 2022-06-29 08:29 | PM.PN ---
Subjective Subjective: Patient feels better. Renal function is unchanged. Denies chest pain Vitals/I&O/Wt Last Vital Signs Temp 98.7 F 06/29/22 07:52 Pulse 70 06/29/22 07:52 Resp 22 H 06/29/22 07:52 BP 111/52 06/29/22 07:52 Pulse Ox 97 06/29/22 06:00 O2 Del Method Nasal Cannula 06/28/22 08:25 O2 Flow Rate 2 06/28/22 08:25 FiO2 24 06/29/22 07:52 06/28/22 06/29/22 06/29/22 22:59 06:59 14:59 Intake Total 50 / 222 550 / 772 Output Total 400 / 500 400 / 900 Balance -350 / -278 150 / -128 Weight last 48 hrs Weight 319 lb 6 oz Weight 315 lb 2 oz Physical Exam Narrative: GENERAL: Patient is oriented.More alert today NECK: No jugular vein distension. [] HEENT: No cyanosis. No icterus. No pallor. [] HEART: Irregularly irregular, S1 and S2. LUNGS: Clear to auscultate bilaterally. CENTRAL NERVOUS SYSTEM: Grossly nonfocal. [] EXTREMITIES: Lower extremities with 1+ edema bilaterally. Urinary Catheter Management: Marcelo: Cath Placed During This Visit: yes Reason for Continuing Indwelling Catheter: Other Urinary Catheter Date of Insertion: 06/26/22 Urinary Catheter Time of Insertion: 12:58 Data 06/30/22 04:50 06/30/22 04:50 A&P Assessment and plan (1) Fracture of humerus, proximal, right, closed: (2) Acute liver failure: (3) Sepsis: (4) Acute renal failure: Qualifiers: Acute renal failure type: unspecified Qualified Code(s): N17.9 - Acute kidney failure, unspecified (5) Rhabdomyolysis: Qualifiers: Encounter type: initial encounter Rhabdomyolysis type: traumatic Qualified Code(s): T79.6XXA - Traumatic ischemia of muscle, initial encounter (6) Troponin level elevated: (7) Atrial fibrillation: Plan Patient is stable. Continue current medications including heparin. We will await renal function improvement for further ischemic work-up. Thank you for involving us with care of this patient. We will continue to follow. Please call with questions. Attestations Medical Necessity Statement*: Care expected to cross 2 midnights. Coding Level of Care Code Acute Code for Chg Fwd Diagnoses Fracture of humerus, proximal, right, closed S42.201A Acute liver failure K72.00 Sepsis A41.9 Acute renal failure N17.9 Acute renal failure type: unspecified Rhabdomyolysis T79.6XXA Encounter type: initial encounter Rhabdomyolysis type: traumatic Troponin level elevated R77.8 Atrial fibrillation I48.91
[2022-06-29 08:38] LABS: Alanine Aminotransferase 955 U/L (0-33)
[2022-06-29 08:53] LABS: Blood Urea Nitrogen 110 mg/dL (8-23)
[2022-06-29 08:55] LABS: Fibrinogen 296 mg/dL (174-498); INR 1.51 (0.8-1.2)
[2022-06-29 09:23] LABS: Partial Thromboplastin Time 178.4 SECONDS (23.9-36.7)
[2022-06-29 10:57] LABS: Glucose Point of Care 181 mg/dL (70-110)
--- NOTE | 2022-06-29 11:05 | PC.SOCIAL ---
Pg 2 IMM Explained to pt Pg 2 IMM. No questions voiced. Provided pt a copy. Initialed, dated, & timed a copy & placed in chart.
[2022-06-29 12:19] LABS: Partial Thromboplastin Time 62.2 SECONDS (23.9-36.7)
[2022-06-29] MEDS: morphine 4 mg/mL SDV 1 mL 2 MG IVP (14:31)
[2022-06-29 16:46] LABS: Partial Thromboplastin Time 29.7 SECONDS (23.9-36.7)
[2022-06-29 16:55] LABS: Glucose Point of Care 164 mg/dL (70-110)
--- NOTE | 2022-06-29 19:07 | PM.PN ---
Subjective Subjective: more awake today Medications: Reviewed: Yes Vitals/I&O/Wt Last Vital Signs Temp 98.5 F 06/29/22 18:15 Pulse 113 H 06/29/22 18:15 Resp 15 06/29/22 18:15 BP 107/47 06/29/22 18:15 Pulse Ox 95 06/29/22 18:15 O2 Del Method Nasal Cannula 06/29/22 10:00 O2 Flow Rate 2 06/28/22 08:25 FiO2 24 06/29/22 10:00 06/29/22 06/29/22 06/29/22 06:59 14:59 22:59 Intake Total 550 / 772 550 / 550 1500 / 2050 Output Total 400 / 900 475 / 475 200 / 675 Balance 150 / -128 75 / 75 1300 / 1375 Weight last 48 hrs Weight 144.866 kg Weight 142.938 kg Physical Exam Narrative: obese in bed on nc02- no pressors vss heent- nc/at, eomi, anicteric neck supple abd soft, nt, nd, + bs ext b/l edema Urinary Catheter Management: Marcelo: Cath Placed During This Visit: yes Reason for Continuing Indwelling Catheter: Other Urinary Catheter Date of Insertion: 06/26/22 Urinary Catheter Time of Insertion: 12:58 Data 06/29/22 07:25 06/29/22 07:25 A&P Assessment and plan (1) Acute renal failure: 66 yr old female 1. septic shock - no clear source. appears to be improving 2.MIN -likely prerenal vs ATN. -no hydronephrosis on ct scan -ck of 699 -not high enough to cause rhabdomyolyisis induced MIN - BUN rising, hold lasix , Cr 2.7 today, no indication for renal replacement therapy today , if renal fxn gets worse , may need temporary HD 3. hyperkalemia, improved 4. mixed resp and metabolic acidosis- lacatate of 5 to 3 to 1.8 - can be from metformin in min, or from volume depletion or infection -improved lactic acid level -pt usually has a hypercapneic resp acidosis from GREGORIO, 5. shocked liver- lft's are plateauing seen and examined w/ RN- telehealth visit informed consent for telehealth obtained from pt time spent >55 min Qualifiers: Acute renal failure type: unspecified Qualified Code(s): N17.9 - Acute kidney failure, unspecified Plan see above Attestations Medical Necessity Statement*: per medicine Coding Level of Care Code Acute Code for Chg Fwd Diagnoses Acute renal failure N17.9 Acute renal failure type: unspecified
--- NOTE | 2022-06-29 19:21 | P.PN_ITS ---
Subjective Subjective: Patient was seen and examined this morning, more awake today, serum creatinine is slowly trending down Though BUN has continued to trend up. Medications: Medication Review Details: Generic Name Dose Route Start Last Admin Trade Name Gerald PRN Reason Stop Dose Admin Piperacillin Sod/T azobactam 50 mls @ 12.5 mls /hr 06/26/22 16:00 06/29/22 17:20 Sod 3.375 gm/ So dium Chloride IV 12.5 mls/hr Q8H KD Administration Protocol Heparin Sodium/Sod ium Chloride 25,000 unit in 50 0 mls @ 0 mls/hr 06/27/22 05:30 06/29/22 17:56 Heparin Drip IV Infused .Q0M KD Titration Protocol Per Protocol Insulin Human Lisp ro 0 unit 06/26/22 18:00 06/29/22 17:20 Insulin Lispro 1 00 Unit/1 Ml SUBCUT Not Given WM&BEDTIME DK Protocol Morphine Sulfate 2 mg 06/27/22 06:54 06/29/22 14:31 Morphine 4 Mg/Ml Sdv 1 Ml IVP 2 mg Q6H PRN Administration SEVERE PAIN Ondansetron HCl 4 mg 06/26/22 15:25 06/27/22 05:17 Ondansetron 2 Mg /Ml Sdv 2 Ml IVP 4 mg Q6H PRN Administration NAUSEA AND VOMITI NG Pantoprazole Sodiu m 40 mg 06/27/22 09:00 06/29/22 07:59 Pantoprazole 40 Mg Sdv IVP 40 mg DAILY KD Administration Vitals/I&O/Wt Last Vital Signs Temp 98.5 F 06/29/22 18:15 Pulse 113 H 06/29/22 18:15 Resp 15 06/29/22 18:15 BP 107/47 06/29/22 18:15 Pulse Ox 95 06/29/22 18:15 O2 Del Method Nasal Cannula 06/29/22 10:00 O2 Flow Rate 2 06/28/22 08:25 FiO2 24 06/29/22 10:00 06/29/22 06/29/22 06/29/22 06:59 14:59 22:59 Intake Total 550 / 772 550 / 550 1500 / 2050 Output Total 400 / 900 475 / 475 200 / 675 Balance 150 / -128 75 / 75 1300 / 1375 Weight last 48 hrs Weight 144.866 kg Weight 142.938 kg Physical Exam Const: COMMON NORMALS: patient oriented x3 HENMT: COMMON NORMALS: normocephalic and atraumatic HEAD & SCALP: normocephalic and atraumatic Resp: COMMON NORMALS: No retractions and clear to auscultation bilaterally AUSCULTATION: clear to auscultation bilaterally Cardio: COMMON NORMALS: regular rate, regular rhythm, S1 normal heart sound present, S2 normal heart sound present, No gallops present (Cardio), No murmurs present (Cardio), No rub (Cardio) and Peripheral pulses 2+ throughout RATE: regular rate RHYTHM: regular rhythm HEART SOUNDS: S1 normal heart sound present and S2 normal heart sound present PERIPHERAL PULSES: Peripheral pulses 2+ throughout GI: COMMON NORMALS: Normal to inspection, nondistended, normoactive bowel s ounds present, Soft to palpation, non-tender, No hepatosplenomegaly present and no masses AUSCULTATION: Yes normoactive bowel sounds PALPATION: Yes Soft to palpation and Yes No hepatosplenomegaly present RECTAL EXAM: deferred Extremity: COMMON NORMALS: no clubbing, cyanosis or edema and no pedal edema Neuro: COMMON NORMALS: patient oriented x3 Urinary Catheter Management: Marcelo: Cath Placed During This Visit: yes Reason for Continuing Indwelling Catheter: Other Urinary Catheter Date of Insertion: 06/26/22 Urinary Catheter Time of Insertion: 12:58 Data 06/29/22 07:25 06/29/22 07:25 A&P Assessment and plan (1) Acute renal failure: Qualifiers: Acute renal failure type: unspecified Qualified Code(s): N17.9 - Acute kidney failure, unspecified (2) Fracture, humerus closed: Qualifiers: Encounter type: initial encounter Fracture alignment: nondisplaced Humerus Location: greater tuberosity Laterality: left Qualified Code(s): S42.255A - Nondisplaced fracture of greater tuberosity of left humerus, initial encounter for closed fracture (3) Acute hyperkalemia: (4) Rhabdomyolysis: Qualifiers: Encounter type: initial encounter Rhabdomyolysis type: traumatic Qualified Code(s): T79.6XXA - Traumatic ischemia of muscle, initial encounter (5) Sepsis: (6) Acute liver failure: Plan 66 year old lady with multiple comorbidities as listed above presenting with fall in unclear circumstances at home on Monday (today is Monday) Found on the floor by family today Patients states that she has been unable to get up from the floor as she felt weak and had pain in her left arm Her left arm shows a proximal humerus fracture for which orthopedics has been c onsulted from the ER Multiple other abnormal labs which point towards multiorgan failure with MIN, acute liver failure, possible sepsis, lactate 5.0, hypoxia, hyperkalemia and rhabdomyolysis. on exam patient is hypotensive with BP 80/42 mmhg, hypothermic with temp 96F on admission , has gross anasarca. No other imaging availble apart from CXR and shoulder x ray at this time She has orders to go to med/surg at this time. WIll cancel and admit to ICU instead # Possible Sepsis : Currently source is unclear.Patient is hypothermic, hypotensive, leukocytes at 21, lactate 5. Chest abdomen and pelvis without contrast: Has shown small patchy lingular consolidation, possibly concerning for pneumonia versus atelectasis, small left pleural effusion. CT abdomen pelvis is a poor quality due to various artifact: Has not shown any acute intra-abdominal or pelvic pathology except for mild hepatomegaly. Ultrasound abdomen: Is concerning for possible cirrhotic liver disease Blood culture:NTD. Patient has received 2 L IV fluid bolus, currently she is empirically started on Zosyn renally dosed. Maintain MAP greater than 65 NSTEMI: Troponin trend: With significant delta EKG has failed to show any acute ST-T wave changes 2D echo: Very limited and poor quality echo, LV systolic function is severely reduced, with EF of 25 to 30%. Currently on heparin drip Continue telemetry monitoring Cardiology on board: Patient will need ischemia work-up once more stable. Acute kidney injury: Possibly secondary to septic shock, resulting in ATN. Follow renal ultrasound CT abdomen and pelvis has not shown any hydronephrosis Follow random sodium Random creatinine Random total protein FENA UPCR Monitor intake and output charting. Monitor BMP Avoid nephrotoxic's, Hold losartan Urinalysis reviewed Renal on board Transaminitis: Possibly secondary to shock liver: With some possible contribution from elevated CK: Ultrasound abdomen: Is concerning for cirrhotic liver CT abdomen pelvis: Has not shown any ductal dilatation Monitor liver function test: Currently LFTs improving Monitor INR Hyperkalemia: Has received hyperkalemia cocktail Serum potassium has trended down Monitor BMP Continue telemetry monitoring A-fib with RVR: patient has intermittently going into A-fib with RVR, with spontaneous conversion to sinus rhythm. For most part will likely start on amnio drip if she continues doing the same. Currently she is on heparin drip # Fall under unclear circumstances , unable to get off ground for 4 days Patient suspects she may have been hypoglycemic CUrrently blood sugar 120s range Graves CT has been done : As well as x-ray shoulder: Has shown mildly displaced fracture of greater trochanter of humerus. #Left humerus fracture: Pain control Orthopedic on board: Current plan is conservative medical management. # Hypoxia, currently on 6lpm supplemental 02 ABG with 7.27/47/62/21 supplemental 02 to keep saturation > 92% CXR with B/L infiltrates concerning for edema # Possible CHF unable to comment on type or chronicity at this time CXR with B/L pulmonary infiltrates, elevated BNP > 8000 Gross anasarca She was initially on Lasix 40 IV twice daily, has been decreased to 40 IV daily monitor I/O, renal output Follow 2D echo # h/o COPD duonebs, budesonide scheduled inhalation Not currently exacerbated #History of diabetes: SSI, monitor fingerstick glucose #Elevated creatinine kinase: Possibly secondary to fall Monitor CK for now # Sleep apnea Bipap at night time #CODE STATUS full code Attestations Medical Necessity Statement*: Needs to be in hospital management of NSTEMI Coding Level of Care Code Acute Code for Chg Fwd Diagnoses Acute renal failure N17.9 Acute renal failure type: unspecified Fracture, humerus closed S42.255A Encounter type: initial encounter Fracture alignment: nondisplaced Humerus Location: greater tuberosity Laterality: left Acute hyperkalemia E87.5 Rhabdomyolysis T79.6XXA Encounter type: initial encounter Rhabdomyolysis type: traumatic Sepsis A41.9 Acute liver failure K72.00
[2022-06-29 19:54] LABS: Glucose Point of Care 229 mg/dL (70-110)
[2022-06-29 22:48] LABS: Partial Thromboplastin Time 121.3 SECONDS (23.9-36.7)
[2022-06-30] VITALS (76 sets, daily range): BP systolic 86–122; BP diastolic 52–88; PULSE 74–146; RESP 12–31; TEMP 36.2–36.7; O2SAT 84–100
[2022-06-30] MEDS: heparin drip 25,000 UNIT/500 ML PREMIX 33.02 UNIT IV (00:38)
[2022-06-30] MEDS: morphine 4 mg/mL SDV 1 mL 2 MG IVP ×2 (02:12→08:58)
[2022-06-30 05:01] LABS: Basophils % 0.1 %; Eosinophils # 0.3 10^3/uL (0.0-0.8); Eosinophils % 2.5 %; Hematocrit 33.6 % (37.0-47.0); Hemoglobin 9.7 g/dL (11.5-15.3); Lymphocytes # 1.2 10^3/uL (0.8-4.8); Lymphocytes % 9.9 %; Mean Corpuscular HGB Conc 28.9 g/dL (30.0-36.0); Mean Corpuscular Hemoglobin 24.4 pg (28.0-34.0); Mean Corpuscular Volume 84.6 fl (81-99); Mean Platelet Volume 11.2 fL (7.4-10.4); Monocytes # 1.7 10^3/uL (0.2-0.9); Monocytes % 13.9 %; Neutrophils # 8.94 10^3/uL (1.8-7.7); Neutrophils % 73.2 %; Nucleated Red Blood Cells # 0.1 /100WBC; Nucleated Red Blood Cells % 0.4 %; Platelet Count 165 10^3/cmm (130-400); Red Blood Count 3.97 10^6/uL (4.1-5.3); White Blood Count 12.2 10^3/uL (4.0-10.0)
[2022-06-30 05:17] LABS: INR 1.29 (0.8-1.2)
[2022-06-30 05:18] LABS: Fibrinogen 360 mg/dL (174-498); Partial Thromboplastin Time 50.8 SECONDS (23.9-36.7)
[2022-06-30 05:22] LABS: Albumin Level 3.2 g/dL (3.5-5.2); Alkaline Phosphatase 95 U/L (35-105); Anion Gap 17.5 (5-19); Aspartate Amino Transferase 234 U/L (0-32); Calcium 8.2 mg/dL (8.5-10.5); Carbon Dioxide 24 mmol/L (22-29); Chloride 98 mmol/L (98-107); Creatine Phosphokinase 48 U/L (26-192); Globulin 3.2 g/dL (1.3-4.6); Glomerular Filtration Rate 20.3 mL/min (90-130); Glucose 205 mg/dL (65-115); Magnesium 2.9 mg/dL (1.7-2.3); Osmolality Calculated 321 mOsm/kg (285-295); Phosphorus 4.7 mg/dL (2.5-4.5); Potassium 4.5 mmol/L (3.5-5.1); Sodium 135 mmol/L (136-145); Total Bilirubin 0.9 mg/dL (0.15-1.2); Total Protein 6.4 g/dL (6.6-8.7)
[2022-06-30 05:36] LABS: Alanine Aminotransferase 864 U/L (0-33)
[2022-06-30 05:39] LABS: Blood Urea Nitrogen 110 mg/dL (8-23)
[2022-06-30] MEDS: heparin 5,000 unit/mL INJ 1 mL IV (05:46)
[2022-06-30 07:33] LABS: Glucose Point of Care 225 mg/dL (70-110)
[2022-06-30] MEDS: piperacillin-tazobactam 3.375 GM in sodium chloride 0.9% (plus) 50 ML IV ×2 (07:44→17:22)
[2022-06-30] MEDS: insulin lispro 100 unit/1 mL SUBCUT ×4 (08:44→20:20)
[2022-06-30] MEDS: pantoprazole 40 mg SDV IVP (08:47)
--- NOTE | 2022-06-30 09:00 | PM.PN ---
Subjective Subjective: denies any complaints Medications: Reviewed: Yes Vitals/I&O/Wt Last Vital Signs Temp 97.6 F 06/29/22 19:00 Pulse 78 06/30/22 07:50 Resp 23 H 06/30/22 07:50 BP 119/78 06/30/22 06:00 Pulse Ox 99 06/30/22 07:50 O2 Del Method Nasal Cannula 06/30/22 07:50 O2 Flow Rate 2 06/28/22 08:25 FiO2 2 06/30/22 07:50 06/29/22 06/30/22 06/30/22 22:59 06:59 14:59 Intake Total 1650 / 2200 320.053 / 2520.053 Output Total 200 / 675 650 / 1325 Balance 1450 / 1525 -329.947 / 1195.053 Weight last 48 hrs Weight 143.42 kg Weight 144.866 kg Physical Exam Narrative: obese in bed on nc02- no pressors vss heent- nc/at, eomi, anicteric neck supple abd soft, nt, nd, + bs ext b/l edema Urinary Catheter Management: Marcelo: Cath Placed During This Visit: yes Reason for Continuing Indwelling Catheter: Other Urinary Catheter Date of Insertion: 06/26/22 Urinary Catheter Time of Insertion: 12:58 Data 06/30/22 04:50 06/30/22 04:50 A&P Assessment and plan (1) Acute renal failure: 66 yr old female 1. septic shock - no clear source. appears to be improving 2.MIN -likely prerenal vs ATN. -no hydronephrosis on ct scan -ck of 699 -not high enough to cause rhabdomyolyisis induced MIN - BUN rising, hold lasix , Cr 2.4 today, no indication for renal replacement therapy today , if renal fxn gets worse , may need temporary HD 3. hyperkalemia, improved 4. mixed resp and metabolic acidosis- lacatate of 5 to 3 to 1.8 - can be from metformin in min, or from volume depletion or infection -improved lactic acid level -pt usually has a hypercapneic resp acidosis from GREGORIO, 5. shocked liver- lft's are plateauing seen and examined w/ RN- telehealth visit informed consent for telehealth obtained from pt time spent >55 min Qualifiers: Acute renal failure type: unspecified Qualified Code(s): N17.9 - Acute kidney failure, unspecified Plan see above Attestations Medical Necessity Statement*: per medicine Coding Level of Care Code Acute Code for g Fwd Diagnoses Acute renal failure N17.9 Acute renal failure type: unspecified
--- NOTE | 2022-06-30 11:14 | PM.PN ---
Subjective Subjective: Patient was seen and examined this morning, she was complaining of left-sided body pain, particularly left upper extremity, she wants to get out of bed, serum creatinine is coming down, BUN appears to be plateaued. Medications: Medication Review Details: Generic Name Dose Route Start Last Admin Trade Name Freq PRN Reason Stop Dose Admin Heparin Sodium (Po rcine) 0 unit 06/27/22 05:20 06/30/22 05:46 Heparin 5,000 Un it/Ml Inj 1 Ml IV 2,800 unit PRN PRN Administration Heparin weight-ba se protocol Protocol Piperacillin Sod/T azobactam 50 mls @ 12.5 mls /hr 06/26/22 16:00 06/30/22 07:44 Sod 3.375 gm/ So dium Chloride IV 12.5 mls/hr Q8H KD Administration Protocol Heparin Sodium/Sod ium Chloride 25,000 unit in 50 0 mls @ 0 mls/hr 06/27/22 05:30 06/30/22 05:47 Heparin Drip IV 17 unit/kg/hr .Q0M KD 40.1 mls/hr Titration Protocol Per Protocol Insulin Human Lisp ro 0 unit 06/26/22 18:00 06/30/22 08:44 Insulin Lispro 1 00 Unit/1 Ml SUBCUT 6 unit WM&BEDTIME KD Administration Protocol Morphine Sulfate 2 mg 06/27/22 06:54 06/30/22 08:58 Morphine 4 Mg/Ml Sdv 1 Ml IVP 2 mg Q6H PRN Administration SEVERE PAIN Ondansetron HCl 4 mg 06/26/22 15:25 06/27/22 05:17 Ondansetron 2 Mg /Ml Sdv 2 Ml IVP 4 mg Q6H PRN Administration NAUSEA AND VOMITI NG Pantoprazole Sodiu m 40 mg 06/27/22 09:00 06/30/22 08:47 Pantoprazole 40 Mg Sdv IVP 40 mg DAILY KD Administration Vitals/I&O/Wt Last Vital Signs Temp 97.1 F L 06/30/22 09:00 Pulse 87 06/30/22 09:15 Resp 31 H 06/30/22 09:15 BP 96/55 06/30/22 09:15 Pulse Ox 97 06/30/22 09:15 O2 Del Method Nasal Cannula 06/30/22 09:00 O2 Flow Rate 2 04/27/23 09:00 FiO2 2 06/30/22 08:00 06/29/22 06/30/22 06/30/22 22:59 06:59 14:59 Intake Total 1650 / 2200 320.053 / 2520.053 Output Total 200 / 675 650 / 1325 150 / 150 Balance 1450 / 1525 -329.947 / 1195.053 -150 / -150 Weight last 48 hrs Weight 143.42 kg Weight 144.866 kg Physical Exam Const: COMMON NORMALS: patient oriented x3 HENMT: COMMON NORMALS: normocephalic and atraumatic HEAD & SCALP: normocephalic and atraumatic Resp: COMMON NORMALS: No retractions and clear to auscultation bilaterally AUSCULTATION: clear to auscultation bilaterally Cardio: COMMON NORMALS: regular rate, regular rhythm, S1 normal heart sound present, S2 normal heart sound present, No gallops present (Cardio), No murmurs present (Cardio), No rub (Cardio) and Peripheral pulses 2+ throughout RATE: regular rate RHYTHM: regular rhythm HEART SOUNDS: S1 normal heart sound present and S2 normal heart sound present PERIPHERAL PULSES: Peripheral pulses 2+ throughout GI: COMMON NORMALS: Normal to inspection, nondistended, normoactive bowel sounds present, Soft to palpation, non-tender, No hepatosplenomegaly present and no masses AUSCULTATION: Yes normoactive bowel sounds PALPATION: Yes Soft to palpation and Yes No hepatosplenomegaly present RECTAL EXAM: deferred Extremity: COMMON NORMALS: no clubbing, cyanosis or edema and no pedal edema Neuro: COMMON NORMALS: patient oriented x3 Urinary Catheter Management: Marcelo: Cath Placed During This Visit: yes Reason for Continuing Indwelling Catheter: Other Urinary Catheter Date of Insertion: 06/26/22 Urinary Catheter Time of Insertion: 12:58 Data 06/30/22 04:50 06/30/22 04:50 A&P Assessment and plan (1) Acute renal failure: Qualifiers: Acute renal failure type: unspecified Qualified Code(s): N17.9 - Acute kidney failure, unspecified (2) Fracture, humerus closed: Qualifiers: Encounter type: initial encounter Fracture alignment: nondisplaced Humerus Location: greater tuberosity Laterality: left Qualified Code(s): S42.255A - Nondisplaced fracture of greater tuberosity of left humerus, initial encounter for closed fracture (3) Acute hyperkalemia: (4) Rhabdomyolysis: Qualifiers: Encounter type: initial encounter Rhabdomyolysis type: traumatic Qualified Code(s): T79.6XXA - Traumatic ischemia of muscle, initial encounter (5) Sepsis: (6) Acute liver failure: Plan 66 year old lady with multiple comorbidities as listed above presenting with fall in unclear circumstances at home on Monday (today is Monday) Found on the floor by family today Patients states that she has been unable to get up from the floor as she felt weak and had pain in her left arm Her left arm shows a proximal humerus fracture for which orthopedics has been consulted from the ER Multiple other abnormal labs which point towards multiorgan failure with MIN, acute liver failure, possible sepsis, lactate 5.0, hypoxia, hyperkalemia and rhabdomyolysis. on exam patient is hypotensive with BP 80/42 mmhg, hypothermic with temp 96F on admission , has gross anasarca. No other imaging availble apart from CXR and shoulder x ray at this time She has orders to go to med/surg at this time. WIll cancel and admit to ICU instead # Possible Sepsis : Currently source is unclear.Patient is hypothermic, hypotensive, leukocytes at 21, lactate 5. Chest abdomen and pelvis without contrast: Has shown small patchy lingular consolidation, possibly concerning for pneumonia versus atelectasis, small left pleural effusion. CT abdomen pelvis is a poor quality due to various artifact: Has not shown any acute intra-abdominal or pelvic pathology except for mild hepatomegaly. Ultrasound abdomen: Is concerning for possible cirrhotic liver disease Blood culture:NTD. Patient has received 2 L IV fluid bolus, currently she is empirically started on Zosyn renally dosed. Maintain MAP greater than 65 NSTEMI: Troponin trend: With significant delta EKG has failed to show any acute ST-T wave changes 2D echo: Very limited and poor quality echo, LV systolic function is severely reduced, with EF of 25 to 30%. Currently on heparin drip Continue telemetry monitoring Cardiology on board: Patient will need ischemia work-up once more stable. Acute kidney injury: Possibly secondary to septic shock, resulting in ATN. Follow renal ultrasound CT abdomen and pelvis has not shown any hydronephrosis Follow random sodium Random creatinine Random total protein FENA UPCR Monitor intake and output charting. Monitor BMP Avoid nephrotoxic's, Hold losartan Urinalysis reviewed Renal on board Transaminitis: Possibly secondary to shock liver: With some possible contribution from elevated CK: Currently improving. Ultrasound abdomen: Is concerning for cirrhotic liver CT abdomen pelvis: Has not shown any ductal dilatation Monitor liver function test: Currently LFTs improving Monitor INR Hyperkalemia: Has received hyperkalemia cocktail Serum potassium has trended down Monitor BMP Continue telemetry monitoring A-fib with RVR: patient has intermittently going into A-fib with RVR, with spontaneous conversion to sinus rhythm. For most part will likely start on amnio drip if she continues doing the same. Currently she is on heparin drip # Fall under unclear circumstances , unable to get off ground for 4 days Patient suspects she may have been hypoglycemic CUrrently blood sugar 120s range Graves CT has been done : As well as x-ray shoulder: Has shown mildly displaced fracture of greater trochanter of humerus. #Left humerus fracture: Pain control Orthopedic on board: Current plan is conservative medical management. # Hypoxia, currently on 6lpm supplemental 02 ABG with 7.27/47/62/21 supplemental 02 to keep saturation > 92% CXR with B/L infiltrates concerning for edema # Possible CHF unable to comment on type or chronicity at this time CXR with B/L pulmonary infiltrates, elevated BNP > 8000 Gross anasarca She was initially on Lasix 40 IV twice daily, has been decreased to 40 IV daily monitor I/O, renal output Follow 2D echo # h/o COPD duonebs, budesonide scheduled inhalation Not currently exacerbated #History of diabetes: SSI, monitor fingerstick glucose #Elevated creatinine kinase: Possibly secondary to fall Monitor CK for now # Sleep apnea Bipap at night time #CODE STATUS full code Attestations Medical Necessity Statement*: Needs to be in hospital for management of sepsis. Coding Level of Care Code Acute Code for [facility] Fwd Diagnoses Acute renal failure N17.9 Acute renal failure type: unspecified Fracture, humerus closed S42.255A Encounter type: initial encounter Fracture alignment: nondisplaced Humerus Location: greater tuberosity Laterality: left Acute hyperkalemia E87.5 Rhabdomyolysis T79.6XXA Encounter type: initial encounter Rhabdomyolysis type: traumatic Sepsis A41.9 Acute liver failure K72.00
[2022-06-30 12:02] LABS: Partial Thromboplastin Time 119.1 SECONDS (23.9-36.7)
[2022-06-30 13:02] LABS: Glucose Point of Care 247 mg/dL (70-110)
--- NOTE | 2022-06-30 14:27 | PC.NURSE ---
Patient has developed a nose bleed which was easily controlled with manual pressure. Nurse alerted Dr welsh and was ordered to stop heparin drip.
--- NOTE | 2022-06-30 17:26 | P.PN_ITS ---
Subjective Subjective: Patient is stable. No chest pain. Vitals/I&O/Wt Last Vital Signs Temp 98.1 F 06/30/22 12:30 Pulse 83 06/30/22 14:00 Resp 18 06/30/22 14:00 BP 104/59 06/30/22 14:00 Pulse Ox 100 06/30/22 14:00 O2 Del Method Nasal Cannula 06/30/22 09:00 O2 Flow Rate 2 06/30/22 12:30 FiO2 2 06/30/22 14:00 06/30/22 06/30/22 06/30/22 06:59 14:59 22:59 Intake Total 320.053 / 2520.053 2479.607 / 2479.607 400 / 2879.607 Output Total 650 / 1325 350 / 350 150 / 500 Balance -329.947 / 6731.617 3494.607 / 2129.607 250 / 2379.607 Weight last 48 hrs Weight 316 lb 3 oz Weight 319 lb 6 oz Physical Exam Narrative: GENERAL: Patient is oriented.More alert today NECK: No jugular vein distension. [] HEENT: No cyanosis. No icterus. No pallor. [] HEART: Irregularly irregular, S1 and S2. LUNGS: Clear to auscultate bilaterally. CENTRAL NERVOUS SYSTEM: Grossly nonfocal. [] EXTREMITIES: Lower extremities with 1+ edema bilaterally. Urinary Catheter Management: Marcelo: Cath Placed During This Visit: yes Reason for Continuing Indwelling Catheter: Other Urinary Catheter Date of Insertion: 06/26/22 Urinary Catheter Time of Insertion: 12:58 Data 07/02/22 04:20 07/02/22 04:20 Micro: Microbiology 06/29/22 01:00 Wound Culture - Preliminary Arm - Abscess A&P Assessment and plan (1) Fracture of humerus, proximal, right, closed: (2) Acute liver failure: (3) Sepsis: (4) Acute renal failure: Qualifiers: Acute renal failure type: unspecified Qualified Code(s): N17.9 - Acute kidney failure, unspecified (5) Rhabdomyolysis: Qualifiers: Encounter type: initial encounter Rhabdomyolysis type: traumatic Qualified Code(s): T79.6XXA - Traumatic ischemia of muscle, initial encounter (6) Troponin level elevated: (7) Atrial fibrillation: Plan Patient continues to improve. Denies chest pain. Will benefit from antiplatel et therapy. Plan for ischemic work-up once stabilizes medically. Has intermittent A-fib with RVR. Once blood pressure is consistently stable, can start with metoprolol. Amiodarone as needed. If no bleeding, will benefit from anticoagulation Thank you for involving us with care of this patient. We will continue to follow. Please call with questions. Attestations Medical Necessity Statement*: Care expected to cross 2 midnights. Coding Level of Care Code Acute Code for [facility] Fwd Diagnoses Fracture of humerus, proximal, right, closed S42.201A Acute liver failure K72.00 Sepsis A41.9 Acute renal failure N17.9 Acute renal failure type: unspecified Rhabdomyolysis T79.6XXA Encounter type: initial encounter Rhabdomyolysis type: traumatic Troponin level elevated R77.8 Atrial fibrillation I48.91
[2022-06-30 17:40] LABS: Glucose Point of Care 213 mg/dL (70-110)
--- NOTE | 2022-06-30 18:31 | PC.NURSE ---
Shift SUmmary: Uneventful shift. Was up to a chair for about 8 hours. Required 2 person assist to get up to the chair, Anand lift to get back to the bed. total urine output has been 500ML, hands appear to be more swollen than this morning and physician is aware.
[2022-06-30 19:57] LABS: Partial Thromboplastin Time 27.8 SECONDS (23.9-36.7)
[2022-06-30 20:21] LABS: Glucose Point of Care 215 mg/dL (70-110)
[2022-07-01] VITALS (52 sets, daily range): BP systolic 91–142; BP diastolic 48–94; PULSE 71–131; RESP 7–33; TEMP 36.1–36.9; O2SAT 84–99
[2022-07-01] MEDS: piperacillin-tazobactam 3.375 GM in sodium chloride 0.9% (plus) 50 ML IV ×4 (00:05→23:33)
[2022-07-01 03:34] LABS: INR 1.21 (0.8-1.2)
[2022-07-01 07:34] LABS: Glucose Point of Care 197 mg/dL (70-110)
[2022-07-01 07:46] LABS: Anion Gap 16.1 (5-19); Calcium 8.2 mg/dL (8.5-10.5); Carbon Dioxide 25 mmol/L (22-29); Chloride 98 mmol/L (98-107); Glomerular Filtration Rate 23.6 mL/min (90-130); Glucose 192 mg/dL (65-115); Osmolality Calculated 319 mOsm/kg (285-295); Potassium 4.1 mmol/L (3.5-5.1); Sodium 135 mmol/L (136-145)
[2022-07-01 07:48] LABS: Blood Urea Nitrogen 107 mg/dL (8-23)
[2022-07-01] MEDS: pantoprazole 40 mg SDV IVP (08:39)
[2022-07-01] MEDS: insulin lispro 100 unit/1 mL SUBCUT ×4 (08:43→21:18)
[2022-07-01] MEDS: heparin 5,000 unit/mL INJ 1 mL 5000 UNIT SUBCUT ×2 (10:48→23:33)
[2022-07-01 11:14] LABS: Glucose Point of Care 231 mg/dL (70-110)
--- NOTE | 2022-07-01 11:48 | PM.PN ---
Subjective Subjective: fells better Medications: Reviewed: Yes Vitals/I&O/Wt Last Vital Signs Temp 98.5 F 07/01/22 10:30 Pulse 85 07/01/22 10:30 Resp 22 H 07/01/22 10:30 BP 125/66 07/01/22 10:30 Pulse Ox 88 L 07/01/22 10:30 O2 Del Method Nasal Cannula 07/01/22 10:30 O2 Flow Rate 2 07/01/22 10:30 FiO2 2 07/01/22 08:11 06/30/22 07/01/22 07/01/22 22:59 06:59 14:59 Intake Total 1000 / 3479.607 300 / 3779.607 400 / 400 Output Total 525 / 875 400 / 1275 250 / 250 Balance 475 / 2604.607 -100 / 2504.607 150 / 150 Weight last 48 hrs Weight 147.871 kg Weight 143.42 kg Physical Exam Narrative: obese in bed on nc02- no pressors vss heent- nc/at, eomi, anicteric neck supple abd soft, nt, nd, + bs ext b/l edema Urinary Catheter Management: Marcelo: Cath Placed During This Visit: yes Reason for Continuing Indwelling Catheter: Other Urinary Catheter Date of Insertion: 06/26/22 Urinary Catheter Time of Insertion: 12:58 Data 06/30/22 04:50 07/01/22 03:09 Micro: Microbiology 06/29/22 01:00 Wound Culture - Preliminary Arm - Abscess A&P Assessment and plan (1) Acute renal failure: 66 yr old female 1. septic shock - no clear source. appears to be improving 2.MIN -likely prerenal vs ATN. -no hydronephrosis on ct scan -ck of 699 -not high enough to cause rhabdomyolyisis induced MIN - BUN trending down, holding lasix temporaritly , Cr 2.1 today, UOP picking up -Will resume diuretics prior to DC , after Uremia improved , 3. hyperkalemia, improved 4. mixed resp and metabolic acidosis- lacatate of 5 to 3 to 1.8 - can be from metformin in min, or from volume depletion or infection -improved lactic acid level -pt usually has a hypercapneic resp acidosis from GREGORIO, 5. shocked liver- lft's are plateauing seen and examined w/ RN- telehealth visit informed consent for telehealth obtained from pt time spent >55 min Qualifiers: Acute renal failure type: unspecified Qualified Code(s): N17.9 - Acute kidney failure, unspecified Plan see above Attestations Medical Necessity Statement*: per medicine Coding Level of Care Code Acute Code for [facility] Fwd Diagnoses Acute renal failure N17.9 Acute renal failure type: unspecified
--- NOTE | 2022-07-01 13:19 | PC.SOCIAL ---
IMM Updated Updated pt on IMM. No questions voiced. Provided pt a copy. Initialed, dated, & timed copy in chart.
--- NOTE | 2022-07-01 15:51 | P.PN_ITS ---
Subjective Subjective: Patient was seen and examined this morning overall she is doing better. Medications: Reviewed: Yes Medication Review Details: Generic Name Dose Route Start Last Admin Trade Name Freq PRN Reason Stop Dose Admin Heparin Sodium (Po rcine) 5,000 unit 07/01/22 11:00 07/01/22 10:48 Heparin 5,000 Un it/Ml Inj 1 Ml SUBCUT 5,000 unit Q12H KD Administration Piperacillin Sod/T azobactam 50 mls @ 12.5 mls /hr 06/26/22 16:00 07/01/22 08:33 Sod 3.375 gm/ So dium Chloride IV 12.5 mls/hr Q8H KD Administration Protocol Insulin Human Lisp ro 0 unit 06/26/22 18:00 07/01/22 13:49 Insulin Lispro 1 00 Unit/1 Ml SUBCUT 6 unit WM&BEDTIME KD Administration Protocol Ondansetron HCl 4 mg 06/26/22 15:25 06/27/22 05:17 Ondansetron 2 Mg /Ml Sdv 2 Ml IVP 4 mg Q6H PRN Administration NAUSEA AND VOMITI NG Pantoprazole Sodiu m 40 mg 06/27/22 09:00 07/01/22 08:39 Pantoprazole 40 Mg Sdv IVP 40 mg DAILY KD Administration Vitals/I&O/Wt Last Vital Signs Temp 98.5 F 07/01/22 10:30 Pulse 85 07/01/22 10:30 Resp 22 H 07/01/22 10:30 BP 125/66 07/01/22 10:30 Pulse Ox 88 L 07/01/22 10:30 O2 Del Method Nasal Cannula 07/01/22 10:30 O2 Flow Rate 2 07/01/22 10:30 FiO2 2 07/01/22 08:11 07/01/22 07/01/22 07/01/22 06:59 14:59 22:59 Intake Total 300 / 3779.607 400 / 400 Output Total 400 / 1275 250 / 250 Balance -100 / 2504.607 150 / 150 Weight last 48 hrs Weight 147.871 kg Weight 143.42 kg Physical Exam Const: COMMON NORMALS: patient oriented x3 HENMT: COMMON NORMALS: normocephalic and atraumatic HEAD & SCALP: normocephalic and atraumatic Resp: COMMON NORMALS: clear to auscultation bilaterally AUSCULTATION: clear to auscultation bilaterally Cardio: COMMON NORMALS: regular rate, regular rhythm, S1 normal heart sound present, S2 normal heart sound present, No gallops present (Cardio), No murmurs present (Cardio), No rub (Cardio) and Peripheral pulses 2+ throughout RATE: regular rate RHYTHM: regular rhythm HEART SOUNDS: S1 normal heart sound present and S2 normal heart sound present PERIPHERAL PULSES: Peripheral pulses 2+ throughout GI: COMMON NORMALS: Normal to inspection, nondistended, normoactive bowel sounds present, Soft to palpation, non-tender, No hepatosplenomegaly present and no masses AUSCULTATION: Yes normoactive bowel sounds PALPATION: Yes Soft to palpation and Yes No hepatosplenomegaly present RECTAL EXAM: deferred Extremity: COMMON NORMALS: no clubbing, cyanosis or edema and no pedal edema Neuro: COMMON NORMALS: patient oriented x3 Urinary Catheter Management: Marcelo: Cath Placed During This Visit: yes Reason for Continuing Indwelling Catheter: Other Urinary Catheter Date of Insertion: 06/26/22 Urinary Catheter Time of Insertion: 12:58 Data 06/30/22 04:50 07/01/22 03:09 Micro: Microbiology 06/29/22 01:00 Wound Culture - Preliminary Arm - Abscess Coag negative Staphylococcus 06/26/22 12:25 Blood Culture - Final Blood NO GROWTH AFTER 5 DAYS A&P Assessment and plan (1) Acute renal failure: Qualifiers: Acute renal failure type: unspecified Qualified Code(s): N17.9 - Acute kidney failure, unspecified (2) Fracture, humerus closed: Qualifiers: Encounter type: initial encounter Fracture alignment: nondisplaced Humerus Location: greater tuberosity Laterality: left Qualified Code(s): S42.255A - Nondisplaced fracture of greater tuberosity of left humerus, initial encounter for closed fracture (3) Acute hyperkalemia: (4) Rhabdomyolysis: Qualifiers: Encounter type: initial encounter Rhabdomyolysis type: traumatic Qualified Code(s): T79.6XXA - Traumatic ischemia of muscle, initial encounter (5) Sepsis: (6) Acute liver failure: Plan 66 year old lady with multiple comorbidities as listed above presenting with fall in unclear circumstances at home on Monday (today is Monday) Found on the floor by family today Patients states that she has been unable to get up from the floor as she felt weak and had pain in her left arm Her left arm shows a proximal humerus fracture for which orthopedics has been consulted from the ER Multiple other abnormal labs which point towards multiorgan failure with MIN, acute liver failure, possible sepsis, lactate 5.0, hypoxia, hyperkalemia and rhabdomyolysis. on exam patient is hypotensive with BP 80/42 mmhg, hypothermic with temp 96F on admission , has gross anasarca. No other imaging availble apart from CXR and shoulder x ray at this time She has orders to go to med/surg at this time. WIll cancel and admit to ICU instead # Possible Sepsis : Currently source is unclear.Patient is hypothermic, hypotensive, leukocytes at 21, lactate 5. Chest abdomen and pelvis without contrast: Has shown small patchy lingular consolidation, possibly concerning for pneumonia versus atelectasis, small left pleural effusion. CT abdomen pelvis is a poor quality due to various artifact: Has not shown any acute intra-abdominal or pelvic pathology except for mild hepatomegaly. Ultrasound abdomen: Is concerning for possible cirrhotic liver disease Blood culture:NTD. Patient has received 2 L IV fluid bolus, currently she is empirically started on Zosyn renally dosed. Maintain MAP greater than 65 NSTEMI: Troponin trend: With significant delta EKG has failed to show any acute ST-T wave changes 2D echo: Very limited and poor quality echo, LV systolic function is severely reduced, with EF of 25 to 30%. Currently on heparin drip Continue telemetry monitoring Cardiology on board: Patient will need ischemia work-up once more stable. #Newly diagnosed heart failure with reduced ejection fraction: Appreciate 2D echo result: Monitor intake output charting Daily weight Continue telemetry monitoring Initially patient was on IV Lasix has been on hold for now Acute kidney injury: Possibly secondary to septic shock, resulting in ATN. Follow renal ultrasound CT abdomen and pelvis has not shown any hydronephrosis Follow random sodium Random creatinine Random total protein FENA UPCR Monitor intake and output charting. Monitor BMP Avoid nephrotoxic's, Hold losartan Urinalysis reviewed Renal on board Transaminitis: Possibly secondary to shock liver: With some possible contribution from elevated CK: Currently improving. Ultrasound abdomen: Is concerning for cirrhotic liver CT abdomen pelvis: Has not shown any ductal dilatation Monitor liver function test: Currently LFTs improving Monitor INR Hyperkalemia: Has received hyperkalemia cocktail Serum potassium has trended down Monitor BMP Continue telemetry monitoring A-fib with RVR: patient has intermittently going into A-fib with RVR, with spontaneous convers ion to sinus rhythm. For most part will likely start on amnio drip if she continues doing the same. Currently she is on heparin drip # Fall under unclear circumstances , unable to get off ground for 4 days Patient suspects she may have been hypoglycemic CUrrently blood sugar 120s range Graves CT has been done : As well as x-ray shoulder: Has shown mildly displaced fracture of greater trochanter of humerus. #Left humerus fracture: Pain control Orthopedic on board: Current plan is conservative medical management. # Hypoxia, currently on 6lpm supplemental 02 ABG with 7.27/47/62/21 supplemental 02 to keep saturation > 92% CXR with B/L infiltrates concerning for edema # h/o COPD duonebs, budesonide scheduled inhalation Not currently exacerbated #History of diabetes: SSI, monitor fingerstick glucose #Elevated creatinine kinase: Possibly secondary to fall Monitor CK for now # Sleep apnea Bipap at night time #Disposition: SNF placement is being attempted. #CODE STATUS full code Attestations Medical Necessity Statement*: Needs to be in hospital for management of acute kidney injury. Coding Level of Care Code Acute Code for [facility] Fwd Diagnoses Acute renal failure N17.9 Acute renal failure type: unspecified Fracture, humerus closed S42.255A Encounter type: initial encounter Fracture alignment: nondisplaced Humerus Location: greater tuberosity Laterality: left Acute hyperkalemia E87.5 Rhabdomyolysis T79.6XXA Encounter type: initial encounter Rhabdomyolysis type: traumatic Sepsis A41.9 Acute liver failure K72.00
[2022-07-01 17:12] LABS: Glucose Point of Care 311 mg/dL (70-110)
[2022-07-01] MEDS: docusate sodium 100 mg Capsule PO (17:24)
--- NOTE | 2022-07-01 18:00 | PC.NURSE ---
SHift SUmmary: uneventful shift. Patient was up to the chair for about 4 hours today. Still requires 2-3 person assist to get to the chair. Earline lift used to get back to bed. Still no bowel movement for colace was started. Total urine output has been 650ml (0.39ml/kg/hr) and physician has been notifed.SLight improvement in BUN.
[2022-07-01 21:17] LABS: Glucose Point of Care 263 mg/dL (70-110)
--- NOTE | 2022-07-01 23:29 | PM.PN ---
Subjective Subjective: Patient is overall stable. Vitals/I&O/Wt Last Vital Signs Temp 96.9 F L 07/01/22 17:30 Pulse 76 07/01/22 23:00 Resp 24 H 07/01/22 23:00 BP 118/71 07/01/22 23:00 Pulse Ox 94 07/01/22 23:00 O2 Del Method Nasal Cannula 07/01/22 18:00 O2 Flow Rate 2 07/01/22 18:00 FiO2 2 07/01/22 22:00 07/01/22 07/01/22 07/02/22 14:59 22:59 06:59 Intake Total 850 / 850 650 / 1500 Output Total 400 / 400 600 / 1000 Balance 450 / 450 50 / 500 Weight last 48 hrs Weight 330 lb Weight 326 lb Weight 316 lb 3 oz Physical Exam Narrative: GENERAL: Patient is oriented.More alert today NECK: No jugular vein distension. [] HEENT: No cyanosis. No icterus. No pallor. [] HEART: Irregularly irregular, S1 and S2. LUNGS: Clear to auscultate bilaterally. CENTRAL NERVOUS SYSTEM: Grossly nonfocal. [] EXTREMITIES: Lower extremities with 1+ edema bilaterally. Urinary Catheter Management: Marcelo: Cath Placed During This Visit: yes Reason for Continuing Indwelling Catheter: Other Urinary Catheter Date of Insertion: 06/26/22 Urinary Catheter Time of Insertion: 12:58 Data 07/02/22 04:20 07/02/22 04:20 Micro: Microbiology 06/29/22 01:00 Wound Culture - Preliminary Arm - Abscess Coag negative Staphylococcus 06/26/22 12:25 Blood Culture - Final Blood NO GROWTH AFTER 5 DAYS A&P Assessment and plan (1) Fracture of humerus, proximal, right, closed: (2) Acute liver failure: (3) Sepsis: (4) Acute renal failure: Qualifiers: Acute renal failure type: unspecified Qualified Code(s): N17.9 - Acute kidney failure, unspecified (5) Rhabdomyolysis: Qualifiers: Encounter type: initial encounter Rhabdomyolysis type: traumatic Qualified Code(s): T79.6XXA - Traumatic ischemia of muscle, initial encounter (6) Troponin level elevated: (7) Atrial fibrillation: Plan Patient is feeling overall better. Renal function has mild improvement. Plan for ischemic workup once patient is stable. Can start metoprolol at a low dose. Thank you for involving us with care of this patient. We will continue to follow. Please call with questions. Attestations Medical Necessity Statement*: Care expected to cross 2 midnights. Coding Level of Care Code Acute Code for [facility] Fwd Diagnoses Fracture of humerus, proximal, right, closed S42.201A Acute liver failure K72.00 Sepsis A41.9 Acute renal failure N17.9 Acute renal failure type: unspecified Rhabdomyolysis T79.6XXA Encounter type: initial encounter Rhabdomyolysis type: traumatic Troponin level elevated R77.8 Atrial fibrillation I48.91
[2022-07-02] VITALS (40 sets, daily range): BP systolic 103–143; BP diastolic 57–80; PULSE 68–89; RESP 3–28; TEMP 36.4–36.6; O2SAT 87–97
[2022-07-02 04:50] LABS: Basophils % 0.2 %; Eosinophils # 0.3 10^3/uL (0.0-0.8); Eosinophils % 2.6 %; Hematocrit 31.6 % (37.0-47.0); Hemoglobin 9.2 g/dL (11.5-15.3); Lymphocytes # 0.9 10^3/uL (0.8-4.8); Lymphocytes % 7.9 %; Mean Corpuscular HGB Conc 29.1 g/dL (30.0-36.0); Mean Corpuscular Hemoglobin 24.4 pg (28.0-34.0); Mean Corpuscular Volume 83.8 fl (81-99); Mean Platelet Volume 11.3 fL (7.4-10.4); Monocytes # 1.3 10^3/uL (0.2-0.9); Monocytes % 11.2 %; Neutrophils # 8.94 10^3/uL (1.8-7.7); Neutrophils % 77.4 %; Nucleated Red Blood Cells % 0.3 %; Platelet Count 141 10^3/cmm (130-400); Red Blood Count 3.77 10^6/uL (4.1-5.3); White Blood Count 11.5 10^3/uL (4.0-10.0)
[2022-07-02 04:57] LABS: Anion Gap 15.2 (5-19); Calcium 8.3 mg/dL (8.5-10.5); Carbon Dioxide 26 mmol/L (22-29); Chloride 99 mmol/L (98-107); Glomerular Filtration Rate 26.5 mL/min (90-130); Glucose 189 mg/dL (65-115); Osmolality Calculated 317 mOsm/kg (285-295); Potassium 4.2 mmol/L (3.5-5.1); Sodium 136 mmol/L (136-145)
[2022-07-02 05:02] LABS: Blood Urea Nitrogen 97 mg/dL (8-23)
[2022-07-02] MEDS: piperacillin-tazobactam 3.375 GM in sodium chloride 0.9% (plus) 50 ML IV ×3 (08:00→23:50)
[2022-07-02 08:17] LABS: Glucose Point of Care 186 mg/dL (70-110)
[2022-07-02] MEDS: docusate sodium 100 mg Capsule PO ×2 (08:40→18:05)
[2022-07-02] MEDS: pantoprazole 40 mg SDV IVP (08:40)
[2022-07-02] MEDS: diphenhydrAMINE 25 mg Capsule PO (08:40)
[2022-07-02] MEDS: insulin lispro 100 unit/1 mL SUBCUT ×4 (08:41→22:06)
[2022-07-02] MEDS: FUROsemide 10 mg/mL SDV 4mL 40 MG IVP (08:54)
--- NOTE | 2022-07-02 09:12 | PM.PN ---
Subjective Subjective: no new complaints Medications: Reviewed: Yes Vitals/I&O/Wt Last Vital Signs Temp 97.4 F L 07/01/22 19:45 Pulse 80 07/02/22 07:41 Resp 16 07/02/22 07:41 BP 106/60 07/02/22 06:00 Pulse Ox 96 07/02/22 07:41 O2 Del Method Nasal Cannula 07/02/22 07:41 O2 Flow Rate 2 07/01/22 18:00 FiO2 2 07/02/22 07:41 07/01/22 07/02/22 07/02/22 22:59 06:59 14:59 Intake Total 650 / 1500 170 / 1670 Output Total 600 / 1000 400 / 1400 Balance 50 / 500 -230 / 270 Weight last 48 hrs Weight 148.053 kg Weight 149.685 kg Weight 147.871 kg Physical Exam Narrative: obese in bed on nc02- no pressors vss heent- nc/at, eomi, anicteric neck supple abd soft, nt, nd, + bs ext b/l edema Urinary Catheter Management: Marcelo: Cath Placed During This Visit: yes Reason for Continuing Indwelling Catheter: Other Urinary Catheter Date of Insertion: 06/26/22 Urinary Catheter Time of Insertion: 12:58 Data 07/02/22 04:20 07/02/22 04:20 Micro: Microbiology 06/29/22 01:00 Wound Culture - Preliminary Arm - Abscess Coag negative Staphylococcus 06/26/22 12:25 Blood Culture - Final Blood NO GROWTH AFTER 5 DAYS A&P Assessment and plan (1) Acute renal failure: 66 yr old female 1. septic shock - no clear source. appears to be improving 2.MIN -likely prerenal vs ATN. -no hydronephrosis on ct scan -ck of 699 -not high enough to cause rhabdomyolyisis induced MIN - BUN trending down, holding lasix temporaritly , Cr1.9 today, UOP picking up -Will give 40 mg IV lasix today 3. hyperkalemia, improved 4. mixed resp and metabolic acidosis- lacatate of 5 to 3 to 1.8 - can be from metformin in min, or from volume depletion or infection -improved lactic acid level -pt usually has a hypercapneic resp acidosis from GREGORIO, 5. shocked liver- lft's are plateauing seen and examined w/ RN- telehealth visit informed consent for telehealth obtained from pt time spent >55 min Qualifiers: Acute renal failure type: unspecified Qualified Code(s): N17.9 - Acute kidney failure, unspecified Plan see above Attestations Medical Necessity Statement*: <del>per</del> <del>medicine</del> Coding Level of Care Code Acute Code for [facility] Diagnoses Acute renal failure N17.9 Acute renal failure type: unspecified
[2022-07-02] MEDS: heparin 5,000 unit/mL INJ 1 mL 5000 UNIT SUBCUT ×2 (11:24→22:06)
[2022-07-02 11:33] LABS: Glucose Point of Care 252 mg/dL (70-110)
--- NOTE | 2022-07-02 12:55 | PM.PN ---
Subjective Subjective: Patient was seen and examined this morning, she was complaining of itching.Possibly secondary to high BUN, has been started on p.o. Benadryl. Medications: Reviewed: Yes Medication Review Details: Generic Name Dose Route Start Last Admin Trade Name Freq PRN Reason Stop Dose Admin Diphenhydramine HC l 25 mg 07/02/22 08:11 07/02/22 08:40 Diphenhydramine 25 Mg Capsule PO 25 mg Q6H PRN Administration ITCHING Docusate Sodium 100 mg 07/01/22 18:00 07/02/22 08:40 Docusate Sodium 100 Mg Capsule PO 100 mg BID KD Administration Heparin Sodium (Po rcine) 5,000 unit 07/01/22 11:00 07/02/22 11:24 Heparin 5,000 Un it/Ml Inj 1 Ml SUBCUT 5,000 unit Q12H KD Administration Piperacillin Sod/T azobactam 50 mls @ 12.5 mls /hr 06/26/22 16:00 07/02/22 08:00 Sod 3.375 gm/ So dium Chloride IV 12.5 mls/hr Q8H KD Administration Protocol Insulin Human Lisp ro 0 unit 06/26/22 18:00 07/02/22 12:15 Insulin Lispro 1 00 Unit/1 Ml SUBCUT 6 unit WM&BEDTIME KD Administration Protocol Ondansetron HCl 4 mg 06/26/22 15:25 06/27/22 05:17 Ondansetron 2 Mg /Ml Sdv 2 Ml IVP 4 mg Q6H PRN Administration NAUSEA AND VOMITI NG Pantoprazole Sodiu m 40 mg 06/27/22 09:00 07/02/22 08:40 Pantoprazole 40 Mg Sdv IVP 40 mg DAILY KD Administration Vitals/I&O/Wt Last Vital Signs Temp 97.8 F 07/02/22 08:00 Pulse 82 07/02/22 10:00 Resp 17 07/02/22 10:00 BP 132/74 07/02/22 10:00 Pulse Ox 95 07/02/22 10:00 O2 Del Method Nasal Cannula 07/02/22 10:00 O2 Flow Rate 2 07/02/22 10:00 FiO2 2 07/02/22 08:00 07/01/22 07/02/22 07/02/22 22:59 06:59 14:59 Intake Total 650 / 1500 170 / 1670 360 / 360 Output Total 600 / 1000 400 / 1400 250 / 250 Balance 50 / 500 -230 / 270 110 / 110 Weight last 48 hrs Weight 148.053 kg Weight 149.685 kg Weight 147.871 kg Physical Exam Const: COMMON NORMALS: patient oriented x3 HENMT: COMMON NORMALS: normocephalic and atraumatic HEAD & SCALP: normocephalic and atraumatic Resp: COMMON NORMALS: No retractions and clear to auscultation bilaterally AUSCULTATION: clear to auscultation bilaterally Cardio: COMMON NORMALS: regular rate, regular rhythm, S1 normal heart sound present, S2 normal heart sound present, No gallops present (Cardio), No murmurs present (Cardio), No rub (Cardio) and Peripheral pulses 2+ throughout RATE: regular rate RHYTHM: regular rhythm HEART SOUNDS: S1 normal heart sound present and S2 normal heart sound present PERIPHERAL PULSES: Peripheral pulses 2+ throughout GI: COMMON NORMALS: Normal to inspection, nondistended, normoactive bowel sounds present, Soft to palpation, non-tender, No hepatosplenomegaly present and no masses AUSCULTATION: Yes normoactive bowel sounds PALPATION: Yes Soft to palpation and Yes No hepatosplenomegaly present RECTAL EXAM: deferred Extremity: COMMON NORMALS: no clubbing, cyanosis or edema and no pedal edema Neuro: COMMON NORMALS: patient oriented x3 Urinary Catheter Management: Marcelo: Cath Placed During This Visit: yes Reason for Continuing Indwelling Catheter: Other Urinary Catheter Date of Insertion: 06/26/22 Urinary Catheter Time of Insertion: 12:58 Data 07/02/22 04:20 07/02/22 04:20 Micro: Microbiology 06/29/22 01:00 Wound Culture - Final Arm - Abscess Staphylococcus haemolyticus 06/26/22 12:25 Blood Culture - Final Blood NO GROWTH AFTER 5 DAYS A&P Assessment and plan (1) Acute renal failure: Qualifiers: Acute renal failure type: unspecified Qualified Code(s): N17.9 - Acute kidney failure, unspecified (2) Fracture, humerus closed: Qualifiers: Encounter type: initial encounter Fracture alignment: nondisplaced Humerus Location: greater tuberosity Laterality: left Qualified Code(s): S42.255A - Nondisplaced fracture of greater tuberosity of left humerus, initial encounter for closed fracture (3) Acute hyperkalemia: (4) Rhabdomyolysis: Qualifiers: Encounter type: initial encounter Rhabdomyolysis type: traumatic Qualified Code(s): T79.6XXA - Traumatic ischemia of muscle, initial encounter (5) Sepsis: (6) Acute liver failure: Plan 66 year old lady with multiple comorbidities as listed above presenting with fall in unclear circumstances at home on Monday (today is Monday) Found on the floor by family today Patients states that she has been unable to get up from the floor as she felt weak and had pain in her left arm Her left arm shows a proximal humerus fracture for which orthopedics has been consulted from the ER Multiple other abnormal labs which point towards multiorgan failure with MIN, acute liver failure, possible sepsis, lactate 5.0, hypoxia, hyperkalemia and rhabdomyolysis. on exam patient is hypotensive with BP 80/42 mmhg, hypothermic with temp 96F on admission , has gross anasarca. No other imaging availble apart from CXR and shoulder x ray at this time She has orders to go to med/surg at this time. WIll cancel and admit to ICU instead # Possible Sepsis : Currently source is unclear.Patient is hypothermic, hypotensive, leukocytes at 21, lactate 5. Chest abdomen and pelvis without contrast: Has shown small patchy lingular consolidation, possibly concerning for pneumonia versus atelectasis, small left pleural effusion. CT abdomen pelvis is a poor quality due to various artifact: Has not shown any acute intra-abdominal or pelvic pathology except for mild hepatomegaly. Ultrasound abdomen: Is concerning for possible cirrhotic liver disease Blood culture:NTD. Patient has received 2 L IV fluid bolus, currently she is empirically started on Zosyn renally dosed. Maintain MAP greater than 65 NSTEMI: Troponin trend: With significant delta EKG has failed to show any acute ST-T wave changes 2D echo: Very limited and poor quality echo, LV systolic function is severely reduced, with EF of 25 to 30%. Currently on heparin drip Continue telemetry monitoring Cardiology on board: Patient will need ischemia work-up once more stable. #Newly diagnosed heart failure with reduced ejection fraction: Appreciate 2D echo result: Monitor intake output charting Daily weight Continue telemetry monitoring Initially patient was on IV Lasix has been on hold for now Acute kidney injury: Possibly secondary to septic shock, resulting in ATN. Follow renal ultrasound CT abdomen and pelvis has not shown any hydronephrosis Follow random sodium Random creatinine Random total protein FENA UPCR Monitor intake and output charting. Monitor BMP Avoid nephrotoxic's, Hold losartan Urinalysis reviewed Renal on board Transaminitis: Possibly secondary to shock liver: With some possible contribution from elevated CK: Currently improving. Ultrasound abdomen: Is concerning for cirrhotic liver CT abdomen pelvis: Has not shown any ductal dilatation Monitor liver function test: Currently LFTs improving Monitor INR Hyperkalemia: Has received hyperkalemia cocktail Serum potassium has trended down Monitor BMP Continue telemetry monitoring A-fib with RVR: patient has intermittently going into A-fib with RVR, with spontaneous conversion to sinus rhythm. For most part will likely start on amnio drip if she continues doing the same. Currently she is on heparin drip # Fall under unclear circumstances , unable to get off ground for 4 days Patient suspects she may have been hypoglycemic CUrrently blood sugar 120s range Graves CT has been done : As well as x-ray shoulder: Has shown mildly displaced fracture of greater trochanter of humerus. #Left humerus fracture: Pain control Orthopedic on board: Current plan is conservative medical management. # Hypoxia, currently on 6lpm supplemental 02 ABG with 7.27/47/62/21 supplemental 02 to keep saturation > 92% CXR with B/L infiltrates concerning for edema # h/o COPD duonebs, budesonide scheduled inhalation Not currently exacerbated #History of diabetes: SSI, monitor fingerstick glucose #Elevated creatinine kinase: Possibly secondary to fall Monitor CK for now # Sleep apnea Bipap at night time #Disposition: SNF placement is being attempted. #CODE STATUS full code Attestations Medical Necessity Statement*: Needs to be in hospital for monitoring of kidney function. Coding Level of Care Code Acute Code for [facility]g Fwd Diagnoses Acute renal failure N17.9 Acute renal failure type: unspecified Fracture, humerus closed S42.255A Encounter type: initial encounter Fracture alignment: nondisplaced Humerus Location: greater tuberosity Laterality: left Acute hyperkalemia E87.5 Rhabdomyolysis T79.6XXA Encounter type: initial encounter Rhabdomyolysis type: traumatic Sepsis A41.9 Acute liver failure K72.00
--- NOTE | 2022-07-02 13:49 | PC.OT ---
OT TX Attempted: Attempted to treat patient 3x on this day at 12:30, 13:20, and 13:50 respectively. First attempt patient refused secondary to eating lunch, 2nd and 3rd attempts patient was sleeping and would not wake up when prompted. Will attempt again tomorrow.
--- NOTE | 2022-07-02 16:08 | PC.NURSE ---
Patient transferred to room 270. Report given to Bridger, patient received by Ema WATTS. Belongings sent with patient included cellphone, glasses, and medications.
--- NOTE | 2022-07-02 16:16 | PC.NURSE ---
ICU shift SUmmary: Uneventful shift Patient worked with pt and was up to the chair for most of the day. Started on PRN benadryl due to itching, as pt has a high BUN still and irritation caused by weeping edema. 950mL of utine output whil [facility] ICU. Transferred to [facility] surge room 270 at 1600.
[2022-07-02 16:54] LABS: Glucose Point of Care 348 mg/dL (70-110)
[2022-07-02] MEDS: acetaminophen 325 mg Tablet 650 MG PO (21:09)
[2022-07-02 21:42] LABS: Glucose Point of Care 326 mg/dL (70-110)
[2022-07-03] VITALS (11 sets, daily range): BP systolic 119–137; BP diastolic 66–84; PULSE 59–79; RESP 16–25; TEMP 36.1–36.6; O2SAT 93–97
--- NOTE | 2022-07-03 05:42 | P.PN_ITS ---
Subjective Subjective: No new complaints Medications: Reviewed: Yes Vitals/I&O/Wt Last Vital Signs Temp 96.9 F L 07/03/22 03:13 Pulse 59 L 07/03/22 03:13 Resp 23 H 07/03/22 03:13 BP 130/81 07/03/22 03:13 Pulse Ox 96 07/03/22 03:13 O2 Del Method BiPAP 07/03/22 03:13 O2 Flow Rate 1 07/02/22 15:00 FiO2 24 07/03/22 02:56 07/02/22 07/02/22 07/03/22 14:59 22:59 06:59 Intake Total 650 / 650 1170 / 1820 50 / 1870 Output Total 575 / 575 975 / 1550 300 / 1850 Balance 75 / 75 195 / 270 -250 / 20 Weight last 48 hrs Weight 149.232 kg Weight 148.053 kg Weight 149.685 kg Weight 147.871 kg Physical Exam Narrative: obese in bed on nc02- no pressors vss heent- nc/at, eomi, anicteric neck supple abd soft, nt, nd, + bs ext b/l edema Urinary Catheter Management: Marcelo: Cath Placed During This Visit: yes Reason for Continuing Indwelling Catheter: Other Urinary Catheter Date of Insertion: 06/26/22 Urinary Catheter Time of Insertion: 12:58 Data 07/03/22 05:00 07/02/22 04:20 Micro: Microbiology 06/29/22 01:00 Wound Culture - Final Arm - Abscess Staphylococcus haemolyticus A&P Assessment and plan (1) Acute renal failure: 66 yr old female 1. septic shock - no clear source. appears to be improving 2.MIN -likely prerenal vs ATN. -no hydronephrosis on ct scan -ck of 699 -not high enough to cause rhabdomyolyisis induced MIN - Has Uremia improving , Cr trending down - Start lasix 40 mg diaiy 3. hyperkalemia, improved 4. mixed resp and metabolic acidosis- lacatate of 5 to 3 to 1.8 - can be from metformin in min, or from volume depletion or infection -improved lactic acid level -pt usually has a hypercapneic resp acidosis from GREGORIO, 5. shocked liver- lft's are plateauing seen and examined w/ RN- telehealth visit informed consent for telehealth obtained from pt time spent >55 min Qualifiers: Acute renal failure type: unspecified Qualified Code(s): N17.9 - Acute kidney failure, unspecified Plan see above Attestations Medical Necessity Statement*: per medicine Coding Level of Care Code Acute Code for [facility] Fwd Diagnoses Acute renal failure N17.9 Acute renal failure type: unspecified
[2022-07-03 06:11] LABS: Basophils % 0.3 %; Eosinophils # 0.4 10^3/uL (0.0-0.8); Eosinophils % 2.8 %; Hematocrit 32.7 % (37.0-47.0); Hemoglobin 9.5 g/dL (11.5-15.3); Lymphocytes % 7.3 %; Mean Corpuscular HGB Conc 29.1 g/dL (30.0-36.0); Mean Corpuscular Hemoglobin 24.6 pg (28.0-34.0); Mean Corpuscular Volume 84.7 fl (81-99); Mean Platelet Volume 12.1 fL (7.4-10.4); Monocytes # 1.5 10^3/uL (0.2-0.9); Monocytes % 11.1 %; Neutrophils # 10.19 10^3/uL (1.8-7.7); Neutrophils % 77.7 %; Nucleated Red Blood Cells % 0 %; Platelet Count 166 10^3/cmm (130-400); Red Blood Count 3.86 10^6/uL (4.1-5.3); Red Cell Distribution Width 17.2 % (12.1-15.1); White Blood Count 13.1 10^3/uL (4.0-10.0)
[2022-07-03 06:30] LABS: Glucose Point of Care 201 mg/dL (70-110)
[2022-07-03 06:36] LABS: Alanine Aminotransferase 364 U/L (0-33); Albumin Level 3.1 g/dL (3.5-5.2); Alkaline Phosphatase 71 U/L (35-105); Anion Gap 14.9 (5-19); Aspartate Amino Transferase 53 U/L (0-32); Calcium 8.5 mg/dL (8.5-10.5); Carbon Dioxide 26 mmol/L (22-29); Chloride 97 mmol/L (98-107); Globulin 3.5 g/dL (1.3-4.6); Glomerular Filtration Rate 32.3 mL/min (90-130); Glucose 193 mg/dL (65-115); Osmolality Calculated 312 mOsm/kg (285-295); Potassium 3.9 mmol/L (3.5-5.1); Sodium 134 mmol/L (136-145); Total Bilirubin 0.7 mg/dL (0.15-1.2); Total Protein 6.6 g/dL (6.6-8.7)
[2022-07-03 09:21] LABS: Blood Urea Nitrogen 94 mg/dL (8-23)
[2022-07-03] MEDS: pantoprazole 40 mg SDV IVP (09:24)
[2022-07-03] MEDS: acetaminophen 325 mg Tablet 650 MG PO ×2 (09:24→17:47)
[2022-07-03] MEDS: piperacillin-tazobactam 3.375 GM in sodium chloride 0.9% (plus) 50 ML IV (09:24)
[2022-07-03] MEDS: insulin lispro 100 unit/1 mL SUBCUT ×4 (09:25→21:52)
[2022-07-03] MEDS: FUROsemide 40 mg Tablet PO (09:25)
[2022-07-03] MEDS: docusate sodium 100 mg Capsule PO ×2 (09:25→17:47)
--- NOTE | 2022-07-03 09:35 | PC.SOCIAL ---
IMM update IMM updated with patient. Verbalized an understanding. Copy Pg 2 provided. Initialled, dated, timed, and placed in chart.
[2022-07-03] MEDS: levofloxacin-dextrose 5 % 750 MG/150 ML PREMIX 100 MG IV (10:58)
[2022-07-03] MEDS: heparin 5,000 unit/mL INJ 1 mL 5000 UNIT SUBCUT ×2 (10:58→23:24)
[2022-07-03 11:35] LABS: Glucose Point of Care 301 mg/dL (70-110)
[2022-07-03 17:11] LABS: Glucose Point of Care 294 mg/dL (70-110)
--- NOTE | 2022-07-03 17:12 | P.PN_ITS ---
Subjective Subjective: Patient was seen and examined this morning, overall she is doing better, serum creatinine has continued to improve, good urine output with Lasix. Has been started on p.o. Lasix 40 today. Medications: Reviewed: Yes Medication Review Details: Generic Name Dose Route Start Last Admin Trade Name Freq PRN Reason Stop Dose Admin Acetaminophen 650 mg 06/26/22 15:25 07/03/22 09:24 Acetaminophen 32 5 Mg Tablet PO 650 mg Q6H PRN Administration MILD PAIN Diphenhydramine HC l 25 mg 07/02/22 08:11 07/02/22 08:40 Diphenhydramine 25 Mg Capsule PO 25 mg Q6H PRN Administration ITCHING Docusate Sodium 100 mg 07/01/22 18:00 07/03/22 09:25 Docusate Sodium 100 Mg Capsule PO 100 mg BID KD Administration Furosemide 40 mg 07/03/22 08:00 07/03/22 09:25 Furosemide 40 Mg Tablet PO 40 mg DAILY@0800 KD Administration Heparin Sodium (Po rcine) 5,000 unit 07/01/22 11:00 07/03/22 10:58 Heparin 5,000 Un it/Ml Inj 1 Ml SUBCUT 5,000 unit Q12H KD Administration Levofloxacin/Dextr ose 750 mg in 150 mls @ 100 mls/hr 07/03/22 10:00 07/03/22 12:59 Levaquin-D5w IV Infused Q24H KD Infusion Protocol Insulin Human Lisp ro 0 unit 06/26/22 18:00 07/03/22 11:16 Insulin Lispro 1 00 Unit/1 Ml SUBCUT 10 unit WM&BEDTIME KD Administration Protocol Ondansetron HCl 4 mg 06/26/22 15:25 06/27/22 05:17 Ondansetron 2 Mg /Ml Sdv 2 Ml IVP 4 mg Q6H PRN Administration NAUSEA AND VOMITI NG Pantoprazole Sodiu m 40 mg 06/27/22 09:00 07/03/22 09:24 Pantoprazole 40 Mg Sdv IVP 40 mg DAILY KD Administration Vitals/I&O/Wt Last Vital Signs Temp 97.6 F 07/03/22 12:00 Pulse 79 07/03/22 12:00 Resp 18 07/03/22 12:00 BP 137/84 07/03/22 12:00 Pulse Ox 96 07/03/22 12:00 O2 Del Method Nasal Cannula 07/03/22 12:00 O2 Flow Rate 2 07/03/22 07:31 FiO2 24 07/03/22 02:56 07/03/22 07/03/22 07/03/22 06:59 14:59 22:59 Intake Total 50 / 1870 1123.542 / 1123.542 Output Total 650 / 2200 Balance -600 / -330 1123.542 / 1123.542 Weight last 48 hrs Weight 149.232 kg Weight 148.053 kg Weight 149.685 kg Physical Exam Const: COMMON NORMALS: patient oriented x3 HENMT: COMMON NORMALS: normocephalic and atraumatic HEAD & SCALP: normocephalic and atraumatic Resp: COMMON NORMALS: No retractions and clear to auscultation bilaterally AUSCULTATION: clear to auscultation bilaterally Cardio: COMMON NORMALS: regular rate, regular rhythm, S1 normal heart sound present, S2 normal heart sound present, No gallops present (Cardio), No murmurs present (Cardio), No rub (Cardio) and Peripheral pulses 2+ throughout RATE: regular rate RHYTHM: regular rhythm HEART SOUNDS: S1 normal heart sound present and S2 normal heart sound present PERIPHERAL PULSES: Peripheral pulses 2+ throughout GI: COMMON NORMALS: Normal to inspection, nondistended, normoactive bowel sounds present, Soft to palpation, non-tender, No hepatosplenomegaly present and no masses AUSCULTATION: Yes normoactive bowel sounds PALPATION: Yes Soft t o palpation and Yes No hepatosplenomegaly present RECTAL EXAM: deferred Extremity: COMMON NORMALS: no clubbing, cyanosis or edema and no pedal edema Neuro: COMMON NORMALS: patient oriented x3 Urinary Catheter Management: Marcelo: Cath Placed During This Visit: yes Reason for Continuing Indwelling Catheter: Other Urinary Catheter Date of Insertion: 06/26/22 Urinary Catheter Time of Insertion: 12:58 Data 07/03/22 05:00 07/03/22 05:00 A&P Assessment and plan (1) Acute renal failure: Qualifiers: Acute renal failure type: unspecified Qualified Code(s): N17.9 - Acute kidney failure, unspecified (2) Fracture, humerus closed: Qualifiers: Encounter type: initial encounter Fracture alignment: nondisplaced Humerus Location: greater tuberosity Laterality: left Qualified Code(s): S42.255A - Nondisplaced fracture of greater tuberosity of left humerus, initial encounter for closed fracture (3) Acute hyperkalemia: (4) Rhabdomyolysis: Qualifiers: Encounter type: initial encounter Rhabdomyolysis type: traumatic Qualified Code(s): T79.6XXA - Traumatic ischemia of muscle, initial encounter (5) Sepsis: (6) Acute liver failure: Plan 66 year old lady with multiple comorbidities as listed above presenting with fall in unclear circumstances at home on Monday (today is Monday) Found on the floor by family today Patients states that she has been unable to get up from the floor as she felt weak and had pain in her left arm Her left arm shows a proximal humerus fracture for which orthopedics has been consulted from the ER Multiple other abnormal labs which point towards multiorgan failure with MIN, acute liver failure, possible sepsis, lactate 5.0, hypoxia, hyperkalemia and rhabdomyolysis. on exam patient is hypotensive with BP 80/42 mmhg, hypothermic with temp 96F on admission , has gross anasarca. No other imaging availble apart from CXR and shoulder x ray at this time She has orders to go to med/surg at this time. WIll cancel and admit to ICU instead # Sepsis : Currently source is unclear.Patient is hypothermic, hypotensive, leukocytes at 21, lactate 5. Chest abdomen and pelvis without contrast: Has shown small patchy lingular consolidation, possibly concerning for pneumonia versus atelectasis, small left pleural effusion. CT abdomen pelvis is a poor quality due to various artifact: Has not shown any acute intra-abdominal or pelvic pathology except for mild hepatomegaly. Ultrasound abdomen: Is concerning for possible cirrhotic liver disease Blood culture:NTD. Patient has received 2 L IV fluid bolus, currently she is empirically started on Zosyn renally dosed. Maintain MAP greater than 65 NSTEMI: Troponin trend: With significant delta EKG has failed to show any acute ST-T wave changes 2D echo: Very limited and poor quality echo, LV systolic function is severely reduced, with EF of 25 to 30%. Was on heparin drip Continue telemetry monitoring Cardiology on board: Patient will need ischemia work-up once more stable. #Newly diagnosed heart failure with reduced ejection fraction: Appreciate 2D echo result: Monitor intake output charting Daily weight Continue telemetry monitoring Initially patient was on IV Lasix was on hold has been restarted currently on Lasix 40 p.o. daily. Acute kidney injury: Possibly secondary to septic shock, resulting in ATN. Follow renal ultrasound CT abdomen and pelvis has not shown any hydronephrosis Follow random sodium Random creatinine Random total protein FENA UPCR Monitor intake and output charting. Monitor BMP Avoid nephrotoxic's, Hold losartan Urinalysis reviewed Renal on board Transaminitis: Possibly secondary to shock liver: With some possible contribution from elevated CK: Currently improving. Ultrasound abdomen: Is concerning for cirrhotic liver CT abdomen pelvis: Has not shown any ductal dilatation Monitor liver function test: Currently LFTs improving Monitor INR Hyperkalemia: Has received hyperkalemia cocktail Serum potassium has trended down Monitor BMP Continue telemetry monitoring A-fib with RVR: patient has intermittently going into A-fib with RVR, with spontaneous conversion to sinus rhythm. For most part will likely start on amnio drip if she continues doing the same. Currently she is on heparin drip # Fall under unclear circumstances , unable to get off ground for 4 days Patient suspects she may have been hypoglycemic CUrrently blood sugar 120s range Graves CT has been done : As well as x-ray shoulder: Has shown mildly displaced fracture of greater trochanter of humerus. #Left humerus fracture: Pain control Orthopedic on board: Current plan is conservative medical management. # Hypoxia, currently on 6lpm supplemental 02 ABG with 7.27/47/62/21 supplemental 02 to keep saturation > 92% CXR with B/L infiltrates concerning for edema # h/o COPD duonebs, budesonide scheduled inhalation Not currently exacerbated #History of diabetes: SSI, monitor fingerstick glucose #Elevated creatinine kinase: Possibly secondary to fall Monitor CK for now # Sleep apnea Bipap at night time #Disposition: SNF placement is being attempted. #CODE STATUS full code Attestations Medical Necessity Statement*: Needs to be in hospital for management of MIN and monitoring of kidney function. Coding Level of Care Code Acute Code for [facility] Fwd Diagnoses Acute renal failure N17.9 Acute renal failure type: unspecified Fracture, humerus closed S42.255A Encounter type: initial encounter Fracture alignment: nondisplaced Humerus Location: greater tuberosity Laterality: left Acute hyperkalemia E87.5 Rhabdomyolysis T79.6XXA Encounter type: initial encounter Rhabdomyolysis type: traumatic Sepsis A41.9 Acute liver failure K72.00
[2022-07-03 21:26] LABS: Glucose Point of Care 308 mg/dL (70-110)
[2022-07-04] VITALS (10 sets, daily range): BP systolic 106–145; BP diastolic 56–82; PULSE 64–79; RESP 18–23; TEMP 36.3–36.5; O2SAT 94–98
[2022-07-04 04:36] LABS: Basophils % 0.2 %; Eosinophils # 0.3 10^3/uL (0.0-0.8); Eosinophils % 2.3 %; Hematocrit 32.3 % (37.0-47.0); Hemoglobin 9.2 g/dL (11.5-15.3); Lymphocytes # 0.9 10^3/uL (0.8-4.8); Mean Corpuscular HGB Conc 28.5 g/dL (30.0-36.0); Mean Corpuscular Hemoglobin 24.1 pg (28.0-34.0); Mean Corpuscular Volume 84.8 fl (81-99); Mean Platelet Volume 11.8 fL (7.4-10.4); Monocytes # 1.4 10^3/uL (0.2-0.9); Monocytes % 10.9 %; Neutrophils # 9.72 10^3/uL (1.8-7.7); Neutrophils % 78.6 %; Nucleated Red Blood Cells % 0 %; Platelet Count 166 10^3/cmm (130-400); Red Blood Count 3.81 10^6/uL (4.1-5.3); Red Cell Distribution Width 17.4 % (12.1-15.1); White Blood Count 12.4 10^3/uL (4.0-10.0)
[2022-07-04 04:42] LABS: Alanine Aminotransferase 283 U/L (0-33); Alkaline Phosphatase 68 U/L (35-105); Aspartate Amino Transferase 36 U/L (0-32); Blood Urea Nitrogen 78 mg/dL (8-23); Calcium 8.6 mg/dL (8.5-10.5); Carbon Dioxide 27 mmol/L (22-29); Chloride 95 mmol/L (98-107); Globulin 3.5 g/dL (1.3-4.6); Glomerular Filtration Rate 34.9 mL/min (90-130); Glucose 206 mg/dL (65-115); Osmolality Calculated 301 mOsm/kg (285-295); Sodium 131 mmol/L (136-145); Total Bilirubin 0.7 mg/dL (0.15-1.2); Total Protein 6.5 g/dL (6.6-8.7)
[2022-07-04 06:59] LABS: Glucose Point of Care 212 mg/dL (70-110)
[2022-07-04] MEDS: FUROsemide 40 mg Tablet PO ×2 (08:14→17:06)
[2022-07-04] MEDS: docusate sodium 100 mg Capsule PO ×2 (08:14→17:06)
[2022-07-04] MEDS: insulin lispro 100 unit/1 mL SUBCUT ×4 (08:14→21:01)
[2022-07-04] MEDS: acetaminophen 325 mg Tablet 650 MG PO ×2 (09:45→22:40)
[2022-07-04] MEDS: pantoprazole 40 mg SDV IVP (10:10)
[2022-07-04] MEDS: levofloxacin-dextrose 5 % 750 MG/150 ML PREMIX 100 MG IV (10:23)
[2022-07-04 11:33] LABS: Glucose Point of Care 270 mg/dL (70-110)
[2022-07-04] MEDS: heparin 5,000 unit/mL INJ 1 mL 5000 UNIT SUBCUT ×2 (11:41→22:36)
--- NOTE | 2022-07-04 11:53 | PM.PN ---
Subjective Subjective: Denies any complaints, on 2 L FiO2 Medications: Reviewed: Yes Medication Review Details: Reviewed medications Vitals/I&O/Wt Last Vital Signs Temp 97.5 F L 07/04/22 11:47 Pulse 74 07/04/22 11:47 Resp 18 07/04/22 11:47 BP 106/56 07/04/22 11:47 Pulse Ox 96 07/04/22 11:47 O2 Del Method Nasal Cannula 07/04/22 11:47 O2 Flow Rate 2 07/04/22 09:08 FiO2 24 07/04/22 00:40 07/03/22 07/04/22 07/04/22 22:59 06:59 14:59 Intake Total 480 / 1603.542 480 / 2083.542 480 / 480 Output Total 1950 / 1950 1050 / 3000 Balance -1470 / -346.458 -570 / -916.458 480 / 480 Weight last 48 hrs Weight 150.184 kg Weight 150.252 kg Weight 149.232 kg Physical Exam Narrative: Patient is awake alert, no acute distress, S1-S2 regular rate and rhythm Lungs clear Trace edema Urinary Catheter Management: Marcelo: Cath Placed During This Visit: yes Reason for Continuing Indwelling Catheter: Other Urinary Catheter Date of Insertion: 06/26/22 Urinary Catheter Time of Insertion: 12:58 Data 07/04/22 04:06 07/04/22 04:06 A&P Assessment and plan (1) Acute renal failure: 66 yr old female 1. septic shock - no clear source. appears to be improving 2.MIN -likely prerenal vs ATN. -no hydronephrosis on ct scan -ck of 699 -not high enough to cause rhabdomyolyisis induced MIN - Has Uremia improving , Cr trending down -Increase Lasix to 40 mg p.o. twice daily -2 g sodium restriction 1500 mill fluid restriction 3. hyperkalemia, improved 4. mixed resp and metabolic acidosis- lacatate of 5 to 3 to 1.8 - can be from metformin in min, or from volume depletion or infection -improved lactic acid level -pt usually has a hypercapneic resp acidosis from GREGORIO, 5. shocked liver- lft's are plateauing seen and examined w/ RN- telehealth visit informed consent for telehealth obtained from pt time spent >55 min Qualifiers: Acute renal failure type: unspecified Qualified Code(s): N17.9 - Acute kidney failure, unspecified Plan see above Attestations Medical Necessity Statement*: Per medicine Coding Level of Care Code Acute Code for [facility] Fwd Diagnoses Acute renal failure N17.9 Acute renal failure type: unspecified
--- NOTE | 2022-07-04 12:24 | XRR_ITS ---
PROCEDURE INFORMATION: Exam: XR Chest Exam date and time: 07/04/2022 11:35 AM Age: 66 years old Clinical indication: Condition or disease; Lung condition and disease; Other: Chf TECHNIQUE: Imaging protocol: Radiologic exam of the chest. Views: 1 view. COMPARISON: CR XR chest 1V portable [id number] 06/27/2022 7:49 AM FINDINGS: Lungs: Lung volumes are decreased, stable. There is hazy ground-glass opacification right mid to lower lung zone difficult to assess due to body habitus but may reflect mild pulmonary congestion. Indistinct retrocardiac opacity partially silhouetting of the left hemidiaphragm that may be due to subsegmental atelectasis. Upper lung zones are clear. Pleural spaces: Unremarkable. No pleural effusion. No pneumothorax. Heart/Mediastinum: Heart is enlarged, unchanged. There is pulmonary vascular redistribution indicating elevated central venous pressure. Bones/joints: Unremarkable for age. XR/XR chest 1V portable [id number] IMPRESSION: Cardiomegaly with findings suspicious for mild CHF and left basilar subsegmental atelectasis.
[2022-07-04 13:19] LABS: Thyroid Stimulating Hormone 4.62 uIU/mL (0.27-4.20)
--- NOTE | 2022-07-04 13:20 | PM.PN ---
Subjective Subjective: Patient is overall improving. Renal function improving. No chest pain. Vitals/I&O/Wt Last Vital Signs Temp 97.5 F L 07/04/22 11:47 Pulse 74 07/04/22 11:47 Resp 18 07/04/22 11:47 BP 106/56 07/04/22 11:47 Pulse Ox 96 07/04/22 11:47 O2 Del Method Nasal Cannula 07/04/22 11:47 O2 Flow Rate 2 07/04/22 09:08 FiO2 24 07/04/22 00:40 07/03/22 07/04/22 07/04/22 22:59 06:59 14:59 Intake Total 480 / 1603.542 480 / 2083.542 630 / 630 Output Total 1950 / 1950 1050 / 3000 Balance -1470 / -346.458 -570 / -916.458 630 / 630 Weight last 48 hrs Weight 331 lb 1.6 oz Weight 331 lb 4 oz Weight 329 lb Physical Exam Narrative: GENERAL: Patient is oriented.More alert today NECK: No jugular vein distension. [] HEENT: No cyanosis. No icterus. No pallor. [] HEART: Irregularly irregular, S1 and S2. LUNGS: Clear to auscultate bilaterally. CENTRAL NERVOUS SYSTEM: Grossly nonfocal. [] EXTREMITIES: Lower extremities with 1+ edema bilaterally. Urinary Catheter Management: Marcelo: Cath Placed During This Visit: yes Reason for Continuing Indwelling Catheter: Other Urinary Catheter Date of Insertion: 06/26/22 Urinary Catheter Time of Insertion: 12:58 Data 07/05/22 04:40 07/05/22 04:40 A&P Assessment and plan (1) Fracture of humerus, proximal, right, closed: (2) Acute liver failure: (3) Sepsis: (4) Acute renal failure: Qualifiers: Acute renal failure type: unspecified Qualified Code(s): N17.9 - Acute kidney failure, unspecified (5) Rhabdomyolysis: Qualifiers: Encounter type: initial encounter Rhabdomyolysis type: traumatic Qualified Code(s): T79.6XXA - Traumatic ischemia of muscle, initial encounter (6) Troponin level elevated: (7) Atrial fibrillation: Plan Patient is overall doing well. We will plan on stress test for tomorrow. If significant ischemia, she will need coronary angiogram. Renal function is progressively improving. Monitor Thank you for involving us with care of this patient. We will continue to follow. Please call with questions. Attestations Medical Necessity Statement*: Care expected to cross 2 midnights Coding Level of Care Code Acute Code for Chg Fwd Diagnoses Fracture of humerus, proximal, right, closed S42.201A Acute liver failure K72.00 Sepsis A41.9 Acute renal failure N17.9 Acute renal failure type: unspecified Rhabdomyolysis T79.6XXA Encounter type: initial encounter Rhabdomyolysis type: traumatic Troponin level elevated R77.8 Atrial fibrillation I48.91
[2022-07-04 13:26] LABS: Folate Level 6.1 ng/mL (4.8-37.3)
[2022-07-04 13:28] LABS: NT Pro B Type Natriuretic Pept 7881 pg/mL (0-125); Procalcitonin 0.24 ng/mL (0-0.5); Vitamin B12 1901 pg/mL (232-1245)
[2022-07-04 13:40] LABS: Iron 41 ug/dL (37-145); Total Iron Binding Capacity 408 mcg/dl; Unsaturated Iron Binding 367 ug/dL (112-347)
[2022-07-04 16:49] LABS: Glucose Point of Care 300 mg/dL (70-110)
--- NOTE | 2022-07-04 16:56 | P.PN_ITS ---
Subjective Subjective: Hospital course, labs appreciated. Examination patient sitting up in chair, Marcelo in place. Awake and alert.. Able to have complete conversation. On nasal cannula oxygen supplementation saturating more than 92%. Has remained hemodynamically stable and afebrile otherwise. Good urine output through Marcelo catheter. Labs reviewed. Vitals/I&O/Wt Last Vital Signs Temp 97.5 F L 07/04/22 11:47 Pulse 74 07/04/22 11:47 Resp 18 07/04/22 11:47 BP 106/56 07/04/22 11:47 Pulse Ox 96 07/04/22 11:47 O2 Del Method Nasal Cannula 07/04/22 11:47 O2 Flow Rate 2 07/04/22 09:08 FiO2 24 07/04/22 00:40 07/04/22 07/04/22 07/04/22 06:59 14:59 22:59 Intake Total 480 / 2083.542 990 / 990 Output Total 1050 / 3000 Balance -570 / -916.458 990 / 990 Weight last 48 hrs Weight 150.184 kg Weight 150.252 kg Weight 149.232 kg Physical Exam Narrative: EXAM NARRATIVE: General: No acute distress, AO x3, NC oxygen supplementation, chronically sick appearing, morbid obesity HEENT: PERRLA, pupils bilaterally equal and reactive Chest:Bilateral bronchial breath sounds all over lung mohan, occasional rhonchi lower lung mohan with fine crackles present bilaterally on lower zones Cardiac: S1-S2 regular, soft pansystolic murmur at apex radiating to axilla 2/6, no tachycardia, no gallops, no rubs Abdomen: Soft, nontender, no organomegaly, bowel sounds present, morbidly obese Neuro: No focal deficits, no facial deformity, AO x3, power 5/5 in all limbs Urinary Catheter Management: Marcelo: Cath Placed During This Visit: yes Reason for Continuing Indwelling Catheter: Other Urinary Catheter Date of Insertion: 06/26/22 Urinary Catheter Time of Insertion: 12:58 Data 07/04/22 04:06 07/04/22 04:06 A&P Assessment and plan (1) Acute on chronic respiratory failure with hypoxia and hypercapnia: History of obstructive sleep apnea along with COPD. Currently having acute on chronic systolic and diastolic congestive heart failure which is resolving. Oxygen supplementation keeping saturation over 88%. Pulmicort twice daily, ipratropium, Xopenex every 6 hourly. BiPAP as needed. (2) Congestive heart failure: New diagnosis. Cardiogram on admission showed low EF of 25 to 30% though was poor quality so could not do regional wall motion abnormality. Troponin elevated on admission. Most likely secondary to ischemic cardiomyopathy. Start on low-dose metoprolol 12.5 mg twice daily. Appreciate cardiology recommendations. If able to we will plan for Lexiscan stress test in a.m. for further evaluation of ischemic work-up. Check A1c, lipid panel. Start on Plavix 75 mg daily. Patient is allergic to aspirin. Qualifiers: Heart failure type: combined systolic and diastolic Heart failure chronicity: acute Qualified Code(s): I50.41 - Acute combined systolic (congestive) and diastolic (congestive) heart failure (3) Cardiomyopathy: (4) Acute renal failure: Resolving. Uremia resolving. Though still elevated. Appreciate nephrology recommendations. Good urine output. Lasix increased to 40 mg twice daily. Medical reconciliation done for nephrotoxic drugs. Monitor BMP daily for now. Qualifiers: Acute renal failure type: unspecified Qualified Code(s): N17.9 - Acute kidney failure, unspecified (5) Uremia: (6) Atrial fibrillation: Rate controlled. Metoprolol 12.5 mg twice daily as above. New diagnosis. Will repeat EKG to see if persistent. If persistent we will plan and discussed in detail with patient regarding anticoagulation for stroke prevention. (7) Diabetes mellitus with peripheral autonomic neuropathy: Check A1c. Supposed to be on Lantus 100 units twice daily, lispro 40 units twice daily. Currently on low-dose protocol. Required 32 units of insulin yesterday. Switch to high-dose protocol. (8) Fracture, humerus closed: Appreciate orthopedic recommendations. Continue with sling. Qualifiers: Encounter type: initial encounter Fracture alignment: nondisplaced Humerus Location: greater tuberosity Laterality: left Qualified Code(s): S42.255A - Nondisplaced fracture of greater tuberosity of left humerus, initial encounter for closed fracture (9) Acute hyperkalemia: (10) Rhabdomyolysis: Resolved. Qualifiers: Encounter type: initial encounter Rhabdomyolysis type: traumatic Shiva lified Code(s): T79.6XXA - Traumatic ischemia of muscle, initial encounter (11) Sepsis: Resolved. (12) Acute liver failure: Most likely present on admission from shock. Trending down. Continue to monitor. Check hepatitis and HIV. (13) Troponin level elevated: Non-ST elevation DC. Appreciate cardiology recommendations. Heparin drip was transitioned to subcu heparin after completion of 72 hours of heparin drip. Hold off on statin given liver dysfunction. Start on Plavix 75 mg daily. Plan Full code. Renal nondialysis carb consistent diet. Protonix for PUD prophylaxis Heparin 5000 subcu twice daily for DVT prophylaxis. Discharge plan: Plan to discharge to SNF for further rehabilitation. Patient has been accepted. We will plan to transition to SNF once medically stable. Attestations Medical Necessity Statement*: Requires further hospitalization for management of resolving shock, cardiomyopathy with new low EF and acute congestive heart failure, resolving renal failure and liver failure while ischemia is ruled out Diagnoses Acute on chronic respiratory failure with hypoxia and hypercapnia J96.21; J96.22 Congestive heart failure I50.41 Heart failure type: combined systolic and diastolic Heart failure chronicity: acute Cardiomyopathy I42.9 Acute renal failure N17.9 Acute renal failure type: unspecified Uremia N19 Atrial fibrillation I48.91 Diabetes mellitus with peripheral autonomic neuropathy E11.43 Fracture, humerus closed S42.255A Encounter type: initial encounter Fracture alignment: nondisplaced Humerus Location: greater tuberosity Laterality: left Acute hyperkalemia E87.5 Rhabdomyolysis T79.6XXA Encounter type: initial encounter Rhabdomyolysis type: traumatic Sepsis A41.9 Acute liver failure K72.00 Troponin level elevated R77.8
--- NOTE | 2022-07-04 17:05 | ECG_ITS ---
[facility] Test Date: 2022-07-04 Pat Name: Siobhan Lechuga Department: Room: 270 Gender: Female Moth [employer]er: : 1955 Requested By: Shaji Durán Order Number: [id number] Daniel MD: Cesia Moffett M.D. Measurements Intervals [place] Rate: 75 P: 69 AR: 156 QRS: 91 QRSD: 114 T: -15 QT: 379 QTc: 425 Interpretive Statements SINUS RHYTHM BORDERLINE RIGHT AXIS DEVIATION [QRS AXIS > 90] INFERIOR MYOCARDIAL INFARCTION , PROBABLY OLD [40+ ms Q WAVE AND/OR ST/T ABNORMALITY IN II/aVF] ANTEROLATERAL MYOCARDIAL INFARCTION , PROBABLY OLD [40+ ms Q WAVE IN I/aVL/V3-V6] Compared to ECG 06/28/2022 10:53:19 Atrial fibrillation no longer present Myocardial infarct finding still present Electronically Signed On 07-05-2022 7:04:41 CDT by Cesia Moffett M.D. [email or web address]
[2022-07-04 20:27] LABS: Glucose Point of Care 290 mg/dL (70-110)
[2022-07-04] MEDS: levalbuterol 0.63 mg/3 mL Neb INHALATION (20:40)
[2022-07-04] MEDS: ipratropium 0.5 mg/2.5 mL Neb INHALATION (20:40)
[2022-07-04] MEDS: budesonide 0.5 mg/2 mL Neb INHALATION (20:40)
[2022-07-04] MEDS: metoprolol tartrate 25 mg Tablet 12.5 MG PO (20:59)
[2022-07-05] VITALS (8 sets, daily range): BP systolic 99–124; BP diastolic 54–78; PULSE 66–70; RESP 17–24; TEMP 36.4–36.8; O2SAT 92–97
[2022-07-05] MEDS: levalbuterol 0.63 mg/3 mL Neb INHALATION ×3 (01:59→14:34)
[2022-07-05] MEDS: ipratropium 0.5 mg/2.5 mL Neb INHALATION ×3 (01:59→14:34)
[2022-07-05 05:27] LABS: Basophils % 0.3 %; Eosinophils # 0.3 10^3/uL (0.0-0.8); Eosinophils % 2.4 %; Hematocrit 30.8 % (37.0-47.0); Hemoglobin 8.7 g/dL (11.5-15.3); Mean Corpuscular HGB Conc 28.2 g/dL (30.0-36.0); Mean Corpuscular Hemoglobin 24.1 pg (28.0-34.0); Mean Corpuscular Volume 85.3 fl (81-99); Mean Platelet Volume 12.4 fL (7.4-10.4); Monocytes # 1.2 10^3/uL (0.2-0.9); Monocytes % 9.9 %; Neutrophils # 9.57 10^3/uL (1.8-7.7); Neutrophils % 78.6 %; Nucleated Red Blood Cells % 0 %; Platelet Count 190 10^3/cmm (130-400); Red Blood Count 3.61 10^6/uL (4.1-5.3); Red Cell Distribution Width 17.8 % (12.1-15.1); White Blood Count 12.2 10^3/uL (4.0-10.0)
[2022-07-05 05:47] LABS: Estmated Average Glucose 186; Hemoglobin A1C 8.1 % (4.0-6.0)
[2022-07-05 05:50] LABS: Alanine Aminotransferase 199 U/L (0-33); Alkaline Phosphatase 84 U/L (35-105); Anion Gap 13.6 (5-19); Aspartate Amino Transferase 34 U/L (0-32); Blood Urea Nitrogen 73 mg/dL (8-23); Calcium 8.6 mg/dL (8.5-10.5); Carbon Dioxide 28 mmol/L (22-29); Chloride 98 mmol/L (98-107); Chol HDL Ratio 2.66 mg/dL (0.0-4.40); Cholesterol 93 mg/dL (0-200); Globulin 3.5 g/dL (1.3-4.6); Glomerular Filtration Rate 41.1 mL/min (90-130); Glucose 229 mg/dL (65-115); HDL Cholesterol 35 mg/dL (60-100); LDL Cholesterol Calculated 43 mg/dL (50-129); Osmolality Calculated 309 mOsm/kg (285-295); Potassium 4.6 mmol/L (3.5-5.1); Sodium 135 mmol/L (136-145); Total Bilirubin 0.4 mg/dL (0.15-1.2); Total Protein 6.5 g/dL (6.6-8.7); Triglycerides 77 mg/dL (0-150); VLDL Cholestrol Calculation 15 mg/dL (0-30)
[2022-07-05 07:03] LABS: Glucose Point of Care 226 mg/dL (70-110)
[2022-07-05] MEDS: budesonide 0.5 mg/2 mL Neb INHALATION (07:35)
--- NOTE | 2022-07-05 07:53 | PM.PN ---
Subjective Subjective: Patient doing well. No chest pain Vitals/I&O/Wt Last Vital Signs Temp 98.3 F 07/05/22 07:50 Pulse 68 07/05/22 07:50 Resp 22 H 07/05/22 04:00 BP 124/78 07/05/22 07:50 Pulse Ox 97 07/05/22 07:50 O2 Del Method BiPAP 07/05/22 02:00 O2 Flow Rate 2 07/04/22 20:43 FiO2 24 07/05/22 04:18 07/04/22 07/05/22 07/05/22 22:59 06:59 14:59 Intake Total 600 / 1590 Output Total 1600 / 1600 1100 / 2700 Balance -1000 / -10 -1100 / -1110 Weight last 48 hrs Weight 335 lb 12.8 oz Weight 331 lb 1.6 oz Weight 331 lb 4 oz Physical Exam Narrative: GENERAL: Patient is oriented.More alert today NECK: No jugular vein distension. [] HEENT: No cyanosis. No icterus. No pallor. [] HEART: Irregularly irregular, S1 and S2. LUNGS: Clear to auscultate bilaterally. CENTRAL NERVOUS SYSTEM: Grossly nonfocal. [] EXTREMITIES: Lower extremities with 1+ edema bilaterally. Urinary Catheter Management: Marcelo: Cath Placed During This Visit: yes Reason for Continuing Indwelling Catheter: Other Urinary Catheter Date of Insertion: 06/26/22 Urinary Catheter Time of Insertion: 12:58 Data 07/05/22 04:40 07/05/22 04:40 A&P Assessment and plan (1) Fracture of humerus, proximal, right, closed: (2) Acute liver failure: (3) Sepsis: (4) Acute renal failure: Qualifiers: Acute renal failure type: unspecified Qualified Code(s): N17.9 - Acute kidney failure, unspecified (5) Rhabdomyolysis: Qualifiers: Encounter type: initial encounter Rhabdomyolysis type: traumatic Qualified Code(s): T79.6XXA - Traumatic ischemia of muscle, initial encounter (6) Troponin level elevated: (7) Atrial fibrillation: Plan Stress test could not be performed because of weight and inability to lay flat Medical therapy for now. Patient also wants medical therapy. Thank you for involving us with care of this patient. Please call with questions. Attestations Medical Necessity Statement*: Care expected to cross 2 midnights. Coding Level of Care Code Acute Code for Chg Fwd Diagnoses Fracture of humerus, proximal, right, closed S42.201A Acute liver failure K72.00 Sepsis A41.9 Acute renal failure N17.9 Acute renal failure type: unspecified Rhabdomyolysis T79.6XXA Encounter type: initial encounter Rhabdomyolysis type: traumatic Troponin level elevated R77.8 Atrial fibrillation I48.91
[2022-07-05] MEDS: pantoprazole 40 mg SDV IVP (08:41)
[2022-07-05] MEDS: clopidogrel 75 mg Tablet PO (08:44)
[2022-07-05] MEDS: docusate sodium 100 mg Capsule PO (08:44)
[2022-07-05] MEDS: insulin lispro 100 unit/1 mL SUBCUT ×2 (08:44→11:49)
[2022-07-05] MEDS: FUROsemide 40 mg Tablet PO (08:47)
[2022-07-05] MEDS: metoprolol tartrate 25 mg Tablet 12.5 MG PO (08:49)
--- NOTE | 2022-07-05 09:09 | P.PN_ITS ---
Subjective Subjective: no new complaints Medications: Reviewed: Yes Vitals/I&O/Wt Last Vital Signs Temp 98.3 F 07/05/22 07:50 Pulse 68 07/05/22 07:50 Resp 22 H 07/05/22 04:00 BP 124/78 07/05/22 07:50 Pulse Ox 97 07/05/22 07:50 O2 Del Method BiPAP 07/05/22 02:00 O2 Flow Rate 2 07/04/22 20:43 FiO2 24 07/05/22 04:18 07/04/22 07/05/22 07/05/22 22:59 06:59 14:59 Intake Total 600 / 1590 Output Total 1600 / 1600 1100 / 2700 Balance -1000 / -10 -1100 / -1110 Weight last 48 hrs Weight 152.316 kg Weight 150.184 kg Weight 150.252 kg Physical Exam Urinary Catheter Management: Marcelo: Cath Placed During This Visit: yes Reason for Continuing Indwelling Catheter: Other Urinary Catheter Date of Insertion: 06/26/22 Urinary Catheter Time of Insertion: 12:58 Data 07/05/22 04:40 07/05/22 04:40 A&P Assessment and plan (1) Acute renal failure: 66 yr old female 1. septic shock - no clear source. appears to be improving 2.MIN -likely prerenal vs ATN. -no hydronephrosis on ct scan -ck of 699 -not high enough to cause rhabdomyolyisis induced MIN - Has Uremia improving , Cr trending down -c/w Lasix to 40 mg p.o. twice daily -2 g sodium restriction 1500 mill fluid restriction 3. hyperkalemia, improved 4. mixed resp and metabolic acidosis- lacatate of 5 to 3 to 1.8 - can be from metformin in min, or from volume depletion or infection -improved lactic acid level -pt usually has a hypercapneic resp acidosis from GREGORIO, 5. shocked liver- lft's are plateauing seen and examined w/ RN- telehealth visit informed consent for telehealth obtained from pt time spent >55 min Qualifiers: Acute renal failure type: unspecified Qualified Code(s): N17.9 - Acute kidney failure, unspecified Plan see above Attestations Medical Necessity Statement*: per medicine Coding Level of Care Code Acute Code for [facility] Fwd Diagnoses Acute renal failure N17.9 Acute renal failure type: unspecified
[2022-07-05 11:26] LABS: Glucose Point of Care 200 mg/dL (70-110)
--- NOTE | 2022-07-05 11:34 | PM.DCS ---
Discharge Providers Date of Admission: 06/26/22 14:16 Date of Discharge: July 05, 2022 Attending Provider at Admission: Paz Hansen MD Attending Provider at Discharge: Shaji Durán MD Consults: Telemetry nephrology Cardiology: Dr. Rubalcava Orthopedics: Dr. Boss Primary Care Provider: Ronny Torres DO Diagnoses at Discharge Discharge Diagnosis (1) Acute renal failure: Status: Acute Qualifiers: Acute renal failure type: unspecified Qualified Code(s): N17.9 - Acute kidney failure, unspecified (2) Uremia: Status: Acute (3) Cardiomyopathy: Status: Acute (4) Congestive heart failure: Status: Acute Qualifiers: Heart failure chronicity: acute Heart failure type: combined systolic and diastolic Qualified Code(s): I50.41 - Acute combined systolic (congestive) and diastolic (congestive) heart failure (5) Atrial fibrillation: Status: Acute (6) Troponin level elevated: Status: Acute (7) Fracture of humerus, proximal, right, closed: Status: Acute (8) Acute liver failure: Status: Acute (9) Sepsis: Status: Acute Permanent problem details: possible diagnosis at this time (10) Leukocytosis: Status: Acute Qualifiers: Leukocytosis type: unspecified Qualified Code(s): D72.829 - Elevated white blood cell count, unspecified (11) Fracture, humerus closed: Status: Acute Qualifiers: Encounter type: initial encounter Fracture alignment: nondisplaced Humerus Location: greater tuberosity Laterality: left Qualified Code(s): S42.255A - Nondisplaced fracture of greater tuberosity of left humerus, initial encounter for closed fracture (12) Acute hyperkalemia: Status: Acute (13) Rhabdomyolysis: Status: Acute Qualifiers: Encounter type: initial encounter Rhabdomyolysis type: traumatic Qualified Code(s): T79.6XXA - Traumatic ischemia of muscle, initial encounter (14) Morbid obesity with BMI of 70 and over, adult: Status: Acute (15) Acute on chronic respiratory failure with hypoxia and hypercapnia: Status: Acute (16) Hypertension: Status: Chronic (17) Diabetes mellitus with peripheral autonomic neuropathy: Status: Acute Reason for Visit Reason for Visit: FOUND ON FLOOR Brief History: History as per HPI: Siobhan Lechuga is a 66 year old female with PMH HTN, DM, sleep apnea, COPD who is brought to the hospital today after being found down in her home. Per patient, she was in her usual state of health on Monday when she suddenly fell. Uncertain about circumstances of the fall, states that suddenlu up was down and down was up . She suspects she may have had hypoglycemia. Does not recall any dizziness, does not recall any preceeding chest pain, dyspnea, palpitations or fever. Her left arm was difficult to mobilize after the fall. She is found to have a humerus fracture today, unable to tell me why she couldn't get off the floor. Attributes this to pain in her arm. Per patient's son, she is ambulatory at a baseline with a walker. She is significantly swollen with anasarca, eyes are shut due to significant edema. Per patient she takes lasix at home but unable to tell me dose. She is currently awake, alert and oriented Hospital Course Hospital Course Patient was initially admitted on 06/26 to ICU for management of shock with diagnosis of possible sepsis as patient was hypothermic, hypotensive with elevated lactate and leukocytosis. She was started on empiric antibiotics and IV fluids. On admission she was found to have acute kidney injury with liver failure and hyperkalemia along with hypoxia. Echocardiogram was done which showed a severely reduced EF of 20 to 25%. Nephrology and cardiology were consulted. Patient was also found to have left humerus fracture for which orthopedics was consulted. During hospitalization she was also found to be in A-fib with RVR which spontaneously converted to sinus rhythm with IV fluids. Patient showed gradual improvement and was later transitioned over to the floors. Her septic shock resolved and kidney functions and liver function stabilized. She was having good amount of urine output with oral Lasix. Patient has resolution of acute on chronic respiratory failure. Given new low EF there was a concern for ACS for which attempt on Lexiscan stress test was done but could not be completed as patient's body habitus was not compatible with Lexiscan stress test machine at the hospital. Safe discharge plan was done in detail with the patient and she was agreeable to SNF placement. She was discharged medically stable condition. Physical Exam Narrative: EXAM NARRATIVE: General: No acute distress, AO x3, NC oxygen supplementation, chronically sick appearing, morbid obesity HEENT: PERRLA, pupils bilaterally equal and reactive Chest:Bilateral bronchial breath sounds all over lung mohan, occasional rhonchi lower lung mohan with fine crackles present bilaterally on lower zones Cardiac: S1-S2 regular, soft pansystolic murmur at apex radiating to axilla 2/6, no tachycardia, no gallops, no rubs Abdomen: Soft, nontender, no organomegaly, bowel sounds present, morbidly obese Neuro: No focal deficits, no facial deformity, AO x3, power 5/5 in all limbs Urinary Catheter Management: Marcelo: Cath Placed During This Visit: yes Reason for Continuing Indwelling Catheter: Other Urinary Catheter Date of Insertion: 06/26/22 Urinary Catheter Time of Insertion: 12:58 Discharge Data Studies Completed and Pending Completed Studies During Hospitalization Category Date Time Status CT cervical spin wo con* [id number] Routine Cat Scan 06/26/22 15:[address] chest abdomen pelvis [[place] [id number] Cat Scan 06/26/22 15:30 Completed ] Routine CT head wo con* [id number] Routine Cat Scan 06/26/22 15:30 Completed CXRP [XR chest 1V portable [id number]] Routine Exams 06/27/22 07:48 Completed XR chest 1V portable [id number] Routine Exams 07/04/22 12:24 Completed XR chest 1V portable [id number] Stat Exams 06/26/22 12:08 Completed XR shoulder LT min 2V* [id number] Stat Exams 06/26/22 12:14 Completed CV. echo wo/w contrast [id number] Routine Ultrasound 06/27/22 05:22 Completed US abdomen complete* [id number] Routine Ultrasound 06/27/22 08:19 Completed Pending at discharge Category Date Time Status Sestamibi Stress Test Request Routine Exams 07/04/22 17:08 Ordered MRSA by PCR Routine Lab 07/04/22 13:20 Received Radiology Impressions Shoulder X-Ray 06/26/22 12:14 IMPRESSION: Mildly displaced fracture of the greater tuberosity of the humerus. Cervical Spine CT 06/26/22 15:30 IMPRESSION: No acute findings. Chest/Abdomen/Pelvis CT 06/26/22 15:30 IMPRESSION: 1. Limited exam due to varies artifacts and lack of IV contrast. 2. Cortical irregularity left posterior 11th rib with no obvious fracture. No pneumothorax. Small left pleural effusion and patchy lingular consolidation which may represent atelectasis/pneumonia versus small pulmonary contusion. No obvious acute thoracic findings otherwise. 3. Coronary calcification. IMPRESSION: 1. Limited exam due to varies artifacts and lack of contrast. 2. No obvious acute traumatic injury in the abdomen and pelvis. 3. Mild hepatomegaly. 4. Soft tissue and other nonacute findings as described above. No hydronephrosis. Head CT 06/26/22 15:30 IMPRESSION: No acute intracranial abnormality. Abdomen Ultrasound 06/27/22 08:19 Impression: 1. Extremely limited evaluation of the abdominal structures due to patient's body habitus. 2. Prior cholecystectomy. 3. Enlarged cirrhotic appearing liver. 4. Visceral organs are all very difficult to visualize. Chest X-Ray 07/04/22 12:24 IMPRESSION: Cardiomegaly with findings suspicious for mild CHF and left basilar subsegmental atelectasis. Echocardiogram: ?CONCLUSIONS ?Very limited quality echocardiogram because of poor ultrasonic ?windows. ?LV systolic function is severely reduced with EF of 25 to 30%. ?Valvular structures are not well-visualized. ?No comparsion studies are available ?Tray Rubalcava MD ?(Electronically Signed) ?Final Date:? ? ? 27 June 2022 ? 16:21 Microbiology 07/04/22 13:20 Nose MRSA Culture - Final 06/29/22 01:00 Arm - Abscess Wound Culture - Final Staphylococcus haemolyticus 06/26/22 12:25 Blood Blood Culture - Final NO GROWTH AFTER 5 DAYS Laboratory Results WBC 12.2 10^3/uL (4.0-10.0) H 07/05/22 04:40 Corrected WBC Cancelled 06/27/22 06:08 RBC 3.61 10^6/uL (4.1-5.3) L 07/05/22 04:40 Hgb 8.7 g/dL (11.5-15.3) L 07/05/22 04:40 Hct 30.8 % (37.0-47.0) L 07/05/22 04:40 MCV 85.3 fl (81-99) 07/05/22 04:40 MCH 24.1 pg (28.0-34.0) L 07/05/22 04:40 MCHC 28.2 g/dL (30.0-36.0) L 07/05/22 04:40 RDW 17.8 % (12.1-15.1) H 07/05/22 04:40 Plt Count 190 10^3/cmm (130-400) 07/05/22 04:40 MPV 12.4 fL (7.4-10.4) H 07/05/22 04:40 Gran % Cancelled 06/27/22 06:08 Neut % (Auto) 78.6 % 07/05/22 04:40 Lymph % (Auto) 8.0 % 07/05/22 04:40 Hawkins % (Auto) 9.9 % 07/05/22 04:40 Eos % (Auto) 2.4 % 07/05/22 04:40 Baso % (Auto) 0.3 % 07/05/22 04:40 Neut # (Auto) 9.57 10^3/uL (1.8-7.7) H 07/05/22 04:40 Lymph # (Auto) 1.0 10^3/uL (0.8-4.8) 07/05/22 04:40 Hawkins # (Auto) 1.2 10^3/uL (0.2-0.9) H 07/05/22 04:40 Eos # (Auto) 0.3 10^3/uL (0.0-0.8) 07/05/22 04:40 Baso # (Auto) 0.0 10^3/uL (0.0-0.1) 07/05/22 04:40 Absolute Gran (auto) Cancelled 06/27/22 06:08 Nucleated RBC % (auto) 0 % 07/05/22 04:40 Nucleated RBCs # 0.0 /100WBC 07/05/22 04:40 PT 15.70 SECONDS (12.1-14.9) H 07/01/22 03:09 INR 1.21 (0.8-1.2) H 07/01/22 03:09 APTT 27.0 SECONDS (23.9-36.7) 07/01/22 03:09 Fibrinogen 360 mg/dL (174-498) 06/30/22 04:50 Specimen Type Arterial 06/28/22 16:00 Sample Site Radial, right 06/28/22 16:00 ABG pH 7.27 (7.35-7.45) L 06/28/22 16:00 ABG pCO2 55.5 mmHg (35-45) H 06/28/22 16:00 ABG pO2 89.2 mmHg (80.0-100.0) 06/28/22 16:00 ABG HCO3 25.4 mmol/L (22-26) 06/28/22 16:00 ABG O2 Saturation 97.6 06/28/22 16:00 ABG Base Excess -2.0 mmol/L (-2.0-2.0) 06/28/22 16:00 Claude Test Pos 06/28/22 16:00 A-a O2 Gradient Not Reportable 06/28/22 16:00 Hematocrit 31.4 % (37-47) L 06/28/22 16:00 Hgb O2 Saturation 96.1 % (95-100) 06/28/22 16:00 Carboxyhemoglobin 1.8 %THgb (0.4-20.1) 06/28/22 16:00 Methemoglobin < 0.0 % (0.4-1.5) L 06/28/22 16:00 Total Hemoglobin 10.3 g/dL (12-16) L 06/28/22 16:00 Sodium 140.0 mmol/L (131-143) 06/28/22 16:00 Potassium 4.4 mmol/L (3.5-5.0) 06/28/22 16:00 Glucose 225.0 mg/dL (70-115) H 06/28/22 16:00 Ionized Calcium 1.0 mmol/L (1.1-1.4) L 06/28/22 16:00 O2 Delivery Device Bipap 06/28/22 16:00 O2 Liters/Min 4.0 % 06/26/22 12:29 FiO2 21.0 % 06/28/22 10:00 [place]er ID Gd 06/28/22 16:00 Sodium 135 mmol/L (136-145) L 07/05/22 04:40 Potassium 4.6 mmol/L (3.5-5.1) 07/05/22 04:40 Chloride 98 mmol/L (98-107) 07/05/22 04:40 Carbon Dioxide 28 mmol/L (22-29) 07/05/22 04:40 Anion Gap 13.6 (5-19) 07/05/22 04:40 BUN 73 mg/dL (8-23) H 07/05/22 04:40 Creatinine 1.3 mg/dL (0.5-0.9) H 07/05/22 04:40 GFR Calculation 41.1 mL/min (90-130) L 07/05/22 04:40 Glucose 229 mg/dL (65-115) H 07/05/22 04:40 POC Glucose 200 mg/dL (70-110) H 07/05/22 11:03 Estimat Average Glucose 186 07/05/22 04:40 Hemoglobin A1c 8.1 % (4.0-6.0) H 07/05/22 04:40 Calculated Osmolality 309 mOsm/kg (285-295) H 07/05/22 04:40 Lactic Acid Cancelled 06/27/22 06:08 Lactic Acid (Sepsis) 3.1 mmol/L (0.5-2.2) H 06/26/22 15:50 Lactate 1.8 mmol/L (0.5-2.2) 06/27/22 06:45 Calcium 8.6 mg/dL (8.5-10.5) 07/05/22 04:40 Phosphorus 4.7 mg/dL (2.5-4.5) H 06/30/22 04:50 Magnesium 2.9 mg/dL (1.7-2.3) H 06/30/22 04:50 Iron 41 ug/dL (37-145) 07/04/22 03:51 TIBC 408 mcg/dl 07/04/22 03:51 % Saturation 10.0 % (20-50) L 07/04/22 03:51 Unsat Iron Binding 367 ug/dL (112-347) H 07/04/22 03:51 Total Bilirubin 0.4 mg/dL (0.15-1.2) 07/05/22 04:40 AST 34 U/L (0-32) H 07/05/22 04:40 ALT 199 U/L (0-33) H 07/05/22 04:40 Alkaline Phosphatase 84 U/L (35-105) 07/05/22 04:40 Creatine Kinase 48 U/L (26-192) 06/30/22 04:50 CK-MB (CK-2) 50.9 ng/mL (0-5.34) H 06/26/22 11:48 CK-MB (CK-2) Rel Index 7.2 % (0.0-10.4) 06/26/22 11:48 Troponin T Gen 5 ng/L 573 ng/L (0-10) H* 06/26/22 15:50 Troponin T Baseline 883 ng/L (0-10) H* 06/27/22 06:45 Troponin T 120 Minute 952.4 ng/L (0-10) H 06/27/22 08:40 Delta Troponin T 69.4 ABS# (0-10) H* 06/27/22 08:40 Troponin T Hi Sens 6Hr 983.3 ng/L (0-10) H 06/27/22 14:15 Troponin T Hi Sens 6Hr Delta 100.3 ng/L (0-12) H* 06/27/22 14:15 NT-Pro-B Natriuret Pep 7881 pg/mL (0-125) H 07/04/22 03:51 Total Protein 6.5 g/dL (6.6-8.7) L 07/05/22 04:40 Albumin 3.0 g/dL (3.5-5.2) L 07/05/22 04:40 Globulin 3.5 g/dL (1.3-4.6) 07/05/22 04:40 Triglycerides 77 mg/dL (0-150) 07/05/22 04:40 Cholesterol 93 mg/dL (0-200) 07/05/22 04:40 LDL Cholesterol, Calc 43 mg/dL (50-129) L 07/05/22 04:40 Total VLDL Cholesterol 15 mg/dL (0-30) 07/05/22 04:40 HDL Cholesterol 35 mg/dL (60-100) L 07/05/22 04:40 Cholesterol/HDL Ratio 2.66 mg/dL (0.0-4.40) 07/05/22 04:40 Vitamin B12 1901 pg/mL (232-1245) H 07/04/22 03:51 Folate 6.1 ng/mL (4.8-37.3) 07/04/22 03:51 Procalcitonin 0.24 ng/mL (0-0.5) 07/04/22 03:51 TSH 4.62 uIU/mL (0.27-4.20) H 07/04/22 03:51 Urine Color Yellow (Yellow) 06/26/22 12:55 Urine Appearance Clear (CLEAR) 06/26/22 12:55 Urine pH 5 (5-7) 06/26/22 12:55 Ur Specific [place] 1.030 (1.005-1.030) 06/26/22 12:55 Urine Protein Trace (Negative) 06/26/22 12:55 Urine Glucose (UA) Norm (Normal) 06/26/22 12:55 Urine Ketones Negative (Negative) 06/26/22 12:55 Urine Blood Neg (Negative) 06/26/22 12:55 Urine Nitrate Negative (Negative) 06/26/22 12:55 Urine Bilirubin 1+ (Negative) H 06/26/22 12:55 Urine Urobilinogen 1 mg/dL (Negative) H 06/26/22 12:55 Ur Leukocyte Esterase Negative (Negative) 06/26/22 12:55 Urine RBC None /hpf (0-2) 06/26/22 12:55 Urine WBC 0-4 /hpf (0-5) H 06/26/22 12:55 Ur Squamous Epith Cells 0-4 /hpf (0-5) H 06/26/22 12:55 Amorphous Sediment Not Reportable 06/26/22 12:55 Urine Bacteria 2+ /hpf (NONE) H 06/26/22 12:55 Hyaline Casts 40-55 /lpf H 06/26/22 12:55 U Random Total Protein 15 mg/dL 06/27/22 10:28 Ur Random Sodium 10 mmol/L 06/27/22 10:28 Ur Random Sodium Cancelled 06/27/22 10:28 Ur Random Potassium 68 mmol/L 06/27/22 10:28 Ur Random Chloride 23 mmol/L 06/27/22 10:28 Urine Creatinine 92 mg/dL (28-217) 06/27/22 10:28 Urine Creatinine Cancelled 06/27/22 10:28 Nasal Influ A H1 2008 PCR Not detected (NOT DETECT) 06/26/22 21:11 Serum Ketones Negative (Negative) 06/26/22 11:48 Adenovirus (PCR) Not detected (NOT DETECT) 06/26/22 21:11 C. pneumoniae DNA (PCR) Not detected (NOT DETECT) 06/26/22 21:11 Coronavirus 229E (PCR) Not detected (NOT DETECT) 06/26/22 21:11 Human Metapneumovir PCR Not detected (NOT DETECT) 06/26/22 21:11 Influenza A (H1) PCR Not detected (NOT DETECT) 06/26/22 21:11 Influenza A (H3) PCR Not detected (NOT DETECT) 06/26/22 21:11 Influenza Type A (PCR) Not detected (NOT DETECT) 06/26/22 21:11 Influenza Type B (PCR) Not detected (NOT DETECT) 06/26/22 21:11 M. pneumoniae (PCR) Not detected (NOT DETECT) 06/26/22 21:11 Parainfluenza 1 (PCR) Not detected (NOT DETECT) 06/26/22 21:11 Parainfluenza 2 (PCR) Not detected (NOT DETECT) 06/26/22 21:11 Parainfluenza 3 (PCR) Not detected (NOT DETECT) 06/26/22 21:11 Parainfluenza 4 (PCR) Not detected (NOT DETECT) 06/26/22 21:11 RSV Type A (PCR) Not detected (NOT DETECT) 06/26/22 21:11 RSV Type B (PCR) Not detected (NOT DETECT) 06/26/22 21:11 Entero/Rhino (PCR) Not detected (NOT DETECT) 06/26/22 21:11 SARS-CoV-2 (PCR) Not detected (NOT DETECT) 06/26/22 21:11 Vitals Last Vital Signs Temp 98.3 F 07/05/22 11:26 Pulse 67 07/05/22 11:26 Resp 19 H 07/05/22 11:26 BP 99/54 07/05/22 11:26 Pulse Ox 95 07/05/22 11:26 O2 Del Method BiPAP 07/05/22 02:00 O2 Flow Rate 2 07/04/22 20:43 FiO2 24 07/05/22 04:18 Discharge Plan Discharge Patient Disposition: Xfer SNF Condition: Stable Prescriptions: New clopidogrel 75 mg Tablet 75 mg PO DAILY Qty: 30 0RF metoprolol tartrate 25 mg Tablet 12.5 mg PO BID@0900,2100 30 Days Qty: 30 0RF Lantus Solostar U-100 Insulin 100 unit/mL (3 mL) insulin pen 15 unit SUBCUT QPM Qty: 15 0RF bupropion HCl 150 mg tablet extended release 24 hr 150 mg PO DAILY Qty: 30 0RF insulin lispro 100 unit/mL insulin pen See Protocol SUBCUT TID Qty: 15 0RF Protocol: Insulin Corrective High-Dose Regimen Condition: Fingerstick Blood Glucose Dose/Route: Insulin Units Condition: 141-180 mg/dl Dose/Route: 6 units/SQ Condition: 181-220 mg/dl Dose/Route: 8 units/SQ Condition: 221-260 mg/dl Dose/Route: 10 units/SQ Condition: 261-300 mg/dl Dose/Route: 12 units/SQ Condition: 301-350 mg/dl Dose/Route: 14 units/SQ Condition: 351-400 mg/dl Dose/Route: 16 units/SQ Condition: greater than 400 mg/dl Dose/Route: 18 units/SQ Continued albuterol sulfate [ProAir HFA] 90 mcg/actuation HFA aerosol inhaler 2 puff INHALATION Q6H PRN (Reason: Shortness Of Breath) latanoprost 0.005 % drops 1 drp ophthalmic (eye) BEDTIME atorvastatin 20 mg tablet 20 mg PO BEDTIME ipratropium-albuterol 0.5 mg-3 mg(2.5 mg base)/3 mL solution for nebulization 3 ml INHALATION TID PRN (Reason: Shortness Of Breath) pantoprazole 20 mg tablet,delayed release (DR/EC) 20 mg PO QAM Changed Lasix 40 mg tablet 40 mg PO BID Qty: 60 0RF Discontinued metformin 500 mg tablet 500 mg PO BID Qty: 60 0RF insulin glargine [Lantus U-100 Insulin] 100 unit/mL solution 100 unit SUBCUT BID losartan 25 mg tablet 25 mg PO QAM insulin lispro [Humalog KwikPen Insulin] 100 unit/mL insulin pen 40 unit SUBCUT BID bupropion HCl 300 mg tablet extended release 24 hr 300 mg PO BEDTIME potassium chloride 20 mEq tablet extended release 60 meq PO QAM Discharge Orders: Discharge Order (Routine); Ordered 07/05/22 Ordered By: Shaji Durán Referrals: [facility] [Outside] Alma Rosa Gordillo FNP [Nurse Practitioner] - 07/12/22 11:45 am Nicanor Navarrete MD [Physician] - 07/12/22 10:30 am Discharge Diet: Cardiac and Diabetic Discharge Activity: Resume usual activity and Increase activity as tolerated Patient Instructions: Opioid Safety Activity Restrictions/Additional Instructions: Recheck CBC and CMP in 1 week. Please follow-up with a primary care provider within next 3 to 4 days. Follow-up with Alma Rosa Gordillo/[facility] within next 2 weeks. Discharge Attestations Time Spent in Discharge Care*: greater than 30 min Specific Discharge Activities: educating patient, discussing with pcp/other providers, discussing with case finishing machine adjuster/social workers/dc planners, documenting/other paperwork and evaluating patient/reviewing data Status at Discharge: Cognitive status at discharge: cognitively intact, Behavioral status at discharge: cooperative, Functional status at discharge: uses cane/walker, Overall status at discharge: patient is back to baseline Quality Metrics Clinical Quality Measures [ No reported AMI, CVA or VTE this stay] Coding Level of Care Code 04992 Total time (in minutes) for Discharge: 60 Diagnoses Acute renal failure N17.9 Acute renal failure type: unspecified Uremia N19 Cardiomyopathy I42.9 Congestive heart failure I50.41 Heart failure chronicity: acute Heart failure type: combined systolic and diastolic Atrial fibrillation I48.91 Troponin level elevated R77.8 Fracture of humerus, proximal, right, closed S42.201A Acute liver failure K72.00 Sepsis A41.9 Leukocytosis D72.829 Leukocytosis type: unspecified Fracture, humerus closed S42.255A Encounter type: initial encounter Fracture alignment: nondisplaced Humerus Location: greater tuberosity Laterality: left Acute hyperkalemia E87.5 Rhabdomyolysis T79.6XXA Encounter type: initial encounter Rhabdomyolysis type: traumatic Morbid obesity with BMI of 70 and over, adult E66.01; Z68.45 Acute on chronic respiratory failure with hypoxia and hypercapnia J96.21; J96.22 Hypertension I10 Diabetes mellitus with peripheral autonomic neuropathy E11.43
[2022-07-05] MEDS: acetaminophen 325 mg Tablet 650 MG PO (11:48)
[2022-07-05] MEDS: heparin 5,000 unit/mL INJ 1 mL 5000 UNIT SUBCUT (11:49)
[2022-07-05 14:12] LABS: SARS Covid-2 Antigen negative (Negative)
== END 2022-07-05 16:00 | disposition skilled nursing facility (03) | DRG 871 ==
LOC: ER 14:16 → ICU 15:18 → MEDSURG 07-02 15:46
PROVIDERS: Hospitalist; Internal Medicine; Internal Medicine Nephrology; Admitting Provider Student in an Organized Health Care Education/Training Program; Emergency Provider Emergency Medicine; PCP Internal Medicine; Visit Provider Student in an Organized Health Care Education/Training Program
DX: A41.9 Sepsis, unspecified organism (principal); I21.4 Non-ST elevation (NSTEMI) myocardial infarction; I50.43 Acute on chronic combined systolic (congestive) and diastolic (congestive) heart failure; J96.21 Acute and chronic respiratory failure with hypoxia; R65.21 Severe sepsis with septic shock; N17.0 Acute kidney failure with tubular necrosis; K72.00 Acute and subacute hepatic failure without coma; J96.22 Acute and chronic respiratory failure with hypercapnia; S42.255A Nondisplaced fracture of greater tuberosity of left humerus, initial encounter for closed fracture; E87.4 Mixed disorder of acid-base balance; I42.9 Cardiomyopathy, unspecified; Z68.44 Body mass index [BMI] 60.0-69.9, adult; E87.5 Hyperkalemia; T79.6XXA Traumatic ischemia of muscle, initial encounter; R60.1 Generalized edema; E11.51 Type 2 diabetes mellitus with diabetic peripheral angiopathy without gangrene; E11.43 Type 2 diabetes mellitus with diabetic autonomic (poly)neuropathy; G47.33 Obstructive sleep apnea (adult) (pediatric); J44.9 Chronic obstructive pulmonary disease, unspecified; E66.9 Obesity, unspecified; I11.0 Hypertensive heart disease with heart failure; W18.30XA Fall on same level, unspecified, initial encounter; I48.91 Unspecified atrial fibrillation; R04.0 Epistaxis; Z75.1 Person awaiting admission to adequate facility elsewhere; Z99.89 Dependence on other enabling machines and devices; Z79.51 Long term (current) use of inhaled steroids; Z79.84 Long term (current) use of oral hypoglycemic drugs; Z79.4 Long term (current) use of insulin; Z87.891 Personal history of nicotine dependence
CPT/HCPCS: 12345; 36415; 36416; 36569; 36600; 51702; 70450; 71045; 71250; 72125; 73030; 74176; 76700; 80048; 80051; 80053; 80061; 81001; 82009; 82330; 82436; 82550; 82553; 82570; 82607; 82746; 82803; 82805; 82962; 83036; 83540; 83550; 83605; 83735; 83880; 84100; 84133; 84145; 84156; 84300; 84443; 84484; 85025; 85384; 85610; 85730; 87040; 87070; 87077; 87186; 87426; 87486; 87581; 87633; 87641; 93005; 94640; 94660; 96372; 96376; 97110; 97161; 97167; 97530; 97535; 99285; A4565; C1751; C8929; C9113; J1644; J1650; J1815; J1940; J1956; J2270; J2405; J2543; J7030; J7120; J7614; J7626; J7644; Q3014; Q9956

== ENCOUNTER → 2022-07-12 09:52 | Outpatient (BNVA) | payer MEDICARE, MEDICAID, SELFPAY | PROVIDERS: PCP Internal Medicine; Visit Provider Orthopaedic Surgery | DX: W19.XXXA Unspecified fall, initial encounter (principal); S42.302A Unspecified fracture of shaft of humerus, left arm, initial encounter for closed fracture | CPT/HCPCS: 73030; 99024; 99215 ==

== ENCOUNTER 2022-07-19 09:56 | Inpatient (IN) | payer MEDICARE, MEDICAID, SELFPAY ==
[2022-07-19] VITALS (63 sets, daily range): BP systolic 81–177; BP diastolic 44–148; PULSE 60–94; RESP 12–28; TEMP 36.6–36.8; O2SAT 88–100; BMI 56.5
--- NOTE | 2022-07-19 10:05 | XRR_ITS ---
PROCEDURE INFORMATION: Exam: XR Chest Exam date and time: 07/19/2022 10:50 AM Age: 66 years old Clinical indication: Cough and dyspnea; Additional info: Dyspnea/cough TECHNIQUE: Imaging protocol: Radiologic exam of the chest. Views: 1 view. COMPARISON: CR XR chest 1V portable [id number] 07/04/2022 11:35 AM FINDINGS: Lungs: Platelike opacity in the right mid lung. Ground-glass opacity throughout the mid to lower lungs bilaterally. Pleural spaces: There is no pleural effusion or pneumothorax. Heart/Mediastinum: There is marked cardiac enlargement. Mediastinal contours are unremarkable. Bones/joints: Bones are unremarkable. XR/XR chest 1V portable [id number] IMPRESSION: 1. Nonspecific bilateral mid to lower lung opacity. Probable pulmonary edema. Some component of atelectasis is suspected. Infection is not excluded. Evaluation of the lungs is limited due to overlying soft tissues. 2. Marked cardiac enlargement.
--- NOTE | 2022-07-19 10:18 | ECG_ITS ---
[facility] Test Date: 2022-07-19 Pat Name: Siobhan Lechuga Department: Room: Gender: Female Bone Density Technician: : 1955 Requested By: Eldon Hurley Order Number: [id number] Daniel MD: Tray Rubalcava M.D. Measurements Intervals [place] Rate: 66 P: 10 NV: 152 QRS: 74 QRSD: 92 T: -8 QT: 408 QTc: 431 Interpretive Statements SINUS RHYTHM LOW QRS VOLTAGE IN PRECORDIAL LEADS [QRS DEFLECTION < 1.0 mV IN CHEST LEADS] POSSIBLE ANTERIOR MYOCARDIAL INFARCTION , PROBABLY OLD [30 ms Q WAVE IN V3/V4, OR R < 0.2 mV IN V4] POSSIBLE INFERIOR MYOCARDIAL INFARCTION , PROBABLY OLD [30 ms Q WAVE IN II/aVF] Compared to ECG 07/04/2022 18:20:57 Low QRS voltage now present Myocardial infarct finding still present Electronically Signed On 07-19-2022 16:53:46 CDT by Tray Rubalcava M.D. [id number]
[2022-07-19 10:34] LABS: Blood Gas Sample Site Brachial, right; Blood Gas Sample Type Arterial; Ionized Calcium Level - ABG 1.3 mmol/L (1.1-1.4); Oxygen Device NC
[2022-07-19 10:36] LABS: Basophils # 0.1 10^3/uL (0.0-0.1); Basophils % 0.3 %; Eosinophils # 0.2 10^3/uL (0.0-0.8); Eosinophils % 1.7 %; Hematocrit 30.9 % (37.0-47.0); Hemoglobin 8.6 g/dL (11.5-15.3); Lymphocytes # 0.5 10^3/uL (0.8-4.8); Lymphocytes % 3.4 %; Mean Corpuscular HGB Conc 27.8 g/dL (30.0-36.0); Mean Corpuscular Hemoglobin 25.2 pg (28.0-34.0); Mean Corpuscular Volume 90.6 fl (81-99); Mean Platelet Volume 10.7 fL (7.4-10.4); Monocytes # 1.4 10^3/uL (0.2-0.9); Monocytes % 9.5 %; Neutrophils # 12.26 10^3/uL (1.8-7.7); Neutrophils % 84.4 %; Nucleated Red Blood Cells % 0 %; Platelet Count 402 10^3/cmm (130-400); Red Blood Count 3.41 10^6/uL (4.1-5.3); Red Cell Distribution Width 18.8 % (12.1-15.1); White Blood Count 14.5 10^3/uL (4.0-10.0)
[2022-07-19 10:48] LABS: ABG PH Result 7.26 (7.35-7.45); Alveolar-Arterial Oxygen Gradi 8.8 mmHg (5-10); Arterial Blood Gas Hematocrit 26.3 % (37-47); Base Excess ABG 4.8 mmol/L (-2.0-2.0); Blood Gas Allen Test Pos; Blood Gas Operator Identificat MONRO; Carboxyhemoglobin 2.2 %THgb (0.4-20.1); HCO3 ABG 33.1 mmol/L (22-26); HGB O2 Sat 91.7 % (95-100); Methemoglobin 0.6 % (0.4-1.5); Oxygen Saturation ABG 94.3; PO2 ABG 71.5 mmHg (80.0-100.0); Potassium Level - ABG 5.1 mmol/L (3.5-5.0); Total Hemoglobin 8.6 g/dL (12-16)
--- NOTE | 2022-07-19 10:50 | W.ED.SOB ---
HPI - SOB/Dyspnea General: Chief Complaint: Shortness of Breath/Dyspnea Stated Complaint: low o2 Time Seen by Provider: 07/19/22 09:59 Source: patient Mode of arrival: ambulatory History of Present Illness: HPI Narrative: 66-year-old female presents emergency room complaining of shortness of breath on arrival here she is moderate respiratory distress. She was taking a shower with assistance that she was getting out of the shower suddenly became weak unresponsive. There is a question of whether or not to get find a pulse and she received CPR for 15 seconds. EMS arrived patient was reinitiated on her nasal cannula. She denies chest pain at this time although she is extremely lethargic is dozing off while talking to her. No abdominal pain she does complain of swelling in her legs. MD elicited complaint: shortness of breath and cough Pertinent past history: other (Obesity hypoventilation syndrome) Timing: constant Severity: mild Exacerbating factors: exertion and coughing Relieving factors: oxygen and rest Known history of: other (hypoventalation) Associated symptoms: Reports cough; Deny no associated symptoms, abdominal pain, chest congestion, chest pain, diaphoresis, dizziness, extremity pain, fever(s), hemoptysis, lightheadedness, myalgias, nausea, orthopnea, palpitations, paresthesias, polydipsia, polyuria, rash, sense of impending doom, syncope, vomiting or other Treatment prior to arrival: oxygen Review of Systems Const: Reports: fatigue and malaise; Denies: fever(s), chills or diaphoresis Card: Denies: chest pain, palpitations, lightheadedness, syncope or orthopnea Resp: Reports: dyspnea, non-productive cough and wheezing; Denies: hemoptysis or chest congestion GI: Denies: abdominal pain, nausea or vomiting : Denies: dysuria, urinary frequency or urinary urgency Musc: Denies: neck pain, back pain or extremity pain Neuro: Denies: dizziness Endo: Denies: polyuria or polydipsia [facility] PFSH: Medical History Atrial fibrillation Congestive heart failure Ejection fraction 25 to 30% 06/26 Diabetes mellitus with peripheral autonomic neuropathy Gangrene Hypertension New onset of congestive heart failure Acute diastolic heart failure. EF normal on limited echo Obesity PAD (peripheral artery disease) Tobacco abuse, in remission Surgical History Post-operative state Status post amputation of great toe Family History Other Diabetes Hypertension Denies family history of CAD (coronary artery disease) Clotting disorder Dementia Hyperlipidemia Psychiatric illness Chronic kidney disease (CKD) Suicide Anesthesia complication Bleeding disorder Family history of premature coronary artery disease Lung disease Cancer Stroke Social History Smoking and tobacco status: former smoker Substance/Drug Use: never Marital status: Current occupational status: disabled Physical Exam Const: GENERAL APPEARANCE: cooperative and comfortable ORIENTATION/CONSCIOUSNESS: Yes awake, Yes oriented to person, Yes oriented to place and Yes oriented to time HENMT: COMMON NORMALS: normocephalic, atraumatic and hearing grossly normal bilaterally HEAD & SCALP: normocephalic and atraumatic Resp: EFFORT & INSPECTION: Yes respiratory distress, Yes decreased respiratory effort and Yes labored AUSCULTATION: rhonchi, wheezes and diminished lung sounds Cardio: COMMON NORMALS: regular rate, regular rhythm and No murmurs present (Cardio) RATE: regular rate RHYTHM: regular rhythm GI: COMMON NORMALS: Soft to palpation and No hepatosplenomegaly present AUSCULTATION: Yes normoactive bowel sounds PALPATION: Yes Soft to palpation, No Tenderness to palpation present (GI), No Guarding due to palpation present (GI) and Yes No hepatosplenomegaly present Extremity: COMMON NORMALS: normal to inspection, capillary refill normal and no calf tenderness GENERAL: Yes edema OTHER: +2 edema in the LE bilateral w anasarca to level of umbilicus Neuro: SENSORIUM/ORIENTATION: Yes oriented to person, Yes oriented to place and Yes oriented to time Skin: COMMON NORMALS: no rashes or lesions noted GENERAL SKIN EXAM: no rashes or lesions noted Course Vital Signs: Vital signs: Vital Signs Temperature 97.9 F 07/19/22 22:00 Pulse Rate 65 07/20/22 04:45 Respiratory Rate 16 07/20/22 04:45 Blood Pressure 108/65 07/20/22 04:45 Pulse Oximetry 96 07/20/22 04:45 Oxygen Delivery Me thod BiPAP 07/20/22 04:45 Oxygen Flow Rate 2 07/19/22 10:43 Fraction of Inspir ed Oxygen 30 07/20/22 03:18 MDM - SOB/Dyspnea Medical Decision Making Patient started on BiPAP this did improved things. She does appear to be in congestive heart failure we will also cover with antibiotics for pneumonia. Continue on the BiPAP will admit to ICU discussed with Dr. Garcia orders have been written Medical Records I reviewed the patient's medical records. Lab Data I reviewed the patient's lab results. 07/20/22 05:31 07/20/22 05:31 Labs/Radiology: Radiology Impressions Chest X-Ray 07/19/22 10:05 IMPRESSION: 1. Nonspecific bilateral mid to lower lung opacity. Probable pulmonary edema. Some component of atelectasis is suspected. Infection is not excluded. Evaluation of the lungs is limited due to overlying soft tissues. 2. Marked cardiac enlargement. Laboratory Results WBC 14.5 10^3/uL (4.0-10.0) H 07/19/22 10:21 RBC 3.41 10^6/uL (4.1-5.3) L 07/19/22 10:21 Hgb 8.6 g/dL (11.5-15.3) L 07/19/22 10:21 Hct 30.9 % (37.0-47.0) L 07/19/22 10:21 MCV 90.6 fl (81-99) 07/19/22 10:21 MCH 25.2 pg (28.0-34.0) L 07/19/22 10:21 MCHC 27.8 g/dL (30.0-36.0) L 07/19/22 10:21 RDW 18.8 % (12.1-15.1) H 07/19/22 10:21 Plt Count 402 10^3/cmm (130-400) H 07/19/22 10:21 Plt Count Cancelled 07/19/22 10:21 MPV 10.7 fL (7.4-10.4) H 07/19/22 10:21 Neut % (Auto) 84.4 % 07/19/22 10:21 Lymph % (Auto) 3.4 % 07/19/22 10:21 Prentiss % (Auto) 9.5 % 07/19/22 10:21 Eos % (Auto) 1.7 % 07/19/22 10:21 Baso % (Auto) 0.3 % 07/19/22 10:21 Neut # (Auto) 12.26 10^3/uL (1.8-7.7) H 07/19/22 10:21 Lymph # (Auto) 0.5 10^3/uL (0.8-4.8) L 07/19/22 10:21 Prentiss # (Auto) 1.4 10^3/uL (0.2-0.9) H 07/19/22 10:21 Eos # (Auto) 0.2 10^3/uL (0.0-0.8) 07/19/22 10:21 Baso # (Auto) 0.1 10^3/uL (0.0-0.1) 07/19/22 10:21 Nucleated RBC % (auto) 0 % 07/19/22 10:21 Nucleated RBCs # 0.0 /100WBC 07/19/22 10:21 D-Dimer 2.68 ug/mIFEU (0-0.59) H 07/19/22 10:21 Specimen Type Arterial 07/19/22 10:23 Sample Site Brachial, right 07/19/22 10:23 ABG pH 7.26 (7.35-7.45) L 07/19/22 10:23 ABG pCO2 74.3 mmHg (35-45) H* 07/19/22 10:23 ABG pO2 71.5 mmHg (80.0-100.0) L 07/19/22 10:23 ABG HCO3 33.1 mmol/L (22-26) H 07/19/22 10:23 ABG O2 Saturation 94.3 07/19/22 10:23 ABG Base Excess 4.8 mmol/L (-2.0-2.0) H 07/19/22 10:23 Claude Test Pos 07/19/22 10:23 A-a O2 Gradient 8.8 mmHg (5-10) 07/19/22 10:23 Hematocrit 26.3 % (37-47) L 07/19/22 10:23 Hgb O2 Saturation 91.7 % (95-100) L 07/19/22 10:23 Carboxyhemoglobin 2.2 %THgb (0.4-20.1) 07/19/22 10:23 Methemoglobin 0.6 % (0.4-1.5) 07/19/22 10:23 Total Hemoglobin 8.6 g/dL (12-16) L 07/19/22 10:23 Sodium 138.0 mmol/L (131-143) 07/19/22 10:23 Potassium 5.1 mmol/L (3.5-5.0) H 07/19/22 10:23 Glucose 293.0 mg/dL (70-115) H 07/19/22 10:23 Ionized Calcium 1.3 mmol/L (1.1-1.4) 07/19/22 10:23 O2 Delivery Device Nc 07/19/22 10:23 O2 Liters/Min 3.0 % 07/19/22 10:23 FiO2 32.0 % 07/19/22 10:23 Motorcycle Deliverer ID Monro 07/19/22 10:23 Sodium 134 mmol/L (136-145) L 07/19/22 10:21 Potassium 5.4 mmol/L (3.5-5.1) H 07/19/22 10:21 Chloride 95 mmol/L (98-107) L 07/19/22 10:21 Carbon Dioxide 29 mmol/L (22-29) 07/19/22 10:21 Anion Gap 15.4 (5-19) 07/19/22 10:21 BUN 60 mg/dL (8-23) H 07/19/22 10:21 Creatinine 1.4 mg/dL (0.5-0.9) H 07/19/22 10:21 GFR Calculation 37.7 mL/min (90-130) L 07/19/22 10:21 Glucose 268 mg/dL (65-115) H 07/19/22 10:21 Calculated Osmolality 304 mOsm/kg (285-295) H 07/19/22 10:21 Calcium 9.2 mg/dL (8.5-10.5) 07/19/22 10:21 Total Bilirubin 0.4 mg/dL (0.15-1.2) 07/19/22 10:21 AST 24 U/L (0-32) 07/19/22 10:21 ALT 31 U/L (0-33) 07/19/22 10:21 Alkaline Phosphatase 112 U/L (35-105) H 07/19/22 10:21 Troponin T Baseline 42 ng/L (0-10) H 07/19/22 10:21 Troponin T 120 Minute 39.84 ng/L (0-10) H 07/19/22 12:35 Delta Troponin T -2.16 ABS# (0-10) L 07/19/22 12:35 C-Reactive Protein 46.8 mg/L (0.0-4.9) H 07/19/22 10:21 NT-Pro-B Natriuret Pep 8897 pg/mL (0-125) H 07/19/22 10:21 Total Protein 6.6 g/dL (6.6-8.7) 07/19/22 10:21 Albumin 3.2 g/dL (3.5-5.2) L 07/19/22 10:21 Globulin 3.4 g/dL (1.3-4.6) 07/19/22 10:21 Urine Color Yellow (Yellow) 07/19/22 11:40 Urine Appearance Sl cloudy (CLEAR) A 07/19/22 11:40 Urine pH 5 (5-7) 07/19/22 11:40 Ur Specific [place] 1.030 (1.005-1.030) 07/19/22 11:40 Urine Protein Neg (Negative) 07/19/22 11:40 Urine Glucose (UA) Norm (Normal) 07/19/22 11:40 Urine Ketones Negative (Negative) 07/19/22 11:40 Urine Blood Neg (Negative) 07/19/22 11:40 Urine Nitrate Negative (Negative) 07/19/22 11:40 Urine Bilirubin Neg (Negative) 07/19/22 11:40 Prot Sulfosalicylic Acd Negative (Negative) 07/19/22 11:40 Urine Urobilinogen Norm mg/dL (Negative) 07/19/22 11:40 Ur Leukocyte Esterase Negative (Negative) 07/19/22 11:40 Urine RBC 0-4 /hpf (0-2) H 07/19/22 11:40 Urine WBC 0-4 /hpf (0-5) H 07/19/22 11:40 Ur Squamous Epith Cells 0-4 /hpf (0-5) H 07/19/22 11:40 Amorphous Sediment Not Reportable 07/19/22 11:40 Urine Bacteria Trace /hpf (NONE) 07/19/22 11:40 Hyaline Casts 5-10 /lpf H 07/19/22 11:40 Discharge Plan Discharge Patient Disposition: Admitted As Inpatient Admit Provider: Chiki Reid Clinical Impression: Acute on chronic respiratory failure with hypoxia and hypercapnia, Congestive heart failure, Pneumonia, Morbid obesity with BMI of 70 and over, adult, Diabetes mellitus with peripheral autonomic neuropathy, Fracture of humerus, proximal, right, closed Condition: Stable Coding Level of Care Code ED [employer] for [place] May
[2022-07-19 10:51] LABS: ABG PCO2 74.3 mmHg (35-45)
--- NOTE | 2022-07-19 10:56 | PC.PHAR ---
Addendum entered by Marleni Salazar 07/19/22 12:17: per marilin zhao of [facility] states the pt had all am meds Original Note: pt is from [facility] [phone]- per angel frey from [facility] states she will fax mar and tar
[2022-07-19 10:57] LABS: Troponin(5th) Baseline 42 ng/L (0-10)
[2022-07-19 11:07] LABS: Alanine Aminotransferase 31 U/L (0-33); Albumin Level 3.2 g/dL (3.5-5.2); Alkaline Phosphatase 112 U/L (35-105); Aspartate Amino Transferase 24 U/L (0-32); Blood Urea Nitrogen 60 mg/dL (8-23); Calcium 9.2 mg/dL (8.5-10.5); Carbon Dioxide 29 mmol/L (22-29); Chloride 95 mmol/L (98-107); Globulin 3.4 g/dL (1.3-4.6); Glomerular Filtration Rate 37.7 mL/min (90-130); Glucose 268 mg/dL (65-115); NT Pro B Type Natriuretic Pept 8897 pg/mL (0-125); Osmolality Calculated 304 mOsm/kg (285-295); Sodium 134 mmol/L (136-145); Total Bilirubin 0.4 mg/dL (0.15-1.2); Total Protein 6.6 g/dL (6.6-8.7)
[2022-07-19 11:20] LABS: Anion Gap 15.4 (5-19); Potassium 5.4 mmol/L (3.5-5.1)
[2022-07-19] MEDS: FUROsemide 10 mg/mL SDV 10mL 60 MG IVP ×2 (11:32→21:27)
[2022-07-19] MEDS: levofloxacin-dextrose 5 % 500 MG/100 ML PREMIX 100 MG IV (11:32)
[2022-07-19 11:48] LABS: C Reactive Protein 46.8 mg/L (0.0-4.9)
[2022-07-19 12:05] LABS: Add Urine Microscopic? YES; Bilirubin Urine Neg (Negative); Blood Urine Neg (Negative); Glucose Urine UA Norm (Normal); Ketones Urine Negative (Negative); Leukocyte Esterase Urine Negative (Negative); Nitrate Urine Negative (Negative); Protein Urine Neg (Negative); Sulfosalicylic Acid Urine Negative (Negative); Urine Color Yellow (Yellow); Urobilinogen Urine Norm (Negative); pH Urine 5 (5-7)
[2022-07-19 12:06] LABS: Bacteria Urine TRACE /hpf; RBC Urine 0-4 /hpf (0-2); Squamous Epithelial Cell Urine 0-4 /hpf (0-5); WBC Urine 0-4 /hpf (0-5)
--- NOTE | 2022-07-19 12:08 | ECG_ITS ---
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 Measurements Intervals [place] Rate: 66 P: 12 LA: 165 QRS: 17 QRSD: 93 T: -40 QT: 409 QTc: 430 Interpretive Statements SINUS RHYTHM LOW QRS VOLTAGE IN PRECORDIAL LEADS [QRS DEFLECTION < 1.0 mV IN CHEST LEADS] POSSIBLE ANTERIOR MYOCARDIAL INFARCTION , PROBABLY OLD [30 ms Q WAVE IN V3/V4, OR R < 0.2 mV IN V4] Compared to ECG 07/19/2022 10:18:02 No significant changes Electronically Signed On 07-19-2022 16:58:45 CDT by Tray Rubalcava M.D. [id number]
--- NOTE | 2022-07-19 12:43 | USCV_ITS ---
Siobhan Lechuga Age: 66 Gender: F : 1955 Exam Date: 07/19/2022 14:37 Ordering Phys: Chiki Reid MD Technologist: Ricardo Mathis Exam [place] [facility] Indication: bilat edema PROCEDURES: The venous duplex Doppler examination of both lower extremities was performed in the standard fashion. The following venous structures were evaluated: common femoral vein, profunda vein, proximal portion of the greater saphenous vein, superficial femoral vein, and the popliteal vein. FINDINGS: Normal 2-D Doppler and augmentation and compressibility throughout the lower extremity venous structures. Additional imaging through the proximal calf veins also reveals no thrombus. Limited evaluation of the greater saphenous vein is patent with no thrombus. CONCLUSIONS No DVT bilateral lower extremities. Dr. Garima Dumont DO (Electronically Signed) Final Date: 19 Jul 2022 16:01 S
--- NOTE | 2022-07-19 12:45 | PM.HP ---
Providers/Chief Complaint Admitting Physician: Chiki Reid MD Primary Care Provider: Ronny Torres DO Chief Complaint: low o2 History of Present Illness Siobhan Lechuga is a 66 year old female presenting from [facility] where she is doing rehabilitation secondary to weakness and humerus fracture. Apparently since going over there she is gradually becoming more short of breath. Today after going in the shower they noticed she was hypoxic, and not responding appropriately. They believe she may not of had a pulse. CPR ensued and she awakened quickly within 15 to 20 seconds. They gave her quite a bit of oxygen following this to get her oxygen level up. From nursing at the nursing facility who had a conversation with a had around 10 L at one time. They report she is not on any BiPAP at the nursing facility, that a family member was going to bring this in to use at night. They relate she aspirates sometimes when she tries to eat laying down. She is typically on 2 to 3 L of oxygen as needed. She has had no recent vomiting, fever. She has occasional cough. She was recently in the hospital, being discharged July 05. At that time she was treated for acute renal failure, new onset congestive heart failure with EF 25 to 30%, atrial fibrillation, proximal right humerus fracture, sepsis, liver failure, rhabdo. In the emergency department she got some Levaquin, and a dose of Lasix. Review of Systems General: Reports: 10 or more systems reviewed and unremarkable except in HPI and below Const: Reports: fatigue and malaise; Denies: fever(s) or chills Card: Reports: edema, swelling of feet/ankles, dyspnea on exertion and orthopnea; Denies: chest pain Resp: Reports: dyspnea and non-productive cough; Denies: hemoptysis GI: Denies: abdominal pain, nausea, vomiting, hematochezia or melena Medications/Allergies Home Medications Medication Instructions Recorded Confirmed Last Taken Type albuterol sulfate 90 mcg/actuation 2 puff inhalation Q6H PRN 03/27/19 07/19/22 Unknown History aerosol inhaler (ProAir HFA) Shortness Of Breath atorvastatin 20 mg tablet 20 mg PO BEDTIME@19 06/26/22 07/19/22 07/18/22 History ipratropium 0.5 mg-albuterol 3 mg 3 ml inhalation TID PRN Shortness 06/26/22 07/19/22 Unknown History (2.5 mg base)/3 mL nebulization Of Breath soln latanoprost 0.005 % eye drops 1 drp ophthalmic (eye) BEDTIME 06/26/22 07/19/22 07/18/22 History pantoprazole 20 mg tablet,delayed 20 mg PO DAILY@07 06/26/22 07/19/22 07/19/22 History release furosemide 40 mg tablet (Lasix) 40 mg PO BID #60 tabs 07/05/22 07/19/22 07/19/22 Rx acetaminophen 325 mg tablet 650 mg PO Q6H PRN Pain 07/19/22 07/19/22 Unknown History (Tylenol) bisacodyl 10 mg rectal suppository 10 mg FL DAILY PRN Constipation 07/19/22 07/19/22 Unknown History (Dulcolax (bisacodyl)) bisacodyl 5 mg tablet,delayed 10 mg PO DAILY PRN Constipation 07/19/22 07/19/22 Unknown History release (Dulcolax (bisacodyl)) bupropion HCl 150 mg 24 hr tablet, 150 mg PO DAILY@07/19/22 07/19/22 07/19/22 History extended release clopidogrel 75 mg tablet 75 mg PO DAILY@07/19/22 07/19/22 07/19/22 History insulin glargine 100 unit/mL (3 22 unit SUBCUT BEDTIME 07/19/22 07/19/22 07/18/22 History mL) subcutaneous pen (Lantus Solostar U-100 Insulin) insulin lispro 100 unit/mL See Rx Instructions .Route .COMPLEX 07/19/22 07/19/22 07/19/22 History subcutaneous pen 5 units magnesium hydroxide 400 mg/5 mL 30 ml PO .EVERY 72 HOURS PRN if no 07/19/22 07/19/22 Unknown History oral suspension (Milk of Magnesia) bm in 3 days metoprolol tartrate 25 mg tablet 12.5 mg PO Q12H 07/19/22 07/19/22 07/19/22 History nystatin 100,000 unit/gram topical 1 applic topical BID PRN to abd 07/19/22 07/19/22 Unknown History powder (Nyamyc) folds and breast sodium phosphates 19 gram-7 118 ml FL DAILY PRN Constipation 07/19/22 07/19/22 Unknown History gram/118 mL enema (Fleet Enema) Allergies Allergy/AdvReac Type Severity Reaction Status Date / Time aspirin Allergy Unknown Unknown Verified 07/19/22 12:00 citalopram Allergy Unknown Unknown Verified 07/19/22 12:00 codeine Allergy Unknown Unknown Verified 07/19/22 12:00 PFSH Acute PFSH: Medical History (Updated 07/19/22 @ 13:06 by Chiki Reid MD) Atrial fibrillation Congestive heart failure Ejection fraction 25 to 30% 06/26 Diabetes mellitus with peripheral autonomic neuropathy Gangrene Hypertension New onset of congestive heart failure Acute diastolic heart failure. EF normal on limited echo Obesity PAD (peripheral artery disease) Tobacco abuse, in remission Surgical History Post-operative state Status post amputation of great toe Family History Other Diabetes Hypertension Denies family history of CAD (coronary artery disease) Clotting disorder Dementia Hyperlipidemia Psychiatric illness Chronic kidney disease (CKD) Suicide Anesthesia complication Bleeding disorder Family history of premature coronary artery disease Lung disease Cancer Stroke Social History Smoking and tobacco status: former smoker Substance/Drug Use: never Marital status: Current occupational status: disabled Vitals/I&O/Wt Last Vital Signs Temp 98.2 F 07/19/22 10:03 Pulse 66 07/19/22 11:41 Resp 16 07/19/22 11:41 BP 115/80 07/19/22 11:41 Pulse Ox 94 07/19/22 11:41 O2 Del Method CPAP 07/19/22 11:41 O2 Flow Rate 2 07/19/22 10:43 FiO2 30 07/19/22 10:25 Weight last 48 hrs Weight 158.757 kg Physical Exam Narrative: General exam demonstrates a white female, on BiPAP, with occasional grunt with expiration. Tachypnea noted. At least mild to moderate respiratory distress on BiPAP HEENT: Atraumatic and normocephalic. Pupils equally round. Oropharynx not examined secondary to BiPAP Neck is supple no lymphadenopathy thyromegaly Cardiovascular regular rate and rhythm, heart sounds distant Lungs few bilateral expiratory wheezes. Abdomen is soft nontender. Fluid is noted in the abdominal wall. Cannot estimate organomegaly. demonstrates Marcelo Extremities show 4+ edema bilaterally. No cyanosis or clubbing. Right great toe is missing Skin no rash Neuro no obvious focal deficits Data 07/19/22 10:21 07/19/22 10:21 Other Labs: Blood cultures have been collected Previous MRSA PCR was negative on July 04 Chest x-ray done today demonstrates cardiomegaly, bibasilar infiltrates. It is impossible to tell whether this is edema or pneumonic. I reviewed this x-ray myself. ABG demonstrates pH 7.26, PCO2 of 74, PO2 of 71 on 3 L per nasal cannula LFTs are normal with exception of alk phos of 112. Calcium is 9.2 Troponin 42 BNP 8008 or 97 CRP 47 Albumin 3.2 Urinalysis 0-4 reds 0-4 whites EKG which I reviewed demonstrates sinus rhythm, rate of 65, normal axis, poor R wave progression Micro: Microbiology 07/19/22 12:00 Blood Culture - Preliminary Blood SPECIMEN COLLECTED 07/19/22 11:49 Blood Culture - Preliminary Blood SPECIMEN COLLECTED A&P Assessment and plan (1) Congestive heart failure: Patient has recent history of diagnosis of acute systolic heart failure with EF of 25 to 30% during her recent hospital stay Continue diuresis with Lasix 60 mg IV every 12 hours Cardiology consultation Continue low-dose beta-rossana SANF[place] inhibitor/ARB contraindicated currently secondary to hyperkalemia with renal dysfunction. With her edema in her legs we will go ahead and check a dimer, venous duplex. Dimer is significantly elevated. We will go ahead and start heparin which would be indicated for past history of atrial fibrillation as well. Await venous duplex. Will consider CTA, but concerned about causing contrast nephropathy. Has recent history of atrial fibrillation during her last hospital stay. Monitor for any recurrent arrhythmia considering her unresponsive episode as noted below Concern last hospital stay with coronary disease as cause for low EF and Plavix was initiated. Continue currently. Qualifiers: Heart failure type: combined systolic and diastolic Heart failure chronicity: acute Qualified Code(s): I50.41 - Acute combined systolic (congestive) and diastolic (congestive) heart failure (2) COPD with acute exacerbation: She is wheezing, has history of COPD She stopped smoking only 1 year ago Dexamethasone 6 mg IV every 24 hours DuoNeb every 4 hours Budesonide twice daily (3) Acute on chronic respiratory failure with hypoxia and hypercapnia: Currently on BiPAP, wean as tolerated (4) Pneumonia: At this point unable to differentiate pneumonia from edema. CRP is elevated. White blood cell count is elevated although it appears it may be chronically be so. Initiate Zosyn. Nurses at nursing facility admit patient aspirates on occasion eating in bed. MRSA was negative recently. Sputum culture COVID PCR N.p.o. for now. Speech therapy consultation. (5) Anemia: Close follow-up of anemia with CBC Stool Hemoccult (6) Hyperkalemia: Lasix was given in the emergency department Repeat BMP 4 hours following Lasix dose. (7) Chronic kidney disease: Close monitoring of renal function with BMP daily (8) Troponin level elevated: Serial troponins Plan Episode of unresponsiveness, where CPR was given. Apparently CPR lasted for just seconds. Telemetry. Full code Heparin will suffice for DVT prophylaxis currently Attestations Medical Necessity Statement*: Will need greater than 2 midnight stay for evaluation and treatment of acute systolic heart failure, possible pneumonia, acute COPD exacerbation Critical Care Time: The high probability of a clinically significant, sudden or life threatening deterioration of the patient's [pulmonary, cardiac, renal] system(s) required my full and direct attention, intervention and personal management. The critical care time is as shown. This time is in addition to time spent performing any reported procedures but includes the following: [x] Data and vital sign review and interpretation [x] Patient assessment, examination and intervention [x] Documentation [x] Medication orders and management Critical Care Time (min): 68 Coding Level of Care Code Critical Care >/= 30 minutes Diagnoses Congestive heart failure I50.41 Heart failure type: combined systolic and diastolic Heart failure chronicity: acute COPD with acute exacerbation J44.1 Acute on chronic respiratory failure with hypoxia and hypercapnia J96.21; J96.22 Pneumonia J18.9 Anemia D64.9 Hyperkalemia E87.5 Chronic kidney disease N18.9 Troponin level elevated R77.8 Time Spent (min) 68
[2022-07-19] MEDS: ipratropium-albuterol 3 mL Neb INHALATION ×4 (12:56→23:19)
[2022-07-19 13:02] LABS: D Dimer 2.68 ug/mIFEU (0-0.59)
[2022-07-19 13:05] LABS: Troponin 5 2HR 39.84 ng/L (0-10); Troponin 5 2HR Delta -2.16 ABS# (0-10)
[2022-07-19] MEDS: dexamethasone 10 mg/mL INJ 6 MG IVP (13:28)
[2022-07-19] MEDS: piperacillin-tazobactam 3.375 GM in sodium chloride 0.9% (plus) 50 ML IV ×2 (15:18→23:35)
[2022-07-19] MEDS: metoprolol tartrate 25 mg Tablet 12.5 MG PO ×2 (15:18→21:17)
[2022-07-19] MEDS: heparin drip 25,000 UNIT/500 ML PREMIX 36.01 UNIT IV (15:21)
--- NOTE | 2022-07-19 16:47 | PC.SLP ---
Orders received, chart reviewed. Patient is currently on Bipap and nursing asked that swallowing assessment be attempted tomorrow.
--- NOTE | 2022-07-19 17:14 | PM.CONSULT ---
Providers/Reason For Consult Consulting Physician/Specialty*: Tray Rubalcava MD/ Cardiology Reason for Consult*: Shortness of breath. Requesting Physician: Dr Reid Attending Physician: Chiki Reid MD Primary Care Provider: Ronny Torres DO History of Present Illness History of Present Illness Siobhan Lechuga is a 66 year old female who was recently admitted to hospital from fall, rhabdo, MIN, new onset A-fib and congestive heart failure with EF of 25 to 30% has been admitted with worsening shortness of breath. She was hypoxic. She was unresponsive and received brief CPR as well. Denies chest pain. On BiPAP currently. Troponins have not trended up significantly. EKG does not show significant changes. Review of Systems General: Reports: 10 or more systems reviewed and unremarkable except in HPI and below Const: Reports: fatigue and malaise; Denies: fever(s) or chills Card: Reports: edema, swelling of feet/ankles, dyspnea on exertion and orthopnea; Denies: chest pain Resp: Reports: dyspnea and non-productive cough; Denies: hemoptysis GI: Denies: abdominal pain, nausea, vomiting, hematochezia or melena Medications/Allergies Home Medications Medication Instructions Recorded Confirmed Last Taken Type albuterol sulfate 90 mcg/actuation 2 puff inhalation Q6H PRN 03/27/19 07/19/22 Unknown History aerosol inhaler (ProAir HFA) Shortness Of Breath atorvastatin 20 mg tablet 20 mg PO BEDTIME@19 06/26/22 07/19/22 07/18/22 History ipratropium 0.5 mg-albuterol 3 mg 3 ml inhalation TID PRN Shortness 06/26/22 07/19/22 Unknown History (2.5 mg base)/3 mL nebulization Of Breath soln latanoprost 0.005 % eye drops 1 drp ophthalmic (eye) BEDTIME 06/26/22 07/19/22 07/18/22 History pantoprazole 20 mg tablet,delayed 20 mg PO DAILY@07 06/26/22 07/19/22 07/19/22 History release furosemide 40 mg tablet (Lasix) 40 mg PO BID #60 tabs 07/05/22 07/19/22 07/19/22 Rx acetaminophen 325 mg tablet 650 mg PO Q6H PRN Pain 07/19/22 07/19/22 Unknown History (Tylenol) bisacodyl 10 mg rectal suppository 10 mg CA DAILY PRN Constipation 07/19/22 07/19/22 Unknown History (Dulcolax (bisacodyl)) bisacodyl 5 mg tablet,delayed 10 mg PO DAILY PRN Constipation 07/19/22 07/19/22 Unknown History release (Dulcolax (bisacodyl)) bupropion HCl 150 mg 24 hr tablet, 150 mg PO DAILY@07/19/22 07/19/22 07/19/22 History extended release clopidogrel 75 mg tablet 75 mg PO DAILY@07/19/22 07/19/22 07/19/22 History insulin glargine 100 unit/mL (3 22 unit SUBCUT BEDTIME 07/19/22 07/19/22 07/18/22 History mL) subcutaneous pen (Lantus Solostar U-100 Insulin) insulin lispro 100 unit/mL See Rx Instructions .Route .COMPLEX 07/19/22 07/19/22 07/19/22 History subcutaneous pen 5 units magnesium hydroxide 400 mg/5 mL 30 ml PO .EVERY 72 HOURS PRN if no 07/19/22 07/19/22 Unknown History oral suspension (Milk of Magnesia) bm in 3 days metoprolol tartrate 25 mg tablet 12.5 mg PO Q12H 07/19/22 07/19/22 07/19/22 History nystatin 100,000 unit/gram topical 1 applic topical BID PRN to abd 07/19/22 07/19/22 Unknown History powder (Nyamyc) folds and breast sodium phosphates 19 gram-7 118 ml CA DAILY PRN Constipation 07/19/22 07/19/22 Unknown History gram/118 mL enema (Fleet Enema) Allergies Allergy/AdvReac Type Severity Reaction Status Date / Time aspirin Allergy Unknown Unknown Verified 07/19/22 12:00 citalopram Allergy Unknown Unknown Verified 07/19/22 12:00 codeine Allergy Unknown Unknown Verified 07/19/22 12:00 Current Medications Generic Name Dose Route Start Last Admin Trade Name Freq PRN Reason Stop Dose Admin Albuterol/Ipratropium 3 ml 07/19/22 13:00 07/19/22 15:10 Ipratropium-Albuterol 3 Ml Neb INHALATION 3 ml Q4H.RESPIRATORY KD Administration Dexamethasone 6 mg 07/19/22 13:00 07/19/22 13:28 Dexamethasone 10 Mg/Ml Inj IVP 6 mg Q24H KD Administration Heparin Sodium/Sodium Chloride 25,000 unit in 500 mls @ 0 mls/hr 07/19/22 13:30 07/19/22 15:21 Heparin Drip IV 11.34 unit/kg/hr .Q0M KD 36.01 mls/hr Administration Protocol Per Protocol Piperacillin Sod/Tazobactam 50 mls @ 12.5 mls/hr 07/19/22 15:00 07/19/22 15:18 Sod 3.375 gm/ Sodium Chloride IV 12.5 mls/hr Q8H KD Administration Protocol As Directed Metoprolol Tartrate 12.5 mg 07/19/22 15:00 07/19/22 15:18 Metoprolol Tartrate 25 Mg Tablet PO 12.5 mg 0900,2100 KD Administration PFSH Acute PFSH: Medical History Atrial fibrillation Congestive heart failure Ejection fraction 25 to 30% 06/26 Diabetes mellitus with peripheral autonomic neuropathy Gangrene Hypertension New onset of congestive heart failure Acute diastolic heart failure. EF normal on limited echo Obesity PAD (peripheral artery disease) Tobacco abuse, in remission Surgical History Post-operative state Status post amputation of great toe Family History Other Diabetes Hypertension Denies family history of CAD (coronary artery disease) Clotting disorder Dementia Hyperlipidemia Psychiatric illness Chronic kidney disease (CKD) Suicide Anesthesia complication Bleeding disorder Family history of premature coronary artery disease Lung disease Cancer Stroke Social History Smoking and tobacco status: former smoker Substance/Drug Use: never Marital status: Current occupational status: disabled Vitals/I&O/Wt Last Vital Signs Temp 98.2 F 07/19/22 10:03 Pulse 62 07/19/22 15:12 Resp 23 H 07/19/22 15:11 BP 102/54 07/19/22 15:45 Pulse Ox 91 07/19/22 15:45 O2 Del Method BiPAP 07/19/22 15:11 O2 Flow Rate 2 07/19/22 10:43 FiO2 30 07/19/22 15:12 07/19/22 07/19/22 07/19/22 06:59 14:59 22:59 Intake Total 100 / 100 Balance 100 / 100 Weight last 48 hrs Weight 350 lb Physical Exam Narrative: GENERAL: Patient is oriented NECK: No jugular vein distension. [] HEENT: No cyanosis. No icterus. No pallor. [] HEART: Regularly regular. S1 and S2. LUNGS: Diminished lung sounds CENTRAL NERVOUS SYSTEM: Grossly nonfocal. [] EXTREMITIES: Lower extremities with 2 + edema bilaterally. Urinary Catheter Management: Marcelo: Cath Placed During This Visit: yes Reason for Continuing Indwelling Catheter: Other Urinary Catheter Date of Insertion: 06/26/22 Urinary Catheter Time of Insertion: 12:58 Data 07/20/22 14:20 07/20/22 05:31 Micro: Microbiology 07/19/22 12:00 Blood Culture - Preliminary Blood SPECIMEN COLLECTED 07/19/22 11:49 Blood Culture - Preliminary Blood SPECIMEN COLLECTED A&P Assessment and plan (1) Chronic kidney disease: (2) Hyperkalemia: (3) Anemia: (4) COPD with acute exacerbation: (5) Obesity: (6) Congestive heart failure: (7) Atrial fibrillation: (8) Cardiomyopathy: (9) Hypertension: (10) PAD (peripheral artery disease): Plan Continue IV diuresis. Close I&Os. Renal function monitoring. Patient may need coronary angiogram in future if renal function stabilizes and she is able to tolerate procedure as stress test can not be done secondary to body habitus and weight. She has LV dysfunction and possible cardiac arrest recently. Continue anticoagulation. Can consider CTA once renal function is stable to rule out PE. Continue plavix Low sodium diet Continue metoprolol. Uptitrate as blood pressure tolerates Thankyou for involving us with care of this patient. We will continue to follow. Please call with questions. Consult Attestations Medical Necessity Statement: Care expected to cross 2 midnights. Coding Level of Care Code Acute Code for [facility] Diagnoses Chronic kidney disease N18.9 Hyperkalemia E87.5 Anemia D64.9 COPD with acute exacerbation J44.1 Obesity E66.9 Congestive heart failure I50.9 Atrial fibrillation I48.91 Cardiomyopathy I42.9 Hypertension I10 PAD (peripheral artery disease) I73.9
[2022-07-19 17:36] LABS: Glucose Point of Care 314 mg/dL (70-110)
[2022-07-19] MEDS: insulin lispro 100 unit/1 mL SUBCUT ×2 (17:42→20:56)
--- NOTE | 2022-07-19 17:53 | ECG_ITS ---
[facility] Test Date: 2022-07-19 Pat Name: Siobhan Lechuga Department: Room: ICU06 Gender: Female Physician Compensation Analyst: : [id number] Requested By: Eldon Hurley Order Number: [id number] Reading MD: Tray Rubalcava M.D. Measurements Intervals [place] Rate: 64 P: -2 OK: 159 QRS: 75 QRSD: 88 T: -19 QT: 409 QTc: 422 Interpretive Statements SINUS RHYTHM LOW QRS VOLTAGE IN PRECORDIAL LEADS [QRS DEFLECTION < 1.0 mV IN CHEST LEADS] PROBABLE ANTERIOR MYOCARDIAL INFARCTION , OF INDETERMINATE AGE [35 ms Q WAVE IN V3/V4] POSSIBLE INFERIOR MYOCARDIAL INFARCTION , PROBABLY OLD [30 ms Q WAVE IN II/aVF] Compared to ECG 07/19/2022 12:08:45 No significant changes Electronically Signed On 07-20-2022 18:01:18 CDT by Tray Rubalcava M.D. [id number]
[2022-07-19 18:22] LABS: Troponin 5 6HR 35.18 ng/L (0-10)
[2022-07-19 18:31] LABS: Potassium 5.4 mmol/L (3.5-5.1)
[2022-07-19] MEDS: budesonide 0.5 mg/2 mL Neb INHALATION (19:37)
[2022-07-19 20:49] LABS: Glucose Point of Care 350 mg/dL (70-110)
[2022-07-19] MEDS: acetaminophen 325 mg Tablet 650 MG PO (21:15)
[2022-07-19] MEDS: atorvastatin 40 mg Tablet 20 MG PO (21:16)
[2022-07-19 21:55] LABS: Partial Thromboplastin Time 129.4 SECONDS (23.9-36.7)
[2022-07-19 23:51] LABS: Adenovirus Not Detected (NOT DETECT); Chlamydia Pneumoniae Not Detected (NOT DETECT); Coronavirus 229E,HKU1,NL63,OC4 Not Detected (NOT DETECT); Human Metapneumovirus Not Detected (NOT DETECT); Human Rhinovirus/Enterovirus Not Detected (NOT DETECT); Influenza A Not Detected (NOT DETECT); Influenza A H1 Not Detected (NOT DETECT); Influenza A H1-2009 Not Detected (NOT DETECT); Influenza A H3 Not Detected (NOT DETECT); Influenza B Not Detected (NOT DETECT); Mycoplasma Pneumoniae Not Detected (NOT DETECT); Parainfluenza Virus Type 1 Not Detected (NOT DETECT); Parainfluenza Virus Type 2 Not Detected (NOT DETECT); Parainfluenza Virus Type 3 Not Detected (NOT DETECT); Parainfluenza Virus Type 4 Not Detected (NOT DETECT); Respiratory Syncytial Virus A Not Detected (NOT DETECT); Respiratory Syncytial Virus B Not Detected (NOT DETECT); SARS-COV-2 Not Detected (NOT DETECT)
[2022-07-20] VITALS (77 sets, daily range): BP systolic 90–148; BP diastolic 33–117; PULSE 62–79; RESP 12–28; TEMP 36.7; O2SAT 90–100
[2022-07-20] MEDS: ipratropium-albuterol 3 mL Neb INHALATION ×6 (03:18→23:16)
[2022-07-20 05:40] LABS: Basophils % 0.1 %; Eosinophils % 0.2 %; Hematocrit 27.7 % (37.0-47.0); Hemoglobin 7.7 g/dL (11.5-15.3); Lymphocytes # 0.5 10^3/uL (0.8-4.8); Lymphocytes % 4.6 %; Mean Corpuscular HGB Conc 27.8 g/dL (30.0-36.0); Mean Corpuscular Hemoglobin 24.4 pg (28.0-34.0); Mean Corpuscular Volume 87.9 fl (81-99); Mean Platelet Volume 10.5 fL (7.4-10.4); Monocytes # 1.1 10^3/uL (0.2-0.9); Monocytes % 9.8 %; Neutrophils # 9.84 10^3/uL (1.8-7.7); Neutrophils % 84.6 %; Nucleated Red Blood Cells % 0 %; Platelet Count 341 10^3/cmm (130-400); Red Blood Count 3.15 10^6/uL (4.1-5.3); White Blood Count 11.6 10^3/uL (4.0-10.0)
[2022-07-20 05:57] LABS: Alanine Aminotransferase 25 U/L (0-33); Albumin Level 2.8 g/dL (3.5-5.2); Alkaline Phosphatase 98 U/L (35-105); Aspartate Amino Transferase 16 U/L (0-32); Blood Urea Nitrogen 58 mg/dL (8-23); Calcium 9.2 mg/dL (8.5-10.5); Carbon Dioxide 35 mmol/L (22-29); Chloride 96 mmol/L (98-107); Globulin 3.8 g/dL (1.3-4.6); Glomerular Filtration Rate 41.1 mL/min (90-130); Glucose 285 mg/dL (65-115); Osmolality Calculated 309 mOsm/kg (285-295); Sodium 136 mmol/L (136-145); Total Bilirubin 0.3 mg/dL (0.15-1.2); Total Protein 6.6 g/dL (6.6-8.7)
[2022-07-20 06:02] LABS: Partial Thromboplastin Time 132.8 SECONDS (23.9-36.7)
--- NOTE | 2022-07-20 06:19 | PC.NURSE ---
Ptt delayed d/t hemolyzed labs. Labs redrawn.
[2022-07-20] MEDS: piperacillin-tazobactam 3.375 GM in sodium chloride 0.9% (plus) 50 ML IV ×3 (06:25→23:25)
--- NOTE | 2022-07-20 06:26 | CT_ITS ---
WS: [id number] CT CHEST ANGIOGRAPHY WITH REFORMATS HISTORY: Respiratory failure, elevated dimer TECHNIQUE: Contiguous axial images are obtained through the chest during arterial injection of intrav enous contrast. Images are reconstructed to evaluate the pulmonary arteries. MIP imaging also reviewe d. All CT scans at [facility] use at least one of these dose optimization techniques: automat ed exposure control; mA and/or kV adjustment per patient size (includes targeted exams where dose is matched to clinical indication); or iterative reconstruction. CONTRAST: Omnipaque 350; 100 mL IV. DLP: 785.66 mGy.cm COMPARISON: 06/26/2022 This study is significantly compromised by patient's body habitus. Patient was unable to elevate her arms away from the area of concern. There is significant artifact through the pulmonary arteries. No large central pulmonary embolism is identified. Beyond the lobar branches there is significant limitations. Portions of the aorta are obs cured by streak artifact. No aneurysm. Small bilateral pleural effusions, RIGHT greater than LEFT with compressive atelectasis. Mild hazy at tenuation throughout the lungs from edema. RIGHT upper lobe calcified benign granuloma. Mild enlargement of the heart. Moderate circumferential pericardial effusion. No adenopathy. Diffuse soft tissue anasarca. Significant artifact through the upper abdomen. CT/CT angio chest PE protcl [id number] IMPRESSION: 1. This study is significantly limited by multiple factors including body habi tus, respiratory motion artifact and streak artifact. 2. No central pulmonary embolism. 3. Small bilateral pleural effusions with compressive atelectasis. 4. Moderate circumferential pericardial effusion new since 06/26/2022. 5. Mild pulmonary edema and diffuse soft tissue anasarca.
[2022-07-20] MEDS: buPROPion XL (24 HR) 150 mg Tablet PO (06:28)
[2022-07-20] MEDS: clopidogrel 75 mg Tablet PO (06:28)
--- NOTE | 2022-07-20 06:33 | P.PN_ITS ---
Subjective Subjective: Siobhan reports she feels a little bit better. Is not for sure about her breathing yet as she is still on BiPAP. No pain. Medications: Reviewed: Yes Vitals/I&O/Wt Last Vital Signs Temp 97.9 F 07/19/22 22:00 Pulse 66 07/20/22 06:00 Resp 16 07/20/22 04:45 BP 108/65 07/20/22 04:45 Pulse Ox 96 07/20/22 04:45 O2 Del Method BiPAP 07/20/22 04:45 O2 Flow Rate 2 07/19/22 10:43 FiO2 30 07/20/22 03:18 07/19/22 07/19/22 07/20/22 14:59 22:59 06:59 Intake Total 100 / 100 838.266 / 938.266 50 / 988.266 Output Total 819 / 819 1000 / 1819 Balance 100 / 100 19.266 / 119.266 -950 / -830.734 Weight last 48 hrs Weight 188.604 kg Weight 158.757 kg Physical Exam Narrative: General exam demonstrates a white female, on BiPAP, no obvious distress currently Neck is supple no lymphadenopathy thyromegaly Cardiovascular regular rate and rhythm, heart sounds distant Lungs diminished breath sounds with a few faint crackles bases Abdomen is soft nontender. Fluid is noted in the abdominal wall. Cannot estimate organomegaly. demonstrates Marcelo Extremities show 4+ edema bilaterally. No cyanosis or clubbing. Right great toe is missing Data 07/20/22 05:31 07/20/22 05:31 Micro: Microbiology 07/19/22 12:00 Blood Culture - Preliminary Blood SPECIMEN COLLECTED 07/19/22 11:49 Blood Culture - Preliminary Blood SPECIMEN COLLECTED A&P Assessment and plan (1) Congestive heart failure: Patient has recent history of diagnosis of acute systolic heart failure with EF of 25 to 30% during her recent hospital stay Continue diuresis with Lasix 60 mg IV every 12 hours. Renal function has improved She is approximately 800 cc negative Appreciate cardiology consultation Continue low-dose beta-rossana [place] inhibitor/ARB contraindicated currently secondary to hyperkalemia with renal dysfunction. With her edema in her legs we will go ahead and check a dimer, venous duplex. Dimer is significantly elevated. Venous duplex negative. Was placed on heparin yesterday. Check CTA today as renal function improving. Risks and benefits of this discussed with the patient. Secondary to her significant anemia, consider discontinuing heparin if no evidence of pulmonary embolism. Has recent history of atrial fibrillation during her last hospital stay. Monitor for any recurrent arrhythmia considering her unresponsive episode as noted below Concern last hospital stay with coronary disease as cause for low EF and Plavix was initiated. Continue currently. BMP tomorrow (2) COPD with acute exacerbation: She is wheezing, has history of COPD She stopped smoking only 1 year ago Continue dexamethasone 6 mg IV every 24 hours DuoNeb every 4 hours Budesonide twice daily (3) Acute on chronic respiratory failure with hypoxia and hypercapnia: Currently on BiPAP, wean as tolerated (4) Pneumonia: At this point unable to differentiate pneumonia from edema. CRP is elevated. White blood cell count is elevated although it appears it may be chronically be so. Continue Zosyn. Nurses at nursing facility admit patient aspirates on occasion eating in bed. MRSA was negative recently. Sputum culture pending COVID PCR negative Advance to clear liquids. for now. Speech therapy consultation. (5) Anemia: Hemoglobin is decreased to 7.7. No obvious active bleeding. Repeat hemoglobin around 2 PM. Repeat CBC tomorrow Stool Hemoccult pending (6) Hyperkalemia: Improved. Repeat tomorrow (7) Chronic kidney disease: Close monitoring of renal function with BMP daily Renal function improved (8) Troponin level elevated: Serial troponins demonstrate trend downward Plan Episode of unresponsiveness, where CPR was given. Apparently CPR lasted for just seconds. Telemetry. Full code Heparin will suffice for DVT prophylaxis currently Attestations Medical Necessity Statement*: Needs continued hospital stay secondary to acute systolic heart failure, possibly receiving CPR, anemia, with respiratory failure Critical Care Time: The high probability of a clinically significant, sudden or life threatening deterioration of the patient's [renal, cardiac, hematologic, pulmonary] system(s) required my full and direct attention, intervention and personal management. The critical care time is as shown. This time is in addition to time spent performing any reported procedures but includes the following: [x] Data and vital sign review and interpretation [x] Patient assessment, examination and intervention [x] Documentation [x] Medication orders and management Critical Care Time (min): 34 Coding Level of Care Code Critical Care >/= 30 minutes Critical care time (in minutes): 34 The high probability of a clinically significant, sudden or life threatening deterioration, as referenced in this documentation, required my full and direct attention, intervention and personal management. The critical care time shown is in addition to time spent performing any reported separately billable procedures and includes the following: [x] Data and vital sign review and interpretation [x ] Patient assessment, examination and intervention [x] Medication orders and management [x] Patient/Family updates as able [x] Care Coordination and Documentation. Diagnoses Congestive heart failure I50.9 COPD with acute exacerbation J44.1 Acute on chronic respiratory failure with hypoxia and hypercapnia J96.21; J96.22 Pneumonia J18.9 Anemia D64.9 Hyperkalemia E87.5 Chronic kidney disease N18.9 Troponin level elevated R77.8
[2022-07-20 07:02] LABS: Glucose Point of Care 307 mg/dL (70-110)
[2022-07-20 07:02] LABS: Glucose Point of Care 289 mg/dL (70-110)
[2022-07-20] MEDS: budesonide 0.5 mg/2 mL Neb INHALATION ×2 (08:03→20:00)
[2022-07-20] MEDS: insulin lispro 100 unit/1 mL SUBCUT ×4 (08:21→21:29)
[2022-07-20] MEDS: pantoprazole DR 40 mg Tablet PO (08:21)
[2022-07-20] MEDS: metoprolol tartrate 25 mg Tablet 12.5 MG PO ×2 (08:21→21:28)
[2022-07-20] MEDS: heparin drip 25,000 UNIT/500 ML PREMIX 20 UNIT IV (08:22)
[2022-07-20] MEDS: FUROsemide 10 mg/mL SDV 10mL 60 MG IVP ×2 (09:13→21:30)
[2022-07-20] MEDS: iohexol 350 mg/mL 500 mL Btl (per mL) IV (09:27)
[2022-07-20 11:04] LABS: Glucose Point of Care 249 mg/dL (70-110)
--- NOTE | 2022-07-20 12:16 | PC.NURSE ---
CTA result reported to Dr. Reid, received t.o. to stop heparin drip and start lovenox 40 at 1600
[2022-07-20] MEDS: dexamethasone 10 mg/mL INJ 6 MG IVP (13:25)
[2022-07-20 14:29] LABS: Hematocrit 29.1 % (37.0-47.0)
[2022-07-20] MEDS: enoxaparin 40 mg/0.4 mL Syringe SUBCUT (15:40)
[2022-07-20 16:44] LABS: Glucose Point of Care 259 mg/dL (70-110)
[2022-07-20] MEDS: atorvastatin 40 mg Tablet 20 MG PO (17:48)
[2022-07-20 17:57] LABS: Glucose Point of Care 254 mg/dL (70-110)
--- NOTE | 2022-07-20 18:48 | PM.PN ---
Subjective Subjective: Patient is feeling better. No chest pain. Still short of breath. Vitals/I&O/Wt Last Vital Signs Temp 97.9 F 07/19/22 22:00 Pulse 72 07/20/22 15:37 Resp 18 07/20/22 15:30 BP 106/76 07/20/22 13:30 Pulse Ox 96 07/20/22 15:37 O2 Del Method Nasal Cannula 07/20/22 11:00 O2 Flow Rate 2 07/20/22 15:30 FiO2 30 07/20/22 15:37 07/20/22 07/20/22 07/20/22 06:59 14:59 22:59 Intake Total 274.933 / 1213.199 86.801 / 86.801 Output Total 1000 / 1819 Balance -725.067 / -605.801 86.801 / 86.801 Weight last 48 hrs Weight 415 lb 12.8 oz Weight 350 lb Physical Exam Narrative: GENERAL: Patient is oriented NECK: No jugular vein distension. [] HEENT: No cyanosis. No icterus. No pallor. [] HEART: Regularly regular. S1 and S2. LUNGS: Diminished lung sounds CENTRAL NERVOUS SYSTEM: Grossly nonfocal. [] EXTREMITIES: Lower extremities with 2 + edema bilaterally. Urinary Catheter Management: Marcelo: Cath Placed During This Visit: yes Reason for Continuing Indwelling Catheter: Other Urinary Catheter Date of Insertion: 06/26/22 Urinary Catheter Time of Insertion: 12:58 Data 07/20/22 14:20 07/20/22 05:31 Micro: Microbiology 07/19/22 12:00 Blood Culture - Preliminary Blood NEGATIVE TO DATE 07/19/22 11:49 Blood Culture - Preliminary Blood NEGATIVE TO DATE A&P Assessment and plan (1) Chronic kidney disease: (2) Hyperkalemia: (3) Anemia: (4) COPD with acute exacerbation: (5) Obesity: (6) Congestive heart failure: (7) Atrial fibrillation: (8) Cardiomyopathy: (9) Hypertension: (10) PAD (peripheral artery disease): Plan Patient is feeling better. Continue diuresis. Close I and Os. Renal function monitoring. CTA did not show PE. Given her weight and breathing difficult, ischemic workup is difficult. Will need reassess once she is diuresed. Thank you for involving us with care of this patient. We will continue to follow. Please call with questions. Attestations Medical Necessity Statement*: Care expected to cross 2 midnights. Coding Level of Care Code Acute Code for [facility] Fwd Diagnoses Chronic kidney disease N18.9 Hyperkalemia E87.5 Anemia D64.9 COPD with acute exacerbation J44.1 Obesity E66.9 Congestive heart failure I50.9 Atrial fibrillation I48.91 Cardiomyopathy I42.9 Hypertension I10 PAD (peripheral artery disease) I73.9
[2022-07-20 21:11] LABS: Glucose Point of Care 299 mg/dL (70-110)
[2022-07-21] VITALS (70 sets, daily range): BP systolic 75–150; BP diastolic 45–120; PULSE 72–85; RESP 0–28; TEMP 36.1–37.3; O2SAT 85–100
[2022-07-21] MEDS: ipratropium-albuterol 3 mL Neb INHALATION ×6 (03:15→23:49)
--- NOTE | 2022-07-21 05:26 | PC.NURSE ---
Unable to get morning labs: 2 phlebotomy techs and 2 RN's attempted to get blood for morning labs unsuccessfully. IV line will not draw. Morning labs delayed. Dr. Hansen aware. Passing on to dayshift.
[2022-07-21] MEDS: buPROPion XL (24 HR) 150 mg Tablet PO (06:13)
[2022-07-21] MEDS: clopidogrel 75 mg Tablet PO (06:13)
[2022-07-21] MEDS: piperacillin-tazobactam 3.375 GM in sodium chloride 0.9% (plus) 50 ML IV ×3 (06:17→22:49)
[2022-07-21] MEDS: budesonide 0.5 mg/2 mL Neb INHALATION ×2 (08:02→19:55)
--- NOTE | 2022-07-21 08:28 | XR_ITS ---
WS: [id number] Portable AP upright chest, 07/21/2022 Clinical Data: sob Comparison: Portable chest, 07/19/2022 Findings: The right lower lobe opacity has not changed. The heart remains enlarged. No pneumothorax i s seen. There are monitor leads on the chest wall. No nodules or masses are present. XR/XR chest 1V portable [id number] Impression: 1. No change in right lower lobe opacity which may represent atelectasis and/or pneumonia. 2. Cardiomegaly.
[2022-07-21] MEDS: insulin lispro 100 unit/1 mL SUBCUT ×4 (08:48→21:01)
[2022-07-21] MEDS: FUROsemide 10 mg/mL SDV 10mL 60 MG IVP ×2 (09:04→21:06)
[2022-07-21] MEDS: pantoprazole DR 40 mg Tablet PO (09:05)
[2022-07-21] MEDS: metoprolol tartrate 25 mg Tablet 12.5 MG PO (09:06)
--- NOTE | 2022-07-21 09:45 | PM.PN ---
Subjective Subjective: Patient is feeling better. Has diuresed well. Vitals/I&O/Wt Last Vital Signs Temp 97.8 F 07/21/22 07:30 Pulse 78 07/21/22 08:30 Resp 20 H 07/21/22 08:30 BP 131/76 07/21/22 08:30 Pulse Ox 95 07/21/22 07:45 O2 Del Method Nasal Cannula 07/21/22 07:45 O2 Flow Rate 2 07/21/22 07:45 FiO2 30 07/21/22 03:27 07/20/22 07/21/22 07/21/22 22:59 06:59 14:59 Intake Total 320 / 406.801 550 / 956.801 240 / 240 Output Total 900 / 900 1400 / 2300 Balance -580 / -493.199 -850 / -1343.199 240 / 240 Weight last 48 hrs Weight 415 lb 9.6 oz Weight 415 lb 12.8 oz Weight 350 lb Physical Exam Narrative: GENERAL: Patient is oriented NECK: No jugular vein distension. [] HEENT: No cyanosis. No icterus. No pallor. [] HEART: Regularly regular. S1 and S2. LUNGS: Diminished lung sounds CENTRAL NERVOUS SYSTEM: Grossly nonfocal. [] EXTREMITIES: Lower extremities with 2 + edema bilaterally. Urinary Catheter Management: Marcelo: Cath Placed During This Visit: yes Reason for Continuing Indwelling Catheter: Other Urinary Catheter Date of Insertion: 06/26/22 Urinary Catheter Time of Insertion: 12:58 Data 07/22/22 03:19 07/22/22 03:19 Micro: Microbiology 07/19/22 12:00 Blood Culture - Preliminary Blood NEGATIVE TO DATE 07/19/22 11:49 Blood Culture - Preliminary Blood NEGATIVE TO DATE A&P Assessment and plan (1) Chronic kidney disease: (2) Hyperkalemia: (3) Anemia: (4) COPD with acute exacerbation: (5) Obesity: (6) Congestive heart failure: (7) Atrial fibrillation: (8) Cardiomyopathy: (9) Hypertension: (10) PAD (peripheral artery disease): Plan Patient is doing better. Continue diuresis. Close I&O's. Close monitoring of renal function. I had a discussion with the patient, we will medically manage her. She also wants to medically managed at this time. Thank you for involving us with care of this patient. We will continue to follow. Please call with questions. Attestations Medical Necessity Statement*: Care expected to cross 2 midnights. Coding Level of Care Code Acute Code for g Fwd Diagnoses Chronic kidney disease N18.9 Hyperkalemia E87.5 Anemia D64.9 COPD with acute exacerbation J44.1 Obesity E66.9 Congestive heart failure I50.9 Atrial fibrillation I48.91 Cardiomyopathy I42.9 Hypertension I10 PAD (peripheral artery disease) I73.9
[2022-07-21 11:45] LABS: Glucose Point of Care 270 mg/dL (70-110)
--- NOTE | 2022-07-21 12:30 | PC.NURSE ---
Midline to right basilic vein placed with some difficulty. Mid-arm circumference measured 10 cm from right AC 45 cm. Trimmed cath length 12 cm with 0 cm external length. EBL < 10 mL. Dressing due to be changed 07/22/22. Report given to bedside nurse, June.
[2022-07-21] MEDS: dexamethasone 10 mg/mL INJ 6 MG IVP (12:42)
[2022-07-21] MEDS: enoxaparin 40 mg/0.4 mL Syringe SUBCUT (16:15)
[2022-07-21 16:24] LABS: Basophils % 0.1 %; Eosinophils # 0.1 10^3/uL (0.0-0.8); Eosinophils % 0.4 %; Hematocrit 25.1 % (37.0-47.0); Hemoglobin 7.1 g/dL (11.5-15.3); Lymphocytes # 0.5 10^3/uL (0.8-4.8); Lymphocytes % 4.2 %; Mean Corpuscular HGB Conc 28.3 g/dL (30.0-36.0); Mean Corpuscular Hemoglobin 24.3 pg (28.0-34.0); Mean Platelet Volume 10.7 fL (7.4-10.4); Monocytes # 0.8 10^3/uL (0.2-0.9); Neutrophils # 10.07 10^3/uL (1.8-7.7); Neutrophils % 87.7 %; Nucleated Red Blood Cells % 0 %; Platelet Count 342 10^3/cmm (130-400); Red Blood Count 2.92 10^6/uL (4.1-5.3); Red Cell Distribution Width 19.2 % (12.1-15.1); White Blood Count 11.5 10^3/uL (4.0-10.0)
--- NOTE | 2022-07-21 16:43 | PM.PN ---
Subjective Subjective: Patient was seen this morning, she is alert to person, not to place, not to time, she tells me that she is from home, she is in fact from her correction, she is able to walk at [facility], with the help of her son, she does not know that she is in the hospital, denies any chest pain, no shortness of breath Vitals/I&O/Wt Last Vital Signs Temp 97 F L 07/21/22 16:30 Pulse 81 07/21/22 16:30 Resp 16 07/21/22 16:30 BP 113/49 07/21/22 16:30 Pulse Ox 93 07/21/22 16:30 O2 Del Method Nasal Cannula 07/21/22 16:30 O2 Flow Rate 2 07/21/22 16:30 FiO2 30 07/21/22 03:27 07/21/22 07/21/22 07/21/22 06:59 14:59 22:59 Intake Total 550 / 956.801 490 / 490 240 / 730 Output Total 1400 / 2300 1450 / 1450 Balance -850 / -1343.199 490 / 490 -1210 / -720 Weight last 48 hrs Weight 188.513 kg Weight 188.604 kg Physical Exam Const: COMMON NORMALS: no acute distress NUTRITIONAL APPEARANCE: obese ORIENTATION/CONSCIOUSNESS: Yes awake, Yes oriented to person and Yes confused; not oriented to place and not oriented to time Neck/C-Spine: COMMON NORMALS: no JVD Resp: COMMON NORMALS: normal respiratory effort, No retractions, No use of accessory muscles and clear to auscultation bilaterally AUSCULTATION: clear to auscultation bilaterally Cardio: COMMON NORMALS: no JVD, regular rate, regular rhythm, S1 normal heart sound present and S2 normal heart sound present RATE: regular rate RHYTHM: regular rhythm HEART SOUNDS: S1 normal heart sound present and S2 normal heart sound present GI: COMMON NORMALS: Normal to inspection, nondistended, normoactive bowel sounds present and non-tender Extremity: COMMON NORMALS: no pedal edema Neuro: SENSORIUM/ORIENTATION: Yes oriented to person, No oriented to place and No oriented to time Urinary Catheter Management: Marcelo: Cath Placed During This Visit: yes Reason for Continuing Indwelling Catheter: Other Urinary Catheter Date of Insertion: 06/26/22 Urinary Catheter Time of Insertion: 12:58 Data 07/21/22 16:02 07/21/22 16:02 Micro: Microbiology 07/19/22 12:00 Blood Culture - Preliminary Blood NEGATIVE TO DATE 07/19/22 11:49 Blood Culture - Preliminary Blood NEGATIVE TO DATE A&P Assessment and plan (1) Congestive heart failure: Patient has recent history of diagnosis of acute systolic heart failure with EF of 25 to 30% during her recent hospital stay Continue diuresis with Lasix 60 mg IV every 12 hours. Creatinine 1.4, -3.7 L Appreciate cardiology consultation Continue low-dose beta-rossana SANFORD inhibitor/ARB contraindicated currently secondary to hyperkalemia with renal dysfunction. Has recent history of atrial fibrillation during her last hospital stay. Monitor for any recurrent arrhythmia considering her unresponsive episode as noted below Concern last hospital stay with coronary disease as cause for low EF and Plavix was initiated. Continue currently. (2) COPD with acute exacerbation: She is wheezing, has history of COPD She stopped smoking only 1 year ago Continue dexamethasone 6 mg IV every 24 hours DuoNeb every 4 hours Budesonide twice daily (3) Acute on chronic respiratory failure with hypoxia and hypercapnia: Currently on BiPAP, wean as tolerated (4) Pneumonia: At this point unable to differentiate pneumonia from edema. CRP is elevated. White blood cell count is elevated although it appears it may be chronically be so. Continue Zosyn. Nurses at nursing facility admit patient aspirates on occasion eating in bed. MRSA was negative recently. Sputum culture pending COVID PCR negative Advance to clear liquids. for now. Speech therapy consultation. (5) Anemia: Hemoglobin is decreased to 7.0. No obvious active bleeding. Transfuse 1 unit PRBC, hold Lovenox quality of Stool Hemoccult pending (6) Hyperkalemia: Improved. Repeat tomorrow (7) Chronic kidney disease: Close monitoring of renal function with BMP daily Renal function improved (8) Troponin level elevated: Serial troponins demonstrate trend downward (9) Acute encephalopathy: , Possibly second hospital delirium, repeat Pro-Donato, CRP, on antibiotic treatments, repeat chest x-ray Plan Episode of unresponsiveness, where CPR was given. Apparently CPR lasted for just seconds. Telemetry. Full code SCDs Plan for today transfuse 1 unit PRBC continue Lasix therapy monitor urine output, Pro-Donato CRP chest x-ray, continue antibiotic treatments Attestations Medical Necessity Statement*: Patient requires hospitalization for CHF exacerbation, pneumonia, unresponsive episode, anemia, Diagnoses Congestive heart failure I50.9 COPD with acute exacerbation J44.1 Acute on chronic respiratory failure with hypoxia and hypercapnia J96.21; J96.22 Pneumonia J18.9 Anemia D64.9 Hyperkalemia E87.5 Chronic kidney disease N18.9 Troponin level elevated R77.8 Acute encephalopathy G93.40
[2022-07-21 17:01] LABS: NT Pro B Type Natriuretic Pept 8161 pg/mL (0-125); Procalcitonin 0.13 ng/mL (0-0.5)
[2022-07-21 17:21] LABS: Alanine Aminotransferase 22 U/L (0-33); Alkaline Phosphatase 86 U/L (35-105); Anion Gap 12.9 (5-19); Aspartate Amino Transferase 16 U/L (0-32); Calcium 8.5 mg/dL (8.5-10.5); Magnesium 1.9 mg/dL (1.7-2.3); Phosphorus 3.8 mg/dL (2.5-4.5); Potassium 4.9 mmol/L (3.5-5.1); Sodium 139 mmol/L (136-145); Total Bilirubin 0.3 mg/dL (0.15-1.2)
[2022-07-21] MEDS: pantoprazole 40 mg SDV IVP (17:26)
[2022-07-21] MEDS: sucralfate 1 gm Tablet PO (17:26)
[2022-07-21 17:27] LABS: Blood Urea Nitrogen 72 mg/dL (8-23); C Reactive Protein 38.7 mg/L (0.0-4.9); Carbon Dioxide 34 mmol/L (22-29); Chloride 97 mmol/L (98-107); Glomerular Filtration Rate 37.7 mL/min (90-130); Glucose 225 mg/dL (65-115); Osmolality Calculated 316 mOsm/kg (285-295)
[2022-07-21] MEDS: atorvastatin 40 mg Tablet 20 MG PO (18:05)
[2022-07-21] MEDS: ondansetron 2 mg/ML SDV 2 mL 4 MG IVP (19:56)
[2022-07-21] MEDS: sodium chloride 0.9% 100 mL Bag 50 ML IV (20:05)
[2022-07-21 20:41] LABS: Glucose Point of Care 320 mg/dL (70-110)
[2022-07-22] VITALS (47 sets, daily range): BP systolic 49–129; BP diastolic 41–92; PULSE 69–128; RESP 4–28; TEMP 36.6–37.1; O2SAT 77–100
[2022-07-22] MEDS: ipratropium-albuterol 3 mL Neb INHALATION ×6 (03:51→23:58)
[2022-07-22 04:46] LABS: C Reactive Protein 32.1 mg/L (0.0-4.9)
[2022-07-22] MEDS: sucralfate 1 gm Tablet PO ×2 (04:57→16:55)
[2022-07-22] MEDS: pantoprazole 40 mg SDV IVP ×2 (04:57→16:55)
[2022-07-22 04:59] LABS: NT Pro B Type Natriuretic Pept 9974 pg/mL (0-125); Procalcitonin 0.18 ng/mL (0-0.5)
[2022-07-22 05:54] LABS: Hematocrit 26.5 % (37.0-47.0); Hemoglobin 7.7 g/dL (11.5-15.3); Mean Corpuscular HGB Conc 29.1 g/dL (30.0-36.0); Mean Corpuscular Hemoglobin 25.2 pg (28.0-34.0); Mean Corpuscular Volume 86.9 fl (81-99); Platelet Count 323 10^3/cmm (130-400); Red Blood Count 3.05 10^6/uL (4.1-5.3); Red Cell Distribution Width 18.7 % (12.1-15.1); White Blood Count 10.6 10^3/uL (4.0-10.0)
[2022-07-22 06:05] LABS: Blood Urea Nitrogen 69 mg/dL (8-23); Calcium 8.7 mg/dL (8.5-10.5); Carbon Dioxide 34 mmol/L (22-29); Chloride 97 mmol/L (98-107); Glomerular Filtration Rate 37.7 mL/min (90-130); Glucose 226 mg/dL (65-115); Magnesium 1.8 mg/dL (1.7-2.3); Osmolality Calculated 317 mOsm/kg (285-295); Sodium 140 mmol/L (136-145)
[2022-07-22] MEDS: piperacillin-tazobactam 3.375 GM in sodium chloride 0.9% (plus) 50 ML IV ×3 (06:11→23:42)
[2022-07-22] MEDS: buPROPion XL (24 HR) 150 mg Tablet PO (06:14)
[2022-07-22 06:15] LABS: Anion Gap 13.6 (5-19); Potassium 4.6 mmol/L (3.5-5.1)
[2022-07-22 06:55] LABS: Absolute Neutrophil 9.8 10^3/cmm (1.4-6.5); Absolute Segmented Neutrophil 9.2 10/cmm (1.6-7.1); Band Neutrophils Absolute 0.5 10^3/cmm (0.0-1.2); Blastocytes 0 % (0-0); Eosinophils 0 %; Giant Platelets 1+; Lymphocytes 5 %; Lymphocytes Absolute 0.5 10^3/cmm (1.2-3.4); Monocytes Absolute 0.3 10^3/cmm (0.1-0.6); Platelet Estimate Normal (Normal); Segmented Neutrophils 87 %; Total Cells Counted 100 (0-100)
[2022-07-22 06:56] LABS: Anisocytosis 2+; Hypochromasia 2+; Microcytosis 1+; Polychromasia 1+
[2022-07-22 06:57] LABS: Ovalocytes 1+
--- NOTE | 2022-07-22 07:00 | XR_ITS ---
WS: [id number] Portable AP semiupright chest, 07/22/2022 Clinical Data: sob Comparison: Portable chest, 07/21/2022 Findings: The right lower lobe opacity remains the same. The heart is still enlarged. No nodules or m asses are seen. There is no pneumothorax. The aortic arch shows calcification. Monitor leads are on t he chest wall. XR/XR chest 1V portable [id number] Impression: 1. No change in right lower lobe opacity. 2. No change in cardiomegaly.
[2022-07-22 08:20] LABS: Glucose Point of Care 261 mg/dL (70-110)
[2022-07-22] MEDS: insulin lispro 100 unit/1 mL SUBCUT ×4 (08:20→21:25)
[2022-07-22] MEDS: budesonide 0.5 mg/2 mL Neb INHALATION ×2 (08:20→20:34)
--- NOTE | 2022-07-22 08:52 | PC.SOCIAL ---
IMM update IMM updated with patient. Verbalized an understanding. Copy Pg 2 provided. Initialled, dated, timed, and placed in chart.
[2022-07-22] MEDS: insulin glargine 100 units/1 mL 10 UNIT SUBCUT (08:58)
[2022-07-22] MEDS: FUROsemide 10 mg/mL SDV 10mL 60 MG IVP ×2 (09:00→21:23)
--- NOTE | 2022-07-22 09:48 | P.PN_ITS ---
Subjective Subjective: Patient is doing well. Denies complaints of chest pain. Vitals/I&O/Wt Last Vital Signs Temp 97.8 F 07/22/22 08:00 Pulse 74 07/22/22 08:30 Resp 16 07/22/22 08:30 BP 106/53 07/22/22 08:30 Pulse Ox 96 07/22/22 08:30 O2 Del Method Nasal Cannula 07/22/22 08:15 O2 Flow Rate 2 07/22/22 08:15 FiO2 30 07/22/22 03:52 07/21/22 07/22/22 07/22/22 22:59 06:59 14:59 Intake Total 1240 / 1730 290 / 2020 200 / 200 Output Total 2450 / 2450 1800 / 4250 Balance -1210 / -720 -1510 / -2230 200 / 200 Weight last 48 hrs Weight 415 lb 9.6 oz Weight 415 lb 9.6 oz Physical Exam Narrative: GENERAL: Patient is oriented NECK: No jugular vein distension. [] HEENT: No cyanosis. No icterus. No pallor. [] HEART: Regularly regular. S1 and S2. LUNGS: Diminished lung sounds CENTRAL NERVOUS SYSTEM: Grossly nonfocal. [] EXTREMITIES: Lower extremities with 2 + edema bilaterally. Urinary Catheter Management: Marcelo: Cath Placed During This Visit: yes Reason for Continuing Indwelling Catheter: Other Urinary Catheter Date of Insertion: 06/26/22 Urinary Catheter Time of Insertion: 12:58 Data 07/23/22 03:09 07/23/22 03:09 A&P Assessment and plan (1) Chronic kidney disease: (2) Hyperkalemia: (3) Anemia: (4) COPD with acute exacerbation: (5) Obesity: (6) Congestive heart failure: (7) Atrial fibrillation: (8) Cardiomyopathy: (9) Hypertension: (10) PAD (peripheral artery disease): Plan Continue diuresis. Close I&O's. Monitor renal function. Low-sodium diet. Medical therapy Thank you for involving us with care of this patient. We will continue to follow. Please call with questions. Attestations Medical Necessity Statement*: Care expected to cross 2 midnights. Coding Level of Care Code Acute Code for [facility] Diagnoses Chronic kidney disease N18.9 Hyperkalemia E87.5 Anemia D64.9 COPD with acute exacerbation J44.1 Obesity E66.9 Congestive heart failure I50.9 Atrial fibrillation I48.91 Cardiomyopathy I42.9 Hypertension I10 PAD (peripheral artery disease) I73.9
[2022-07-22 12:13] LABS: Glucose Point of Care 281 mg/dL (70-110)
[2022-07-22] MEDS: dexamethasone 10 mg/mL INJ 6 MG IVP (12:48)
--- NOTE | 2022-07-22 14:14 | P.PN_ITS ---
Subjective Subjective: Patient was seen this morning, no acute events overnight, she is alert to person, not to place, not to time she denies any chest pain, denies any shortness of breath has remained bedbound here Vitals/I&O/Wt Last Vital Signs Temp 98 F 07/22/22 11:00 Pulse 71 07/22/22 11:11 Resp 16 07/22/22 11:05 BP 116/52 07/22/22 11:00 Pulse Ox 92 07/22/22 11:05 O2 Del Method Nasal Cannula 07/22/22 11:05 O2 Flow Rate 2 07/22/22 11:05 FiO2 30 07/22/22 03:52 07/21/22 07/22/22 07/22/22 22:59 06:59 14:59 Intake Total 1240 / 1730 290 / 2020 250 / 250 Output Total 2450 / 2450 1800 / 4250 Balance -1210 / -720 -1510 / -2230 250 / 250 Weight last 48 hrs Weight 188.513 kg Weight 188.513 kg Physical Exam Const: COMMON NORMALS: no acute distress Resp: COMMON NORMALS: normal respiratory effort, No retractions, No use of accessory muscles and clear to auscultation bilaterally AUSCULTATION: clear to auscultation bilaterally Cardio: COMMON NORMALS: regular rate, regular rhythm, S1 normal heart sound pr esent and S2 normal heart sound present RATE: regular rate RHYTHM: regular rhythm HEART SOUNDS: S1 normal heart sound present and S2 normal heart sound present GI: COMMON NORMALS: Normal to inspection, nondistended, normoactive bowel sounds present and non-tender Extremity: COMMON NORMALS: no pedal edema Urinary Catheter Management: Marcelo: Cath Placed During This Visit: yes Reason for Continuing Indwelling Catheter: Other Urinary Catheter Date of Insertion: 06/26/22 Urinary Catheter Time of Insertion: 12:58 Data 07/22/22 03:19 07/22/22 03:19 A&P Assessment and plan (1) Congestive heart failure: Patient has recent history of diagnosis of acute systolic heart failure with EF of 25 to 30% during her recent hospital stay Continue diuresis with Lasix 60 mg IV every 12 hours. Creatinine 1.4, -3.9 L Appreciate cardiology consultation Continue low-dose beta-rossana SANFORD inhibitor/ARB contraindicated currently secondary to hyperkalemia with renal dysfunction. Has recent history of atrial fibrillation during her last hospital stay. Monitor for any recurrent arrhythmia considering her unresponsive episode as noted below Concern last hospital stay with coronary disease as cause for low EF and Plavix was initiated. Continue currently. (2) COPD with acute exacerbation: She is wheezing, has history of COPD She stopped smoking only 1 year ago Continue dexamethasone 6 mg IV every 24 hours DuoNeb every 4 hours Budesonide twice daily (3) Acute on chronic respiratory failure with hypoxia and hypercapnia: Currently on BiPAP, wean as tolerated (4) Pneumonia: At this point unable to differentiate pneumonia from edema. CRP is elevated. White blood cell count is elevated although it appears it may be chronically be so. Continue Zosyn. Nurses at nursing facility admit patient aspirates on occasion eating in bed. MRSA was negative recently. Sputum culture pending COVID PCR negative Advance to clear liquids. for now. Speech therapy consultation. (5) Anemia: Status post 1 unit PRBC, hemoglobin 7.7,, hold Lovenox, is on Plavix Stool Hemoccult pending monitor hemoglobin (6) Hyperkalemia: Improved. Repeat tomorrow (7) Chronic kidney disease: Close monitoring of renal function with BMP daily Renal function improved (8) Troponin level elevated: Serial troponins demonstrate trend downward (9) Acute encephalopathy: , Possibly second hospital delirium, repeat Pro-Donato, CRP, on antibiotic treatments, repeat chest x-ray Plan Episode of unresponsiveness, where CPR was given. Apparently CPR lasted for just seconds. Telemetry. Full code SCDs Plan for today monitor clinical status monitor urine output monitor potassium, continue Lasix therapy moved to cardiac stepdown unit Attestations Medical Necessity Statement*: Patient requires hospitalization for anemia, CHF exacerbation, pneumonia Diagnoses Congestive heart failure I50.9 COPD with acute exacerbation J44.1 Acute on chronic respiratory failure with hypoxia and hypercapnia J96.21; J96.22 Pneumonia J18.9 Anemia D64.9 Hyperkalemia E87.5 Chronic kidney disease N18.9 Troponin level elevated R77.8 Acute encephalopathy G93.40
[2022-07-22 17:20] LABS: Glucose Point of Care 286 mg/dL (70-110)
[2022-07-22] MEDS: atorvastatin 40 mg Tablet 20 MG PO (17:37)
--- NOTE | 2022-07-22 20:24 | ECG_ITS ---
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 Measurements Intervals [place] Rate: 90 P: 87 [place]: 170 QRS: 87 QRSD: 95 T: -36 QT: 337 QTc: 414 Interpretive Statements SINUS RHYTHM LOW QRS VOLTAGE IN PRECORDIAL LEADS [QRS DEFLECTION < 1.0 mV IN CHEST LEADS] ANTERIOR MYOCARDIAL INFARCTION , PROBABLY OLD [40+ ms Q WAVE AND/OR ST/T ABNORMALITY IN V3/V4] POSSIBLE INFERIOR MYOCARDIAL INFARCTION , OF INDETERMINATE AGE [30 ms Q WAVE IN II/aVF] Compared to ECG 07/19/2022 17:53:22 No significant changes Electronically Signed On 07-23-2022 5:54:58 CDT by Reta Parker M.D. [id number]
[2022-07-22 21:18] LABS: Glucose Point of Care 330 mg/dL (70-110)
[2022-07-22] MEDS: metoprolol tartrate 25 mg Tablet 12.5 MG PO (21:23)
[2022-07-23] VITALS (30 sets, daily range): BP systolic 100–142; BP diastolic 43–77; PULSE 69–132; RESP 9–28; TEMP 36.6–37.2; O2SAT 93–100
[2022-07-23] MEDS: ipratropium-albuterol 3 mL Neb INHALATION ×6 (03:44→23:16)
[2022-07-23 04:25] LABS: Basophils % 0.1 %; Eosinophils % 0.2 %; Hematocrit 28.8 % (37.0-47.0); Hemoglobin 7.9 g/dL (11.5-15.3); Lymphocytes # 0.4 10^3/uL (0.8-4.8); Lymphocytes % 3.9 %; Mean Corpuscular HGB Conc 27.4 g/dL (30.0-36.0); Mean Corpuscular Hemoglobin 24.1 pg (28.0-34.0); Mean Corpuscular Volume 87.8 fl (81-99); Mean Platelet Volume 11.3 fL (7.4-10.4); Monocytes # 1.2 10^3/uL (0.2-0.9); Monocytes % 10.6 %; Neutrophils # 9.41 10^3/uL (1.8-7.7); Neutrophils % 84.6 %; Nucleated Red Blood Cells % 0 %; Platelet Count 329 10^3/cmm (130-400); Red Blood Count 3.28 10^6/uL (4.1-5.3); Red Cell Distribution Width 18.6 % (12.1-15.1); White Blood Count 11.1 10^3/uL (4.0-10.0)
[2022-07-23] MEDS: sucralfate 1 gm Tablet PO ×2 (04:25→18:37)
[2022-07-23] MEDS: pantoprazole 40 mg SDV IVP ×2 (04:26→18:37)
[2022-07-23 04:45] LABS: Alanine Aminotransferase 23 U/L (0-33); Albumin Level 2.9 g/dL (3.5-5.2); Alkaline Phosphatase 90 U/L (35-105); Anion Gap 10.4 (5-19); Aspartate Amino Transferase 17 U/L (0-32); Blood Urea Nitrogen 68 mg/dL (8-23); Calcium 8.8 mg/dL (8.5-10.5); Carbon Dioxide 38 mmol/L (22-29); Chloride 96 mmol/L (98-107); Globulin 3.3 g/dL (1.3-4.6); Glomerular Filtration Rate 37.7 mL/min (90-130); Glucose 305 mg/dL (65-115); Magnesium 1.9 mg/dL (1.7-2.3); Osmolality Calculated 321 mOsm/kg (285-295); Potassium 4.4 mmol/L (3.5-5.1); Sodium 140 mmol/L (136-145); Total Bilirubin 0.3 mg/dL (0.15-1.2); Total Protein 6.2 g/dL (6.6-8.7)
[2022-07-23 05:11] LABS: NT Pro B Type Natriuretic Pept 11326 pg/mL (0-125)
[2022-07-23 05:24] LABS: C Reactive Protein 26.5 mg/L (0.0-4.9)
[2022-07-23] MEDS: clopidogrel 75 mg Tablet PO (06:17)
[2022-07-23] MEDS: buPROPion XL (24 HR) 150 mg Tablet PO (06:17)
[2022-07-23 06:18] LABS: Glucose Point of Care 309 mg/dL (70-110)
[2022-07-23] MEDS: piperacillin-tazobactam 3.375 GM in sodium chloride 0.9% (plus) 50 ML IV (06:18)
[2022-07-23] MEDS: budesonide 0.5 mg/2 mL Neb INHALATION ×2 (07:33→20:13)
[2022-07-23 09:05] LABS: Ferritin 119 ng/mL (15-150); Iron 19 ug/dL (37-145)
--- NOTE | 2022-07-23 09:42 | PM.PN ---
Subjective Subjective: Patient is feeling better. She has been transferred out of ICU. Denies complaint of chest pain. Does have shortness of breath but is improving. Diuresing well. Vitals/I&O/Wt Last Vital Signs Temp 98.6 F 07/23/22 04:00 Pulse 69 07/23/22 07:45 Resp 14 07/23/22 07:36 BP 100/48 07/23/22 04:00 Pulse Ox 100 07/23/22 07:36 O2 Del Method Nasal Cannula 07/23/22 07:36 O2 Flow Rate 2 07/23/22 07:36 FiO2 30 07/23/22 00:00 07/22/22 07/23/22 07/23/22 22:59 06:59 14:59 Intake Total 290 / 780 290 / 1070 Output Total 1500 / 2450 950 / 3400 Balance -1210 / -1670 -660 / -2330 Weight last 48 hrs Weight 413 lb 11.2 oz Weight 415 lb 9.6 oz Physical Exam Narrative: GENERAL: Patient is oriented NECK: No jugular vein distension. [] HEENT: No cyanosis. No icterus. No pallor. [] HEART: Regularly regular. S1 and S2. LUNGS: Diminished lung sounds CENTRAL NERVOUS SYSTEM: Grossly nonfocal. [] EXTREMITIES: Lower extremities with 2 + edema bilaterally. Urinary Catheter Management: Marcelo: Cath Placed During This Visit: yes Reason for Continuing Indwelling Catheter: Other Urinary Catheter Date of Insertion: 06/26/22 Urinary Catheter Time of Insertion: 12:58 Data 07/24/22 04:50 07/24/22 04:50 A&P Assessment and plan (1) Chronic kidney disease: (2) Hyperkalemia: (3) Anemia: (4) COPD with acute exacerbation: (5) Obesity: (6) Congestive heart failure: (7) Atrial fibrillation: (8) Cardiomyopathy: (9) Hypertension: (10) PAD (peripheral artery disease): Plan Patient is diuresing well. Continue IV diuresis. Close I&O's. Monitor renal function. Low-sodium diet. Thank you for involving us with care of this patient. We will continue to follow. Please call with questions. Attestations Medical Necessity Statement*: Care expected to cross 2 midnights. Coding Level of Care Code Acute Code for [facility] Diagnoses Chronic kidney disease N18.9 Hyperkalemia E87.5 Anemia D64.9 COPD with acute exacerbation J44.1 Obesity E66.9 Congestive heart failure I50.9 Atrial fibrillation I48.91 Cardiomyopathy I42.9 Hypertension I10 PAD (peripheral artery disease) I73.9
--- NOTE | 2022-07-23 10:00 | NUR.SHIFT ---
Provided education on patient's ordered intake amount (1000 mL/ 24hr) with patient. The hourly amount and the 4-hour amount discussed with patient. RN physically showed patient was a full 1000 mL is, what the hourly amount of 42 mL is and how much the 167 in 4 hour amount is. Patient was informed on the reason she is on the fluid restriction and why it is important for her to not exceed this amount of fluid intake. RN educated patient on her current treatment plan with lasix administration and fluid restriction. Education was provided for the patient and her sister. Patient didn't seem that concerned with needing to be compliant with the fluid restriction order. Will provide education and reinforcement on this as needed.
--- NOTE | 2022-07-23 10:28 | PM.PN ---
Subjective Subjective: Patient was seen this morning, patient's sister from [place] is at bedside, discussed plan of care extensively with patient and family, patient is much more alert and awake this morning alert to person, to place, not to time, she follows commands she feels a lot better she tells me this morning she had a good breakfast I discussed with family her heart failure, her diuresis her CAD concerns for NSTEMI, or pneumonia, overall she is clinically getting better, my concern is now she is becoming anemic, she is required 1 unit PRBC we have her on antiplatelet therapy given her NSTEMI, I am worried about a slow GI bleed causing her recurrent anemia we will have to monitor hemoglobin I have her on medications to decrease the risk of slow GI bleed, but will have to monitor hemoglobin closely, her blood sugars are also elevated which we will have to titrate, physical therapy, discussed all options, they voiced understanding, all questions answered, agreed to proceed Vitals/I&O/Wt Last Vital Signs Temp 98.6 F 07/23/22 04:00 Pulse 69 07/23/22 07:45 Resp 14 07/23/22 07:36 BP 100/48 07/23/22 04:00 Pulse Ox 100 07/23/22 07:36 O2 Del Method Nasal Cannula 07/23/22 07:36 O2 Flow Rate 2 07/23/22 07:36 FiO2 30 07/23/22 00:00 07/22/22 07/23/22 07/23/22 22:59 06:59 14:59 Intake Total 290 / 780 290 / 1070 Output Total 1500 / 2450 950 / 3400 Balance -1210 / -1670 -660 / -2330 Weight last 48 hrs Weight 187.651 kg Weight 188.513 kg Physical Exam Const: COMMON NORMALS: no acute distress ORIENTATION/CONSCIOUSNESS: Yes awake, Yes oriented to person and Yes oriented to place; not oriented to time Resp: COMMON NORMALS: normal respiratory effort, No retractions, No use of accessory muscles and clear to auscultation bilaterally AUSCULTATION: clear to auscultation bilaterally Cardio: COMMON NORMALS: regular rate, regular rhythm, S1 normal heart sound present and S2 normal heart sound present RATE: regular rate RHYTHM: regular rhythm HEART SOUNDS: S1 normal heart sound present and S2 normal heart sound present GI: COMMON NORMALS: Normal to inspection, nondistended, normoactive bowel sounds present and non-tender Extremity: COMMON NORMALS: no pedal edema Neuro: SENSORIUM/ORIENTATION: Yes oriented to person, Yes oriented to place and No oriented to time Psych: COMMON NORMALS: mental status grossly normal Urinary Catheter Management: Marcelo: Cath Placed During This Visit: yes Reason for Continuing Indwelling Catheter: Other Urinary Catheter Date of Insertion: 06/26/22 Urinary Catheter Time of Insertion: 12:58 Data 07/23/22 03:09 07/23/22 03:09 A&P Assessment and plan (1) Congestive heart failure: Patient has recent history of diagnosis of acute systolic heart failure with EF of 25 to 30% during her recent hospital stay Continue diuresis with Lasix 60 mg IV every 12 hours. Creatinine 1.4, - 6.5 L Appreciate cardiology consultation Continue low-dose beta-rossana SANFORD inhibitor/ARB contraindicated currently secondary to hyperkalemia with renal dysfunction. Has recent history of atrial fibrillation during her last hospital stay. Monitor for any recurrent arrhythmia considering her unresponsive episode as noted below Concern last hospital stay with coronary disease as cause for low EF and Plavix was initiated. Continue currently. (2) COPD with acute exacerbation: She is wheezing, has history of COPD She stopped smoking only 1 year ago Switch to oral prednisone 40 mg once daily DuoNeb every 4 hours Budesonide twice daily (3) Acute on chronic respiratory failure with hypoxia and hypercapnia: Currently on BiPAP, wean as tolerated (4) Pneumonia: At this point unable to differentiate pneumonia from edema. CRP is elevated. White blood cell count is elevated although it appears it may be chronically be so., CRP 26.5, Pro-Donato 0.2 Currently white blood cell count 11.1 Switch to Augmentin. Nurses at nursing facility admit patient aspirates on occasion eating in bed. MRSA was negative recently. Sputum culture pending COVID PCR negative Advance diet as per speech therapy (5) Anemia: Status post 1 unit PRBC, hemoglobin 7.9, hold Lovenox, is on Plavix Concerns for slow GI bleed On Protonix, Carafate Monitor hemoglobin closely Stool Hemoccult pending (6) Hyperkalemia: Improved. Repeat tomorrow (7) Chronic kidney disease: Close monitoring of renal function with BMP daily Renal function improved (8) Troponin level elevated: Serial troponins demonstrate trend downward (9) Acute encephalopathy: , Possibly second hospital delirium, repeat Pro-Donato, CRP, on antibiotic treatments, repeat chest x-ray (10) GI bleed: (11) Aspiration pneumonia: (12) Aspiration pneumonitis: - On examination for the last 2 days she repeatedly has choking and coughing episodes with her diet -I am going to have speech therapy see her again -Aspiration precautions -Continue steroids, continue antibiotics -This might be a recurring event for her, requiring recurrent hospitalizations, she voiced understanding -She might need a barium swallow based on clinical progress (13) Morbid obesity with BMI of 70 and over, adult: (14) Physical deconditioning: (15) Atrial fibrillation: - Overnight she received Cardizem for episodes of A-fib -Currently remains in A-fib heart rates are well controlled, a bit hypotensive continue metoprolol -High risk of worsening GI bleed, morbidity mortality associated with anticoagulation due to transfusion dependent anemia, concerns for slow GI bleed -She is already received 1 unit PRBC -Monitor Plan Episode of unresponsiveness, where CPR was given. Apparently CPR lasted for just seconds. Telemetry. Full code SCDs Plan for today monitor clinical status monitor urine output monitor potassium, Lasix 60 IV twice daily, with potassium replacement, monitor hemoglobin, continue Protonix, Carafate, de-escalate antibiotic treatments, PT OT, she is becoming uremic we will add acetazolamide, will have speech therapy see her again Attestations Medical Necessity Statement*: Patient requires hospitalization for aspiration pneumonia, aspiration pneumonitis, slow GI bleed, anemia, A-fib, CHF Diagnoses Congestive heart failure I50.9 COPD with acute exacerbation J44.1 Acute on chronic respiratory failure with hypoxia and hypercapnia J96.21; J96.22 Pneumonia J18.9 Anemia D64.9 Hyperkalemia E87.5 Chronic kidney disease N18.9 Troponin level elevated R77.8 Acute encephalopathy G93.40 GI bleed K92.2 Aspiration pneumonia J69.0 Aspiration pneumonitis J69.0 Morbid obesity with BMI of 70 and over, adult E66.01; Z68.45 Physical deconditioning R53.81 Atrial fibrillation I48.91
[2022-07-23] MEDS: insulin lispro 100 unit/1 mL SUBCUT ×3 (10:35→20:51)
[2022-07-23] MEDS: metoprolol tartrate 25 mg Tablet 12.5 MG PO ×2 (10:36→20:50)
[2022-07-23] MEDS: insulin glargine 100 units/1 mL 15 UNIT SUBCUT (10:36)
[2022-07-23] MEDS: acetaZOLAMIDE 250 mg Tablet PO ×2 (10:37→20:48)
[2022-07-23] MEDS: amoxicillin-clav 875-125 mg Tablet 1 TAB PO ×2 (10:38→18:38)
[2022-07-23] MEDS: predniSONE 20 mg Tablet 40 MG PO (10:38)
[2022-07-23] MEDS: FUROsemide 10 mg/mL SDV 10mL 60 MG IVP ×2 (10:39→20:52)
[2022-07-23 16:18] LABS: Glucose Point of Care 309 mg/dL (70-110)
--- NOTE | 2022-07-23 18:22 | ECG_ITS ---
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 Measurements Intervals [place] Rate: 78 P: 71 [place]: 142 QRS: 109 QRSD: 94 T: -37 QT: 365 QTc: 416 Interpretive Statements SINUS RHYTHM RIGHT AXIS DEVIATION [QRS AXIS > 100] LOW QRS VOLTAGE IN PRECORDIAL LEADS [QRS DEFLECTION < 1.0 mV IN CHEST LEADS] POSSIBLE ANTERIOR MYOCARDIAL INFARCTION , PROBABLY OLD [30 ms Q WAVE IN V3/V4, OR R < 0.2 mV IN V4] Compared to ECG 07/22/2022 20:32:50 Right-axis deviation now present Myocardial infarct finding still present Electronically Signed On 07-23-2022 20:24:36 CDT by Tray Rubalcava M.D. [id number]
--- NOTE | 2022-07-23 18:25 | PC.NURSE ---
RT came to get RN for pt alonso she was having CP. Upon arrival to the patient's room, she was already on BiPAP and her HR was running in the 130's. BP was stable. At the present, patient is rating her CP at 7-7.5/10. Will notify physician for orders.
[2022-07-23 20:17] LABS: Glucose Point of Care 408 mg/dL (70-110)
[2022-07-23] MEDS: atorvastatin 40 mg Tablet 20 MG PO (20:48)
[2022-07-24] VITALS (25 sets, daily range): BP systolic 107–130; BP diastolic 56–68; PULSE 65–78; RESP 6–28; TEMP 36.9–37.2; O2SAT 80–99
[2022-07-24] MEDS: ipratropium-albuterol 3 mL Neb INHALATION ×5 (03:30→22:03)
[2022-07-24] MEDS: sucralfate 1 gm Tablet PO ×2 (04:22→17:54)
[2022-07-24] MEDS: pantoprazole 40 mg SDV IVP ×2 (04:23→17:53)
[2022-07-24 05:04] LABS: Basophils % 0.1 %; Eosinophils % 0.3 %; Hematocrit 28.6 % (37.0-47.0); Hemoglobin 7.8 g/dL (11.5-15.3); Lymphocytes # 0.6 10^3/uL (0.8-4.8); Lymphocytes % 4.5 %; Mean Corpuscular HGB Conc 27.3 g/dL (30.0-36.0); Mean Corpuscular Hemoglobin 24.3 pg (28.0-34.0); Mean Corpuscular Volume 89.1 fl (81-99); Mean Platelet Volume 11.2 fL (7.4-10.4); Monocytes # 1.3 10^3/uL (0.2-0.9); Monocytes % 10.1 %; Neutrophils # 10.42 10^3/uL (1.8-7.7); Neutrophils % 84.4 %; Nucleated Red Blood Cells % 0 %; Platelet Count 323 10^3/cmm (130-400); Red Blood Count 3.21 10^6/uL (4.1-5.3); Red Cell Distribution Width 18.4 % (12.1-15.1); White Blood Count 12.3 10^3/uL (4.0-10.0)
[2022-07-24 05:32] LABS: Procalcitonin 0.18 ng/mL (0-0.5)
[2022-07-24 05:33] LABS: NT Pro B Type Natriuretic Pept 14168 pg/mL (0-125)
[2022-07-24 05:43] LABS: Alanine Aminotransferase 21 U/L (0-33); Albumin Level 2.9 g/dL (3.5-5.2); Alkaline Phosphatase 89 U/L (35-105); Anion Gap 10.2 (5-19); Aspartate Amino Transferase 16 U/L (0-32); Blood Urea Nitrogen 69 mg/dL (8-23); C Reactive Protein 17.8 mg/L (0.0-4.9); Calcium 8.7 mg/dL (8.5-10.5); Carbon Dioxide 38 mmol/L (22-29); Chloride 94 mmol/L (98-107); Globulin 3.8 g/dL (1.3-4.6); Glomerular Filtration Rate 37.7 mL/min (90-130); Glucose 303 mg/dL (65-115); Magnesium 1.9 mg/dL (1.7-2.3); Osmolality Calculated 317 mOsm/kg (285-295); Phosphorus 3.6 mg/dL (2.5-4.5); Potassium 4.2 mmol/L (3.5-5.1); Sodium 138 mmol/L (136-145); Total Bilirubin 0.3 mg/dL (0.15-1.2); Total Protein 6.7 g/dL (6.6-8.7)
[2022-07-24 05:47] LABS: Creatinine Clr Calc Pharmacy 70.5014
[2022-07-24] MEDS: buPROPion XL (24 HR) 150 mg Tablet PO (06:20)
[2022-07-24] MEDS: clopidogrel 75 mg Tablet PO (06:20)
[2022-07-24 06:24] LABS: Glucose Point of Care 349 mg/dL (70-110)
--- NOTE | 2022-07-24 07:45 | P.PN_ITS ---
Subjective Subjective: Patient feeling better. Diuresing well. Vitals/I&O/Wt Last Vital Signs Temp 98.9 F 07/24/22 04:00 Pulse 76 07/24/22 05:28 Resp 18 07/24/22 04:00 BP 117/61 07/24/22 04:00 Pulse Ox 98 07/24/22 04:00 O2 Del Method Nasal Cannula 07/24/22 04:00 O2 Flow Rate 2 07/24/22 04:00 FiO2 30 07/23/22 23:24 07/23/22 07/24/22 07/24/22 22:59 06:59 14:59 Intake Total 800 / 1154 Output Total 1450 / 1450 1100 / 2550 Balance -650 / -296 -1100 / -1396 Weight last 48 hrs Weight 418 lb 4.8 oz Weight 413 lb 11.2 oz Physical Exam Narrative: GENERAL: Patient is oriented NECK: No jugular vein distension. [] HEENT: No cyanosis. No icterus. No pallor. [] HEART: Regularly regular. S1 and S2. LUNGS: Diminished lung sounds CENTRAL NERVOUS SYSTEM: Grossly nonfocal. [] EXTREMITIES: Lower extremities with 2 + edema bilaterally. Urinary Catheter Management: Marcelo: Cath Placed During This Visit: yes Reason for Continuing Indwelling Catheter: Other Urinary Catheter Date of Insertion: 06/26/22 Urinary Catheter Time of Insertion: 12:58 Data 07/25/22 04:23 07/25/22 04:23 A&P Assessment and plan (1) Chronic kidney disease: (2) Hyperkalemia: (3) Anemia: (4) COPD with acute exacerbation: (5) Obesity: (6) Congestive heart failure: (7) Atrial fibrillation: (8) Cardiomyopathy: (9) Hypertension: (10) PAD (peripheral artery disease): Plan Patient is diuresing well. Lasix switched to p.o. Close I&O's. Renal function monitoring Thank you for involving us with care of this patient. We will continue to follow. Please call with questions. Attestations Medical Necessity Statement*: Care expected to cross 2 midnights. Coding Level of Care Code Acute Code for [facility] Diagnoses Chronic kidney disease N18.9 Hyperkalemia E87.5 Anemia D64.9 COPD with acute exacerbation J44.1 Obesity E66.9 Congestive heart failure I50.9 Atrial fibrillation I48.91 Cardiomyopathy I42.9 Hypertension I10 PAD (peripheral artery disease) I73.9
--- NOTE | 2022-07-24 08:00 | PC.NURSE ---
Patient had a total of 473 mL in for breakfast. Patient has 527 mL remaining. Patient educated on amount in and amount remaining.
[2022-07-24] MEDS: budesonide 0.5 mg/2 mL Neb INHALATION ×2 (08:21→22:03)
--- NOTE | 2022-07-24 08:30 | PC.NURSE ---
Patient's fluid intake is written on the mirror in front of her bed so she is able to see what she has had and how much more she can have in for the remainder of the 24 hour period. Patient educated on the fluid restriction amount (1000mL/24 hrs) and how that breaks down into amount per hour, per meal and per 4 hour period. Generic fluid amounts also reviewed with patient.
[2022-07-24] MEDS: acetaZOLAMIDE 250 mg Tablet PO ×2 (08:40→20:01)
[2022-07-24] MEDS: metoprolol tartrate 25 mg Tablet 12.5 MG PO ×2 (08:40→20:01)
[2022-07-24] MEDS: predniSONE 20 mg Tablet 40 MG PO (08:41)
[2022-07-24] MEDS: amoxicillin-clav 875-125 mg Tablet 1 TAB PO ×2 (08:41→17:54)
[2022-07-24] MEDS: insulin lispro 100 unit/1 mL SUBCUT ×4 (08:41→21:12)
[2022-07-24] MEDS: FUROsemide 40 mg Tablet PO ×2 (09:55→20:02)
[2022-07-24] MEDS: insulin glargine 100 units/1 mL 20 UNIT SUBCUT (10:19)
--- NOTE | 2022-07-24 10:34 | PC.SOCIAL ---
IMM Updated Updated pt on IMM. No questions voiced. Provided pt a copy. Initialed, dated, & timed copy in chart.
[2022-07-24 11:20] LABS: Glucose Point of Care 229 mg/dL (70-110)
--- NOTE | 2022-07-24 12:33 | P.PN_ITS ---
Subjective Subjective: Patient was seen this morning, she is alert to person, to place, not to time, she does follow commands, she has no complaints, no chest pain, no palpitations, she remains bedbound, Vitals/I&O/Wt Last Vital Signs Temp 98.9 F 07/24/22 04:00 Pulse 71 07/24/22 11:10 Resp 17 07/24/22 11:10 BP 107/56 07/24/22 08:00 Pulse Ox 94 07/24/22 11:10 O2 Del Method Nasal Cannula 07/24/22 11:10 O2 Flow Rate 2 07/24/22 11:10 FiO2 30 07/23/22 23:24 07/23/22 07/24/22 07/24/22 22:59 06:59 14:59 Intake Total 800 / 1154 236 / 236 Output Total 1450 / 1450 1100 / 2550 Balance -650 / -296 -1100 / -1396 236 / 236 Weight last 48 hrs Weight 189.738 kg Weight 187.651 kg Physical Exam Const: COMMON NORMALS: no acute distress Resp: COMMON NORMALS: normal respiratory effort, No retractions, No use of accessory muscles and clear to auscultation bilaterally AUSCULTATION: clear to auscultation bilaterally Cardio: COMMON NORMALS: regular rate, regular rhythm, S1 normal heart sound present and S2 normal heart sound present RATE: regular rate RHYTHM: r egular rhythm HEART SOUNDS: S1 normal heart sound present and S2 normal heart sound present GI: COMMON NORMALS: Normal to inspection, nondistended, normoactive bowel sounds present and non-tender Extremity: COMMON NORMALS: no pedal edema Psych: COMMON NORMALS: mental status grossly normal Urinary Catheter Management: Marcelo: Cath Placed During This Visit: yes Reason for Continuing Indwelling Catheter: Other Urinary Catheter Date of Insertion: 06/26/22 Urinary Catheter Time of Insertion: 12:58 Data 07/24/22 04:50 07/24/22 04:50 Micro: Microbiology 07/19/22 12:00 Blood Culture - Final Blood NO GROWTH AFTER 5 DAYS 07/19/22 11:49 Blood Culture - Final Blood NO GROWTH AFTER 5 DAYS A&P Assessment and plan (1) Congestive heart failure: Patient has recent history of diagnosis of acute systolic heart failure with EF of 25 to 30% during her recent hospital stay De-escalate to Lasix p.o. 40 twice daily, monitor at noon, 1.4, -7.6 L Appreciate cardiology consultation Continue low-dose beta-rossana [place] inhibitor/ARB contraindicated currently secondary to hyperkalemia with renal dysfunction. Has recent history of atrial fibrillation during her last hospital stay. Monitor for any recurrent arrhythmia considering her unresponsive episode as n oted below Concern last hospital stay with coronary disease as cause for low EF and Plavix was initiated. Continue currently. (2) COPD with acute exacerbation: She is wheezing, has history of COPD She stopped smoking only 1 year ago Switch to oral prednisone 40 mg once daily DuoNeb every 4 hours Budesonide twice daily (3) Acute on chronic respiratory failure with hypoxia and hypercapnia: Currently on BiPAP, wean as tolerated (4) Pneumonia: At this point unable to differentiate pneumonia from edema. CRP is elevated. White blood cell count is elevated although it appears it may be chronically be so. Switch to Augmentin. Nurses at nursing facility admit patient aspirates on occasion eating in bed. MRSA was negative recently. Sputum culture pending COVID PCR negative Advance diet as per speech therapy (5) Anemia: Status post 1 unit PRBC, hemoglobin 7.8 hold Lovenox, is on Plavix Concerns for slow GI bleed On Protonix, Carafate Monitor hemoglobin closely Stool Hemoccult pending (6) Hyperkalemia: Improved. Repeat tomorrow (7) Chronic kidney disease: Close monitoring of renal function with BMP daily Renal function improved (8) Troponin level elevated: Serial troponins demonstrate trend downward (9) Acute encephalopathy: , Possibly second hospital delirium, repeat Pro-Donato, CRP, on antibiotic treatments, repeat chest x-ray (10) GI bleed: (11) Aspiration pneumonia: (12) Aspiration pneumonitis: - On examination for the last 2 days she repeatedly has choking and coughing episodes with her diet -I am going to have speech therapy see her again -Aspiration precautions -Continue steroids, continue antibiotics -This might be a recurring event for her, requiring recurrent hospitalizations, she voiced understanding -She might need a barium swallow based on clinical progress (13) Morbid obesity with BMI of 70 and over, adult: (14) Physical deconditioning: (15) Atrial fibrillation: - Overnight she received Cardizem for episodes of A-fib -Currently remains in A-fib heart rates are well controlled, a bit hypotensive continue metoprolol -High risk of worsening GI bleed, morbidity mortality associated with anticoagulation due to transfusion dependent anemia, concerns for slow GI bleed -She is already received 1 unit PRBC -Monitor Plan Episode of unresponsiveness, where CPR was given. Apparently CPR lasted for just seconds. Telemetry. Full code SCDs Plan for today's spoke to cardiology, 2 more doses of Diamox given elevated uremia, de-escalate Lasix to p.o., monitor urine output monitor creatinine, continue antibiotic treatments, hemoglobin down to 7.8, will need to monitor she might require another transfusion we will plan on discharging tomorrow, spoke to cardiology, agreeable Attestations Medical Necessity Statement*: Patient requires hospitalization for fluid overload, requiring diuresis, uremia, requiring acetazolamide, aspiration pneumonitis, aspiration pneumonia, regarding aspiration precautions, speech therapy eval, antibiotic treatments, Diagnoses Congestive heart failure I50.9 COPD with acute exacerbation J44.1 Acute on chronic respiratory failure with hypoxia and hypercapnia J96.21; J96.22 Pneumonia J18.9 Anemia D64.9 Hyperkalemia E87.5 Chronic kidney disease N18.9 Troponin level elevated R77.8 Acute encephalopathy G93.40 GI bleed K92.2 Aspiration pneumonia J69.0 Aspiration pneumonitis J69.0 Morbid obesity with BMI of 70 and over, adult E66.01; Z68.45 Physical deconditioning R53.81 Atrial fibrillation I48.91
[2022-07-24 17:50] LABS: Glucose Point of Care 208 mg/dL (70-110)
[2022-07-24] MEDS: atorvastatin 40 mg Tablet 20 MG PO (20:01)
[2022-07-24 20:22] LABS: Glucose Point of Care 251 mg/dL (70-110)
[2022-07-25] VITALS (11 sets, daily range): BP systolic 106–127; BP diastolic 60–68; PULSE 59–87; RESP 16–24; TEMP 36.7–36.8; O2SAT 95–99; BMI 67.9
[2022-07-25] MEDS: ipratropium-albuterol 3 mL Neb INHALATION ×4 (01:25→15:04)
[2022-07-25 04:42] LABS: Basophils % 0.1 %; Eosinophils # 0.2 10^3/uL (0.0-0.8); Eosinophils % 1.4 %; Hematocrit 29.7 % (37.0-47.0); Hemoglobin 7.9 g/dL (11.5-15.3); Lymphocytes # 0.9 10^3/uL (0.8-4.8); Lymphocytes % 7.9 %; Mean Corpuscular HGB Conc 26.6 g/dL (30.0-36.0); Mean Corpuscular Volume 90.3 fl (81-99); Monocytes # 1.3 10^3/uL (0.2-0.9); Monocytes % 11.1 %; Neutrophils # 9.28 10^3/uL (1.8-7.7); Neutrophils % 79.1 %; Nucleated Red Blood Cells % 0.2 %; Platelet Count 335 10^3/cmm (130-400); Red Blood Count 3.29 10^6/uL (4.1-5.3); Red Cell Distribution Width 18.2 % (12.1-15.1); White Blood Count 11.7 10^3/uL (4.0-10.0)
[2022-07-25 04:57] LABS: Alanine Aminotransferase 20 U/L (0-33); Alkaline Phosphatase 79 U/L (35-105); Anion Gap 8.9 (5-19); Aspartate Amino Transferase 15 U/L (0-32); Blood Urea Nitrogen 65 mg/dL (8-23); Calcium 8.9 mg/dL (8.5-10.5); Chloride 96 mmol/L (98-107); Globulin 3.4 g/dL (1.3-4.6); Glomerular Filtration Rate 45.1 mL/min (90-130); Glucose 144 mg/dL (65-115); Osmolality Calculated 315 mOsm/kg (285-295); Phosphorus 3.2 mg/dL (2.5-4.5); Potassium 3.9 mmol/L (3.5-5.1); Sodium 142 mmol/L (136-145); Total Bilirubin 0.3 mg/dL (0.15-1.2); Total Protein 6.4 g/dL (6.6-8.7)
[2022-07-25 05:02] LABS: Carbon Dioxide 41 mmol/L (22-29)
[2022-07-25] MEDS: pantoprazole 40 mg SDV IVP (05:38)
[2022-07-25] MEDS: buPROPion XL (24 HR) 150 mg Tablet PO (05:39)
[2022-07-25] MEDS: clopidogrel 75 mg Tablet PO (05:39)
[2022-07-25] MEDS: sucralfate 1 gm Tablet PO (05:39)
[2022-07-25 06:21] LABS: Glucose Point of Care 154 mg/dL (70-110)
[2022-07-25] MEDS: budesonide 0.5 mg/2 mL Neb INHALATION (07:57)
--- NOTE | 2022-07-25 08:12 | P.PN_ITS ---
Subjective Subjective: Patient is feeling well. No chest pain. Vitals/I&O/Wt Last Vital Signs Temp 98.3 F 07/25/22 03:12 Pulse 80 07/25/22 07:59 Resp 18 07/25/22 07:59 BP 127/63 07/25/22 03:12 Pulse Ox 95 07/25/22 07:59 O2 Del Method Nasal Cannula 07/25/22 07:59 O2 Flow Rate 2 07/25/22 07:59 FiO2 30 07/25/22 05:16 07/24/22 07/25/22 07/25/22 22:59 06:59 14:59 Output Total 450 / 450 1100 / 1550 Balance -450 / 260 -1100 / -840 Weight last 48 hrs Weight 418 lb 4.8 oz Physical Exam Narrative: GENERAL: Patient is oriented NECK: No jugular vein distension. [] HEENT: No cyanosis. No icterus. No pallor. [] HEART: Regularly regular. S1 and S2. LUNGS: Diminished lung sounds CENTRAL NERVOUS SYSTEM: Grossly nonfocal. [] EXTREMITIES: Lower extremities with 2 + edema bilaterally. Urinary Catheter Management: Marcelo: Cath Placed During This Visit: yes Reason for Continuing Indwelling Catheter: Other Urinary Catheter Date of Insertion: 06/26/22 Urinary Catheter Time of Insertion: 12:58 Data 07/25/22 04:23 07/25/22 04:23 Micro: Microbiology 07/19/22 12:00 Blood Culture - Final Blood NO GROWTH AFTER 5 DAYS 07/19/22 11:49 Blood Culture - Final Blood NO GROWTH AFTER 5 DAYS A&P Assessment and plan (1) Chronic kidney disease: (2) Hyperkalemia: (3) Anemia: (4) COPD with acute exacerbation: (5) Obesity: (6) Congestive heart failure: (7) Atrial fibrillation: (8) Cardiomyopathy: (9) Hypertension: (10) PAD (peripheral artery disease): Plan Patient is stable. Can be discharged from cardiology standpoint. Daily weights and titration of her diuretic therapy based on weight is important Low sodium diet advised Thank you for involving us with care of this patient. Please call with questions. Attestations Medical Necessity Statement*: Care expected to cross 2 midnights. Coding Level of Care Code Acute Code for [facility] Diagnoses Chronic kidney disease N18.9 Hyperkalemia E87.5 Anemia D64.9 COPD with acute exacerbation J44.1 Obesity E66.9 Congestive heart failure I50.9 Atrial fibrillation I48.91 Cardiomyopathy I42.9 Hypertension I10 PAD (peripheral artery disease) I73.9
[2022-07-25] MEDS: amoxicillin-clav 875-125 mg Tablet 1 TAB PO (09:01)
[2022-07-25] MEDS: predniSONE 20 mg Tablet 40 MG PO (09:01)
[2022-07-25] MEDS: FUROsemide 40 mg Tablet PO (09:01)
[2022-07-25] MEDS: insulin lispro 100 unit/1 mL SUBCUT ×2 (09:01→11:28)
[2022-07-25] MEDS: metoprolol tartrate 25 mg Tablet 12.5 MG PO (09:01)
[2022-07-25] MEDS: insulin glargine 100 units/1 mL 20 UNIT SUBCUT (09:01)
[2022-07-25 11:32] LABS: Glucose Point of Care 194 mg/dL (70-110)
[2022-07-25] MEDS: acetaminophen 325 mg Tablet 650 MG PO (11:33)
--- NOTE | 2022-07-25 13:32 | PC.NURSE ---
report called to maria del carmen huber RN [facility]
[2022-07-25 13:59] LABS: SARS Covid-2 Antigen negative
== END 2022-07-25 15:49 | disposition skilled nursing facility (03) | DRG 291 ==
LOC: ER 12:17 → ICU 14:45 → CSU 07-22 17:49
PROVIDERS: Student in an Organized Health Care Education/Training Program; Admitting Provider Internal Medicine; Emergency Provider Family Medicine; PCP Internal Medicine; Visit Provider Family Medicine
DX: I13.0 Hypertensive heart and chronic kidney disease with heart failure and stage 1 through stage 4 chronic kidney disease, or unspecified chronic kidney disease (principal); I50.21 Acute systolic (congestive) heart failure; J96.22 Acute and chronic respiratory failure with hypercapnia; J96.21 Acute and chronic respiratory failure with hypoxia; J69.0 Pneumonitis due to inhalation of food and vomit; J44.1 Chronic obstructive pulmonary disease with (acute) exacerbation; G93.40 Encephalopathy, unspecified; F05 Delirium due to known physiological condition; Z68.45 Body mass index [BMI] 70 or greater, adult; N18.9 Chronic kidney disease, unspecified; E11.22 Type 2 diabetes mellitus with diabetic chronic kidney disease; Z74.01 Bed confinement status; Z87.891 Personal history of nicotine dependence; D63.1 Anemia in chronic kidney disease; E87.5 Hyperkalemia; R77.8 Other specified abnormalities of plasma proteins; E66.01 Morbid (severe) obesity due to excess calories; I48.91 Unspecified atrial fibrillation; I42.9 Cardiomyopathy, unspecified; E11.43 Type 2 diabetes mellitus with diabetic autonomic (poly)neuropathy; E11.51 Type 2 diabetes mellitus with diabetic peripheral angiopathy without gangrene
CPT/HCPCS: 36415; 36416; 36430; 36569; 36592; 36600; 71045; 71275; 80048; 80051; 80053; 81001; 82330; 82728; 82805; 82962; 83540; 83735; 83880; 84100; 84132; 84145; 84484; 85007; 85014; 85018; 85025; 85027; 85378; 85730; 86140; 86850; 86900; 86920; 87040; 87426; 87635; 92523; 92526; 92610; 93005; 93970; 94640; 94660; 96365; 96367; 96372; 96375; 96376; 97110; 97161; 97530; 99285; C1751; C9113; J1100; J1644; J1650; J1815; J1940; J1956; J2405; J2543; J7512; J7626; P9016; Q9967

== ENCOUNTER → 2022-08-02 11:17 | Outpatient (BNVA) | payer MEDICARE, MEDICAID, SELFPAY | PROVIDERS: PCP Internal Medicine; Visit Provider Nurse Practitioner Family | DX: I50.9 Heart failure, unspecified (principal); N18.9 Chronic kidney disease, unspecified; I48.91 Unspecified atrial fibrillation | CPT/HCPCS: 93005; 99214 ==

== ENCOUNTER 2022-08-02 17:35 | Inpatient (IN) | payer MEDICARE, MEDICAID, SELFPAY ==
[2022-08-02] VITALS (20 sets, daily range): BP systolic 86–136; BP diastolic 60–80; PULSE 69–141; RESP 9–28; TEMP 36.7; O2SAT 93–100; BMI 75.3
--- NOTE | 2022-08-02 18:00 | ED_ITS ---
HPI - SOB/Dyspnea General: Chief Complaint: Shortness of Breath/Dyspnea Stated Complaint: RESP. DISTRESS Time Seen by Provider: 08/02/22 18:00 History of Present Illness: HPI Narrative: Ms. Lechuga is a 66-year-old lady with significant past medical history of atrial fibrillation, heart failure with reduced ejection fraction, diabetes, hypertension, obesity, peripheral arterial disease presenting to the emergency department for evaluation of shortness of breath. She notes being at her baseline health earlier today and had subacute onset of dyspnea earlier today. She notes mild cough which has been chronic, denies fevers or other infectious symptoms. She denies associated chest pain. She does feel more edematous suspect into her arms. Intensity of symptoms is moderate. Course has persisted. No other specific changes in health, exacerbating, or alleviating factors identified. Onset (ago): hour(s) Timing: constant Severity: moderate Relieving factors: oxygen Known history of: congestive heart failure and diabetes Review of Systems General: Reports: 10 or more systems reviewed and unremarkable except in HPI and below PFSH ED PFSH: Medical History Atrial fibrillation Congestive heart failure Ejection fraction 25 to 30% 06/26 Diabetes mellitus with peripheral autonomic neuropathy Gangrene Hypertension New onset of congestive heart failure Acute diastolic heart failure. EF normal on limited echo Obesity PAD (peripheral artery disease) Tobacco abuse, in remission Surgical History Post-operative state Status post amputation of great toe Family History Other Diabetes Hypertension Denies family history of CAD (coronary artery disease) Clotting disorder Dementia Hyperlipidemia Psychiatric illness Chronic kidney disease (CKD) Suicide Anesthesia complication Bleeding disorder Family history of premature coronary artery disease Lung disease Cancer Stroke Social History Smoking and tobacco status: former smoker Substance/Drug Use: never Marital status: Current occupational status: disabled Physical Exam Const: COMMON NORMALS: alert GENERAL APPEARANCE: cooperative and well developed HENMT: COMMON NORMALS: normocephalic and atraumatic HEAD & SCALP: normocephalic and atraumatic Eye: COMMON NORMALS: conjunctivae normal CONJUNCTIVA: Yes conjunctivae normal SCLERA: sclerae normal Neck/C-Spine: COMMON NORMALS: supple GENERAL: Yes trachea midline Resp: COMMON NORMALS: normal respiratory effort EFFORT & INSPECTION: Yes able to speak in complete sentences AUSCULTATION: crackles (Trace posterior) and diminished lung sounds Cardio: COMMON NORMALS: regular rate and regular rhythm RATE: regular rate RHYTHM: regular rhythm GI: COMMON NORMALS: Soft to palpation PALPATION: Yes Soft to palpation and No Tenderness to palpation present (GI) Extremity: GENERAL: Yes normal exam except as noted and Yes edema (Upper and lower extremities) Neuro: COMMON NORMALS: moves all extremities SENSORIUM/ORIENTATION: Yes alert and No Orientation impaired Psych: COMMON NORMALS: mental status grossly normal and Normal thought process present THOUGHT PROCESS: Normal thought process present Course Vital Signs: Vital signs: Vital Signs Temperature 97.6 F 08/10/22 03:50 Pulse Rate 78 08/10/22 15:43 Respiratory Rate 24 H 08/10/22 15:43 Blood Pressure 117/66 08/10/22 15:43 Pulse Oximetry 94 08/10/22 15:43 Oxygen Delivery Me thod Nasal Cannula 08/10/22 11:42 Oxygen Flow Rate 2 08/10/22 08:39 Fraction of Inspir ed Oxygen 28 08/09/22 20:59 MDM - SOB/Dyspnea Medical Decision Making 66-year-old lady presenting with shortness of breath and lower extremity edema. Exam as above with evidence of increased work of breathing and EMS administered BiPAP. EKG notable for sinus rhythm with normal axis and intervals, nonspecific ST segment abnormalities, no STEMI. Labs notable for mild leukocytosis, near baseline normocytic anemia, normal platelet count. ABG with hypercapnia. Similar to baseline metabolic panel. Negative range troponin. BNP is mildly elevated though improved from prior. No UTI. Negative COVID. Chest x-ray with pulmonary vascular congestion and increased small pleural effusions, no lobar consolidation or pneumothorax. During ED course patient treated with Lasix, metoprolol for heart rate control. Most likely etiology of symptoms is acute on chronic heart failure exacerbation with respiratory distress. The results of ED evaluation were discussed with the patient including plan for admission due to requirement for level of care not available if discharged to prevent significant worsening/deterioration. Patient agreeable with plan. Discussed with hospitalist service who was agreeable to admit patient. Medical Records I reviewed the patient's medical records. Lab Data I reviewed the patient's lab results. 08/09/22 05:17 08/09/22 05:17 Labs/Radiology: Radiology Impressions Venous Duplex 08/03/22 14:36 IMPRESSION: 1. No evidence for deep vein thrombosis. 2. Superficial thrombus in the left cephalic vein. Abdomen/Pelvis CT 08/04/22 19:23 IMPRESSION: 1. The study is significantly limited by patient body habitus. 2. Subcutaneous edema noted throughout the abdomen and pelvis. No subcutaneous fluid collection identified. 3. No contour deforming solid renal mass. No definite renal calculus identified. No hydronephrosis. Ureters are not well seen. The aorta is atherosclerotic. No aortic aneurysm. 4. Small bilateral pleural effusions. Mild atelectasis at the lung bases. Chest X-Ray 08/08/22 10:59 IMPRESSION: 1. Right side PICC line has been moved and now is suboptimally positioned. 2. Stable interstitial densities right perihilar and lower lobe 3. Stable bilateral pleural effusion Laboratory Results WBC 12.9 10^3/uL (4.0-10.0) H 08/02/22 18:25 RBC 3.31 10^6/uL (4.1-5.3) L 08/02/22 18:25 Hgb 8.1 g/dL (11.5-15.3) L 08/02/22 18:25 Hct 29.4 % (37.0-47.0) L 08/02/22 18:25 MCV 88.8 fl (81-99) 08/02/22 18:25 MCH 24.5 pg (28.0-34.0) L 08/02/22 18:25 MCHC 27.6 g/dL (30.0-36.0) L 08/02/22 18:25 RDW 19.0 % (12.1-15.1) H 08/02/22 18:25 Plt Count 335 10^3/cmm (130-400) 08/02/22 18:25 MPV 11.5 fL (7.4-10.4) H 08/02/22 18:25 Neut % (Auto) 82.0 % 08/02/22 18:25 Lymph % (Auto) 7.2 % 08/02/22 18:25 Mcminn % (Auto) 8.6 % 08/02/22 18:25 Eos % (Auto) 1.2 % 08/02/22 18:25 Baso % (Auto) 0.2 % 08/02/22 18:25 Neut # (Auto) 10.54 10^3/uL (1.8-7.7) H 08/02/22 18:25 Lymph # (Auto) 0.9 10^3/uL (0.8-4.8) 08/02/22 18:25 Mcminn # (Auto) 1.1 10^3/uL (0.2-0.9) H 08/02/22 18:25 Eos # (Auto) 0.2 10^3/uL (0.0-0.8) 08/02/22 18:25 Baso # (Auto) 0.0 10^3/uL (0.0-0.1) 08/02/22 18:25 Nucleated RBC % (auto) 0 % 08/02/22 18:25 Nucleated RBCs # 0.0 /100WBC 08/02/22 18:25 Specimen Type Arterial 08/02/22 20:15 Sample Site Brachial, right 08/02/22 20:15 ABG pH 7.39 (7.35-7.45) 08/02/22 20:15 ABG pCO2 61.2 mmHg (35-45) H* 08/02/22 20:15 ABG pO2 71.9 mmHg (80.0-100.0) L 08/02/22 20:15 ABG HCO3 37.3 mmol/L (22-26) H 08/02/22 20:15 ABG Base Excess 10.9 mmol/L (-2.0-2.0) H 08/02/22 20:15 Claude Test Pos 08/02/22 20:15 Hematocrit 26.0 % (37-47) L 08/02/22 20:15 O2 Delivery Device Nc 08/02/22 20:15 O2 Liters/Min 3.0 % 08/02/22 20:15 Logistics Coordinator ID [email or web address] 08/02/22 20:15 Sodium 141 mmol/L (136-145) 08/02/22 18:25 Potassium 5.1 mmol/L (3.5-5.1) 08/02/22 18:25 Chloride 99 mmol/L (98-107) 08/02/22 18:25 Carbon Dioxide 34 mmol/L (22-29) H 08/02/22 18:25 Anion Gap 13.1 (5-19) 08/02/22 18:25 BUN 32 mg/dL (8-23) H 08/02/22 18:25 Creatinine 0.9 mg/dL (0.5-0.9) 08/02/22 18:25 GFR Calculation 62.8 mL/min (90-130) L 08/02/22 18:25 Glucose 216 mg/dL (65-115) H 08/02/22 18:25 Calculated Osmolality 305 mOsm/kg (285-295) H 08/02/22 18:25 Calcium 8.0 mg/dL (8.5-10.5) L 08/02/22 18:25 Total Bilirubin 0.3 mg/dL (0.15-1.2) 08/02/22 18:25 AST 27 U/L (0-32) 08/02/22 18:25 ALT 19 U/L (0-33) 08/02/22 18:25 Alkaline Phosphatase 99 U/L (35-105) 08/02/22 18:25 Troponin T Baseline 66 ng/L (0-10) H 08/02/22 18:25 Troponin T 120 Minute 66.03 ng/L (0-10) H 08/02/22 20:05 Delta Troponin T 0.03 ABS# (0-10) 08/02/22 20:05 NT-Pro-B Natriuret Pep 9498 pg/mL (0-125) H 08/02/22 18:25 Total Protein 5.8 g/dL (6.6-8.7) L 08/02/22 18:25 Albumin 3.0 g/dL (3.5-5.2) L 08/02/22 18:25 Globulin 2.8 g/dL (1.3-4.6) 08/02/22 18:25 Urine Color Yellow (Yellow) 08/02/22 21:30 Urine Appearance Clear (CLEAR) 08/02/22 21:30 Urine pH 5 (5-7) 08/02/22 21:30 Ur Specific [place] 1.015 (1.005-1.030) 08/02/22 21:30 Urine Protein Neg (Negative) 08/02/22 21:30 Urine Glucose (UA) Norm (Normal) 08/02/22 21:30 Urine Ketones Negative (Negative) 08/02/22 21:30 Urine Blood Neg (Negative) 08/02/22 21:30 Urine Nitrate Negative (Negative) 08/02/22 21:30 Urine Bilirubin Neg (Negative) 08/02/22 21:30 Urine Urobilinogen Norm mg/dL (Negative) 08/02/22 21:30 Ur Leukocyte Esterase Negative (Negative) 08/02/22 21:30 SARS-CoV-2 Ag (Rapid) negative (Negative) 08/02/22 18:25 Discharge Plan Discharge Patient Disposition: Admitted As Inpatient Admit Provider: Paz Hansen Clinical Impression: Acute on chronic congestive heart failure Condition: Stable Coding Level of Care Code ED Fitter Type Bar And Segment for [place] [facility]
--- NOTE | 2022-08-02 18:08 | ECG_ITS ---
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 Measurements Intervals [place] Rate: 77 P: 37 [place]: 177 QRS: 111 QRSD: 93 T: -38 QT: 375 QTc: 425 Interpretive Statements SINUS RHYTHM WITH OCCASIONAL SUPRAVENTRICULAR PREMATURE COMPLEXES POSSIBLE RIGHT VENTRICULAR HYPERTROPHY [SOME/ALL OF: PROMINENT R IN V1, LATE TRANSITION, RAD, NEETU, SSS] ANTERIOR MYOCARDIAL INFARCTION , PROBABLY OLD [40+ ms Q WAVE AND/OR ST/T ABNORMALITY IN V3/V4] POSSIBLE INFERIOR MYOCARDIAL INFARCTION , OF INDETERMINATE AGE [30 ms Q WAVE IN II/aVF] Compared to ECG 08/02/2022 11:25:57 Right-axis deviation no longer present Myocardial infarct finding still present Electronically Signed On 08-02-2022 18:58:01 CDT by Reta Parker M.D. [id number]
--- NOTE | 2022-08-02 18:08 | XRR_ITS ---
PROCEDURE INFORMATION: Exam: XR Chest Exam date and time: 08/02/2022 5:12 PM Age: 66 years old Clinical indication: Shortness of breath; Additional info: SOB TECHNIQUE: Imaging protocol: Radiologic exam of the chest. Views: 1 view. COMPARISON: CR XR chest 1V portable [id number] 07/22/2022 5:18 AM FINDINGS: Lungs: Vascular congestion. Slightly increased perihilar airspace opacities, accentuated by shallow inspiration. Right upper lobe calcified granuloma. Pleural spaces: Increased small pleural effusions, left greater than right. No pneumothorax. Heart/Mediastinum: Unremarkable. No cardiomegaly. Bones/joints: Unremarkable. XR/XR chest 1V portable [id number] IMPRESSION: 1. Stable to slightly increased pulmonary edema. 2. Increased small pleural effusions.
--- NOTE | 2022-08-02 18:41 | PC.NURSE ---
PT PLACED ON CONTINUOUS SPO2, NIBP, AND CM.
[2022-08-02 19:03] LABS: Basophils % 0.2 %; Eosinophils # 0.2 10^3/uL (0.0-0.8); Eosinophils % 1.2 %; Hematocrit 29.4 % (37.0-47.0); Hemoglobin 8.1 g/dL (11.5-15.3); Lymphocytes # 0.9 10^3/uL (0.8-4.8); Lymphocytes % 7.2 %; Mean Corpuscular HGB Conc 27.6 g/dL (30.0-36.0); Mean Corpuscular Hemoglobin 24.5 pg (28.0-34.0); Mean Corpuscular Volume 88.8 fl (81-99); Mean Platelet Volume 11.5 fL (7.4-10.4); Monocytes # 1.1 10^3/uL (0.2-0.9); Monocytes % 8.6 %; Neutrophils # 10.54 10^3/uL (1.8-7.7); Nucleated Red Blood Cells % 0 %; Platelet Count 335 10^3/cmm (130-400); Red Blood Count 3.31 10^6/uL (4.1-5.3); White Blood Count 12.9 10^3/uL (4.0-10.0)
--- NOTE | 2022-08-02 19:06 | PC.NURSE ---
REPORT GIVEN TO SALO Martinez RN ASSUMED CARE.
--- NOTE | 2022-08-02 19:20 | PC.NURSE ---
Received report and taken over care from Reji RN @ [phone]
[2022-08-02 19:36] LABS: Troponin(5th) Baseline 66 ng/L (0-10)
[2022-08-02 19:45] LABS: SARS Covid-2 Antigen negative (Negative)
[2022-08-02 19:54] LABS: Alanine Aminotransferase 19 U/L (0-33); Alkaline Phosphatase 99 U/L (35-105); Blood Urea Nitrogen 32 mg/dL (8-23); Carbon Dioxide 34 mmol/L (22-29); Chloride 99 mmol/L (98-107); Globulin 2.8 g/dL (1.3-4.6); Glomerular Filtration Rate 62.8 mL/min (90-130); Glucose 216 mg/dL (65-115); NT Pro B Type Natriuretic Pept 9498 pg/mL (0-125); Osmolality Calculated 305 mOsm/kg (285-295); Sodium 141 mmol/L (136-145); Total Bilirubin 0.3 mg/dL (0.15-1.2); Total Protein 5.8 g/dL (6.6-8.7)
[2022-08-02 19:57] LABS: Anion Gap 13.1 (5-19); Potassium 5.1 mmol/L (3.5-5.1)
[2022-08-02 19:58] LABS: Aspartate Amino Transferase 27 U/L (0-32)
[2022-08-02 20:26] LABS: ABG PH Result 7.39 (7.35-7.45); Base Excess ABG 10.9 mmol/L (-2.0-2.0); Blood Gas Allen Test Pos; Blood Gas Sample Type Arterial; HCO3 ABG 37.3 mmol/L (22-26); PO2 ABG 71.9 mmHg (80.0-100.0)
[2022-08-02 20:27] LABS: Blood Gas Sample Site Brachial, right; Oxygen Device NC
[2022-08-02 20:28] LABS: ABG PCO2 61.2 mmHg (35-45)
[2022-08-02 20:32] LABS: Troponin 5 2HR 66.03 ng/L (0-10)
[2022-08-02 20:36] LABS: Troponin 5 2HR Delta 0.03 ABS# (0-10)
--- NOTE | 2022-08-02 20:38 | ECG_ITS ---
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 Measurements Intervals [place] Rate: 77 P: 54 [place]: 165 QRS: 108 QRSD: 97 T: -42 QT: 378 QTc: 429 Interpretive Statements SINUS RHYTHM WITH FREQUENT SUPRAVENTRICULAR PREMATURE COMPLEXES RIGHT AXIS DEVIATION [QRS AXIS > 100] LOW QRS VOLTAGE IN PRECORDIAL LEADS [QRS DEFLECTION < 1.0 mV IN CHEST LEADS] ANTERIOR MYOCARDIAL INFARCTION , PROBABLY OLD [40+ ms Q WAVE AND/OR ST/T ABNORMALITY IN V3/V4] PROBABLE INFERIOR MYOCARDIAL INFARCTION , OF INDETERMINATE AGE [35 ms Q WAVE IN II/aVF] Compared to ECG 08/02/2022 18:49:59 Right-axis deviation now present Low QRS voltage now present Atrial abnormality no longer present Myocardial infarct finding still present Electronically Signed On 08-02-2022 20:58:56 CDT by Tray Rubalcava M.D. [id number]
[2022-08-02 21:51] LABS: Add Urine Microscopic? NO; Charge for UA Resulting for Rev
[2022-08-02] MEDS: FUROsemide 10 mg/mL SDV 4mL 40 MG IVP (21:51)
[2022-08-02] MEDS: metoprolol tartrate 25 mg Tablet 12.5 MG PO (21:52)
[2022-08-02 21:57] LABS: Bilirubin Urine Neg (Negative); Blood Urine Neg (Negative); Glucose Urine UA Norm (Normal); Ketones Urine Negative (Negative); Leukocyte Esterase Urine Negative (Negative); Nitrate Urine Negative (Negative); Protein Urine Neg (Negative); Specific Gravity, Urine 1.015 (1.005-1.030); Urine Appearance Clear (CLEAR); Urine Color Yellow (Yellow); Urobilinogen Urine Norm (Negative); pH Urine 5 (5-7)
--- NOTE | 2022-08-02 22:04 | PC.NURSE ---
Report called to Angela in ICU for ICU room 11.
--- NOTE | 2022-08-02 22:20 | ECG_ITS ---
[facility] Test Date: 2022-08-02 Pat Name: Siobhan Lechuga Department: Room: ICU11 Gender: Female Steep Tender: : 1955 Requested By: Paz Hansen Order Number: [id number] Daniel MD: Reta Parker M.D. Measurements Intervals [place] Rate: 141 P: 0 [place]: 0 QRS: 111 QRSD: 98 T: -79 QT: 296 QTc: 455 Interpretive Statements ATRIAL FLUTTER/TACHYCARDIA WITH RAPID VENTRICULAR RESPONSE POSSIBLE RIGHT VENTRICULAR HYPERTROPHY [SOME/ALL OF: PROMINENT R IN V1, LATE TRANSITION, RAD, NEETU, SSS] ANTERIOR MYOCARDIAL INFARCTION , OF INDETERMINATE AGE [40+ ms Q WAVE AND/OR ST/T ABNORMALITY IN V3/V4] PROBABLE INFERIOR MYOCARDIAL INFARCTION , OF INDETERMINATE AGE [35 ms Q WAVE IN II/aVF] Compared to ECG 08/02/2022 20:38:39 Atrial abnormality now present Sinus rhythm no longer present Right-axis deviation no longer present Myocardial infarct finding still present Electronically Signed On 08-04-2022 7:24:39 CDT by Reta Parker M.D. [id number]
--- NOTE | 2022-08-02 22:28 | P.HP_ITS ---
Providers/Chief Complaint Admitting Physician: Paz Hansen MD Primary Care Provider: Ronny Torres DO Chief Complaint: RESP. DISTRESS History of Present Illness Siobhan Lechuga is a 66 year old female with a past medical history of peripheral artery disease, CAD, CHF, recently admitted here between 06/26/2022 to 07/05/2022 and then again between July 19, 2022 to July 24, 2022 for multiple medical issues, but most notably congestive heart failure, newly discovered to have low ejection fraction of 25 to 30%, transient A-fib, type II [place]. She was discharged to SNF. Presents to emergency room today with worsening shortness of breath. Patient states that she was also experiencing chest pain earlier this morning. She has gained significant amount of weight having increased recently from 320 pounds to 355 pounds. She typically takes Lasix 40 mg twice a day. She followed up with cardiology earlier this morning where she was found to be hypervolemic and metolazone was added to her medication regimen. She states that her chest pain is located in the middle of her chest, nonradiating, 8 on 10 at its peak, not significantly changed with any movement. Pain is currently improved after receiving. She was significantly tachypneic on arrival, currently improved after receiving Lasix and diuresing approximately 400 cc. Review of Systems General: Reports: 10 or more systems reviewed and unremarkable except in HPI and below Const: Denies: fever(s), chills or body aches Eyes: Denies: change in vision, blurry vision or photophobia ENMT: Reports: hoarseness; Denies: throat pain, enlarged tonsils, odynophagia or nasal congestion Card: Denies: chest pain, palpitations, irregular heart rhythm, edema, swelling of feet/ankles, lightheadedness, pre-syncope, dyspnea on exertion or orthopnea Resp: Denies: dyspnea, productive cough, non-productive cough, wheezing, stridor, pain on inspiration, change in phlegm color, hemoptysis or chest juan estion GI: Denies: abdominal pain, nausea, vomiting, hematemesis, coffee ground emesis, dysphagia, heartburn, diarrhea, constipation, GI cramping, change in stool character, hematochezia or melena : Denies: flank pain, difficulty voiding, dysuria, urinary frequency, urinary urgency, urinary hesitancy or hematuria Musc: Denies: neck pain, back pain, extremity pain, joint swelling, joint warmth or deformity Neuro: Denies: headache(s), numbness in extremities, weakness in extremities, sensory changes, difficulty walking, frequent falls, dizziness, vertigo, behavioral changes, Slurred speech present or seizure-like activity Psych: Denies: anxiety, depression, suicidal ideation or homicidal ideation Endo: Denies: polyuria, polydipsia, tired all the time, cold intolerance or hot flashes Jorden/Lymph: Denies: easy bruising or easy bleeding Medications/Allergies Home Medications Medication Instructions Recorded Confirmed Last Taken Type albuterol sulfate 90 mcg/actuation 2 puff inhalation Q6H PRN 03/27/19 08/02/22 Unknown History aerosol inhaler (ProAir HFA) Shortness Of Breath atorvastatin 20 mg tablet 20 mg PO BEDTIME@19 06/26/22 08/02/22 07/18/22 History ipratropium 0.5 mg-albuterol 3 mg 3 ml inhalation TID PRN Shortness 06/26/22 08/02/22 Unknown History (2.5 mg base)/3 mL nebulization Of Breath soln latanoprost 0.005 % eye drops 1 drp ophthalmic (eye) BEDTIME 06/26/22 08/02/22 07/18/22 History furosemide 40 mg tablet (Lasix) 40 mg PO BID #60 tabs 07/05/22 08/02/22 07/19/22 Rx acetaminophen 325 mg tablet 650 mg PO Q6H PRN Pain 07/19/22 08/02/22 Unknown History (Tylenol) bisacodyl 10 mg rectal suppository 10 mg ID DAILY PRN Constipation 07/19/22 08/02/22 Unknown History (Dulcolax (bisacodyl)) bisacodyl 5 mg tablet,delayed 10 mg PO DAILY PRN Constipation 07/19/22 08/02/22 Unknown History release (Dulcolax (bisacodyl)) bupropion HCl 150 mg 24 hr tablet, 150 mg PO DAILY@07/19/22 08/02/22 07/19/22 History extended release clopidogrel 75 mg tablet 75 mg PO DAILY@07/19/22 08/02/22 07/19/22 History magnesium hydroxide 400 mg/5 mL 30 ml PO .EVERY 72 HOURS PRN if no 07/19/22 08/02/22 Unknown History oral suspension (Milk of Magnesia) bm in 3 days metoprolol tartrate 25 mg tablet 12.5 mg PO Q12H 07/19/22 08/02/22 07/19/22 His tory nystatin 100,000 unit/gram topical 1 applic topical BID PRN to abd 07/19/22 08/02/22 Unknown History powder (Nyamyc) folds and breast sodium phosphates 19 gram-7 118 ml ID DAILY PRN Constipation 07/19/22 08/02/22 Unknown History gram/118 mL enema (Fleet Enema) ferrous sulfate 325 mg (65 mg 325 mg PO DAILY 30 days #30 tabs 07/25/22 08/02/22 Unknown Rx iron) tablet,delayed release insulin glargine 100 unit/mL (3 20 unit (0.2 mL) SUBCUT QAM #15 mL 07/25/22 08/02/22 07/18/22 Rx mL) subcutaneous pen (Lantus Solostar U-100 Insulin) insulin lispro 100 unit/mL See Rx Instructions .Route 07/25/22 08/02/22 07/19/22 Rx subcutaneous pen .COMPLEX #15 mL 5 units pantoprazole 40 mg tablet,delayed 40 mg PO BID 30 days #60 tabs 07/25/22 08/02/22 Unknown Rx release (Protonix) potassium chloride 10 mEq 10 meq PO BID 30 days #60 tabs 07/25/22 08/02/22 Unknown Rx tablet,extended release(part/cryst) (Klor-Con M) sucralfate 1 gram tablet 1 g PO Q12H 30 days #60 tabs 07/25/22 08/02/22 Unknown Rx Allergies Allergy/AdvReac Type Severity Reaction Status Date / Time aspirin Allergy Unknown Unknown Verified 08/02/22 17:56 citalopram Allergy Unknown Unknown Verified 08/02/22 17:56 codeine Allergy Unknown Unknown Verified 08/02/22 17:56 PFSH Acute PFSH: Medical History Atrial fibrillation Congestive heart failure Ejection fraction 25 to 30% 06/26 Diabetes mellitus with peripheral autonomic neuropathy Gangrene Hypertension New onset of congestive heart failure Acute diastolic heart failure. EF normal on limited echo Obesity PAD (peripheral artery disease) Tobacco abuse, in remission Surgical History Post-operative state Status post amputation of great toe Family History Other Diabetes Hypertension Denies family history of CAD (coronary artery disease) Clotting disorder Dementia Hyperlipidemia Psychiatric illness Chronic kidney disease (CKD) Suicide Anesthesia complication Bleeding disorder Family history of premature coronary artery disease Lung disease Cancer Stroke Social History Smoking and tobacco status: former smoker Substance/Drug Use: never Marital status: Current occupational status: disabled Vitals/I&O/Wt Last Vital Signs Temp 98.0 F 08/02/22 17:49 Pulse 140 H 08/02/22 21:58 Resp 21 H 08/02/22 21:58 BP 136/80 08/02/22 21:58 Pulse Ox 100 08/02/22 21:58 O2 Del Method Nasal Cannula 08/02/22 21:58 O2 Flow Rate 3.5 08/02/22 21:58 Weight last 48 hrs Weight 136.078 kg Physical Exam Narrative: General: No acute distress, AO x3 HEENT: PERRLA, pupils bilaterally equal and reactive, pallors not present Chest: Crackles to auscultation bilaterally CVS: S1-S2 regular, no murmurs, no tachycardia, no gallops, no rubs Abdomen: Soft, nontender, no organomegaly, bowel sounds present Neuro: No focal deficits, no facial deformity, AO x3, power 5/5 in all limbs Extremities: Bilateral lower extremity significant pitting edema with weeping edema. Urinary Catheter Management: Marcelo: Cath Placed During This Visit: yes Urinary Catheter Date of Insertion: 08/02/22 Urinary Catheter Time of Insertion: 21:38 Data 08/03/22 02:28 08/03/22 02:28 A&P Assessment and plan (1) Acute on chronic congestive heart failure: Acute on chronic systolic heart failure with last known ejection fraction of around 25 to 30%. Patient is grossly volume overloaded at this time Thus far she has received Lasix 40 mg x 1 in the ER We will start her on Lasix 60 mg IV every 12 hours Based on urine output and kidney function the dose may be further titrated. Metolazone was recently added to her regimen, however patient has not yet s tarted this medication. Troponin mildly elevated at 66 at baseline, no significant delta at 2 or 6 h ours. BNP at 9400 Chest x-ray showing bilateral pulmonary infiltrates which appear to be most consistent with pulmonary edema. (2) Atrial fibrillation with RVR: A-fib with RVR with heart rate of 140 Thus far received pushes of metoprolol 5 mg IV x2 and 12.5 mg p.o. metoprolol We will go ahead and start her on a Cardizem infusion given no significant response Previously noted to have intermittent A-fib, typically takes metoprolol 12.5 mg twice daily Not currently on any anticoagulation Plan Diabetes mellitus: Insulin sliding scale Continue DuoNebs as needed for wheezing Attestations Medical Necessity Statement*: Greater than 2 midnight admission is anticipated for above defined care Coding Level of Care Code Acute Code for [facility] Fwd Diagnoses Acute on chronic congestive heart failure I50.9 Atrial fibrillation with RVR I48.91
[2022-08-02] MEDS: metoprolol tartrate 1 mg/1 mL SDV 5 mL 5 MG IVP (22:36)
[2022-08-03] VITALS (230 sets, daily range): BP systolic 81–181; BP diastolic 45–105; PULSE 60–142; RESP 13–41; TEMP 36.5–36.9; O2SAT 89–100
[2022-08-03] MEDS: enoxaparin 40 mg/0.4 mL Syringe SUBCUT ×2 (00:34→23:30)
[2022-08-03] MEDS: metoprolol tartrate 25 mg Tablet 12.5 MG PO ×3 (00:34→23:30)
[2022-08-03] MEDS: FUROsemide 10 mg/mL SDV 10mL 60 MG IVP ×3 (00:34→23:27)
[2022-08-03] MEDS: sucralfate 1 gm Tablet PO ×3 (00:35→23:30)
--- NOTE | 2022-08-03 01:24 | ECG_ITS ---
[facility] Test Date: 2022-08-03 Pat Name: Siobhan Lechuga Department: Room: ICU11 Gender: Female Rn Procedure: : 1955 Requested By: Renato Silver Order Number: [id number] Daniel MD: Reta Parker M.D. Measurements Intervals [place] Rate: 134 P: 0 [place]: 0 QRS: 116 QRSD: 100 T: -89 QT: 297 QTc: 444 Interpretive Statements ATRIAL FLUTTER/TACHYCARDIA WITH RAPID VENTRICULAR RESPONSE POSSIBLE RIGHT VENTRICULAR HYPERTROPHY [SOME/ALL OF: PROMINENT R IN V1, LATE TRANSITION, RAD, NEETU, SSS] ANTERIOR MYOCARDIAL INFARCTION , OF INDETERMINATE AGE [40+ ms Q WAVE AND/OR ST/T ABNORMALITY IN V3/V4] PROBABLE INFERIOR MYOCARDIAL INFARCTION , OF INDETERMINATE AGE [35 ms Q WAVE IN II/aVF] Compared to ECG 08/02/2022 22:25:55 No significant changes Electronically Signed On 08-03-2022 8:19:30 CDT by Reta Parker M.D. [id number]
[2022-08-03] MEDS: ipratropium-albuterol 3 mL Neb INHALATION ×3 (01:31→20:09)
[2022-08-03 03:07] LABS: Basophils # 0.1 10^3/uL (0.0-0.1); Basophils % 0.4 %; Eosinophils # 0.2 10^3/uL (0.0-0.8); Eosinophils % 1.3 %; Hematocrit 33.8 % (37.0-47.0); Hemoglobin 9.1 g/dL (11.5-15.3); Lymphocytes # 1.2 10^3/uL (0.8-4.8); Lymphocytes % 8.7 %; Mean Corpuscular HGB Conc 26.9 g/dL (30.0-36.0); Mean Corpuscular Hemoglobin 23.9 pg (28.0-34.0); Mean Corpuscular Volume 88.9 fl (81-99); Mean Platelet Volume 11.2 fL (7.4-10.4); Monocytes # 1.2 10^3/uL (0.2-0.9); Monocytes % 8.7 %; Neutrophils # 10.85 10^3/uL (1.8-7.7); Neutrophils % 80.5 %; Nucleated Red Blood Cells % 0 %; Platelet Count 411 10^3/cmm (130-400); Red Cell Distribution Width 19.3 % (12.1-15.1); White Blood Count 13.5 10^3/uL (4.0-10.0)
[2022-08-03 03:25] LABS: Troponin 5 6HR 75.88 ng/L (0-10)
[2022-08-03 03:26] LABS: Troponin 5 6HR Delta 9.88 ng/L (0-12)
[2022-08-03 03:27] LABS: Alanine Aminotransferase 22 U/L (0-33); Albumin Level 3.2 g/dL (3.5-5.2); Alkaline Phosphatase 101 U/L (35-105); Aspartate Amino Transferase 31 U/L (0-32); Blood Urea Nitrogen 32 mg/dL (8-23); Carbon Dioxide 34 mmol/L (22-29); Chloride 100 mmol/L (98-107); Globulin 3.6 g/dL (1.3-4.6); Glomerular Filtration Rate 62.8 mL/min (90-130); Glucose 164 mg/dL (65-115); Magnesium 1.9 mg/dL (1.7-2.3); Osmolality Calculated 305 mOsm/kg (285-295); Sodium 142 mmol/L (136-145); Total Bilirubin 0.3 mg/dL (0.15-1.2); Total Protein 6.8 g/dL (6.6-8.7)
[2022-08-03 03:32] LABS: Anion Gap 12.7 (5-19); Potassium 4.7 mmol/L (3.5-5.1)
[2022-08-03] MEDS: clopidogrel 75 mg Tablet PO (06:24)
[2022-08-03] MEDS: buPROPion XL (24 HR) 150 mg Tablet PO (06:24)
--- NOTE | 2022-08-03 07:46 | PC.PHAR ---
pt is from [facility]-pts mar from the [facility] has the augmentin 875-125mg bid start date was 07/25/22 end date 07/28/22-
[2022-08-03] MEDS: pantoprazole DR 40 mg Tablet PO (09:54)
[2022-08-03 12:43] LABS: Glucose Point of Care 228 mg/dL (70-110)
[2022-08-03] MEDS: insulin lispro 100 unit/1 mL SUBCUT ×3 (12:57→20:16)
[2022-08-03] MEDS: magnesium hydroxide 30 mL UDC PO (13:41)
--- NOTE | 2022-08-03 14:33 | PM.PN ---
Subjective Subjective: She states she is improving. Breathing somewhat better. Denies chest pain or pressure. She states that she had previously been diagnosed with sleep apnea and used to have a CPAP, but does not have any more and is not sure where it went. Vitals/I&O/Wt Last Vital Signs Temp 98.4 F 08/03/22 09:40 Pulse 66 08/03/22 13:05 Resp 20 H 08/03/22 13:05 BP 136/65 08/03/22 13:00 Pulse Ox 98 08/03/22 13:05 O2 Del Method Nasal Cannula 08/03/22 09:28 O2 Flow Rate 4 08/03/22 09:28 08/02/22 08/03/22 08/03/22 22:59 06:59 14:59 Intake Total 27.791 / 27.791 Output Total 600 / 600 175 / 175 Balance -600 / -600 27.791 / -572.209 -175 / -175 Weight last 48 hrs Weight 156.489 kg Weight 157.85 kg Weight 136.078 kg Physical Exam Const: COMMON NORMALS: patient oriented x3 and alert GENERAL APPEARANCE: cooperative NUTRITIONAL APPEARANCE: obese morbidly obese ORIENTATION/CONSCIOUSNESS: Yes awake HENMT: COMMON NORMALS: oropharynx normal Resp: AUSCULTATION: diminished lung sounds Cardio: COMMON NORMALS: regular rhythm, S1 normal heart sound present, S2 normal heart sound present and No murmurs present (Cardio) RHYTHM: regular rhythm HEART SOUNDS: S1 normal heart sound present and S2 normal heart sound present GI: COMMON NORMALS: Normal to inspection, nondistended, normoactive bowel sounds present, Soft to palpation and non-tender PALPATION: Yes Soft to palpation Extremity: COMMON NORMALS: no joint enlargement GENERAL: Yes edema (2+ BL UE and LE, R hand 3+) Neuro: COMMON NORMALS: patient oriented x3 and moves all extremities SENSORIUM/ORIENTATION: Yes alert Skin: COMMON NORMALS: no rashes or lesions noted GENERAL SKIN EXAM: no rashes or lesions noted Urinary Catheter Management: Marcelo: Cath Placed During This Visit: yes Reason for Continuing Indwelling Catheter: Accurate Measurement of Urinary Output in Critically Ill Patients Urinary Catheter Date of Insertion: 08/02/22 Urinary Catheter Time of Insertion: 21:38 Data 08/03/22 02:28 08/03/22 02:28 A&P Assessment and plan (1) Acute on chronic congestive heart failure: Acute systolic decompensation of CHF, with worsened hypoxia 4 L nasal cannula oxygen. Continue diuresis with Lasix. Producing urine. Noted in negative balance. Denies chest pain. Noted troponin EKG series. Moderate troponin abnormality, not a convincing trend, 6-hour troponin up to 76. Noted previously concern for possible underlying coronary disease. Coronary angiogram was considered and medical therapy was elected. Discussed with her assistant account executive - continue with medical therapy. Continue to optimize volume status. Additionally appears to have history of diagnosis of GREGORIO, sometime ago used CPAP, but is not sure what happened to her machine that she used to have at home. Continue Lasix 60 mg IV every 6 hours. Monitor I&O. Monitor renal function. Weights. Continue care on CSU. (2) Atrial fibrillation with RVR: Improved. Converted to sinus rhythm overnight. Stop Cardizem drip. Continue metoprolol. Follow-up magnesium level. Monitor on telemetry. Treat respiratory/CHF decompensation. Not on anticoagulation per prior documentation due to transfusion dependent anemia, high risk of recurrent GI bleed. Concerns of slow GI bleed. Monitor blood counts. In case does not become a candidate for anticoagulation consider left atrial appendage closure versus other options. Plan Diabetes mellitus: Insulin sliding scale COPD: Diminished air entry. Possible contributing mild exacerbation. Add scheduled DuoNebs. Continue DuoNebs as needed for wheezing Attestations Medical Necessity Statement*: Continue admission for assessment and management of CHF decompensation with hypoxia. Diagnoses Acute on chronic congestive heart failure I50.9 Atrial fibrillation with RVR I48.91
--- NOTE | 2022-08-03 14:36 | USR_ITS ---
PROCEDURE INFORMATION: Exam: US Duplex Left Upper Extremity Veins, Limited Exam date and time: 08/03/2022 4:18 PM Age: 66 years old Clinical indication: Swelling (edema) of limb; Upper extremity, left; Additional info: Assess for dvt TECHNIQUE: Imaging protocol: Real-time duplex ultrasound of the left extremity with 2-D louise scale, color Doppler flow and spectral waveform analysis including responses to compression and other maneuvers (when performed) with image documentation. Limited exam focused on the left upper extremity veins. COMPARISON: [place] [id number] 06/26/2022 4:02 PM FINDINGS: Left deep veins: Unremarkable. Axillary and brachial veins are patent throughout without thrombus. Normal Doppler waveforms. Normal compressibility and/or augmentation response. Visualized internal jugular and subclavian veins are patent. Left superficial veins: Near occlusive superficial thrombus in the left cephalic vein, in the forearm region. The basilic vein is patent. Soft tissues: Unremarkable. US/[place] [id number] IMPRESSION: 1. No evidence for deep vein thrombosis. 2. Superficial thrombus in the left cephalic vein.
[2022-08-03 17:42] LABS: Glucose Point of Care 217 mg/dL (70-110)
[2022-08-03 20:14] LABS: Glucose Point of Care 329 mg/dL (70-110)
[2022-08-03] MEDS: atorvastatin 40 mg Tablet PO (20:16)
[2022-08-04] VITALS (23 sets, daily range): BP systolic 96–156; BP diastolic 45–82; PULSE 63–87; RESP 14–28; TEMP 36.4–37.1; O2SAT 92–100
[2022-08-04 02:44] LABS: Basophils # 0.1 10^3/uL (0.0-0.1); Basophils % 0.5 %; Eosinophils # 0.1 10^3/uL (0.0-0.8); Hematocrit 30.6 % (37.0-47.0); Hemoglobin 8.4 g/dL (11.5-15.3); Lymphocytes # 1.2 10^3/uL (0.8-4.8); Lymphocytes % 9.5 %; Mean Corpuscular HGB Conc 27.5 g/dL (30.0-36.0); Mean Corpuscular Hemoglobin 25.3 pg (28.0-34.0); Mean Corpuscular Volume 92.2 fl (81-99); Mean Platelet Volume 11.3 fL (7.4-10.4); Monocytes # 1.3 10^3/uL (0.2-0.9); Monocytes % 9.9 %; Neutrophils # 10.12 10^3/uL (1.8-7.7); Neutrophils % 78.5 %; Nucleated Red Blood Cells % 0 %; Platelet Count 325 10^3/cmm (130-400); Red Blood Count 3.32 10^6/uL (4.1-5.3); Red Cell Distribution Width 19.7 % (12.1-15.1); White Blood Count 12.9 10^3/uL (4.0-10.0)
[2022-08-04] MEDS: ipratropium-albuterol 3 mL Neb INHALATION ×4 (03:02→21:52)
[2022-08-04 03:07] LABS: Blood Urea Nitrogen 35 mg/dL (8-23); Calcium 8.6 mg/dL (8.5-10.5); Carbon Dioxide 36 mmol/L (22-29); Chloride 97 mmol/L (98-107); Glomerular Filtration Rate 55.6 mL/min (90-130); Glucose 193 mg/dL (65-115); Osmolality Calculated 299 mOsm/kg (285-295); Sodium 138 mmol/L (136-145)
[2022-08-04 03:16] LABS: Anion Gap 9.6 (5-19); Potassium 4.6 mmol/L (3.5-5.1)
[2022-08-04] MEDS: clopidogrel 75 mg Tablet PO (06:31)
[2022-08-04] MEDS: buPROPion XL (24 HR) 150 mg Tablet PO (06:31)
[2022-08-04 07:19] LABS: Glucose Point of Care 255 mg/dL (70-110)
[2022-08-04] MEDS: pantoprazole DR 40 mg Tablet PO (08:01)
[2022-08-04] MEDS: insulin lispro 100 unit/1 mL SUBCUT ×4 (08:01→20:51)
[2022-08-04 11:19] LABS: Glucose Point of Care 267 mg/dL (70-110)
[2022-08-04] MEDS: FUROsemide 10 mg/mL SDV 10mL 60 MG IVP ×2 (11:32→23:57)
[2022-08-04] MEDS: metoprolol tartrate 25 mg Tablet 12.5 MG PO ×2 (11:32→23:58)
[2022-08-04] MEDS: sucralfate 1 gm Tablet PO (11:32)
--- NOTE | 2022-08-04 15:10 | PC.OT ---
OT [place] withheld this date due to patient not available, nursing performing wound care. To attempt on a later date.
--- NOTE | 2022-08-04 17:00 | PC.NURSE ---
Patient transferred to CSU room 106, accepting nurse at bedside. Patient resting in bed 5L NC in place. Chart left with nurse. Patient sell phone and charging cord in bag at bedside.
[2022-08-04 17:16] LABS: Urine Color Red (Yellow); pH Urine 5 (5-7)
[2022-08-04 17:17] LABS: Add Urine Microscopic? YES; Bilirubin Urine Neg (Negative); Blood Urine 3+ (Negative); Glucose Urine UA Norm (Normal); Ketones Urine 1+ (Negative); Leukocyte Esterase Urine 1+ (Negative); Nitrate Urine Negative (Negative); Protein Urine 3+ (Negative); RBC Urine >100 /hpf (0-2); Urine Appearance Bloody (CLEAR); Urobilinogen Urine Norm (Negative)
[2022-08-04 17:18] LABS: Add Urine Culture? Yes; Mucus Urine 1+ /hpf; Squamous Epithelial Cell Urine 0-4 /hpf (0-5)
[2022-08-04 17:23] LABS: Glucose Point of Care 268 mg/dL (70-110)
--- NOTE | 2022-08-04 19:13 | P.PN_ITS ---
Subjective Subjective: She feels her breathing is improving. Denies chest pain. Noted to have hematuria today, denies history of hematuria. Vitals/I&O/Wt Last Vital Signs Temp 97.8 F 08/04/22 16:00 Pulse 77 08/04/22 17:53 Resp 19 H 08/04/22 17:53 BP 117/45 08/04/22 17:53 Pulse Ox 100 08/04/22 17:53 O2 Del Method Nasal Cannula 08/04/22 15:57 O2 Flow Rate 4 08/04/22 13:46 08/04/22 08/04/22 08/04/22 06:59 14:59 22:59 Intake Total 660 / 660 600 / 600 355 / 955 Output Total 500 / 1075 600 / 600 Balance 160 / -415 600 / 600 -245 / 355 Weight last 48 hrs Weight 158.984 kg Weight 156.489 kg Weight 157.85 kg Physical Exam Const: COMMON NORMALS: patient oriented x3 and alert GENERAL APPEARANCE: cooperative NUTRITIONAL APPEARANCE: obese morbidly obese ORIENTATION/CONSCIOUSNESS: Yes awake HENMT: COMMON NORMALS: oropharynx normal Resp: AUSCULTATION: diminished lung sounds (With improving air entry.) Cardio: COMMON NORMALS: regular rhythm, S1 normal heart sound present, S2 normal heart sound present and No murmurs present (Cardio) RHYTHM: regular rhythm HEART SOUNDS: S1 normal heart sound present and S2 normal heart sound present GI: COMMON NORMALS: Normal to inspection, nondistended, normoactive bowel sounds present, Soft to palpation and non-tender PALPATION: Yes Soft to palpation Extremity: COMMON NORMALS: no joint enlargement GENERAL: Yes edema (2+ BL UE and LE, R hand 3+) Neuro: COMMON NORMALS: patient oriented x3 and moves all extremities SENSORIUM/ORIENTATION: Yes alert Skin: COMMON NORMALS: no rashes or lesions noted GENERAL SKIN EXAM: no rashes or lesions noted Urinary Catheter Management: Marcelo: Cath Placed During This Visit: yes Reason for Continuing Indwelling Catheter: Other Urinary Catheter Date of Insertion: 08/04/22 Urinary Catheter Time of Insertion: 14:35 Data 08/04/22 02:07 08/04/22 02:07 A&P Assessment and plan (1) Acute on chronic congestive heart failure: Does not appear that she is in negative balance. There is some worsening of renal function, BUN up to 35, creatinine up to 1. He is also experiencing hematuria today. Additional assessment as below. For now continue same dose Lasix without increase, will reassess all parameters and volume status. Acute systolic decompensation of CHF, with worsened hypoxia 4 L nasal cannula oxygen. Denies chest pain. Noted troponin EKG series. Moderate troponin abnormality, not a convincing trend, 6-hour troponin up to 76. Noted previously concern for possible underlying coronary disease. Coronary angiogram was considered and medical therapy was elected. Continue with medical therapy. Continue to optimize volume status. Additionally appears to have history of diagnosis of GREGORIO, sometime ago used CPAP, but is not sure what happened to her machine that she used to have at home. Continue Lasix 60 mg IV every 6 hours. Monitor I&O. Monitor renal function. Weights. Continue care on CSU. (2) Atrial fibrillation with RVR: Improved. Converted to sinus rhythm overnight. Continue metoprolol. Follow-up magnesium level is 2. Potassium 4.6. Monitor on telemetry. Treat respiratory/CHF decompensation. Not on anticoagulation per prior documentation due to transfusion dependent an emia, high risk of recurrent GI bleed. Concerns of slow GI bleed. Monitor blood counts. Currently also hematuria. In case does not become a candidate for anticoagulation consider left atrial appendage closure versus other options. (3) Cephalic vein thrombosis, left: Superficial thrombosis. Some persistent edema of the left hand. Elevate left upper extremity. (4) Gross hematuria: Requested UA. Manual irrigation still yielding clots. Three-way catheter placed and started CBI. Urine improving to light pink. Obtain renal stone protocol CT (if possible). On Plavix with history of PVD. Additionally prophylactic Lovenox, continue for now given at risk of DVT (noted to have superficial thrombophlebitis left cephalic vein). Plan Diabetes mellitus: Insulin sliding scale COPD: With mild exacerbation. Diminished air entry. Today slightly better with adding of scheduled DuoNebs. Continue. Attestations Medical Necessity Statement*: Continue admission for assessment management of CHF exacerbation, with some worsening renal function, evaluation of gross hematuria, mild COPD exacerbation. Diagnoses Acute on chronic congestive heart failure I50.9 Atrial fibrillation with RVR I48.91 Cephalic vein thrombosis, left I82.612 Gross hematuria R31.0
--- NOTE | 2022-08-04 19:23 | CTR_ITS ---
PROCEDURE INFORMATION: Exam: CT Abdomen And Pelvis Without Contrast Exam date and time: 08/04/2022 10:44 PM Age: 66 years old Clinical indication: Patient HX: Gross hematuria. TECHNIQUE: Imaging protocol: Computed tomography of the abdomen and pelvis without contrast. Radiation optimization: All CT scans at this facility use at least one of these dose optimization techniques: automated exposure control; mA and/or kV adjustment per patient size (includes targeted exams where dose is matched to clinical indication); or iterative reconstruction. REPORTING DATA: Count of CT and Cardiac NM exams in prior 12 months: This patient has received 4 known CTs and 0 known cardiac nuclear medicine studies in the 12 months prior to the current study. COMPARISON: [place] [id number] 06/26/2022 4:02 PM RADIATION DOSE METRICS: Total DLP (mGy-cm): 810.73 FINDINGS: Limitations: The study is significantly limited by patient body habitus. Lungs: Mild atelectasis at the lung bases. Pleural spaces: Small bilateral pleural effusions. Liver: Hepatomegaly noted. Liver measures 19 cm in length. No gross focal hepatic lesion.No acute gastric abnormality demonstrated. Gallbladder and bile ducts: Gallbladder not visualized. No gross ductal dilation. Pancreas: Unremarkable. No ductal dilation. Spleen: Unremarkable. No splenomegaly. Adrenal glands: Thickening of the adrenal glands. No definite adrenal mass. Kidneys and ureters: No contour deforming solid renal mass. No definite renal calculus identified. No hydronephrosis. Ureters are not well seen. Stomach and bowel: The small bowel is unremarkable as demonstrated. No gross acute colonic abnormality noted. Appendix: No evidence of appendicitis. Intraperitoneal space: No free air. No significant fluid collection. Vasculature: Atherosclerosis of the abdominal aorta. No abdominal aortic aneurysm. Lymph nodes: No pathologically enlarged lymph nodes. Urinary bladder: There is a Marcelo catheter in the urinary bladder. Empty urinary bladder is grossly unremarkable. Reproductive: Unremarkable as visualized. Bones/joints: Degenerative spine changes are noted. Soft tissues: Subcutaneous edema noted throughout the abdomen and pelvis. No subcutaneous fluid collection identified. CT/CT kidney stone [id number] IMPRESSION: 1. The study is significantly limited by patient body habitus. 2. Subcutaneous edema noted throughout the abdomen and pelvis. No subcutaneous fluid collection identified. 3. No contour deforming solid renal mass. No definite renal calculus identified. No hydronephrosis. Ureters are not well seen. The aorta is atherosclerotic. No aortic aneurysm. 4. Small bilateral pleural effusions. Mild atelectasis at the lung bases.
[2022-08-04 20:31] LABS: Glucose Point of Care 353 mg/dL (70-110)
[2022-08-04] MEDS: enoxaparin 40 mg/0.4 mL Syringe SUBCUT (23:56)
[2022-08-05] VITALS (23 sets, daily range): BP systolic 90–109; BP diastolic 53–74; PULSE 64–114; RESP 16–28; TEMP 36.5–37.1; O2SAT 10–100
[2022-08-05] MEDS: sucralfate 1 gm Tablet PO ×2 (00:18→11:05)
[2022-08-05] MEDS: atorvastatin 40 mg Tablet PO ×2 (00:19→20:08)
[2022-08-05] MEDS: ipratropium-albuterol 3 mL Neb INHALATION ×4 (02:44→20:56)
[2022-08-05] MEDS: clopidogrel 75 mg Tablet PO (06:07)
[2022-08-05] MEDS: buPROPion XL (24 HR) 150 mg Tablet PO (06:07)
[2022-08-05 06:19] LABS: Glucose Point of Care 282 mg/dL (70-110)
[2022-08-05] MEDS: insulin lispro 100 unit/1 mL SUBCUT ×4 (07:24→21:19)
[2022-08-05] MEDS: pantoprazole DR 40 mg Tablet PO (08:32)
[2022-08-05] MEDS: FUROsemide 10 mg/mL SDV 10mL 60 MG IVP (11:05)
[2022-08-05] MEDS: metoprolol tartrate 25 mg Tablet 12.5 MG PO (11:05)
--- NOTE | 2022-08-05 11:10 | PC.SOCIAL ---
Pg 2 IMM Explained to pt Pg 2 IMM. No questions voiced. Provided pt a copy. Initialed, dated, & timed a copy & placed in chart.
[2022-08-05] MEDS: cefTRIAXone 2,000 MG in sodium chloride 0.9% (plus) 50 ML 100 MG IV (11:11)
[2022-08-05 11:33] LABS: Glucose Point of Care 299 mg/dL (70-110)
--- NOTE | 2022-08-05 15:13 | ECG_ITS ---
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 Measurements Intervals [place] Rate: 128 P: 0 TX: 0 QRS: 117 QRSD: 98 T: 224 QT: 299 QTc: 438 Interpretive Statements ATRIAL FLUTTER WITH RAPID VENTRICULAR RESPONSE POSSIBLE RIGHT VENTRICULAR HYPERTROPHY [SOME/ALL OF: PROMINENT R IN V1, LATE TRANSITION, RAD, NEETU, SSS] ANTERIOR MYOCARDIAL INFARCTION , PROBABLY OLD [40+ ms Q WAVE AND/OR ST/T ABNORMALITY IN V3/V4] Compared to ECG 08/03/2022 01:24:53 No significant changes Electronically Signed On 08-05-2022 17:06:53 CDT by Tray Rubalcava M.D. [email or web address] [id number]
[2022-08-05 16:35] LABS: Troponin(5th) Baseline 70 ng/L (0-10)
[2022-08-05 17:01] LABS: Glucose Point of Care 270 mg/dL (70-110)
--- NOTE | 2022-08-05 17:36 | ECG_ITS ---
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 Measurements Intervals [place] Rate: 78 P: 0 TX: 0 QRS: 106 QRSD: 93 T: 0 QT: 371 QTc: 425 Interpretive Statements SINUS RHYTHM RIGHT AXIS DEVIATION [QRS AXIS > 100] LOW QRS VOLTAGE IN PRECORDIAL LEADS [QRS DEFLECTION < 1.0 mV IN CHEST LEADS] ANTERIOR MYOCARDIAL INFARCTION , PROBABLY OLD [40+ ms Q WAVE AND/OR ST/T ABNORMALITY IN V3/V4] Compared to ECG 08/05/2022 15:13:34 Supraventricular rhythm now present Right-axis deviation now present Low QRS voltage now present Atrial flutter no longer present Atrial abnormality no longer present Myocardial infarct finding still present Electronically Signed On 08-06-2022 10:25:51 CDT by Tray Rubalcava M.D. [id number]
--- NOTE | 2022-08-05 18:58 | XRR_ITS ---
PROCEDURE INFORMATION: Exam: XR Chest Exam date and time: 08/05/2022 7:11 PM Age: 66 years old Clinical indication: Device placement; Picc; Additional info: Picc placementt TECHNIQUE: Imaging protocol: Radiologic exam of the chest. Views: 1 view. COMPARISON: CR (CHEST, ) 08/02/2022 5:12 PM FINDINGS: Tubes, catheters and devices: Right-sided PICC line tip in the superior vena cava. Lungs: Patchy bilateral ground-glass airspace opacities reflect alveolar edema and/or infiltrates. Pleural spaces: Moderate bilateral pleural effusions. Heart/Mediastinum: Cardiomegaly and mild pulmonary vascular congestion. Bones/joints: Unremarkable. XR/XR chest 1V portable [id number] IMPRESSION: 1. Right-sided PICC line tip in the superior vena cava. 2. Moderate bilateral pleural effusions. 3. Patchy bilateral ground-glass airspace opacities reflecting alveolar edema and/or infiltrates. 4. Cardiomegaly and mild pulmonary vascular congestion.
--- NOTE | 2022-08-05 19:32 | PC.NURSE ---
PICC line placed in right arm. Stat chest xray ordered and completed.
[2022-08-05 20:15] LABS: Glucose Point of Care 357 mg/dL (70-110)
--- NOTE | 2022-08-05 21:36 | ECG_ITS ---
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 Measurements Intervals [place] Rate: 72 P: 15 RI: 166 QRS: 192 QRSD: 95 T: 0 QT: 385 QTc: 423 Interpretive Statements SINUS RHYTHM POSSIBLE RIGHT VENTRICULAR HYPERTROPHY [SOME/ALL OF: PROMINENT R IN V1, LATE TRANSITION, RAD, NEETU, SSS] ANTERIOR MYOCARDIAL INFARCTION , OF INDETERMINATE AGE [40+ ms Q WAVE AND/OR ST/T ABNORMALITY IN V3/V4] Compared to ECG 08/05/2022 18:18:54 Supraventricular rhythm no longer present Right-axis deviation no longer present Myocardial infarct finding still present Electronically Signed On 08-06-2022 10:25:37 CDT by Tray Rubalcava M.D. [id number]
--- NOTE | 2022-08-05 21:44 | P.PN_ITS ---
Subjective Subjective: She states overall she is improving. Still edema in left upper extremity, although she does not appear to be elevating her arm today. Encouraged elevation and we arrange for several blankets folded under her arm with elevation. Difficulty drawing blood today. Vitals/I&O/Wt Last Vital Signs Temp 98.7 F 08/05/22 15:54 Pulse 77 08/05/22 20:57 Resp 18 08/05/22 20:57 BP 109/74 08/05/22 20:32 Pulse Ox 95 08/05/22 20:57 O2 Del Method CPAP 08/05/22 20:57 O2 Flow Rate 5 08/05/22 20:57 08/05/22 08/05/22 08/05/22 06:59 14:59 22:59 Intake Total 650 / 1605 650 / 650 300 / 950 Output Total 700 / 1300 450 / 450 500 / 950 Balance -50 / 305 200 / 200 -200 / 0 Weight last 48 hrs Weight 163.475 kg Weight 158.984 kg Physical Exam Const: COMMON NORMALS: patient oriented x3 and alert GENERAL APPEARANCE: co operative NUTRITIONAL APPEARANCE: obese morbidly obese JERAMY ENTATION/CONSCIOUSNESS: Yes awake HENMT: COMMON NORMALS: oropharynx normal Resp: AUSCULTATION: diminished lung sounds (With improving air entry.) Cardio: COMMON NORMALS: regular rhythm, S1 normal heart sound present, S2 normal heart sound present and No murmurs present (Cardio) RHYTHM: regular rhythm HEART SOUNDS: S1 normal heart sound present and S2 normal heart sound present GI: COMMON NORMALS: Normal to inspection, nondistended, normoactive bowel sounds present, Soft to palpation and non-tender PALPATION: Yes Soft to palpation Extremity: COMMON NORMALS: no joint enlargement GENERAL: Yes edema (2+ BL UE and LE, R hand 3+) Neuro: COMMON NORMALS: patient oriented x3 and moves all extremities SENSORIUM/ORIENTATION: Yes alert Skin: COMMON NORMALS: no rashes or lesions noted GENERAL SKIN EXAM: no rashes or lesions noted Urinary Catheter Management: Marcelo: Cath Placed During This Visit: yes Reason for Continuing Indwelling Catheter: Acute Urinary Retention or Obstruction Urinary Catheter Date of Insertion: 08/04/22 Urinary Catheter Time of Insertion: 14:35 Data 08/04/22 02:07 08/04/22 02:07 Micro: Microbiology 06/01/23 14:28 Urine Culture - Preliminary Urine,Clean Catch Gram Negative Rods A&P Assessment and plan (1) Acute on chronic congestive heart failure: Labs could not be drawn despite multiple attempts, poor peripheral access. Unknown renal function. For now hold off adjustment of medications. We are obtaining PICC line access. Continue Lasix as currently for now. Acute systolic decompensation of CHF, with worsened hypoxia 4 L nasal cannula oxygen. Denies chest pain. Noted troponin EKG series. Moderate troponin abnormality, not a convincing trend, 6-hour troponin up to 76. Noted previously concern for possible underlying coronary disease. Coronary a ngiogram was considered and medical therapy was elected. Continue with medical therapy. Continue to optimize volume status. Additionally appears to have history of diagnosis of GREGORIO, sometime ago used CPAP, but is not sure what happened to her machine that she used to have at home. Continue Lasix 60 mg IV every 6 hours. Monitor I&O. Monitor renal function. Weights. Continue care on CSU. (2) Atrial fibrillation with RVR: Heart rates had improved, however, today episode of tachycardia 130s-140s. Atrial flutter on my interpretation on twelve-lead EKG obtained. Ordered dose of digoxin, however, spontaneously converted back to sinus rhythm before it could be obtained. As above labs unfortunately unknown. We are obtaining PICC line for blood draws. Continue metoprolol. Continue monitor on telemetry. Blood chemistries requested. Magnesium requested. Not on anticoagulation per prior documentation due to transfusion dependent anemia, high risk of recurrent GI bleed. Concerns of slow GI bleed. Monitor blood counts. Currently also hematuria. In case does not become a candidate for anticoagulation consider left atrial appendage closure versus other options. (3) Cephalic vein thrombosis, left: Superficial thrombosis. Some persistent edema of the left hand. Elevate left upper extremity. (4) Gross hematuria: Improving. Discussed with her appears is having UTI. Gram-negative rods noted growing in urine. Follow-up urine culture. Started on ceftriaxone. Renal stone CT noted, without obvious nephrolithiasis. On Plavix with history of PVD. Additionally prophylactic Lovenox, continue for now given at risk of DVT (noted to have superficial thrombophlebitis left cephalic vein). Plan Diabetes mellitus: Insulin sliding scale Peripheral arterial disease: Continue antiplatelet medications. At risk of bleeding with noted hematuria, UTI. Treat UTI. Monitor for improvement in hematuria. Reassess blood counts. Difficulties with blood Giurgius currently, obtaining PICC line. COPD: With mild exacerbation. Diminished air entry. Today slightly better with adding of scheduled DuoNebs. Continue. Attestations Medical Necessity Statement*: Continue admission for assessment management of decompensated CHF with difficulties with IV access, worsening renal function, paroxysmal atrial fibrillation with RVR, gross hematuria, UTI. Diagnoses Acute on chronic congestive heart failure I50.9 Atrial fibrillation with RVR I48.91 Cephalic vein thrombosis, left I82.612 Gross hematuria R31.0
[2022-08-06] VITALS (15 sets, daily range): BP systolic 90–128; BP diastolic 57–79; PULSE 75–125; RESP 17–34; TEMP 36.5–36.7; O2SAT 88–100
[2022-08-06] MEDS: FUROsemide 10 mg/mL SDV 10mL 60 MG IVP (00:18)
[2022-08-06] MEDS: sucralfate 1 gm Tablet PO ×3 (00:19→22:35)
[2022-08-06] MEDS: metoprolol tartrate 25 mg Tablet 12.5 MG PO ×3 (00:20→22:35)
[2022-08-06] MEDS: enoxaparin 40 mg/0.4 mL Syringe SUBCUT ×2 (00:36→22:35)
[2022-08-06] MEDS: ipratropium-albuterol 3 mL Neb INHALATION ×4 (02:28→20:46)
[2022-08-06] MEDS: clopidogrel 75 mg Tablet PO (05:40)
[2022-08-06] MEDS: buPROPion XL (24 HR) 150 mg Tablet PO (05:41)
[2022-08-06 06:06] LABS: Basophils # 0.1 10^3/uL (0.0-0.1); Basophils % 0.5 %; Eosinophils # 0.1 10^3/uL (0.0-0.8); Eosinophils % 0.9 %; Hemoglobin 7.8 g/dL (11.5-15.3); Lymphocytes # 0.9 10^3/uL (0.8-4.8); Lymphocytes % 7.2 %; Mean Corpuscular HGB Conc 26.9 g/dL (30.0-36.0); Mean Corpuscular Hemoglobin 23.9 pg (28.0-34.0); Mean Platelet Volume 11.2 fL (7.4-10.4); Monocytes % 7.7 %; Neutrophils # 10.78 10^3/uL (1.8-7.7); Neutrophils % 82.9 %; Nucleated Red Blood Cells % 0 %; Platelet Count 307 10^3/cmm (130-400); Red Blood Count 3.26 10^6/uL (4.1-5.3); Red Cell Distribution Width 18.9 % (12.1-15.1)
[2022-08-06 06:18] LABS: Glucose Point of Care 286 mg/dL (70-110)
[2022-08-06 06:19] LABS: Anion Gap 13.7 (5-19); Blood Urea Nitrogen 41 mg/dL (8-23); Calcium 8.7 mg/dL (8.5-10.5); Carbon Dioxide 33 mmol/L (22-29); Chloride 96 mmol/L (98-107); Glomerular Filtration Rate 62.8 mL/min (90-130); Glucose 238 mg/dL (65-115); Osmolality Calculated 304 mOsm/kg (285-295); Potassium 4.7 mmol/L (3.5-5.1); Sodium 138 mmol/L (136-145)
[2022-08-06] MEDS: insulin lispro 100 unit/1 mL SUBCUT ×4 (07:40→21:04)
[2022-08-06] MEDS: pantoprazole DR 40 mg Tablet PO (09:09)
[2022-08-06 10:09] LABS: Troponin 5 6HR 95.62 ng/L (0-10)
[2022-08-06 10:09] LABS: Magnesium 1.9 mg/dL (1.7-2.3)
[2022-08-06] MEDS: cefTRIAXone 2,000 MG in sodium chloride 0.9% (plus) 50 ML 100 MG IV (10:22)
[2022-08-06 10:28] LABS: Troponin 5 6HR Delta 25.62 ng/L (0-12)
--- NOTE | 2022-08-06 10:33 | PC.NURSE ---
Bed bath performed on patient. Sheets smoothed but patient unable to tolerate lying with head below 30 degrees for any length of time due to oxygen demands and fluid volume overload so nurse kurt and I were only able to smooth sheets and change her gown.
[2022-08-06 10:54] LABS: Glucose Point of Care 317 mg/dL (70-110)
[2022-08-06] MEDS: FUROsemide 10 mg/mL SDV 10mL 80 MG IVP ×2 (11:16→22:36)
[2022-08-06 16:43] LABS: Glucose Point of Care 277 mg/dL (70-110)
[2022-08-06] MEDS: atorvastatin 40 mg Tablet PO (18:05)
[2022-08-06 20:37] LABS: Glucose Point of Care 278 mg/dL (70-110)
--- NOTE | 2022-08-06 20:56 | PM.PN ---
Subjective Subjective: Says she is doing okay today. Denies any new symptoms. So far without further improvement. Vitals/I&O/Wt Last Vital Signs Temp 97.7 F 08/06/22 19:56 Pulse 79 08/06/22 20:47 Resp 18 08/06/22 20:47 BP 128/78 08/06/22 19:56 Pulse Ox 100 08/06/22 20:47 O2 Del Method Nasal Cannula 08/06/22 20:47 O2 Flow Rate 4 08/06/22 20:47 08/06/22 08/06/22 08/06/22 06:59 14:59 22:59 Intake Total 1010 / 1010 Output Total 900 / 1850 1040 / 1040 790 / 1830 Balance -900 / -900 -30 / -30 -790 / -820 Weight last 48 hrs Weight 162.925 kg Weight 163.475 kg Physical Exam Const: COMMON NORMALS: patient oriented x3 and alert GENERAL APPEARANCE: cooperative NUTRITIONAL APPEARANCE: obese morbidly obese ORIENTATION/CONSCIOUSNESS: Yes awake HENMT: COMMON NORMALS: oropharynx normal Resp: AUSCULTATION: diminished lung sounds (With improving air entry.) Cardio: COMMON NORMALS: regular rhythm, S1 normal heart sound present, S2 normal heart sound present and No murmurs present (Cardio) RHYTHM: regular rhythm HEART SOUNDS: S1 normal heart sound present and S2 normal heart sound present GI: COMMON NORMALS: Normal to inspection, nondistended, normoactive bowel sounds present, Soft to palpation and non-tender PALPATION: Yes Soft to palpation Extremity: COMMON NORMALS: no joint enlargement GENERAL: Yes edema (2+ BL UE and LE, R hand 3+) Neuro: COMMON NORMALS: patient oriented x3 and moves all extremities SENSORIUM/ORIENTATION: Yes alert Skin: COMMON NORMALS: no rashes or lesions noted GENERAL SKIN EXAM: no rashes or lesions noted Urinary Catheter Management: Marcelo: Cath Placed During This Visit: yes Reason for Continuing Indwelling Catheter: Accurate Measurement of Urinary Output in Critically Ill Patients Urinary Catheter Date of Insertion: 08/04/22 Urinary Catheter Time of Insertion: 14:35 Data 08/06/22 05:39 08/06/22 05:39 Micro: Microbiology 08/04/22 14:28 Urine Culture - Final Urine,Clean Catch Escherichia coli esbl A&P Assessment and plan (1) Acute on chronic congestive heart failure: Increase Lasix to 80 mg twice daily IV. Monitor CARLOS, weights. PICC line was placed due to difficulty with blood draws and access. Noted potassium 4.7. Magnesium 1.9. Renal function noted with BUN 41, creatinine 0.9. Still requiring 4 L nasal cannula oxygen. Continue to monitor on telemetry. Chest x-ray obtained last night, my interpretation with persistent congestive changes, pleural effusions and dependent edema. Acute systolic decompensation of CHF, with worsened hypoxia 4 L nasal cannula oxygen. Denies chest pain. Noted previously concern for possible underlying coronary disease. Coronary angiogram was considered and medical therapy was elected. Continue with medical therapy. Continue to optimize volume status. Additionally appears to have history of diagnosis of GREGORIO, sometime ago used CPAP, but is not sure what happened to her machine that she used to have at home. Monitor I&O. Monitor renal function. Weights. Continue care on CSU. (2) Atrial fibrillation with RVR: A-fib with RVR episode resolved spontaneously, but is noted to have a bump in troponin this morning up to 95.6. No chest pain. Follow-up additional troponin in the morning. Magnesium noted as above. Not on anticoagulation per prior documentation due to transfusion dependent anemia, high risk of recurrent GI bleed. Concerns of slow GI bleed. Monitor blood counts. Currently also hematuria. In case does not become a candidate for anticoagulation consider left atrial appendage closure versus other options. (3) Cephalic vein thrombosis, left: Superficial thrombosis. Some persistent edema of the left hand. Elevate left upper extremity. (4) Gross hematuria: Resolved. Stop CBI. Complicated UTI with hematuria, ESBL organism noted on review follow-up culture. Change antibiotic to meropenem. Renal stone CT noted, without obvious nephrolithiasis. On Plavix with history of PVD. Additionally prophylactic Lovenox, continue for now given at risk of DVT (noted to have superficial thrombophlebitis left cephalic vein). Plan Diabetes mellitus: Insulin sliding scale Peripheral arterial disease: Continue antiplatelet medications. COPD: With mild exacerbation. Still diminished air entry, hypoxia. Add prednisone, inhaled budesonide. Attestations Medical Necessity Statement*: Continue admission for assessment management of decompensated CHF, COPD exacerbation, persistent hypoxia, treatment of complicated UTI with ESBL organism and hematuria. Diagnoses Acute on chronic congestive heart failure I50.9 Atrial fibrillation with RVR I48.91 Cephalic vein thrombosis, left I82.612 Gross hematuria R31.0
[2022-08-06] MEDS: meropenem 1,000 MG in sodium chloride 0.9% (plus) 50 ML 100 MG IV (22:36)
[2022-08-07] VITALS (21 sets, daily range): BP systolic 97–166; BP diastolic 62–94; PULSE 75–84; RESP 12–77; TEMP 36.2–37.3; O2SAT 90–100
[2022-08-07] MEDS: ipratropium-albuterol 3 mL Neb INHALATION ×4 (01:06→20:07)
[2022-08-07 04:21] LABS: Basophils % 0.4 %; Eosinophils # 0.1 10^3/uL (0.0-0.8); Eosinophils % 1.2 %; Hematocrit 27.2 % (37.0-47.0); Hemoglobin 7.2 g/dL (11.5-15.3); Lymphocytes % 9.5 %; Mean Corpuscular HGB Conc 26.5 g/dL (30.0-36.0); Mean Corpuscular Hemoglobin 23.6 pg (28.0-34.0); Mean Corpuscular Volume 89.2 fl (81-99); Mean Platelet Volume 11.2 fL (7.4-10.4); Monocytes # 1.1 10^3/uL (0.2-0.9); Monocytes % 9.9 %; Neutrophils # 8.58 10^3/uL (1.8-7.7); Neutrophils % 78.4 %; Nucleated Red Blood Cells % 0.2 %; Platelet Count 265 10^3/cmm (130-400); Red Blood Count 3.05 10^6/uL (4.1-5.3); Red Cell Distribution Width 18.7 % (12.1-15.1); White Blood Count 10.9 10^3/uL (4.0-10.0)
[2022-08-07] MEDS: meropenem 1,000 MG in sodium chloride 0.9% (plus) 50 ML 100 MG IV ×3 (04:29→20:57)
[2022-08-07 04:42] LABS: Anion Gap 14.4 (5-19); Blood Urea Nitrogen 41 mg/dL (8-23); Calcium 8.9 mg/dL (8.5-10.5); Carbon Dioxide 32 mmol/L (22-29); Chloride 97 mmol/L (98-107); Glucose 186 mg/dL (65-115); Magnesium 1.9 mg/dL (1.7-2.3); Osmolality Calculated 303 mOsm/kg (285-295); Potassium 4.4 mmol/L (3.5-5.1); Sodium 139 mmol/L (136-145)
[2022-08-07 04:58] LABS: Troponin T (5th) Once 101 ng/L (0-10)
[2022-08-07] MEDS: buPROPion XL (24 HR) 150 mg Tablet PO (06:18)
[2022-08-07] MEDS: clopidogrel 75 mg Tablet PO (06:18)
[2022-08-07 06:24] LABS: Glucose Point of Care 222 mg/dL (70-110)
[2022-08-07] MEDS: predniSONE 20 mg Tablet PO (07:46)
[2022-08-07] MEDS: insulin lispro 100 unit/1 mL SUBCUT ×4 (07:46→20:56)
[2022-08-07] MEDS: pantoprazole DR 40 mg Tablet PO (07:46)
--- NOTE | 2022-08-07 09:36 | PC.SOCIAL ---
IMM update IMM updated with patient. Verbalized an understanding. Copy pg 2 provided. Initialled, dated, timed, and placed in chart.
[2022-08-07] MEDS: FUROsemide 10 mg/mL SDV 10mL 80 MG IVP ×2 (11:23→23:20)
[2022-08-07] MEDS: metoprolol tartrate 25 mg Tablet 12.5 MG PO ×2 (11:24→23:23)
[2022-08-07] MEDS: sucralfate 1 gm Tablet PO ×2 (11:24→23:22)
[2022-08-07 11:41] LABS: Glucose Point of Care 300 mg/dL (70-110)
[2022-08-07] MEDS: sodium chloride 0.9% 100 mL Bag 50 ML IV (14:00)
[2022-08-07 17:00] LABS: Glucose Point of Care 274 mg/dL (70-110)
[2022-08-07] MEDS: atorvastatin 40 mg Tablet PO (17:07)
--- NOTE | 2022-08-07 18:04 | P.PN_ITS ---
Subjective Subjective: She appears to be coughing while eating broth with a spoon. Reports otherwise she is doing all right. No chest pain. Vitals/I&O/Wt Last Vital Signs Temp 98.1 F 08/07/22 17:59 Pulse 84 08/07/22 17:59 Resp 32 H 08/07/22 17:59 BP 160/67 08/07/22 17:59 Pulse Ox 95 08/07/22 17:59 O2 Del Method Nasal Cannula 08/07/22 17:59 O2 Flow Rate 4 08/07/22 13:14 08/07/22 08/07/22 08/07/22 06:59 14:59 22:59 Intake Total 250 / 1260 702 / 702 490 / 1192 Output Total 1500 / 3330 1900 / 1900 Balance -1250 / -2070 702 / 702 -1410 / -708 Weight last 48 hrs Weight 166.468 kg Weight 162.925 kg Physical Exam Const: COMMON NORMALS: patient oriented x3 and alert GENERAL APPEARANCE: cooperative NUTRITIONAL APPEARANCE: obese morbidly obese ORIENTATION/CONSCIOUSNESS: Yes awake HENMT: COMMON NORMALS: oropharynx normal Resp: AUSCULTATION: no rhonchi, no wheezes and diminished lung sounds OTHER: Coughing Cardio: COMMON NORMALS: regular rhythm, S1 normal heart sound present, S2 normal heart sound present and No murmurs present (Cardio) RHYTHM: regular rhythm HEART SOUNDS: S1 normal heart sound present and S2 normal heart sound present GI: COMMON NORMALS: Normal to inspection, nondistended, normoactive bowel sounds present, Soft to palpation and non-tender PALPATION: Yes Soft to palpation Extremity: COMMON NORMALS: no joint enlargement GENERAL: Yes edema (2+ BL UE and LE, R hand 3+) Neuro: COMMON NORMALS: patient oriented x3 and moves all extremities SENSO RIUM/ORIENTATION: Yes alert Skin: COMMON NORMALS: no rashes or lesions noted GENERAL SKIN EXAM: no rashes or lesions noted Urinary Catheter Management: Marcelo: Cath Placed During This Visit: yes Reason for Continuing Indwelling Catheter: Accurate Measurement of Urinary Output in Critically Ill Patients Urinary Catheter Date of Insertion: 08/04/22 Urinary Catheter Time of Insertion: 14:35 Data 08/07/22 03:22 08/07/22 03:22 A&P Assessment and plan (1) Acute on chronic congestive heart failure: On review of CARLOS she is now achieving negative balance last 24 hours, -2 L. Continue increased Lasix to 80 mg twice daily IV. Monitor CARLOS, weights. Follow-up chemistry as she is at risk of renal function deterioration with incre ased dose Lasix, electrolyte imbalance, life-threatening arrhythmia. Monitor on telemetry. Noted potassium 4.4. Sodium 139. BUN 41. Creatinine 0.8. Troponin trend appears to be flat, troponin this morning 101. PICC line was placed due to difficulty with blood draws and access. Still requiring 4 L nasal cannula oxygen. Continue to wean down oxygen as tolerated. Continue to monitor on telemetry. Acute systolic decompensation of CHF, with worsened hypoxia 4 L nasal cannula oxygen. Denies chest pain. Noted previously concern for possible underlying coronary disease. Coronary angiogram was considered and medical therapy was elected. Continue with medical therapy. Continue to optimize volume status. Additionally appears to have history of diagnosis of GREGORIO, sometime ago used CP AP, but is not sure what happened to her machine that she used to have at home. Monitor I&O. Monitor renal function. Weights. Continue care on CSU. (2) Atrial fibrillation with RVR: A-fib with RVR episode resolved spontaneously, but is noted to have a bump in troponin this morning up to 95.6. No chest pain. Follow-up additional troponin in the morning. Magnesium noted as above. Not on anticoagulation per prior documentation due to transfusion dependent anemia, high risk of recurrent GI bleed. Concerns of slow GI bleed. Monitor blood counts. Currently also hematuria. In case does not become a candidate for anticoagulation consider left atrial appendage closure versus other options. (3) Cephalic vein thrombosis, left: Superficial thrombosis. Some persistent edema of the left hand. Elevate left upper extremity. (4) Gross hematuria: Resolved. Stopped CBI. Complicated UTI with hematuria, ESBL organism noted on review follow-up culture. Changed antibiotic to meropenem. Continue. Renal stone CT noted, without obvious nephrolithiasis. On Plavix with history of PVD. Additionally prophylactic Lovenox, continue for now given at risk of DVT (noted to have superficial thrombophlebitis left cephalic vein). (5) Acute anemia: Hemoglobin noted down to 7.2. MCV 89.2. Platelets 265. Following gross hematuria as complication of UTI. With underlying CAD at risk of life-threatening cardiac complications, discussed with her transfusion of 1 unit RBC. Additionally requires continued antiplatelet, at risk of further bleeding, reassess blood counts. Monitor closely with treatment. Plan Aspiration: Today noted aspirating while eating broth with a spoon. Had extensive discussion with her regarding aspiration precautions. We will get speech therapy to assess her as well. Diabetes mellitus: Insulin sliding scale Peripheral arterial disease: Continue antiplatelet medications. COPD: With mild exacerbation. Still diminished air entry, hypoxia. Add prednisone, inhaled budesonide. Attestations Medical Necessity Statement*: Continue admission for assessment management of decompensated CHF. Complicated UTI. Diagnoses Acute on chronic congestive heart failure I50.9 Atrial fibrillation with RVR I48.91 Cephalic vein thrombosis, left I82.612 Gross hematuria R31.0 Acute anemia D64.9
[2022-08-07] MEDS: budesonide 0.5 mg/2 mL Neb INHALATION (20:07)
[2022-08-07 20:49] LABS: Glucose Point of Care 326 mg/dL (70-110)
[2022-08-07] MEDS: enoxaparin 40 mg/0.4 mL Syringe SUBCUT (23:22)
[2022-08-08] VITALS (16 sets, daily range): BP systolic 97–137; BP diastolic 59–96; PULSE 74–138; RESP 15–24; TEMP 36.6–36.9; O2SAT 92–100
[2022-08-08] MEDS: ipratropium-albuterol 3 mL Neb INHALATION ×4 (01:07→20:48)
[2022-08-08 04:39] LABS: Basophils # 0.1 10^3/uL (0.0-0.1); Basophils % 0.6 %; Eosinophils # 0.1 10^3/uL (0.0-0.8); Eosinophils % 0.7 %; Hematocrit 29.5 % (37.0-47.0); Hemoglobin 8.4 g/dL (11.5-15.3); Lymphocytes # 0.9 10^3/uL (0.8-4.8); Lymphocytes % 7.7 %; Mean Corpuscular HGB Conc 28.5 g/dL (30.0-36.0); Mean Corpuscular Hemoglobin 25.1 pg (28.0-34.0); Mean Corpuscular Volume 88.1 fl (81-99); Mean Platelet Volume 11.3 fL (7.4-10.4); Monocytes # 0.9 10^3/uL (0.2-0.9); Monocytes % 8.4 %; Neutrophils # 9.02 10^3/uL (1.8-7.7); Neutrophils % 82.1 %; Nucleated Red Blood Cells % 0.2 %; Platelet Count 246 10^3/cmm (130-400); Red Blood Count 3.35 10^6/uL (4.1-5.3)
[2022-08-08] MEDS: meropenem 1,000 MG in sodium chloride 0.9% (plus) 50 ML 100 MG IV ×3 (04:57→20:52)
[2022-08-08 05:14] LABS: Blood Urea Nitrogen 41 mg/dL (8-23); Carbon Dioxide 36 mmol/L (22-29); Chloride 95 mmol/L (98-107); Glucose 264 mg/dL (65-115); Osmolality Calculated 307 mOsm/kg (285-295); Sodium 139 mmol/L (136-145)
[2022-08-08 05:19] LABS: Anion Gap 12.4 (5-19); Potassium 4.4 mmol/L (3.5-5.1)
[2022-08-08] MEDS: buPROPion XL (24 HR) 150 mg Tablet PO (06:14)
[2022-08-08] MEDS: clopidogrel 75 mg Tablet PO (06:14)
[2022-08-08 07:03] LABS: Glucose Point of Care 277 mg/dL (70-110)
[2022-08-08] MEDS: insulin lispro 100 unit/1 mL SUBCUT ×4 (07:53→20:50)
[2022-08-08] MEDS: acetaminophen 325 mg Tablet 650 MG PO (08:50)
[2022-08-08] MEDS: pantoprazole DR 40 mg Tablet PO (08:50)
[2022-08-08] MEDS: predniSONE 20 mg Tablet PO (08:50)
--- NOTE | 2022-08-08 08:59 | PC.NURSE ---
Patient had a few minutes of tachycardia with a pulse in the 140s around 0830 this morning. When asked if she was symptomatic patient reported throat loredo. patient returned to normal around 0900 with a pulse in the 70s currently.
[2022-08-08] MEDS: budesonide 0.5 mg/2 mL Neb INHALATION ×2 (09:00→20:48)
--- NOTE | 2022-08-08 10:57 | P.PN_ITS ---
Subjective Subjective: States he is doing all right. Denies coughing. Denies chest pain or pressure. Slight improvement in swelling in left upper extremity. Persistent edema in lower extremities. Vitals/I&O/Wt Last Vital Signs Temp 98.4 F 08/08/22 08:00 Pulse 79 08/08/22 09:08 Resp 22 H 08/08/22 09:02 BP 115/59 08/08/22 03:47 Pulse Ox 98 08/08/22 09:02 O2 Del Method Nasal Cannula 08/08/22 09:02 O2 Flow Rate 4 08/08/22 09:02 08/07/22 08/08/22 08/08/22 22:59 06:59 14:59 Intake Total 540 / 1242 410 / 1652 360 / 360 Output Total 1900 / 1900 2025 / 3925 Balance -1360 / -658 -1615 / -2273 360 / 360 Weight last 48 hrs Weight 161.978 kg Weight 166.468 kg Physical Exam Const: COMMON NORMALS: patient oriented x3 and alert GENERAL APPEARANCE: cooperative NUTRITIONAL APPEARANCE: obese morbidly obese ORIENTATION/CONSCIOUSNESS: Yes awake HENMT: COMMON NORMALS: oropharynx normal Resp: AUSCULTATION: no rhonchi, no wheezes and diminished lung sounds Cardio: COMMON NORMALS: regular rhythm, S1 normal heart sound present, S2 normal heart sound present and No murmurs present (Cardio) RHYTHM: regular rhythm HEART SOUNDS: S1 normal heart sound present and S2 normal heart sound present GI: COMMON NORMALS: Normal to inspection, nondistended, normoactive bowel sounds present, Soft to palpation and non-tender PALPATION: Yes Soft to palpation Extremity: COMMON NORMALS: no joint enlargement GENERAL: Yes edema (2+ BL UE and LE, R hand 3+) Neuro: COMMON NORMALS: patient oriented x3 and moves all extremities SENSORIUM/ORIENTATION: Yes alert Skin: COMMON NORMALS: no rashes or lesions noted GENERAL SKIN EXAM: no rashes or lesions noted Urinary Catheter Management: Marcelo: Cath Placed During This Visit: yes Reason for Continuing Indwelling Catheter: Acute Urinary Retention or Obstruction Urinary Catheter Date of Insertion: 08/04/22 Urinary Catheter Time of Insertion: 14:35 Data 08/08/22 03:40 08/08/22 03:40 A&P Assessment and plan (1) Acute on chronic congestive heart failure: -2273 mL. Weight noted 162 kg. Continues to require 4 L of oxygen. Persistent significant edema in lower extremities. Some additional aspiration while eating broth yesterday. Repeat chest x-ray. So far tolerating diuresis well. BUN 41, creatinine 1.8. Continue Lasix 80 mg IV twice daily. Monitor CARLOS, weights. Electrolytes noted, potassium 4.4, sodium 139. On review of CARLOS she is now achieving negative balance last 24 hours, -2 L. Continue increased Lasix to 80 mg twice daily IV. Monitor CARLOS, weights. Follow-up chemistry as she is at risk of renal function deterioration with increased dose Lasix, electrolyte imbalance, life-threatening arrhythmia. Monitor on telemetry. Noted potassium 4.4. Sodium 139. BUN 41. Creatinine 0.8. Troponin trend appears to be flat, troponin this morning 101. PICC line was placed due to difficulty with blood draws and access. Still requiring 4 L nasal cannula oxygen. Continue to wean down oxygen as christoph ated. Continue to monitor on telemetry. Acute systolic decompensation of CHF, with worsened hypoxia 4 L nasal cannula oxygen. Denies chest pain. Noted previously concern for possible underlying coronary disease. Coronary angiogram was considered and medical therapy was elected. Continue with medical therapy. Continue to optimize volume status. Additionally appears to have history of diagnosis of GREGORIO, sometime ago used CPAP, but is not sure what happened to her machine that she used to have at home. Monitor I&O. Monitor renal function. Weights. Continue care on CSU. (2) Atrial fibrillation with RVR: A-fib with RVR episode resolved spontaneously, but is noted to have a bump in troponin this morning up to 95.6. No chest pain. Follow-up additional troponin in the morning. Magnesium noted as above. Not on anticoagulation per prior documentation due to transfusion dependent anemia, high risk of recurrent GI bleed. Concerns of slow GI bleed. Monitor blood counts. Currently also hematuria. In case does not become a candidate for anticoagulation consider left atrial appendage closure versus other options. (3) Cephalic vein thrombosis, left: Superficial thrombosis. Some persistent edema of the left hand. Elevate left upper extremity. (4) Gross hematuria: Resolved. Stopped CBI. Complicated UTI with hematuria, ESBL organism on follow-up culture. Continue meropenem. Continue. Renal stone CT noted, without obvious nephrolithiasis. On Plavix with history of PVD. Additionally prophylactic Lovenox, continue for now given at risk of DVT (noted to have superficial thrombophlebitis left cephalic vein). (5) Acute anemia: Hemoglobin noted down to 7.2. MCV 89.2. Platelets 265. Following gross hematuria as complication of UTI. With underlying CAD at risk of life-threatening cardiac complications, discussed with her transfusion of 1 unit RBC. Additionally requires continued antiplatelet, at risk of further bleeding, reassess blood counts. Monitor closely with treatment. Plan Aspiration: Repeat chest x-ray. Appreciate speech therapy recommendations. Maintain aspiration precautions. Is on meropenem. Diabetes mellitus: Insulin sliding scale Peripheral arterial disease: Continue antiplatelet medications. COPD: With mild exacerbation. Still diminished air entry, hypoxia. Add prednisone, inhaled budesonide. Attestations Medical Necessity Statement*: Continue admission for assessment management of decompensated congestive heart failure, reassessment after aspiration episode, persistent hypoxia. Diagnoses Acute on chronic congestive heart failure I50.9 Atrial fibrillation with RVR I48.91 Cephalic vein thrombosis, left I82.612 Gross hematuria R31.0 Acute anemia D64.9
--- NOTE | 2022-08-08 10:59 | XRR_ITS ---
PROCEDURE INFORMATION: Exam: XR Chest Exam date and time: 08/08/2022 10:10 AM Age: 66 years old Clinical indication: Cough; Additional info: Cough/aspiration while eating broth TECHNIQUE: Imaging protocol: Radiologic exam of the chest. Views: 1 view. COMPARISON: CR (CHEST, ) 08/05/2022 7:11 PM FINDINGS: Lungs: There is diffuse interstitial densities in the right perihilar and lower lobe as well as the left perihilar region. Pleural spaces: Left lower lobe opacity and blunting of the right costophrenic sulcus bilateral pleural effusion cannot be ruled out peer. No pneumothorax. Heart/Mediastinum: Unremarkable. No cardiomegaly. Bones/joints: Unremarkable. Right sided PICC line has now been repositioned. The line extends cephalad and then curves toward the right side to extend to the proximal SVC. This line should be repositioned XR/XR chest 1V portable [id number] IMPRESSION: 1. Right side PICC line has been moved and now is suboptimally positioned. 2. Stable interstitial densities right perihilar and lower lobe 3. Stable bilateral pleural effusion
[2022-08-08 11:22] LABS: Glucose Point of Care 352 mg/dL (70-110)
[2022-08-08] MEDS: sucralfate 1 gm Tablet PO ×2 (12:24→20:51)
[2022-08-08] MEDS: metoprolol tartrate 25 mg Tablet 12.5 MG PO ×2 (12:24→20:51)
[2022-08-08] MEDS: FUROsemide 10 mg/mL SDV 10mL 80 MG IVP ×2 (12:25→20:51)
[2022-08-08 16:50] LABS: Glucose Point of Care 367 mg/dL (70-110)
[2022-08-08] MEDS: atorvastatin 40 mg Tablet PO (18:26)
[2022-08-08 20:22] LABS: Glucose Point of Care 358 mg/dL (70-110)
[2022-08-08] MEDS: enoxaparin 40 mg/0.4 mL Syringe SUBCUT (20:50)
[2022-08-09] VITALS (16 sets, daily range): BP systolic 102–155; BP diastolic 54–90; PULSE 71–130; RESP 15–21; TEMP 36.3–37.1; O2SAT 94–100; BMI 76.8
[2022-08-09] MEDS: ipratropium-albuterol 3 mL Neb INHALATION ×4 (01:38→20:57)
[2022-08-09] MEDS: meropenem 1,000 MG in sodium chloride 0.9% (plus) 50 ML 100 MG IV ×3 (05:18→21:06)
[2022-08-09 06:01] LABS: Basophils % 0.4 %; Eosinophils # 0.1 10^3/uL (0.0-0.8); Hematocrit 29.3 % (37.0-47.0); Lymphocytes % 8.7 %; Mean Corpuscular HGB Conc 27.3 g/dL (30.0-36.0); Mean Corpuscular Hemoglobin 24.2 pg (28.0-34.0); Mean Corpuscular Volume 88.8 fl (81-99); Mean Platelet Volume 11.4 fL (7.4-10.4); Monocytes % 8.8 %; Neutrophils # 9.03 10^3/uL (1.8-7.7); Neutrophils % 80.5 %; Nucleated Red Blood Cells % 0.2 %; Platelet Count 257 10^3/cmm (130-400); White Blood Count 11.2 10^3/uL (4.0-10.0)
[2022-08-09 06:14] LABS: Glucose Point of Care 366 mg/dL (70-110)
[2022-08-09 06:26] LABS: Anion Gap 10.5 (5-19); Blood Urea Nitrogen 42 mg/dL (8-23); Carbon Dioxide 39 mmol/L (22-29); Chloride 96 mmol/L (98-107); Glomerular Filtration Rate 62.8 mL/min (90-130); Glucose 319 mg/dL (65-115); Osmolality Calculated 315 mOsm/kg (285-295); Potassium 4.5 mmol/L (3.5-5.1); Sodium 141 mmol/L (136-145)
[2022-08-09] MEDS: insulin lispro 100 unit/1 mL SUBCUT ×4 (07:41→21:05)
[2022-08-09] MEDS: clopidogrel 75 mg Tablet PO (07:41)
[2022-08-09] MEDS: buPROPion XL (24 HR) 150 mg Tablet PO (07:41)
[2022-08-09] MEDS: budesonide 0.5 mg/2 mL Neb INHALATION ×2 (08:27→20:57)
[2022-08-09] MEDS: predniSONE 20 mg Tablet PO (09:55)
[2022-08-09] MEDS: pantoprazole DR 40 mg Tablet PO (09:55)
--- NOTE | 2022-08-09 10:38 | PC.SOCIAL ---
Imm update Imm updated with patient at bedside. copy of page 2 provided. Patient verbalized understanding. Copy in chart initialed, dated and timed.
[2022-08-09 11:22] LABS: Glucose Point of Care 311 mg/dL (70-110)
[2022-08-09] MEDS: sucralfate 1 gm Tablet PO ×2 (11:47→22:47)
[2022-08-09] MEDS: metoprolol tartrate 25 mg Tablet 12.5 MG PO ×3 (11:47→22:47)
[2022-08-09] MEDS: FUROsemide 10 mg/mL SDV 10mL 80 MG IVP ×2 (11:47→22:46)
--- NOTE | 2022-08-09 12:44 | PM.DCS ---
Discharge Providers Date of Admission: 07/19/2022 Date of Discharge: 07/25/2022 Attending Provider at Admission: Dr. Chiki Reid Attending Provider at Discharge: Dr. Storm Zazueta Primary Care Provider: Ronny Torres DO Diagnoses at Discharge Discharge Diagnosis (1) Acute on chronic congestive heart failure: Status: Acute (2) Atrial fibrillation with RVR: Status: Acute (3) Acute anemia: Status: Acute Reason for Visit Reason for Visit: RESP. DISTRESS Hospital Course Hospital Course This is the discharge summary for patient 07/25/2022 Patient was admitted to [facility] for acute on chronic systolic CHF exacerbation, with EF 25 to 30%, diuresed over 7 L, she was also managed with a COPD exacerbation, received prednisone, DuoNeb treatments, managed on BiPAP therapy, there is also concern for pneumonia, managed with antibiotic therapy, she also developed anemia, status post 1 unit PRBC, there was also concerns for aspiration pneumonitis, received steroids antibiotics, for history of atrial fibrillation, was managed with Cardizem, high risk of GI bleeds given her anemia, and transfusion dependent anemia and was not placed on anticoagulation she did receive 1 unit PRBC. Patient did have an episode of unresponsiveness during hospitalization, in which CPR was given which only last a few seconds, cardiology was consulted. Overall she clinically improved, discharged to residential facility Physical Exam Const: COMMON NORMALS: no acute distress and patient oriented x3 Resp: COMMON NORMALS: normal respiratory effort, No retractions, No use of accessory muscles and clear to auscultation bilaterally AUSCULTATION: clear to auscultation bilaterally Cardio: COMMON NORMALS: regular rate, regular rhythm, S1 normal heart sound present and S2 normal heart sound present RATE: regular rate RHYTHM: regular rhythm HEART SOUNDS: S1 normal heart sound present and S2 normal heart sound present GI: COMMON NORMALS: Normal to inspection, nondistended, normoactive bowel sounds present and non-tender Extremity: COMMON NORMALS: no pedal edema Neuro: COMMON NORMALS: patient oriented x3 Psych: COMMON NORMALS: mental status grossly normal Urinary Catheter Management: Marcelo: Cath Placed During This Visit: yes Reason for Continuing Indwelling Catheter: Other Urinary Catheter Date of Insertion: 08/04/22 Urinary Catheter Time of Insertion: 14:35 Discharge Data Studies Completed and Pending Completed Studies During Hospitalization Category Date Time Status CT abdomen renal stone [CT kidney stone 38308] Routine Cat Scan 08/04/22 19:23 Completed CXRP [XR chest 1V portable [id number]] Routine Exams 08/08/22 10:59 Completed CXRP [XR chest 1V portable [id number]] Stat Exams 08/05/22 18:58 Completed XR chest 1V portable [id number] Stat Exams 08/02/22 18:08 [place] [id number] Routine Ultrasound 08/03/22 14:36 Completed Radiology Impressions Venous Duplex 08/03/22 14:36 IMPRESSION: 1. No evidence for deep vein thrombosis. 2. Superficial thrombus in the left cephalic vein. Abdomen/Pelvis CT 08/04/22 19:23 IMPRESSION: 1. The study is significantly limited by patient body habitus. 2. Subcutaneous edema noted throughout the abdomen and pelvis. No subcutaneous fluid collection identified. 3. No contour deforming solid renal mass. No definite renal calculus identified. No hydronephrosis. Ureters are not well seen. The aorta is atherosclerotic. No aortic aneurysm. 4. Small bilateral pleural effusions. Mild atelectasis at the lung bases. Chest X-Ray 08/08/22 10:59 IMPRESSION: 1. Right side PICC line has been moved and now is suboptimally positioned. 2. Stable interstitial densities right perihilar and lower lobe 3. Stable bilateral pleural effusion Laboratory Results WBC 11.2 10^3/uL (4.0-10.0) H 08/09/22 05:17 RBC 3.30 10^6/uL (4.1-5.3) L 08/09/22 05:17 Hgb 8.0 g/dL (11.5-15.3) L 08/09/22 05:17 Hct 29.3 % (37.0-47.0) L 08/09/22 05:17 MCV 88.8 fl (81-99) 08/09/22 05:17 MCH 24.2 pg (28.0-34.0) L 08/09/22 05:17 MCHC 27.3 g/dL (30.0-36.0) L 08/09/22 05:17 RDW 18.0 % (12.1-15.1) H 08/09/22 05:17 Plt Count 257 10^3/cmm (130-400) 08/09/22 05:17 MPV 11.4 fL (7.4-10.4) H 08/09/22 05:17 Neut % (Auto) 80.5 % 08/09/22 05:17 Lymph % (Auto) 8.7 % 08/09/22 05:17 Holt % (Auto) 8.8 % 08/09/22 05:17 Eos % (Auto) 1.0 % 08/09/22 05:17 Baso % (Auto) 0.4 % 08/09/22 05:17 Neut # (Auto) 9.03 10^3/uL (1.8-7.7) H 08/09/22 05:17 Lymph # (Auto) 1.0 10^3/uL (0.8-4.8) 08/09/22 05:17 Holt # (Auto) 1.0 10^3/uL (0.2-0.9) H 08/09/22 05:17 Eos # (Auto) 0.1 10^3/uL (0.0-0.8) 08/09/22 05:17 Baso # (Auto) 0.0 10^3/uL (0.0-0.1) 08/09/22 05:17 Nucleated RBC % (auto) 0.2 % 08/09/22 05:17 Nucleated RBCs # 0.0 /100WBC 08/09/22 05:17 Specimen Type Arterial 08/02/22 20:15 Sample Site Brachial, right 08/02/22 20:15 ABG pH 7.39 (7.35-7.45) 08/02/22 20:15 ABG pCO2 61.2 mmHg (35-45) H* 08/02/22 20:15 ABG pO2 71.9 mmHg (80.0-100.0) L 08/02/22 20:15 ABG HCO3 37.3 mmol/L (22-26) H 08/02/22 20:15 ABG Base Excess 10.9 mmol/L (-2.0-2.0) H 08/02/22 20:15 Claude Test Pos 08/02/22 20:15 Hematocrit 26.0 % (37-47) L 08/02/22 20:15 O2 Delivery Device Nc 08/02/22 20:15 O2 Liters/Min 3.0 % 08/02/22 20:15 Manufacturing Intern ID [email or web address] 08/02/22 20:15 Sodium 141 mmol/L (136-145) 08/09/22 05:17 Potassium 4.5 mmol/L (3.5-5.1) 08/09/22 05:17 Chloride 96 mmol/L (98-107) L 08/09/22 05:17 Carbon Dioxide 39 mmol/L (22-29) H 08/09/22 05:17 Anion Gap 10.5 (5-19) 08/09/22 05:17 BUN 42 mg/dL (8-23) H 08/09/22 05:17 Creatinine 0.9 mg/dL (0.5-0.9) 08/09/22 05:17 GFR Calculation 62.8 mL/min (90-130) L 08/09/22 05:17 Glucose 319 mg/dL (65-115) H 08/09/22 05:17 POC Glucose 311 mg/dL (70-110) H 08/09/22 11:14 Calculated Osmolality 315 mOsm/kg (285-295) H 08/09/22 05:17 Calcium 9.0 mg/dL (8.5-10.5) 08/09/22 05:17 Magnesium 1.9 mg/dL (1.7-2.3) 08/07/22 03:22 Total Bilirubin 0.3 mg/dL (0.15-1.2) 08/03/22 02:28 AST 31 U/L (0-32) 08/03/22 02:28 ALT 22 U/L (0-33) 08/03/22 02:28 Alkaline Phosphatase 101 U/L (35-105) 08/03/22 02:28 Troponin T Gen 5 ng/L 101 ng/L (0-10) H* 08/07/22 03:22 Troponin T Baseline 70 ng/L (0-10) H 08/05/22 16:00 Troponin T 120 Minute 66.03 ng/L (0-10) H 08/02/22 20:05 Delta Troponin T 0.03 ABS# (0-10) 08/02/22 20:05 Troponin T Hi Sens 6Hr 95.62 ng/L (0-10) H 08/06/22 08:39 Troponin T Hi Sens 6Hr Delta 25.62 ng/L (0-12) H* 08/06/22 08:39 NT-Pro-B Natriuret Pep 9498 pg/mL (0-125) H 08/02/22 18:25 Total Protein 6.8 g/dL (6.6-8.7) 08/03/22 02:28 Albumin 3.2 g/dL (3.5-5.2) L 08/03/22 02:28 Globulin 3.6 g/dL (1.3-4.6) 08/03/22 02:28 Urine Color Red (Yellow) 08/04/22 14:28 Urine Appearance Bloody (CLEAR) A 08/04/22 14:28 Urine pH 5 (5-7) 08/04/22 14:28 Ur Specific [place] 1.020 (1.005-1.030) 08/04/22 14:28 Urine Protein 3+ (Negative) H 08/04/22 14:28 Urine Glucose (UA) Norm (Normal) 08/04/22 14:28 Urine Ketones 1+ (Negative) H 08/04/22 14:28 Urine Blood 3+ (Negative) H 08/04/22 14:28 Urine Nitrate Negative (Negative) 08/04/22 14:28 Urine Bilirubin Neg (Negative) 08/04/22 14:28 Urine Urobilinogen Norm mg/dL (Negative) 08/04/22 14:28 Ur Leukocyte Esterase 1+ (Negative) H 08/04/22 14:28 Urine RBC >100 /hpf (0-2) H 08/04/22 14:28 Urine WBC 5-10 /hpf (0-5) H 08/04/22 14:28 Ur Squamous Epith Cells 0-4 /hpf (0-5) H 08/04/22 14:28 Amorphous Sediment Not Reportable 08/04/22 14:28 Urine Bacteria Not Reportable 08/04/22 14:28 Urine Mucus 1+ /hpf 08/04/22 14:28 SARS-CoV-2 Ag (Rapid) negative (Negative) 08/02/22 18:25 Blood Type AB Negative 08/07/22 11:27 Rho(D) Type Negative 08/07/22 11:27 Antibody Screen Negative 08/07/22 11:27 Crossmatch See Detail 08/07/22 11:27 Vitals Last Vital Signs Temp 98.1 F 08/09/22 08:00 Pulse 74 08/09/22 11:23 Resp 21 H 08/09/22 11:23 BP 102/54 08/09/22 11:23 Pulse Ox 98 08/09/22 11:23 O2 Del Method Nasal Cannula 08/09/22 11:23 O2 Flow Rate 4 08/09/22 08:37 Discharge Plan Discharge Patient Disposition: Home Condition: Stable Prescriptions: No Action albuterol sulfate [ProAir HFA] 90 mcg/actuation HFA aerosol inhaler 2 puff INHALATION Q6H PRN (Reason: Shortness Of Breath) latanoprost 0.005 % drops 1 drp ophthalmic (eye) BEDTIME atorvastatin 20 mg tablet 20 mg PO BEDTIME@19 ipratropium-albuterol 0.5 mg-3 mg(2.5 mg base)/3 mL solution for nebulization 3 ml INHALATION TID PRN (Reason: Shortness Of Breath) furosemide [Lasix] 40 mg tablet 40 mg PO BID Qty: 60 0RF bisacodyl [Dulcolax (bisacodyl)] 10 mg Suppository 10 mg [place] DAILY PRN (Reason: Constipation) Rx Instructions: give if no results from mom Fleet Enema 19-7 gram/118 mL Enema 118 ml [place] DAILY PRN (Reason: Constipation) Rx Instructions: give if no results from mom and dulcolax bisacodyl [Dulcolax (bisacodyl)] 5 mg Tablet,Delayed Release (Dr/Ec) 10 mg PO DAILY PRN (Reason: Constipation) Rx Instructions: give if no results from mom clopidogrel 75 mg tablet 75 mg PO DAILY@07 bupropion HCl 150 mg tablet extended release 24 hr 150 mg PO DAILY@07 acetaminophen [Tylenol] 325 mg Tablet 650 mg PO Q6H PRN (Reason: Pain) magnesium hydroxide [Milk of Magnesia] 400 mg/5 mL Suspension 30 ml PO .EVERY 72 HOURS PRN (Reason: if no bm in 3 days) Rx Instructions: do not give to renal patients go to dulcolax orders metoprolol tartrate 25 mg tablet 12.5 mg PO Q12H sucralfate 1 gram Tablet 1 g PO Q12H 30 Days Qty: 60 0RF pantoprazole [Protonix] 40 mg tablet,delayed release (DR/EC) 40 mg PO BID 30 Days Qty: 60 0RF insulin lispro 100 unit/mL insulin pen See Rx Instructions .ROUTE .COMPLEX Qty: 15 0RF Rx Instructions: per sliding scale with meals if blood sugar is less than 60 call md 141-180=6 units 181-220=8 units 221-260=10 units 261-300=12 units 301-350=14 units 351-400=16 units if blood sugar is greater than 400 give 18 units for 3 consecutive times or symptomatic call insulin glargine [Lantus Solostar U-100 Insulin] 100 unit/mL (3 mL) insulin pen 20 unit SUBCUT QAM Qty: 15 0RF ferrous sulfate 325 mg (65 mg iron) tablet,delayed release (DR/EC) 325 mg PO DAILY 30 Days Qty: 30 0RF Klor-Con 20 mEq Packet 20 meq PO BID Nyamyc 100,000 unit/gram powder 1 applic TOPICAL BID PRN (Reason: to abd folds and breast) insulin lispro 100 unit/mL Insulin Pen 7 unit SUBCUT TIDWM Normal Saline Flush Syringe See Rx Instructions .ROUTE .COMPLEX Rx Instructions: 10ml injection twice a day (flush davey-cath before and after use Other Ambulatory Orders: Sleep Study/Titration (Routine) Timeframe: 1 Week Facility: [facility] - Location: [facility] Ordered By: Estevan Willoughby Referrals: Ronny Torres DO [Primary Care Provider] - Patient Instructions: Opioid Safety Discharge Attestations Time Spent in Discharge Care*: greater than 30 min Status at Discharge: Cognitive status at discharge: cognitively intact, Behavioral status at discharge: cooperative, Quality Metrics Clinical Quality Measures [ No reported AMI, CVA or VTE this stay] Coding Level of Care Code Acute Code for Chg Fwd Diagnoses Acute on chronic congestive heart failure I50.9 Atrial fibrillation with RVR I48.91 Acute anemia D64.9
[2022-08-09] MEDS: magnesium hydroxide 30 mL UDC PO (13:26)
--- NOTE | 2022-08-09 13:49 | PC.NURSE ---
Patient complaining of constipation. Milk of magnesia given at 1349. Patient currently on bedpan.;
[2022-08-09 16:56] LABS: Glucose Point of Care 365 mg/dL (70-110)
[2022-08-09] MEDS: acetaminophen 325 mg Tablet 650 MG PO (17:42)
[2022-08-09] MEDS: atorvastatin 40 mg Tablet PO (17:42)
--- NOTE | 2022-08-09 18:40 | P.PN_ITS ---
Subjective Subjective: Sleeping. Wakes up easily. States she is doing okay. He is not short of breath at rest. Denies chest pain. Edema in her legs has now been decreasing. Vitals/I&O/Wt Last Vital Signs Temp 98.1 F 08/09/22 08:00 Pulse 71 08/09/22 16:02 Resp 15 08/09/22 16:00 BP 114/62 08/09/22 16:00 Pulse Ox 98 08/09/22 16:00 O2 Del Method Nasal Cannula 08/09/22 16:00 O2 Flow Rate 3 08/09/22 15:00 08/09/22 08/09/22 08/09/22 06:59 14:59 22:59 Intake Total 50 / 1110 650 / 650 240 / 890 Output Total 500 / 1750 800 / 800 Balance -450 / -640 -150 / -150 240 / 90 Weight last 48 hrs Weight 161.054 kg Weight 161.978 kg Physical Exam Const: COMMON NORMALS: patient oriented x3 and alert GENERAL APPEARANCE: cooperative NUTRITIONAL APPEARANCE: obese morbidly obese ORIENTAT ION/CONSCIOUSNESS: Yes awake HENMT: COMMON NORMALS: oropharynx normal Resp: AUSCULTATION: no rhonchi, no wheezes and diminished lung sounds Cardio: COMMON NORMALS: regular rhythm, S1 normal heart sound present, S2 normal heart sound present and No murmurs present (Cardio) RHYTHM: regular rhythm HEART SOUNDS: S1 normal heart sound present and S2 normal heart sound present GI: COMMON NORMALS: Normal to inspection, nondistended, normoactive bowel sounds present, Soft to palpation and non-tender PALPATION: Yes Soft to palpation Extremity: COMMON NORMALS: no joint enlargement GENERAL: Yes edema (2+ BL UE and LE, R hand 2+) Neuro: COMMON NORMALS: patient oriented x3 and moves all extremities SENSORIUM/ORIENTATION: Yes alert Skin: COMMON NORMALS: no rashes or lesions noted GENERAL SKIN EXAM: no rashes or lesions noted Urinary Catheter Management: Marcelo: Cath Placed During This Visit: yes Reason for Continuing Indwelling Catheter: Accurate Measurement of Urinary Output in Critically Ill Patients Urinary Catheter Date of Insertion: 08/04/22 Urinary Catheter Time of Insertion: 14:35 Data 08/09/22 05:17 08/09/22 05:17 A&P Assessment and plan (1) Acute on chronic congestive heart failure: Noted mild decreasing edema in lower extremities. Oxygen requirement appears to be coming down, is down to 3 L. In negative balance. Weight coming down, 161 kg. Kidney function tolerating diuresis, BUN 42, creatinine 0.9. Continue current Lasix regimen for today, tomorrow likely may be able to switch to oral and possibly discharge. Discussed with case management. Follow-up chemistry as she is at risk of renal function deterioration with increased dose Lasix, electrolyte imbalance, life-threatening arrhythmia. Monitor on telemetry. Troponin trend appears to be flat. No chest pain. Continue to monitor on telemetry. Monitor I&O. Monitor renal function. Weights. PICC line was placed due to difficulty with blood draws and access. However, would be able to complete antibiotic course for ESBL UTI via the PICC line. Acute systolic decompensation of CHF, with worsened hypoxia 4 L nasal cannula oxygen. Denies chest pain. Noted previously concern for possible underlying coronary disease. Coronary angiogram was considered and medical therapy was elected. Continue with medical therapy. Continue to optimize volume status. Additionally appears to have history of diagnosis of GREGORIO, sometime ago used CPAP, but is not sure what happened to her machine that she used to have at home. (2) Acute anemia: Received 1 unit RBC. Responded well. Hemoglobin up to 8. Following gross hematuria as complication of UTI. Additionally requires continued antiplatelet, at risk of further bleeding, reassess blood counts. Monitor closely with treatment. (3) Atrial fibrillation with RVR: A-fib with RVR episode resolved spontaneously, but is noted to have a bump in troponin this morning up to 95.6. No chest pain. Follow-up additional troponin in the morning. Magnesium noted as above. Not on anticoagulation per prior documentation due to transfusion dependent anemia, high risk of recurrent GI bleed. Concerns of slow GI bleed. Monitor blood counts. Currently also hematuria. In case does not become a candidate for anticoagulation consider left atrial appendage closure versus other options. Plan Aspiration: Repeat chest x-ray noted with stable interstitial densities, right perihilar and lower lobe. Possibly secondary to aspiration pneumonia. Noted WBC 11.2. Appreciate speech therapy recommendations. Maintain aspiration precautions. Is on meropenem. Diabetes mellitus: Insulin sliding scale Peripheral arterial disease: Continue antiplatelet medications. COPD: With mild exacerbation. Still diminished air entry, hypoxia. Add p rednisone, inhaled budesonide. Attestations Medical Necessity Statement*: Continue admission for management of decompensated CHF, aspiration pneumonia. Diagnoses Acute on chronic congestive heart failure I50.9 Acute anemia D64.9 Atrial fibrillation with RVR I48.91
--- NOTE | 2022-08-09 20:10 | ECG_ITS ---
[facility] Test Date: 2022-08-09 Pat Name: Siobhan Lechuga Department: Room: 106 Gender: Female Group Home Counselor: : [id number] Requested By: Tiara Fernandez Order Number: [id number] Daniel MD: Tray Rubalcava M.D. Measurements Intervals [place] Rate: 131 P: 0 NM: 0 QRS: 111 QRSD: 96 T: -60 QT: 300 QTc: 443 Interpretive Statements ATRIAL FLUTTER WITH RAPID VENTRICULAR RESPONSE POSSIBLE RIGHT VENTRICULAR HYPERTROPHY [SOME/ALL OF: PROMINENT R IN V1, LATE TRANSITION, RAD, NEETU, SSS] ANTERIOR MYOCARDIAL INFARCTION , PROBABLY OLD [40+ ms Q WAVE AND/OR ST/T ABNORMALITY IN V3/V4] Compared to ECG 08/05/2022 22:23:46 Sinus rhythm no longer present Myocardial infarct finding still present Electronically Signed On 08-10-2022 2:54:20 CDT by Tray Rubalcava M.D. [id number]
[2022-08-09 20:30] LABS: Glucose Point of Care 368 mg/dL (70-110)
[2022-08-09] MEDS: enoxaparin 40 mg/0.4 mL Syringe SUBCUT (22:47)
[2022-08-10] VITALS (7 sets, daily range): BP systolic 117–140; BP diastolic 56–74; PULSE 70–78; RESP 17–24; TEMP 36.4; O2SAT 94–98
[2022-08-10] MEDS: ipratropium-albuterol 3 mL Neb INHALATION ×2 (03:02→08:39)
[2022-08-10] MEDS: meropenem 1,000 MG in sodium chloride 0.9% (plus) 50 ML 100 MG IV (05:17)
[2022-08-10] MEDS: buPROPion XL (24 HR) 150 mg Tablet PO (06:20)
[2022-08-10] MEDS: clopidogrel 75 mg Tablet PO (06:20)
[2022-08-10 07:16] LABS: Glucose Point of Care 321 mg/dL (70-110)
[2022-08-10] MEDS: budesonide 0.5 mg/2 mL Neb INHALATION (08:39)
[2022-08-10] MEDS: FUROsemide 10 mg/mL SDV 10mL 80 MG IVP (10:38)
[2022-08-10] MEDS: pantoprazole DR 40 mg Tablet PO (10:38)
[2022-08-10] MEDS: predniSONE 20 mg Tablet PO (10:38)
[2022-08-10 11:16] LABS: Glucose Point of Care 422 mg/dL (70-110)
[2022-08-10] MEDS: metoprolol tartrate 25 mg Tablet 12.5 MG PO (13:34)
[2022-08-10] MEDS: sucralfate 1 gm Tablet PO (13:34)
--- NOTE | 2022-08-10 13:34 | PC.OT ---
OT TREATMENT HELD DUE TO SCHEDULED D/C TODAY
[2022-08-10] MEDS: insulin lispro 100 unit/1 mL SUBCUT (13:35)
[2022-08-10] MEDS: ertapenem 1,000 MG in sodium chloride 0.9% (plus) 100 ML 200 MG IV (13:35)
--- NOTE | 2022-08-10 14:17 | PM.DCS ---
Discharge Providers Date of Admission: 08/02/22 23:40 Date of Discharge: August 10, 2022 Attending Provider at Admission: Paz Hansen MD Attending Provider at Discharge: Etsevan Willoughby Primary Care Provider: Ronny Torres DO Diagnoses at Discharge Discharge Diagnosis (1) Acute on chronic congestive heart failure: Status: Acute (2) Acute anemia: Status: Acute (3) Atrial fibrillation with RVR: Status: Acute Reason for Visit Reason for Visit: RESP. DISTRESS Brief History: Siobhan Lechuga is a 66 year old female with a past medical history of peripheral artery disease, CAD, CHF, recently admitted here between 06/26/2022 to 07/05/2022 and then again between July 19, 2022 to July 24, 2022 for multiple medical issues, but most notably congestive heart failure, newly discovered to have low ejection fraction of 25 to 30%, transient A-fib, type II IA.? She was discharged to SNF. Presents to emergency room today with worsening shortness of breath.? Patient states that she was also experiencing chest pain earlier this morning.? She has gained significant amount of weight having increased recently from 320 pounds to 355 pounds.? She typically takes Lasix 40 mg twice a day.? She followed up with cardiology earlier this morning where she was found to be hypervolemic and metolazone was added to her medication regimen. She states that her chest pain is located in the middle of her chest, nonradiating, 8 on 10 at its peak, not significantly changed with any movement. Hospital Course Hospital Course She received IV metoprolol and was started on cardizem drip with conversion to SR the same night. Chest pain resolved and likely was related to AFib with RVR with demand ischemia. Troponin with elevation but with flat trend. Per discussion with cardiology continued medical treatment as per similar considerations from prior admission. With anasaarca she received diuresis with IV Lasix, slowly with improvement in volume status and anasarca. During hospitalization also with COPD exacerbation, treated with short course of prednisone, breathing treatments, empirically also received antibiotic. Hospitalization complicated by hematuria, had to undergo CBI, with resolution of hematuria with CBI and treatment of UTI, growing ESBL E. coli in urine culture. Treated with meropenem in the hospital. Subsequently required 1 unit RBC transfusion due to worsened anemia following hematuria. Hospitalization additionally complicated by aspiration pneumonia also covered by meropenem. Was assessed by speech therapy. PICC line had to be obtained due to poor venous access. Complete antibiotic course with ertapenem for complicated UTI with ESBL E. coli, as well as aspiration pneumonia. Please follow-up volume status, chemistry, blood counts. With reassessment of anemia consider further stroke risk reduction from atrial fibrillation, with history of transfusion dependent anemia, elevated risk of GI bleed. Consider further GI work-up and/or left atrial appendage closure device or among the options. Physical Exam Const: COMMON NORMALS: patient oriented x3 and alert GENERAL APPEARANCE: cooperative NUTRITIONAL APPEARANCE: obese morbidly obese ORIENTATION/CONSCIOUSNESS: Yes awake HENMT: COMMON NORMALS: oropharynx normal Resp: AUSCULTATION: no rhonchi, no wheezes and diminished lung sounds Cardio: COMMON NORMALS: regular rhythm, S1 normal heart sound present, S2 normal heart sound present and No murmurs present (Cardio) RHYTHM: regular rhythm HEART SOUNDS: S1 normal heart sound present and S2 normal heart sound present GI: COMMON NORMALS: Normal to inspection, nondistended, normoactive bowel sounds present, Soft to palpation and non-tender PALPATION: Yes Soft to palpation Extremity: COMMON NORMALS: no joint enlargement GENERAL: Yes edema (1-2+ BL UE and LE, R hand 1+) Neuro: COMMON NORMALS: patient oriented x3 and moves all extremities SENSORIUM/ORIENTATION: Yes alert Skin: COMMON NORMALS: no rashes or lesions noted GENERAL SKIN EXAM: no rashes or lesions noted Urinary Catheter Management: Marcelo: Cath Placed During This Visit: yes Reason for Continuing Indwelling Catheter: Other Urinary Catheter Date of Insertion: 08/04/22 Urinary Catheter Time of Insertion: 14:35 Discharge Data Studies Completed and Pending Completed Studies During Hospitalization Category Date Time Status CT abdomen renal stone [CT kidney stone 00692] Routine Cat Scan 08/04/22 19:23 Completed CXRP [XR chest 1V portable [id number]] Routine Exams 08/08/22 10:59 Completed CXRP [XR chest 1V portable [id number]] Stat Exams 08/05/22 18:58 Completed XR chest 1V portable [id number] Stat Exams 08/02/22 18:08 [place] [id number] Routine Ultrasound 08/03/22 14:36 Completed Pending at discharge Category Date Time Status Basic Metabolic Panel AM LABS Lab 08/10/22 04:00 Ordered Basic Metabolic Panel AM LABS Lab 08/11/22 04:00 Ordered Basic Metabolic Panel AM LABS Lab 08/12/22 04:00 Ordered Complete Blood Count w/Auto AM LABS Lab 08/10/22 04:00 Ordered Complete Blood Count w/Auto AM LABS Lab 08/11/22 04:00 Ordered Complete Blood Count w/Auto AM LABS Lab 08/12/22 04:00 Ordered SARS Covid-2 Antigen Routine Lab 08/10/22 11:02 Uncollected Radiology Impressions Venous Duplex 08/03/22 14:36 IMPRESSION: 1. No evidence for deep vein thrombosis. 2. Superficial thrombus in the left cephalic vein. Abdomen/Pelvis CT 08/04/22 19:23 IMPRESSION: 1. The study is significantly limited by patient body habitus. 2. Subcutaneous edema noted throughout the abdomen and pelvis. No subcutaneous fluid collection identified. 3. No contour deforming solid renal mass. No definite renal calculus identified. No hydronephrosis. Ureters are not well seen. The aorta is atherosclerotic. No aortic aneurysm. 4. Small bilateral pleural effusions. Mild atelectasis at the lung bases. Chest X-Ray 08/08/22 10:59 IMPRESSION: 1. Right side PICC line has been moved and now is suboptimally positioned. 2. Stable interstitial densities right perihilar and lower lobe 3. Stable bilateral pleural effusion Laboratory Results WBC 11.2 10^3/uL (4.0-10.0) H 08/09/22 05:17 RBC 3.30 10^6/uL (4.1-5.3) L 08/09/22 05:17 Hgb 8.0 g/dL (11.5-15.3) L 08/09/22 05:17 Hct 29.3 % (37.0-47.0) L 08/09/22 05:17 MCV 88.8 fl (81-99) 08/09/22 05:17 MCH 24.2 pg (28.0-34.0) L 08/09/22 05:17 MCHC 27.3 g/dL (30.0-36.0) L 08/09/22 05:17 RDW 18.0 % (12.1-15.1) H 08/09/22 05:17 Plt Count 257 10^3/cmm (130-400) 08/09/22 05:17 MPV 11.4 fL (7.4-10.4) H 08/09/22 05:17 Neut % (Auto) 80.5 % 08/09/22 05:17 Lymph % (Auto) 8.7 % 08/09/22 05:17 [place] % (Auto) 8.8 % 08/09/22 05:17 Eos % (Auto) 1.0 % 08/09/22 05:17 Baso % (Auto) 0.4 % 08/09/22 05:17 Neut # (Auto) 9.03 10^3/uL (1.8-7.7) H 08/09/22 05:17 Lymph # (Auto) 1.0 10^3/uL (0.8-4.8) 08/09/22 05:17 [place] # (Auto) 1.0 10^3/uL (0.2-0.9) H 08/09/22 05:17 Eos # (Auto) 0.1 10^3/uL (0.0-0.8) 08/09/22 05:17 Baso # (Auto) 0.0 10^3/uL (0.0-0.1) 08/09/22 05:17 Nucleated RBC % (auto) 0.2 % 08/09/22 05:17 Nucleated RBCs # 0.0 /100WBC 08/09/22 05:17 Specimen Type Arterial 08/02/22 20:15 Sample Site Brachial, right 08/02/22 20:15 ABG pH 7.39 (7.35-7.45) 08/02/22 20:15 ABG pCO2 61.2 mmHg (35-45) H* 08/02/22 20:15 ABG pO2 71.9 mmHg (80.0-100.0) L 08/02/22 20:15 ABG HCO3 37.3 mmol/L (22-26) H 08/02/22 20:15 ABG Base Excess 10.9 mmol/L (-2.0-2.0) H 08/02/22 20:15 Claude Test Pos 08/02/22 20:15 Hematocrit 26.0 % (37-47) L 08/02/22 20:15 O2 Delivery Device Nc 08/02/22 20:15 O2 Liters/Min 3.0 % 08/02/22 20:15 Contaminated Land Consultant ID [email or web address] 08/02/22 20:15 Sodium 141 mmol/L (136-145) 08/09/22 05:17 Potassium 4.5 mmol/L (3.5-5.1) 08/09/22 05:17 Chloride 96 mmol/L (98-107) L 08/09/22 05:17 Carbon Dioxide 39 mmol/L (22-29) H 08/09/22 05:17 Anion Gap 10.5 (5-19) 08/09/22 05:17 BUN 42 mg/dL (8-23) H 08/09/22 05:17 Creatinine 0.9 mg/dL (0.5-0.9) 08/09/22 05:17 GFR Calculation 62.8 mL/min (90-130) L 08/09/22 05:17 Glucose 319 mg/dL (65-115) H 08/09/22 05:17 POC Glucose 422 mg/dL (70-110) H 08/10/22 11:08 Calculated Osmolality 315 mOsm/kg (285-295) H 08/09/22 05:17 Calcium 9.0 mg/dL (8.5-10.5) 08/09/22 05:17 Magnesium 1.9 mg/dL (1.7-2.3) 08/07/22 03:22 Total Bilirubin 0.3 mg/dL (0.15-1.2) 08/03/22 02:28 AST 31 U/L (0-32) 08/03/22 02:28 ALT 22 U/L (0-33) 08/03/22 02:28 Alkaline Phosphatase 101 U/L (35-105) 08/03/22 02:28 Troponin T Gen 5 ng/L 101 ng/L (0-10) H* 08/07/22 03:22 Troponin T Baseline 70 ng/L (0-10) H 08/05/22 16:00 Troponin T 120 Minute 66.03 ng/L (0-10) H 08/02/22 20:05 Delta Troponin T 0.03 ABS# (0-10) 08/02/22 20:05 Troponin T Hi Sens 6Hr 95.62 ng/L (0-10) H 08/06/22 08:39 Troponin T Hi Sens 6Hr Delta 25.62 ng/L (0-12) H* 08/06/22 08:39 NT-Pro-B Natriuret Pep 9498 pg/mL (0-125) H 08/02/22 18:25 Total Protein 6.8 g/dL (6.6-8.7) 08/03/22 02:28 Albumin 3.2 g/dL (3.5-5.2) L 08/03/22 02:28 Globulin 3.6 g/dL (1.3-4.6) 08/03/22 02:28 Urine Color Red (Yellow) 08/04/22 14:28 Urine Appearance Bloody (CLEAR) A 08/04/22 14:28 Urine pH 5 (5-7) 08/04/22 14:28 Ur Specific [place] 1.020 (1.005-1.030) 08/04/22 14:28 Urine Protein 3+ (Negative) H 08/04/22 14:28 Urine Glucose (UA) Norm (Normal) 08/04/22 14:28 Urine Ketones 1+ (Negative) H 08/04/22 14:28 Urine Blood 3+ (Negative) H 08/04/22 14:28 Urine Nitrate Negative (Negative) 08/04/22 14:28 Urine Bilirubin Neg (Negative) 08/04/22 14:28 Urine Urobilinogen Norm mg/dL (Negative) 08/04/22 14:28 Ur Leukocyte Esterase 1+ (Negative) H 08/04/22 14:28 Urine RBC >100 /hpf (0-2) H 08/04/22 14:28 Urine WBC 5-10 /hpf (0-5) H 08/04/22 14:28 Ur Squamous Epith Cells 0-4 /hpf (0-5) H 08/04/22 14:28 Amorphous Sediment Not Reportable 08/04/22 14:28 Urine Bacteria Not Reportable 08/04/22 14:28 Urine Mucus 1+ /hpf 08/04/22 14:28 SARS-CoV-2 Ag (Rapid) negative (Negative) 08/02/22 18:25 Blood Type AB Negative 08/07/22 11:27 Rho(D) Type Negative 08/07/22 11:27 Antibody Screen Negative 08/07/22 11:27 Crossmatch See Detail 08/07/22 11:27 Vitals Last Vital Signs Temp 97.6 F 08/10/22 03:50 Pulse 78 08/10/22 11:42 Resp 24 H 08/10/22 11:42 BP 117/66 08/10/22 11:42 Pulse Ox 94 08/10/22 11:42 O2 Del Method Nasal Cannula 08/10/22 11:42 O2 Flow Rate 2 08/10/22 08:39 FiO2 28 08/09/22 20:59 Discharge Plan Discharge Patient Disposition: Xfer SNF Condition: Stable Prescriptions: New prednisone 20 mg Tablet 20 mg PO DAILY Qty: 1 0RF ertapenem 1 gram recon soln 1 g IV DAILY 4 Days Qty: 4 0RF Continued albuterol sulfate [ProAir HFA] 90 mcg/actuation HFA aerosol inhaler 2 puff INHALATION Q6H PRN (Reason: Shortness Of Breath) latanoprost 0.005 % drops 1 drp ophthalmic (eye) BEDTIME atorvastatin 20 mg tablet 20 mg PO BEDTIME@19 ipratropium-albuterol 0.5 mg-3 mg(2.5 mg base)/3 mL solution for nebulization 3 ml INHALATION TID PRN (Reason: Shortness Of Breath) furosemide [Lasix] 40 mg tablet 40 mg PO BID Qty: 60 0RF bisacodyl [Dulcolax (bisacodyl)] 10 mg Suppository 10 mg NE DAILY PRN (Reason: Constipation) Rx Instructions: give if no results from mom Fleet Enema 19-7 gram/118 mL Enema 118 ml NE DAILY PRN (Reason: Constipation) Rx Instructions: give if no results from mom and dulcolax bisacodyl [Dulcolax (bisacodyl)] 5 mg Tablet,Delayed Release (Dr/Ec) 10 mg PO DAILY PRN (Reason: Constipation) Rx Instructions: give if no results from mom clopidogrel 75 mg tablet 75 mg PO DAILY@07 bupropion HCl 150 mg tablet extended release 24 hr 150 mg PO DAILY@07 acetaminophen [Tylenol] 325 mg Tablet 650 mg PO Q6H PRN (Reason: Pain) magnesium hydroxide [Milk of Magnesia] 400 mg/5 mL Suspension 30 ml PO .EVERY 72 HOURS PRN (Reason: if no bm in 3 days) Rx Instructions: do not give to renal patients go to dulcolax orders metoprolol tartrate 25 mg tablet 12.5 mg PO Q12H sucralfate 1 gram Tablet 1 g PO Q12H 30 Days Qty: 60 0RF pantoprazole [Protonix] 40 mg tablet,delayed release (DR/EC) 40 mg PO BID 30 Days Qty: 60 0RF insulin lispro 100 unit/mL insulin pen See Rx Instructions .ROUTE .COMPLEX Qty: 15 0RF Rx Instructions: per sliding scale with meals if blood sugar is less than 60 call 141-180=6 units 181-220=8 units 221-260=10 units 261-300=12 units 301-350=14 units 351-400=16 units if blood sugar is greater than 400 give 18 units for 3 consecutive times or symptomatic call insulin glargine [Lantus Solostar U-100 Insulin] 100 unit/mL (3 mL) insulin pen 20 unit SUBCUT QAM Qty: 15 0RF ferrous sulfate 325 mg (65 mg iron) tablet,delayed release (DR/EC) 325 mg PO DAILY 30 Days Qty: 30 0RF Nyamyc 100,000 unit/gram powder 1 applic TOPICAL BID PRN (Reason: to abd folds and breast) insulin lispro 100 unit/mL Insulin Pen 7 unit SUBCUT TIDWM Normal Saline Flush Syringe See Rx Instructions .ROUTE .COMPLEX Rx Instructions: 10ml injection twice a day (flush davey-cath before and after use Discontinued potassium chloride [Klor-Con] 20 mEq Packet 20 meq PO BID Discharge Orders: Discharge Order (Routine); Ordered 08/10/22 Ordered By: Estevan Willoughby Other Ambulatory Orders: Sleep Study/Titration (Routine) Timeframe: 1 Week Facility: [facility] - Location: [facility] Ordered By: Estevan Willoughby Referrals: Alma Rosa Gordillo FNP [Nurse Practitioner] - 1 week (chf) Ronny Torres DO [Primary Care Provider] - 4-7 days Patient Instructions: Prednisone (By mouth) (predniSONE Intensol, Prednicot, Deltasone, Aaron), Ertapenem (By injection) (INVanz), A-fib (Atrial Fibrillation) (DC), Sleep Apnea (GEN), Anemia (DC), CHF Stoplight, Opioid Safety Activity Restrictions/Additional Instructions: For he has bili, UTI as well as aspiration pneumonia. Subsequently remove PICC line. Continue oxygen 2 L by nasal cannula. Wean down as tolerating. Please follow-up for sleep study. Continue Lasix for congestive heart failure, continue diuresis, reassess volume status. Follow-up renal function, electrolytes. Complete 1 more day of prednisone for COPD exacerbation. Maintain aspiration precautions. Please follow-up anemia after hematuria for improvement. Reassess blood counts and chemistry on Monday. Continue to reassess atrial fibrillation control. Continue metoprolol. Continue follow-up with regards to anemia and atrial fibrillation, consideration of stroke risk reduction options. Discharge Attestations Time Spent in Discharge Care*: greater than 30 min Status at Discharge: Cognitive status at discharge: cognitively intact, Behavioral status at discharge: cooperative, Quality Metrics Clinical Quality Measures [ No reported AMI, CVA or VTE this stay] Coding Level of Care Code 14032 Total time (in minutes) for Discharge: 40 Diagnoses Acute on chronic congestive heart failure I50.9 Acute anemia D64.9 Atrial fibrillation with RVR I48.91
[2022-08-10] MEDS: acetaminophen 325 mg Tablet 650 MG PO (14:21)
[2022-08-10 15:15] LABS: SARS Covid-2 Antigen negative (Negative)
== END 2022-08-10 15:45 | disposition skilled nursing facility (03) | DRG 291 ==
LOC: ER 20:13 → ICU 23:04 → CSU 08-04 16:48
PROVIDERS: Admitting Provider Student in an Organized Health Care Education/Training Program; Emergency Provider Emergency Medicine; PCP Internal Medicine; Visit Provider Internal Medicine
DX: I11.0 Hypertensive heart disease with heart failure (principal); I50.23 Acute on chronic systolic (congestive) heart failure; J69.0 Pneumonitis due to inhalation of food and vomit; N39.0 Urinary tract infection, site not specified; I24.8 Other forms of acute ischemic heart disease; J44.1 Chronic obstructive pulmonary disease with (acute) exacerbation; Z68.45 Body mass index [BMI] 70 or greater, adult; I82.612 Acute embolism and thrombosis of superficial veins of left upper extremity; B96.20 Unspecified Escherichia coli [E. coli] as the cause of diseases classified elsewhere; E11.51 Type 2 diabetes mellitus with diabetic peripheral angiopathy without gangrene; E11.43 Type 2 diabetes mellitus with diabetic autonomic (poly)neuropathy; I25.10 Atherosclerotic heart disease of native coronary artery without angina pectoris; I48.0 Paroxysmal atrial fibrillation; I25.2 Old myocardial infarction; R31.0 Gross hematuria; Z79.51 Long term (current) use of inhaled steroids; Z79.02 Long term (current) use of antithrombotics/antiplatelets; Z79.4 Long term (current) use of insulin; D64.9 Anemia, unspecified; N20.0 Calculus of kidney; G47.33 Obstructive sleep apnea (adult) (pediatric); E66.01 Morbid (severe) obesity due to excess calories
CPT/HCPCS: 36415; 36416; 36430; 36569; 36592; 36600; 51702; 71045; 74176; 80048; 80053; 81001; 81003; 82803; 82962; 83735; 83880; 84484; 85025; 86850; 86900; 86920; 87077; 87086; 87186; 87426; 92523; 92526; 92610; 93005; 93971; 94640; 94660; 96372; 96374; 96376; 97110; 97162; 97166; 97530; 97535; 99214; 99285; J0696; J1335; J1650; J1815; J1940; J2185; J3475; J3490; J7512; J7626; P9040

== ENCOUNTER 2022-08-13 09:14 | Emergency (ER) | payer MEDICARE, MEDICAID, SELFPAY ==
[2022-08-13] VITALS (9 sets, daily range): BP systolic 109–128; BP diastolic 56–75; PULSE 65–70; RESP 16–18; TEMP 36.6; O2SAT 85–100
--- NOTE | 2022-08-13 09:17 | XRR_ITS ---
PROCEDURE INFORMATION: Exam: XR Chest Exam date and time: 08/13/2022 9:44 AM Age: 66 years old Clinical indication: Cough and dyspnea; Additional info: Dyspnea/cough TECHNIQUE: Imaging protocol: Radiologic exam of the chest. Views: 1 view. COMPARISON: CR XR chest 1V portable [id number] 08/08/2022 10:10 AM FINDINGS: Lungs: Bilateral perihilar and right lower lobe parenchymal densities suspicious for pulmonary edema these findings are similar to prior examination. No consolidation. Right upper lobe granuloma Pleural spaces: Unremarkable. No pleural effusion. No pneumothorax. Heart/Mediastinum: Unremarkable. No cardiomegaly. Bones/joints: Unremarkable. A PICC line is present on the right side. The line is suboptimally positioned having a coiled in the proximal jugular this finding is similar in position but different in configuration than prior examination. XR/XR chest 1V portable [id number] IMPRESSION: 1. Suboptimal positioning of the right PICC line as described 2. Bilateral perihilar and right lower lobe pulmonary edema stable since prior 3. Right upper lobe granuloma no prior
--- NOTE | 2022-08-13 09:26 | ECG_ITS ---
[facility] Test Date: 2022-08-13 Pat Name: Siobhan Lechuga Department: Room: Gender: Female [employer] Supervisor: : [id number] Requested By: Eldon Hurley Order Number: [id number] Daniel MD: Reta Parker M.D. Measurements Intervals [place] Rate: 69 P: 74 [place]: 171 QRS: 110 QRSD: 94 T: 0 QT: 385 QTc: 413 Interpretive Statements SINUS RHYTHM POSSIBLE RIGHT VENTRICULAR HYPERTROPHY [SOME/ALL OF: PROMINENT R IN V1, LATE TRANSITION, RAD, NEETU, SSS] Compared to ECG 08/09/2022 20:10:06 Atrial flutter no longer present Myocardial infarct finding no longer present Electronically Signed On 08-13-2022 14:50:22 CDT by Reta Parker M.D. [id number]
--- NOTE | 2022-08-13 09:29 | W.ED.SOB ---
HPI - SOB/Dyspnea General: Chief Complaint: Shortness of Breath/Dyspnea Stated Complaint: RESP DISTRESS Time Seen by Provider: 08/13/22 09:16 Source: patient Mode of arrival: ambulatory History of Present Illness: HPI Narrative: 66-year-old female presents to the emergency room with complaints of difficulty breathing. She was eating breakfast this morning at the [place] [facility] they reported to oxygen saturation dropped to 70s and 80s she was discharged from the hospital 3 days ago for acute on chronic congestive heart failure as well as atrial fibrillation and anemia. She states she feels like she just had a panic attack when she arrives here she is on 10 L by nonrebreather she is not normally on oxygen she was titrated down to 2 L which she tolerated well. They also reported a transient hypotension. Blood pressure on arrival here is 128/75 she has no other complaints denies chest pain or shortness of breath is resolved she denies abdominal pain dysuria urgency or frequency MD elicited complaint: shortness of breath Pertinent past history: congestive heart failure and other (Atrial fibrillation) Timing: now resolved Exacerbating factors: nothing Relieving factors: nothing Known history of: congestive heart failure Associated symptoms: Deny abdominal pain, chest pain, cough, diaphoresis, dizziness, extremity pain, fever(s), myalgias, nausea, palpitations, paresthesias, polydipsia, polyuria, rash, sense of impending doom or vomiting Review of Systems Const: Denies: fever(s) or diaphoresis Card: Denies: chest pain or palpitations Resp: Reports: dyspnea; Denies: productive cough or non-productive cough GI: Denies: abdominal pain, nausea or vomiting Musc: Denies: extremity pain Neuro: Denies: dizziness Endo: Denies: polyuria or polydipsia PFS ED PFSH: Medical History Atrial fibrillation Congestive heart failure Ejection fraction 25 to 30% 06/26 Diabetes mellitus with peripheral autonomic neuropathy Gangrene Hypertension New onset of congestive heart failure Acute diastolic heart failure. EF normal on limited echo Obesity PAD (peripheral artery disease) Tobacco abuse, in remission Surgical History Post-operative state Status post amputation of great toe Family History Other Diabetes Hypertension Denies family history of CAD (coronary artery disease) Clotting disorder Dementia Hyperlipidemia Psychiatric illness Chronic kidney disease (CKD) Suicide Anesthesia complication Bleeding disorder Family history of premature coronary artery disease Lung disease Cancer Stroke Social History Smoking and tobacco status: former smoker Substance/Drug Use: never Marital status: Current occupational status: disabled Physical Exam Const: GENERAL APPEARANCE: cooperative and comfortable ORIENTATION/CONSCIOUSNESS: Yes awake, Yes oriented to person, Yes oriented to place and Yes oriented to time HENMT: COMMON NORMALS: normocephalic, atraumatic and hearing grossly normal bilaterally HEAD & SCALP: normocephalic and atraumatic Resp: COMMON NORMALS: normal respiratory effort, No retractions, No use of accessory muscles and clear to auscultation bilaterally AUSCULTATION: clear to auscultation bilaterally Cardio: COMMON NORMALS: regular rate, regular rhythm and No murmurs present (Cardio) RATE: regular rate RHYTHM: regular rhythm GI: COMMON NORMALS: Soft to palpation and No hepatosplenomegaly present AUSCULTATION: Yes normoactive bowel sounds PALPATION: Yes Soft to palpation, No Tenderness to palpation present (GI), No Guarding due to palpation present (GI) and Yes No hepatosplenomegaly present Extremity: COMMON NORMALS: normal to inspection, capillary refill normal and no calf tenderness GENERAL: Yes edema Neuro: SENSORIUM/ORIENTATION: Yes oriented to person, Yes oriented to place and Yes oriented to time Skin: COMMON NORMALS: no rashes or lesions noted GENERAL SKIN EXAM: no rashes or lesions noted Course Vital Signs: Vital signs: Vital Signs Temperature 97.8 F 08/13/22 09:16 Pulse Rate 65 08/13/22 15:36 Respiratory Rate 18 08/13/22 12:30 Blood Pressure 119/62 08/13/22 15:36 Pulse Oximetry 100 08/13/22 15:36 Oxygen Delivery Me thod Nasal Cannula 08/13/22 12:30 Oxygen Flow Rate 2 08/13/22 12:30 MDM - SOB/Dyspnea Medical Decision Making Labs completed patient is feeling better will discharge home. Continue oxygen at 2 L/min. Increase Lasix to 80 mg daily for 3 days and check a BMP Medical Records I reviewed the patient's medical records. Lab Data I reviewed the patient's lab results. 08/13/22 09:40 08/13/22 11:03 Labs/Radiology: Radiology Impressions Chest X-Ray 08/13/22 09:17 IMPRESSION: 1. Suboptimal positioning of the right PICC line as described 2. Bilateral perihilar and right lower lobe pulmonary edema stable since prior 3. Right upper lobe granuloma no prior Laboratory Results WBC 10.5 10^3/uL (4.0-10.0) H 08/13/22 09:40 RBC 3.82 10^6/uL (4.1-5.3) L 08/13/22 09:40 Hgb 9.5 g/dL (11.5-15.3) L 08/13/22 09:40 Hct 34.0 % (37.0-47.0) L 08/13/22 09:40 MCV 89.0 fl (81-99) 08/13/22 09:40 MCH 24.9 pg (28.0-34.0) L 08/13/22 09:40 MCHC 27.9 g/dL (30.0-36.0) L 08/13/22 09:40 RDW 19.0 % (12.1-15.1) H 08/13/22 09:40 Plt Count 346 10^3/cmm (130-400) 08/13/22 09:40 MPV 11.3 fL (7.4-10.4) H 08/13/22 09:40 Neut % (Auto) 81.5 % 08/13/22 09:40 Lymph % (Auto) 8.9 % 08/13/22 09:40 [place] % (Auto) 7.1 % 08/13/22 09:40 Eos % (Auto) 1.7 % 08/13/22 09:40 Baso % (Auto) 0.5 % 08/13/22 09:40 Neut # (Auto) 8.56 10^3/uL (1.8-7.7) H 08/13/22 09:40 Lymph # (Auto) 0.9 10^3/uL (0.8-4.8) 08/13/22 09:40 [place] # (Auto) 0.7 10^3/uL (0.2-0.9) 08/13/22 09:40 Eos # (Auto) 0.2 10^3/uL (0.0-0.8) 08/13/22 09:40 Baso # (Auto) 0.1 10^3/uL (0.0-0.1) 08/13/22 09:40 Nucleated RBC % (auto) 0 % 08/13/22 09:40 Nucleated RBCs # 0.0 /100WBC 08/13/22 09:40 Sodium 141 mmol/L (136-145) 08/13/22 11:03 Potassium 3.6 mmol/L (3.5-5.1) 08/13/22 11:03 Chloride 96 mmol/L (98-107) L 08/13/22 11:03 Carbon Dioxide 40 mmol/L (22-29) H 08/13/22 11:03 Anion Gap 8.6 (5-19) 08/13/22 11:03 BUN 46 mg/dL (8-23) H 08/13/22 11:03 Creatinine 0.8 mg/dL (0.5-0.9) 08/13/22 11:03 GFR Calculation 72.0 mL/min (90-130) L 08/13/22 11:03 Glucose 150 mg/dL (65-115) H 08/13/22 11:03 Calculated Osmolality 307 mOsm/kg (285-295) H 08/13/22 11:03 Calcium 8.7 mg/dL (8.5-10.5) 08/13/22 11:03 Total Bilirubin 0.3 mg/dL (0.15-1.2) 08/13/22 11:03 AST 21 U/L (0-32) 08/13/22 11:03 ALT 21 U/L (0-33) 08/13/22 11:03 Alkaline Phosphatase 106 U/L (35-105) H 08/13/22 11:03 NT-Pro-B Natriuret Pep 7861 pg/mL (0-125) H 08/13/22 11:03 Total Protein 5.9 g/dL (6.6-8.7) L 08/13/22 11:03 Albumin 2.8 g/dL (3.5-5.2) L 08/13/22 11:03 Globulin 3.1 g/dL (1.3-4.6) 08/13/22 11:03 Urine Color Yellow (Yellow) 08/13/22 11:22 Urine Appearance Sl hazy (CLEAR) A 08/13/22 11:22 Urine pH 5 (5-7) 08/13/22 11:22 Ur Specific [place] 1.015 (1.005-1.030) 08/13/22 11:22 Urine Protein Neg (Negative) 08/13/22 11:22 Urine Glucose (UA) Norm (Normal) 08/13/22 11:22 Urine Ketones Negative (Negative) 08/13/22 11:22 Urine Blood Neg (Negative) 08/13/22 11:22 Urine Nitrate Negative (Negative) 08/13/22 11:22 Urine Bilirubin Neg (Negative) 08/13/22 11:22 Urine Urobilinogen Norm mg/dL (Negative) 08/13/22 11:22 Ur Leukocyte Esterase Negative (Negative) 08/13/22 11:22 Urine RBC None /hpf (0-2) 08/13/22 11:22 Urine WBC None /hpf (0-5) 08/13/22 11:22 Ur Squamous Epith Cells 15-25 /hpf (0-5) H 08/13/22 11:22 Amorphous Sediment Not Reportable 08/13/22 11:22 Urine Bacteria Trace /hpf (NONE) 08/13/22 11:22 Urine Mucus 1+ /hpf 08/13/22 11:22 Discharge Plan Discharge Patient Disposition: Home Clinical Impression: Acute on chronic congestive heart failure Condition: Stable Prescriptions: No Action albuterol sulfate [ProAir HFA] 90 mcg/actuation HFA aerosol inhaler 2 puff INHALATION Q6H PRN (Reason: Shortness Of Breath) latanoprost 0.005 % drops 1 drp ophthalmic (eye) BEDTIME atorvastatin 20 mg tablet 20 mg PO BEDTIME@19 ipratropium-albuterol 0.5 mg-3 mg(2.5 mg base)/3 mL solution for nebulization 3 ml INHALATION TID PRN (Reason: Shortness Of Breath) furosemide [Lasix] 40 mg tablet 40 mg PO BID Qty: 60 0RF bisacodyl [Dulcolax (bisacodyl)] 10 mg Suppository 10 mg [place] DAILY PRN (Reason: Constipation) Rx Instructions: give if no results from mom Fleet Enema 19-7 gram/118 mL Enema 118 ml [place] DAILY PRN (Reason: Constipation) Rx Instructions: give if no results from mom and dulcolax bisacodyl [Dulcolax (bisacodyl)] 5 mg Tablet,Delayed Release (Dr/Ec) 10 mg PO DAILY PRN (Reason: Constipation) Rx Instructions: give if no results from mom clopidogrel 75 mg tablet 75 mg PO DAILY@07 bupropion HCl 150 mg tablet extended release 24 hr 150 mg PO DAILY@07 acetaminophen [Tylenol] 325 mg Tablet 650 mg PO Q6H PRN (Reason: Pain) magnesium hydroxide [Milk of Magnesia] 400 mg/5 mL Suspension 30 ml PO .EVERY 72 HOURS PRN (Reason: if no bm in 3 days) Rx Instructions: do not give to renal patients go to dulcolax orders metoprolol tartrate 25 mg tablet 12.5 mg PO Q12H sucralfate 1 gram Tablet 1 g PO Q12H 30 Days Qty: 60 0RF pantoprazole [Protonix] 40 mg tablet,delayed release (DR/EC) 40 mg PO BID 30 Days Qty: 60 0RF insulin lispro 100 unit/mL insulin pen See Rx Instructions .ROUTE .COMPLEX Qty: 15 0RF Rx Instructions: per sliding scale with meals if blood sugar is less than 60 call 141-180=6 units 181-220=8 units 221-260=10 units 261-300=12 units 301-350=14 units 351-400=16 units if blood sugar is greater than 400 give 18 units for 3 consecutive times or symptomatic call insulin glargine [Lantus Solostar U-100 Insulin] 100 unit/mL (3 mL) insulin pen 20 unit SUBCUT QAM Qty: 15 0RF ferrous sulfate 325 mg (65 mg iron) tablet,delayed release (DR/EC) 325 mg PO DAILY 30 Days Qty: 30 0RF heparin, porcine (PF) 100 unit/mL syringe 5 unit intra-catheter BID nystatin [Nyamyc] 100,000 unit/gram powder 1 applic TOPICAL BID PRN (Reason: to abd folds and breast) insulin lispro 100 unit/mL Insulin Pen 7 unit SUBCUT TIDWM sodium chloride 0.9 % (flush) [Normal Saline Flush] Syringe See Rx Instructions .ROUTE .COMPLEX Rx Instructions: 10ml injection twice a day (flush davey-cath before and after use ertapenem 1 gram recon soln 1 g IV DAILY 4 Days Qty: 4 0RF Discharge Orders: Discharge ED (Routine); Ordered 08/13/22 Ordered By: Eldon Ortiz Referrals: Ronny Torres DO [Primary Care Provider] - Patient Instructions: Opioid Safety, Pain Management Activity Restrictions/Additional Instructions: You are seen today for slight worsening of congestive heart failure. Recommend that you stay on 2 L/min by nasal cannula of oxygen, increase your Lasix to 80 mg twice daily for the next 3 days. On the fourth day BMP and chest x-ray should be repeated at the [place] [facility]. Follow-up to your primary care doctor. 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
[2022-08-13 09:56] LABS: Basophils # 0.1 10^3/uL (0.0-0.1); Basophils % 0.5 %; Eosinophils # 0.2 10^3/uL (0.0-0.8); Eosinophils % 1.7 %; Hemoglobin 9.5 g/dL (11.5-15.3); Lymphocytes # 0.9 10^3/uL (0.8-4.8); Lymphocytes % 8.9 %; Mean Corpuscular HGB Conc 27.9 g/dL (30.0-36.0); Mean Corpuscular Hemoglobin 24.9 pg (28.0-34.0); Mean Platelet Volume 11.3 fL (7.4-10.4); Monocytes # 0.7 10^3/uL (0.2-0.9); Monocytes % 7.1 %; Neutrophils # 8.56 10^3/uL (1.8-7.7); Neutrophils % 81.5 %; Nucleated Red Blood Cells % 0 %; Platelet Count 346 10^3/cmm (130-400); Red Blood Count 3.82 10^6/uL (4.1-5.3); White Blood Count 10.5 10^3/uL (4.0-10.0)
[2022-08-13] MEDS: FUROsemide 10 mg/mL SDV 10mL 80 MG IVP (11:27)
[2022-08-13 11:39] LABS: Alanine Aminotransferase 21 U/L (0-33); Albumin Level 2.8 g/dL (3.5-5.2); Alkaline Phosphatase 106 U/L (35-105); Anion Gap 8.6 (5-19); Aspartate Amino Transferase 21 U/L (0-32); Blood Urea Nitrogen 46 mg/dL (8-23); Calcium 8.7 mg/dL (8.5-10.5); Carbon Dioxide 40 mmol/L (22-29); Chloride 96 mmol/L (98-107); Globulin 3.1 g/dL (1.3-4.6); Glucose 150 mg/dL (65-115); NT Pro B Type Natriuretic Pept 7861 pg/mL (0-125); Osmolality Calculated 307 mOsm/kg (285-295); Potassium 3.6 mmol/L (3.5-5.1); Sodium 141 mmol/L (136-145); Total Bilirubin 0.3 mg/dL (0.15-1.2); Total Protein 5.9 g/dL (6.6-8.7)
[2022-08-13 12:24] LABS: Add Urine Microscopic? YES; Bilirubin Urine Neg (Negative); Blood Urine Neg (Negative); Glucose Urine UA Norm (Normal); Ketones Urine Negative (Negative); Leukocyte Esterase Urine Negative (Negative); Nitrate Urine Negative (Negative); Protein Urine Neg (Negative); Specific Gravity, Urine 1.015 (1.005-1.030); Urine Appearance SL Hazy (CLEAR); Urine Color Yellow (Yellow); Urobilinogen Urine Norm (Negative); pH Urine 5 (5-7)
[2022-08-13 12:25] LABS: Squamous Epithelial Cell Urine 15-25 /hpf (0-5)
[2022-08-13 12:26] LABS: Add Urine Culture? No; Bacteria Urine TRACE /hpf; Mucus Urine 1+ /hpf
--- NOTE | 2022-08-13 12:30 | PC.NURSE ---
PT PLACED ON CONTINUOUS NIBP, SPO2
== END 2022-08-13 18:34 | disposition home or self-care (01) ==
PROVIDERS: Emergency Provider Family Medicine; PCP Internal Medicine
DX: I11.0 Hypertensive heart disease with heart failure (principal); I50.9 Heart failure, unspecified; Z79.02 Long term (current) use of antithrombotics/antiplatelets; Z79.4 Long term (current) use of insulin; E11.9 Type 2 diabetes mellitus without complications; Z87.891 Personal history of nicotine dependence
CPT/HCPCS: 51702; 71045; 80053; 81001; 83880; 85025; 93005; 96374; 99284; J1940

== ENCOUNTER → 2022-08-17 14:36 | Outpatient (BNVA) | payer MEDICARE, MEDICAID, SELFPAY | PROVIDERS: PCP Internal Medicine; Visit Provider Nurse Practitioner Family | DX: I11.0 Hypertensive heart disease with heart failure (principal); I50.9 Heart failure, unspecified; Z87.891 Personal history of nicotine dependence | CPT/HCPCS: 99213 ==

== ENCOUNTER 2022-08-29 19:04 | Emergency (ER) | payer MEDICARE, MEDICAID, SELFPAY ==
[2022-08-29 19:08] VITALS: BP 113/72; PULSE 73; RESP 22; TEMP 36.4; O2SAT 100; BMI 81.8
--- NOTE | 2022-08-29 19:09 | XRR_ITS ---
PROCEDURE INFORMATION: Exam: XR Chest Exam date and time: 08/29/2022 7:24 PM Age: 66 years old Clinical indication: Other: Chf TECHNIQUE: Imaging protocol: Radiologic exam of the chest. Views: 1 view. COMPARISON: CR (CHEST, ) 08/13/2022 9:44 AM FINDINGS: Lungs: Bilateral perihilar and infrahilar infiltrates, similar to prior and concerning for edema. Right upper lobe calcified granuloma. Pleural spaces: Questionable small left pleural effusion. No pneumothorax. Heart/Mediastinum: Cardiomegaly. Bones/joints: No acute osseous abnormality. Mild degenerative changes. XR/XR chest 1V portable [id number] IMPRESSION: 1. Mild cardiomegaly and questionable small left pleural effusion. 2. Bilateral perihilar and infrahilar infiltrates, similar to prior and concerning for edema. 3. Additional findings, as above.
--- NOTE | 2022-08-29 19:09 | ECG_ITS ---
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 Measurements Intervals Glenn Rate: 73 P: 94 SD: 180 QRS: 107 QRSD: 99 T: 60 QT: 375 QTc: 414 Interpretive Statements SINUS RHYTHM RIGHT AXIS DEVIATION [QRS AXIS > 100] LOW QRS VOLTAGE IN PRECORDIAL LEADS [QRS DEFLECTION < 1.0 mV IN CHEST LEADS] POSSIBLE ANTERIOR MYOCARDIAL INFARCTION , PROBABLY OLD [30 ms Q WAVE IN V3/V4, OR R < 0.2 mV IN V4] Compared to ECG 08/13/2022 09:26:58 Right-axis deviation now present Low QRS voltage now present Myocardial infarct finding now present Atrial abnormality no longer present Electronically Signed On 08-29-2022 23:18:49 CDT by Tray Rubalcava M.D. [id number]
--- NOTE | 2022-08-29 19:10 | W.ED.GENADLT ---
HPI - General Adult General: Chief complaint: Extremity Problem,Nontraumatic Stated complaint: edema Time Seen by Provider: 08/29/22 19:09 History of Present Illness: 66-year-old female comes in today with increased edema and swelling. Patient was referred to the ER by Dr. [facility] There was concern about increased edema to her left arm. Patient denies any chest pain or increase in shortness of breath. Patient does wear oxygen routinely and is presently on 2 L per nasal cannula. Patient has a history of diabetes, CHF, COPD. Patient is morbidly obese. Patient shows a increase in weight from 364 last week to 366 this week. Review of the record noted that patient had a baseline weight of 320 pounds on June 26. Also is noted patient's cardiac echo showed ejection fraction of 25 to 30% that was done around 05 July. Associated symptoms: Deny chest pain, dyspnea, nausea, rash or vomiting Review of Systems General: Reports: 10 or more systems reviewed and unremarkable except in HPI and below Const: Denies: fever(s) ENMT: Denies: throat pain Card: Denies: chest pain Resp: Denies: dyspnea GI: Denies: nausea, vomiting, diarrhea or constipation : Denies: difficulty voiding Musc: Denies: neck pain or back pain Skin/Breast: Denies: rash Neuro: Denies: numbness in extremities Psych: Denies: anxiety or depression PFSH ED PFSH: Medical History Atrial fibrillation Congestive heart failure Ejection fraction 25 to 30% 06/26 Diabetes mellitus with peripheral autonomic neuropathy Gangrene Hypertension New onset of congestive heart failure Acute diastolic heart failure. EF normal on limited echo Obesity PAD (peripheral artery disease) Tobacco abuse, in remission Surgical History Post-operative state Status post amputation of great toe Family History Other Diabetes Hypertension Denies family history of CAD (coronary artery disease) Clotting disorder Dementia Hyperlipidemia Psychiatric illness Chronic kidney disease (CKD) Suicide Anesthesia complication Bleeding disorder Family history of premature coronary artery disease Lung disease Cancer Stroke Social History Smoking and tobacco status: former smoker Substance/Drug Use: never Marital status: Current occupational status: disabled Physical Exam Const: COMMON NORMALS: alert HENMT: COMMON NORMALS: normocephalic HEAD & SCALP: normocephalic Eye: GENERAL EYE: appearance normal, both eyes and all related structures Neck/C-Spine: COMMON NORMALS: full ROM Resp: COMMON NORMALS: normal respiratory effort AUSCULTATION: diminished lung sounds Cardio: COMMON NORMALS: regular rate and regular rhythm RATE: regular rate RHYTHM: regular rhythm GI: AUSCULTATION: Yes normoactive bowel sounds PALPATION: No Tenderness to palpation present (GI) and Yes Other GI palpation findings present (Pitting edema to the lower abdomen and flanks) Extremity: NARRATIVE EXTREMITY EXAM: Gross pitting edema to the bilateral lower extremities up into the abdomen and flanks. Increase edema is also noted to the left arm. Neuro: SENSORIUM/ORIENTATION: Yes alert Skin: NARRATIVE SKIN EXAM: No rashes are noted. Course Vital Signs: Vital signs: Vital Signs Temperature 97.6 F 08/29/22 19:08 Pulse Rate 73 08/29/22 19:08 Respiratory Rate 22 H 08/29/22 19:08 Blood Pressure 113/72 08/29/22 19:08 Pulse Oximetry 100 08/29/22 19:08 Oxygen Delivery Me thod Room Air 08/29/22 19:08 MDM - General Adult Medical Decision Making 66-year-old female comes in today for complaints of generalized edema with increased swelling to the left arm. [facility] of [facility] record for monitoring of patient's weight she has only had a 2 pound increase in the last week. Patient has noticeable edema up to her abdomen and flanks bilaterally. Patient does have increased edema to the left arm when compared to the right. Patient reports no chest pain or increasing shortness of breath. Lungs are decreased throughout. Patient is on 2 L oxygen nasal cannula full-time. O2 sat is 100%. Patient is afebrile. Patient has a history of diabetes, CHF, and chronic lung disease. Review of patient's records notes no SGLT-2 inhibitors. Differential diagnosis includes but not limited to DVT left upper extremity, CHF, renal failure, chest x-ray shows no changes from prior exam on the . Laboratory values were unremarkable. Patient was given 2 doses of furosemide 80 mg IV in the emergency department. I reviewed this with Dr. Carney and laboratory values he recommended [facility] back [facility] and follow-up with primary care. No signs of DVT was noted on ultrasound. I opted to start empagliflozin 10 mg daily which is shown beneficial in CHF for improved diuresis and cardiac output. Patient reported understanding and agreed to plan. Lab Data 08/29/22 19:34 08/29/22 19:34 Laboratory Results WBC 11.2 10^3/uL (4.0-10.0) H 08/29/22 19:34 RBC 3.29 10^6/uL (4.1-5.3) L 08/29/22 19:34 Hgb 8.0 g/dL (11.5-15.3) L 08/29/22 19:34 Hct 30.0 % (37.0-47.0) L 08/29/22 19:34 MCV 91.2 fl (81-99) 08/29/22 19:34 MCH 24.3 pg (28.0-34.0) L 08/29/22 19:34 MCHC 26.7 g/dL (30.0-36.0) L 08/29/22 19:34 RDW 20.7 % (12.1-15.1) H 08/29/22 19:34 Plt Count 397 10^3/cmm (130-400) 08/29/22 19:34 MPV 10.8 fL (7.4-10.4) H 08/29/22 19:34 Neut % (Auto) 81.7 % 08/29/22 19: Lymph % (Auto) 5.6 % 08/29/22 19:34 [place] % (Auto) 9.4 % 08/29/22 19:34 Eos % (Auto) 2.1 % 08/29/22 19:34 Baso % (Auto) 0.7 % 08/29/22 19:34 Neut # (Auto) 9.13 10^3/uL (1.8-7.7) H 08/29/22 19:34 Lymph # (Auto) 0.6 10^3/uL (0.8-4.8) L 08/29/22 19:34 [place] # (Auto) 1.1 10^3/uL (0.2-0.9) H 08/29/22 19:34 Eos # (Auto) 0.2 10^3/uL (0.0-0.8) 08/29/22 19:34 Baso # (Auto) 0.1 10^3/uL (0.0-0.1) 08/29/22 19:34 Nucleated RBC % (auto) 0 % 08/29/22 19:34 Nucleated RBCs # 0.0 /100WBC 08/29/22 19:34 Sodium 143 mmol/L (136-145) 08/29/22 19:34 Potassium 4.1 mmol/L (3.5-5.1) 08/29/22 19:34 Chloride 98 mmol/L (98-107) 08/29/22 19:34 Carbon Dioxide 36 mmol/L (22-29) H 08/29/22 19:34 Anion Gap 13.1 (5-19) 08/29/22 19:34 BUN 27 mg/dL (8-23) H 08/29/22 19:34 Creatinine 0.9 mg/dL (0.5-0.9) 08/29/22 19:34 GFR Calculation 62.8 mL/min (90-130) L 08/29/22 19:34 Glucose 232 mg/dL (65-115) H 08/29/22 19:34 Calculated Osmolality 309 mOsm/kg (285-295) H 08/29/22 19:34 Calcium 8.7 mg/dL (8.5-10.5) 08/29/22 19:34 Total Bilirubin 0.4 mg/dL (0.15-1.2) 08/29/22 19:34 AST 16 U/L (0-32) 08/29/22 19:34 ALT 11 U/L (0-33) 08/29/22 19:34 Alkaline Phosphatase 91 U/L (35-105) 08/29/22 19:34 NT-Pro-B Natriuret Pep 9433 pg/mL (0-125) H 08/29/22 19:34 Total Protein 6.7 g/dL (6.6-8.7) 08/29/22 19:34 Albumin 3.4 g/dL (3.5-5.2) L 08/29/22 19:34 Globulin 3.3 g/dL (1.3-4.6) 08/29/22 19:34 Urine Color Yellow (Yellow) 08/29/22 19:46 Urine Appearance Clear (CLEAR) 08/29/22 19:46 Urine pH 5 (5-7) 08/29/22 19:46 Ur Specific [place] 1.020 (1.005-1.030) 08/29/22 19:46 Urine Protein Neg (Negative) 08/29/22 19:46 Urine Glucose (UA) Norm (Normal) 08/29/22 19:46 Urine Ketones Negative (Negative) 08/29/22 19:46 Urine Blood Neg (Negative) 08/29/22 19:46 Urine Nitrate Negative (Negative) 08/29/22 19:46 Urine Bilirubin Neg (Negative) 08/29/22 19:46 Urine Urobilinogen Norm mg/dL (Negative) 08/29/22 19:46 Ur Leukocyte Esterase Negative (Negative) 08/29/22 19:46 EKG Data EKG 1: EKG interpretation date: 08/29/22 EKG interpretation time: 19:58 Prior EKG tracings: available for review Interpretation: EKG shows a sinus rhythm with a regular rate of 73 bpm. Prior EKG showed atrial fibs. No ST elevation or premature complexes are noted. Discharge Plan Discharge Patient Disposition: Home Clinical Impression: Diabetes mellitus with peripheral autonomic neuropathy Congestive heart failure Qualifiers: Heart failure type: combined systolic and diastolic Heart failure chronicity: chronic Qualified Code(s): I50.42 - Chronic combined systolic (congestive) and diastolic (congestive) heart failure Condition: Stable Prescriptions: New empagliflozin 10 mg tablet 10 mg PO DAILY Qty: 30 0RF No Action albuterol sulfate [ProAir HFA] 90 mcg/actuation HFA aerosol inhaler 2 puff INHALATION Q6H PRN (Reason: Shortness Of Breath) latanoprost 0.005 % drops 1 drp ophthalmic (eye) BEDTIME atorvastatin 20 mg tablet 20 mg PO BEDTIME@19 ipratropium-albuterol 0.5 mg-3 mg(2.5 mg base)/3 mL solution for nebulization 3 ml INHALATION TID PRN (Reason: Shortness Of Breath) furosemide [Lasix] 40 mg tablet 40 mg PO BID Qty: 60 0RF bisacodyl [Dulcolax (bisacodyl)] 10 mg Suppository 10 mg [place] DAILY PRN (Reason: Constipation) Rx Instructions: give if no results from mom Fleet Enema 19-7 gram/118 mL Enema 118 ml [place] DAILY PRN (Reason: Constipation) Rx Instructions: give if no results from mom and dulcolax bisacodyl [Dulcolax (bisacodyl)] 5 mg Tablet,Delayed Release (Dr/Ec) 10 mg PO DAILY PRN (Reason: Constipation) Rx Instructions: give if no results from mom clopidogrel 75 mg tablet 75 mg PO DAILY@07 bupropion HCl 150 mg tablet extended release 24 hr 150 mg PO DAILY@07 acetaminophen [Tylenol] 325 mg Tablet 650 mg PO Q6H PRN (Reason: Pain) metoprolol tartrate 25 mg tablet 12.5 mg PO Q12H insulin lispro 100 unit/mL insulin pen See Rx Instructions .ROUTE .COMPLEX Qty: 15 0RF Rx Instructions: per sliding scale with meals if blood sugar is less than 60 call 141-180=6 units 181-220=8 units 221-260=10 units 261-300=12 units 301-350=14 units 351-400=16 units if blood sugar is greater than 400 give 18 units for 3 consecutive times or symptomatic call insulin glargine [Lantus Solostar U-100 Insulin] 100 unit/mL (3 mL) insulin pen 20 unit SUBCUT QAM Qty: 15 0RF nystatin [Nyamyc] 100,000 unit/gram powder 1 applic TOPICAL BID PRN (Reason: to abd folds and breast) insulin lispro 100 unit/mL Insulin Pen 7 unit SUBCUT TIDWM sodium chloride 0.9 % (flush) [Normal Saline Flush] Syringe See Rx Instructions .ROUTE .COMPLEX Rx Instructions: 10ml injection twice a day (flush davey-cath before and after use Discharge Orders: Discharge ED (Routine); Ordered 08/29/22 Ordered By: Robbi Martel Referrals: Ronny Torres DO [Primary Care Provider] - Patient Instructions: Heart Failure (ED), Opioid Safety, Pain Management Activity Restrictions/Additional Instructions: Continue routine meds. Start empagliflozin for better cardiac output which is shown to be beneficial in CHF along with diabetes. Follow-up with primary care as needed. Return to ED for worsening symptoms such as chest pain, fever greater than 100.4, or increased shortness of breath. Coding Level of Care Code ED Plaster Maker for Chg Fwd
--- NOTE | 2022-08-29 19:15 | USR_ITS ---
PROCEDURE INFORMATION: Exam: US Duplex Left Upper Extremity Veins, Limited Exam date and time: 08/29/2022 8:00 PM Age: 66 years old Clinical indication: Edema, localized; Upper extremity, left; Additional info: Increased edema TECHNIQUE: Imaging protocol: Real-time duplex ultrasound of the left extremity with 2-D louise scale, color Doppler flow and spectral waveform analysis including responses to compression and other maneuvers (when performed) with image documentation. Limited exam focused on the left upper extremity veins. COMPARISON: [place] [id number] 08/03/2022 4:18 PM FINDINGS: Left deep veins: Internal jugular, subclavian, axillary, brachial, radial and ulnar veins patent without thrombus. Normal compressibility, augmentation response and/or Doppler waveforms. Left superficial veins: Visualized cephalic and basilic veins patent without thrombus. Soft tissues: Unremarkable. US/[place] [id number] IMPRESSION: No sonographic evidence of deep vein thrombosis.
[2022-08-29 19:44] LABS: Basophils # 0.1 10^3/uL (0.0-0.1); Basophils % 0.7 %; Eosinophils # 0.2 10^3/uL (0.0-0.8); Eosinophils % 2.1 %; Lymphocytes # 0.6 10^3/uL (0.8-4.8); Lymphocytes % 5.6 %; Mean Corpuscular HGB Conc 26.7 g/dL (30.0-36.0); Mean Corpuscular Hemoglobin 24.3 pg (28.0-34.0); Mean Corpuscular Volume 91.2 fl (81-99); Mean Platelet Volume 10.8 fL (7.4-10.4); Monocytes # 1.1 10^3/uL (0.2-0.9); Monocytes % 9.4 %; Neutrophils # 9.13 10^3/uL (1.8-7.7); Neutrophils % 81.7 %; Nucleated Red Blood Cells % 0 %; Platelet Count 397 10^3/cmm (130-400); Red Blood Count 3.29 10^6/uL (4.1-5.3); Red Cell Distribution Width 20.7 % (12.1-15.1); White Blood Count 11.2 10^3/uL (4.0-10.0)
[2022-08-29] MEDS: FUROsemide 10 mg/mL SDV 10mL 80 MG IVP ×2 (19:46→20:37)
--- NOTE | 2022-08-29 19:47 | PC.NURSE ---
VETO PUSHED BY MIKKI Connor RN
[2022-08-29 19:52] LABS: Add Urine Microscopic? NO; Charge for UA Resulting for Rev
[2022-08-29 19:55] LABS: Bilirubin Urine Neg (Negative); Blood Urine Neg (Negative); Glucose Urine UA Norm (Normal); Ketones Urine Negative (Negative); Leukocyte Esterase Urine Negative (Negative); Nitrate Urine Negative (Negative); Protein Urine Neg (Negative); Urine Appearance Clear (CLEAR); Urine Color Yellow (Yellow); Urobilinogen Urine Norm (Negative); pH Urine 5 (5-7)
[2022-08-29 20:16] LABS: Alanine Aminotransferase 11 U/L (0-33); Albumin Level 3.4 g/dL (3.5-5.2); Alkaline Phosphatase 91 U/L (35-105); Anion Gap 13.1 (5-19); Aspartate Amino Transferase 16 U/L (0-32); Blood Urea Nitrogen 27 mg/dL (8-23); Calcium 8.7 mg/dL (8.5-10.5); Carbon Dioxide 36 mmol/L (22-29); Chloride 98 mmol/L (98-107); Globulin 3.3 g/dL (1.3-4.6); Glomerular Filtration Rate 62.8 mL/min (90-130); Glucose 232 mg/dL (65-115); NT Pro B Type Natriuretic Pept 9433 pg/mL (0-125); Osmolality Calculated 309 mOsm/kg (285-295); Potassium 4.1 mmol/L (3.5-5.1); Sodium 143 mmol/L (136-145); Total Bilirubin 0.4 mg/dL (0.15-1.2); Total Protein 6.7 g/dL (6.6-8.7)
--- NOTE | 2022-08-29 23:49 | PC.NURSE ---
CONTE CATHETER REMOVED PRIOR TO TRANSPORT. 1200ML IN BAG AT THIS TIME.
== END 2022-08-29 23:50 | disposition home or self-care (01) ==
PROVIDERS: Emergency Provider Nurse Practitioner Family; PCP Internal Medicine
DX: I11.0 Hypertensive heart disease with heart failure (principal); I50.42 Chronic combined systolic (congestive) and diastolic (congestive) heart failure; Z79.02 Long term (current) use of antithrombotics/antiplatelets; E11.43 Type 2 diabetes mellitus with diabetic autonomic (poly)neuropathy; Z79.4 Long term (current) use of insulin; Z87.891 Personal history of nicotine dependence
CPT/HCPCS: 51702; 71045; 80053; 81003; 83880; 85025; 93005; 93971; 96374; 96376; 99285; J1940

== ENCOUNTER 2022-09-01 12:34 | Outpatient (CLI) | payer MEDICARE, MEDICAID, SELFPAY ==
[2022-09-01 13:00] LABS: Basophils # 0.1 10^3/uL (0.0-0.1); Basophils % 0.8 %; Eosinophils # 0.3 10^3/uL (0.0-0.8); Eosinophils % 2.7 %; Hematocrit 29.8 % (37.0-47.0); Hemoglobin 8.1 g/dL (11.5-15.3); Lymphocytes # 1.2 10^3/uL (0.8-4.8); Lymphocytes % 9.8 %; Mean Corpuscular HGB Conc 27.2 g/dL (30.0-36.0); Mean Corpuscular Hemoglobin 24.5 pg (28.0-34.0); Mean Corpuscular Volume 90.3 fl (81-99); Mean Platelet Volume 10.9 fL (7.4-10.4); Monocytes # 1.5 10^3/uL (0.2-0.9); Neutrophils # 9.13 10^3/uL (1.8-7.7); Neutrophils % 74.2 %; Nucleated Red Blood Cells % 0 %; Platelet Count 398 10^3/cmm (130-400); Red Cell Distribution Width 21.5 % (12.1-15.1); White Blood Count 12.3 10^3/uL (4.0-10.0)
[2022-09-01 13:24] LABS: Blood Urea Nitrogen 33 mg/dL (8-23); Carbon Dioxide 40 mmol/L (22-29); Chloride 97 mmol/L (98-107); Glomerular Filtration Rate 49.8 mL/min (90-130); Glucose 55 mg/dL (65-115); Osmolality Calculated 303 mOsm/kg (285-295); Sodium 144 mmol/L (136-145)
== END 2022-09-01 12:35 | disposition home or self-care (01) ==
PROVIDERS: PCP Internal Medicine; Visit Provider Internal Medicine
DX: Z01.89 Encounter for other specified special examinations (principal)
CPT/HCPCS: 80048; 85025